=== PATIENT | female | born 1970 | race Caucasian/White ===

== ENCOUNTER 2018-09-24 18:37 | Emergency (ER) | payer MEDICAID ==
[~2018-09-24] VITALS: Ht 167.6 cm; Wt 63.5 kg
[2018-09-24 18:43] VITALS: BP 122/84
== END 2018-09-24 21:16 | disposition home or self-care (01) ==
LOC: EDUNIT# 18:37 → EDBD 18:37 → ER 18:38
DX: S60.351A Superficial foreign body of right thumb, initial encounter (principal); F17.210 Nicotine dependence, cigarettes, uncomplicated; F12.10 Cannabis abuse, uncomplicated; F15.10 Other stimulant abuse, uncomplicated; F32.9 Major depressive disorder, single episode, unspecified; F20.9 Schizophrenia, unspecified; Z76.5 Malingerer [conscious simulation]; W22.8XXA Striking against or struck by other objects, initial encounter; Y93.89 Activity, other specified; Y92.89 Other specified places as the place of occurrence of the external cause; Y99.8 Other external cause status

== ENCOUNTER 2019-08-27 11:51 | Inpatient (IN) | payer MEDICAID ==
[~2019-08-27] VITALS: Ht 167.6 cm; Wt 49.1 kg
[2019-08-27 12:35] LABS: Urine WBC None Seen /hpf (0 - 5)
[2019-08-27] MEDS ORDERED: SODIUM CHLORIDE 0.9% 1,000 ML IVB ONE (12:40)
[2019-08-27 12:43] LABS: Urine Bacteria NONE SEEN /hpf (None Seen); Urine Blood Negative /uL (Negative); Urine Specific Gravity 1.034 (1.001-1.035)
[2019-08-27 12:55] LABS: Alcohol, Urine < 3.0 mg/dL (0-10); Amphetamine Screen, Urine POSITIVE (NEGATIVE); Barbiturate Scree,Urine NEGATIVE (NEGATIVE); Benzodiazephine Screen, Urine NEGATIVE (NEGATIVE); Cannabinoid Screen, Urine NEGATIVE (NEGATIVE); Cocaine Screen, Urine NEGATIVE (NEGATIVE); Phencyclidine Screen, Urine NEGATIVE (NEGATIVE)
[2019-08-27 13:02] LABS: Opiate Scree,Urine NEGATIVE (NEGATIVE)
[2019-08-27] MEDS ORDERED: MORPHINE SULF INJ 2 MG/ML SYRINGE 1ML IV ONE (13:15)
[2019-08-27] MEDS ORDERED: ONDANSETRON HCL 4 MG/2 ML VIAL IV ONE (13:15)
[2019-08-27] MEDS ORDERED: SODIUM CHLORIDE 0.9% 1,000 ML IV ONE (13:15)
[2019-08-27 13:20] LABS: Basophils # (auto) 0.1 10 ^3/uL (0-0.2); Basophils % (auto) 0.4 % (0.0-2.0); Eosinophils # (auto) 0 10 ^3/uL (0-0.8); Hematocrit 49.4 % (36.0-46.0); Lymphocytes # (auto) 1.3 10 ^3/uL (0.4-5.4); Lymphocytes % (auto) 9.4 % (10.0-50.0); Mean Corpuscular Hemoglobin 31.2 pg (28.0-32.0); Mean Corpuscular Hgb Conc. 32.4 g/dL (32.0-36.0); Mean Corpuscular Volume 96.4 fL (80.0-100.0); Monocytes # (auto) 0.9 10 ^3/uL (0-1.3); Monocytes % (auto) 6.3 % (0.0-12.0); Neutrophils # (auto) 11.7 10 ^3/uL (1.6-8.6); Neutrophils % (auto) 83.9 % (37.0-80.0); Nucleated Red Blood Cells % 0.1 %; Platelet Count (auto) 300 10^3/uL (140-450); Red Blood Cells 5.13 10^6/uL (4.0-5.20); Red Cell Distribution Width 12.8 % (11.8-14.3)
[2019-08-27 13:41] LABS: Albumin 3.7 g/dL (3.4-5.0); Anion Gap 11 (5-15); Blood Urea Nitrogen 24 mg/dL (7-18); Calcium 9.6 mg/dL (8.5-10.1); Carbon Dioxide 22 mmol/L (21-32); Chloride 113 mmol/L (98-107); Magnesium 2.2 mg/dL (1.6-2.6); Potassium 4.3 mmol/L (3.5-5.1); Sodium 146 mmol/L (136-145)
[2019-08-27 13:44] LABS: Alanine Aminotransferase 239 U/L (13-56); Aspartate Aminotransferase 63 U/L (15-37); BUN/Creatinine Ratio 20.2; Bilirubin, Total 0.4 mg/dL (0.2-1.0); GFR African American 63 mL/min; GFR Non-African American 52 mL/min; Total Protein 7.4 g/dL (6.4-8.2)
[2019-08-27 13:48] LABS: Glucose 778 mg/dL (74-106)
[2019-08-27 13:50] LABS: Alkaline Phosphatase 164 U/L (45-117)
[2019-08-27 14:10] LABS: Lipase 6791 U/L (73-393)
[2019-08-27 14:11] LABS: Amylase 906 U/L (25-115)
[2019-08-27] MEDS ORDERED: InsuLIN REG 1unit/0.01ml Soln (100units/ml) IV ONE (14:30)
[2019-08-27] MEDS ORDERED: ONDANSETRON HCL 4 MG/2 ML VIAL IV PRN (18:45)
[2019-08-27] MEDS ORDERED: IPRATROPIUM BROM 0.5 MG/2.5ML INH SOL NEB PRN (18:45)
[2019-08-27] MEDS ORDERED: DEXTROSE (50%) 50ML SYRG IV PRN (18:45)
[2019-08-27] MEDS ORDERED: MORPHINE SULF INJ 2 MG/ML SYRINGE 1ML IV PRN ×2 (18:45)
[2019-08-27] MEDS ORDERED: ALBUTEROL SULF 2.5 MG/0.5ML(0.5%) NEB SOLN NEB PRN (18:45)
[2019-08-27] MEDS ORDERED: NITROGLYCERIN 0.4 MG SL TAB SL PRN (18:45)
[2019-08-27] MEDS: SODIUM CHLORIDE 0.9% 1,000 ML IV SCH (18:52)
[2019-08-27] MEDS: INSULIN LANTUS (GLARGINE) 1 /0.01ml (100units/ml) SC SCH ×2 (18:58→22:58)
[2019-08-27 19:20] VITALS: BP 134/86
[2019-08-27] MEDS: LORazepam 2MG/ML-1ML VIAL IV PRN (19:20)
[2019-08-27] MEDS: ACCU-CHEK COMFORT CURVE STRIP VI SCH ×2 (20:04→23:42)
[2019-08-27] MEDS: InsuLIN REG 1unit/0.01ml Soln (100units/ml) SC SCH ×2 (20:10→23:43)
[2019-08-27 21:45] VITALS: BP 130/90
[2019-08-27 22:41] LABS: BUN/Creatinine Ratio 28.1; Calcium 8.8 mg/dL (8.5-10.1); Magnesium 2.7 mg/dL (1.6-2.6); Phosphorus 2.6 mg/dL (2.5-4.90); Potassium 4.1 mmol/L (3.5-5.1)
[2019-08-27 23:32] VITALS: BP 129/84
[2019-08-28] MEDS: SODIUM CHLORIDE 0.9% 1,000 ML IV SCH ×2 (02:45→10:45)
[2019-08-28 03:28] LABS: Basophils # (auto) 0.1 10 ^3/uL (0-0.2); Basophils % (auto) 0.3 % (0.0-2.0); Eosinophils # (auto) 0 10 ^3/uL (0-0.8); Hematocrit 48.4 % (36.0-46.0); Hemoglobin 16.1 g/dL (12.2-16.2); Lymphocytes # (auto) 3.5 10 ^3/uL (0.4-5.4); Lymphocytes % (auto) 15.7 % (10.0-50.0); Mean Corpuscular Hemoglobin 31.5 pg (28.0-32.0); Mean Corpuscular Hgb Conc. 33.2 g/dL (32.0-36.0); Monocytes # (auto) 1.3 10 ^3/uL (0-1.3); Monocytes % (auto) 5.7 % (0.0-12.0); Neutrophils # (auto) 17.3 10 ^3/uL (1.6-8.6); Neutrophils % (auto) 78.3 % (37.0-80.0); Platelet Count (auto) 324 10^3/uL (140-450); Red Cell Distribution Width 12.8 % (11.8-14.3); White Blood Cell 22.2 10^3/uL (4.4-10.8)
[2019-08-28 03:48] LABS: Albumin 3.4 g/dL (3.4-5.0); Calcium 8.4 mg/dL (8.5-10.1); Magnesium 2.4 mg/dL (1.6-2.6); Potassium 3.9 mmol/L (3.5-5.1)
[2019-08-28 03:57] LABS: BUN/Creatinine Ratio 31.3; Bilirubin, Total 0.4 mg/dL (0.2-1.0); Phosphorus 2.5 mg/dL (2.5-4.90); Total Protein 6.8 g/dL (6.4-8.2)
[2019-08-28] MEDS: ACCU-CHEK COMFORT CURVE STRIP VI SCH ×5 (04:00→20:00)
[2019-08-28] MEDS: InsuLIN REG 1unit/0.01ml Soln (100units/ml) SC SCH ×5 (04:00→21:02)
[2019-08-28 04:15] VITALS: BP 136/61
[2019-08-28] MEDS: LORazepam 2MG/ML-1ML VIAL IV PRN (05:59)
[2019-08-28 08:00] VITALS: BP 139/88
[2019-08-28 12:00] VITALS: BP 141/92
[2019-08-28] MEDS ORDERED: VANCOMYCIN PER PHARMACY 0 MG IV SCH (13:15)
[2019-08-28] MEDS: SOD CHL 0.45% 1,000 ML IV SCH ×2 (14:00→22:13)
[2019-08-28 15:45] VITALS: BP 140/91
[2019-08-28] MEDS: VANCOMYCIN 1GM/250ML 250 ML IV SCH (16:14)
[2019-08-28] MEDS: NICOTINE 21MG/24 HR TOPICAL PATCH TD SCH (17:32)
[2019-08-28] MEDS: PIPERACILLIN-TAZOB 3.375GM 100 ML IV SCH (17:33)
[2019-08-28] MEDS: KETOROLAC TROMETH 30 MG/ML 1ML VIAL IV PRN (17:33)
[2019-08-28 20:00] VITALS: BP 113/79
[2019-08-28] MEDS: INSULIN LANTUS (GLARGINE) 1 /0.01ml (100units/ml) SC SCH (21:00)
[2019-08-28 23:42] VITALS: BP 123/87
[2019-08-29] MEDS: PIPERACILLIN-TAZOB 3.375GM 100 ML IV SCH ×4 (01:47→17:28)
[2019-08-29] MEDS: KETOROLAC TROMETH 30 MG/ML 1ML VIAL IV PRN ×2 (01:48→14:20)
[2019-08-29 03:31] LABS: Basophils # (auto) 0.1 10 ^3/uL (0-0.2); Basophils % (auto) 0.5 % (0.0-2.0); Eosinophils # (auto) 0.3 10 ^3/uL (0-0.8); Eosinophils % (auto) 1.8 % (0.0-7.0); Hematocrit 46.8 % (36.0-46.0); Hemoglobin 15.3 g/dL (12.2-16.2); Mean Corpuscular Hemoglobin 31.4 pg (28.0-32.0); Mean Corpuscular Hgb Conc. 32.7 g/dL (32.0-36.0); Mean Corpuscular Volume 95.9 fL (80.0-100.0); Monocytes % (auto) 6.6 % (0.0-12.0); Neutrophils # (auto) 10.7 10 ^3/uL (1.6-8.6); Neutrophils % (auto) 71.1 % (37.0-80.0); Nucleated Red Blood Cells % 0.1 %; Platelet Count (auto) 214 10^3/uL (140-450); Red Blood Cells 4.88 10^6/uL (4.0-5.20); Red Cell Distribution Width 12.9 % (11.8-14.3); White Blood Cell 15.1 10^3/uL (4.4-10.8)
[2019-08-29 03:49] LABS: Albumin 2.7 g/dL (3.4-5.0); Calcium 7.6 mg/dL (8.5-10.1); Potassium 3.1 mmol/L (3.5-5.1)
[2019-08-29 03:58] LABS: Bilirubin, Total 0.4 mg/dL (0.2-1.0); Total Protein 5.6 g/dL (6.4-8.2)
[2019-08-29] MEDS: InsuLIN REG 1unit/0.01ml Soln (100units/ml) SC SCH ×6 (04:00→20:15)
[2019-08-29] MEDS: ACCU-CHEK COMFORT CURVE STRIP VI SCH ×6 (04:00→20:00)
[2019-08-29 04:18] VITALS: BP 117/81
[2019-08-29 04:37] LABS: BUN/Creatinine Ratio 41.7
[2019-08-29] MEDS: SOD CHL 0.45% 1,000 ML IV SCH ×3 (06:24→21:15)
[2019-08-29 08:00] VITALS: BP 120/82
[2019-08-29] MEDS ORDERED: POTASSIUM CHL 20MEQ/100ML 100 ML IV ONE (08:00)
[2019-08-29] MEDS: NICOTINE 21MG/24 HR TOPICAL PATCH TD SCH (10:02)
[2019-08-29 11:54] VITALS: BP 125/85
[2019-08-29] MEDS: VANCOMYCIN 1GM/250ML 250 ML IV SCH (14:20)
[2019-08-29 15:33] VITALS: BP 131/82
[2019-08-29 20:00] VITALS: BP 133/86
[2019-08-29] MEDS: INSULIN LANTUS (GLARGINE) 1 /0.01ml (100units/ml) SC SCH (22:35)
[2019-08-30] VITALS: BP 134/90
[2019-08-30] MEDS: PIPERACILLIN-TAZOB 3.375GM 100 ML IV SCH ×5 (00:07→23:45)
[2019-08-30] MEDS: ACCU-CHEK COMFORT CURVE STRIP VI SCH ×7 (00:09→23:45)
[2019-08-30 03:03] LABS: Basophils # (auto) 0.1 10 ^3/uL (0-0.2); Basophils % (auto) 0.5 % (0.0-2.0); Eosinophils # (auto) 0.4 10 ^3/uL (0-0.8); Hematocrit 43.2 % (36.0-46.0); Hemoglobin 14.4 g/dL (12.2-16.2); Lymphocytes # (auto) 2.6 10 ^3/uL (0.4-5.4); Lymphocytes % (auto) 21.4 % (10.0-50.0); Mean Corpuscular Hemoglobin 31.5 pg (28.0-32.0); Mean Corpuscular Hgb Conc. 33.4 g/dL (32.0-36.0); Mean Corpuscular Volume 94.5 fL (80.0-100.0); Monocytes # (auto) 0.8 10 ^3/uL (0-1.3); Neutrophils # (auto) 8.2 10 ^3/uL (1.6-8.6); Neutrophils % (auto) 68.1 % (37.0-80.0); Nucleated Red Blood Cells % 0.1 %; Platelet Count (auto) 154 10^3/uL (140-450); Red Blood Cells 4.57 10^6/uL (4.0-5.20); Red Cell Distribution Width 12.9 % (11.8-14.3)
[2019-08-30] MEDS: KETOROLAC TROMETH 30 MG/ML 1ML VIAL IV PRN ×2 (03:17→10:33)
[2019-08-30 03:25] LABS: Albumin 2.5 g/dL (3.4-5.0); BUN/Creatinine Ratio 22.9; Calcium 7.4 mg/dL (8.5-10.1); Potassium 3.2 mmol/L (3.5-5.1)
[2019-08-30 03:34] LABS: Bilirubin, Total 0.6 mg/dL (0.2-1.0); Total Protein 5.3 g/dL (6.4-8.2)
[2019-08-30] MEDS: InsuLIN REG 1unit/0.01ml Soln (100units/ml) SC SCH ×7 (03:54→23:45)
[2019-08-30] MEDS: SOD CHL 0.45% 1,000 ML IV SCH ×3 (05:15→21:15)
[2019-08-30 05:40] VITALS: BP 115/78
[2019-08-30 09:00] VITALS: BP 130/85
[2019-08-30] MEDS: NICOTINE 21MG/24 HR TOPICAL PATCH TD SCH (10:20)
[2019-08-30 12:42] VITALS: BP 128/71
[2019-08-30] MEDS: VANCOMYCIN 1GM/250ML 250 ML IV SCH (15:53)
[2019-08-30] MEDS: LORazepam 2MG/ML-1ML VIAL IV PRN (15:54)
[2019-08-30 17:00] VITALS: BP 153/95
[2019-08-30] MEDS: INSULIN LANTUS (GLARGINE) 1 /0.01ml (100units/ml) SC SCH (21:31)
[2019-08-30 22:00] VITALS: BP 123/86
[2019-08-31] MEDS: InsuLIN REG 1unit/0.01ml Soln (100units/ml) SC SCH ×4 (03:47→16:00)
[2019-08-31] MEDS: ACCU-CHEK COMFORT CURVE STRIP VI SCH ×4 (03:47→16:00)
[2019-08-31 05:00] VITALS: BP 134/89
[2019-08-31] MEDS: SOD CHL 0.45% 1,000 ML IV SCH ×2 (05:15→13:15)
[2019-08-31] MEDS: PIPERACILLIN-TAZOB 3.375GM 100 ML IV SCH ×2 (06:25→12:00)
[2019-08-31 09:00] VITALS: BP 141/89
[2019-08-31 09:04] LABS: Basophils # (auto) 0 10 ^3/uL (0-0.2); Basophils % (auto) 0.5 % (0.0-2.0); Eosinophils # (auto) 0.2 10 ^3/uL (0-0.8); Eosinophils % (auto) 2.2 % (0.0-7.0); Hematocrit 45.6 % (36.0-46.0); Hemoglobin 15.3 g/dL (12.2-16.2); Lymphocytes # (auto) 2.3 10 ^3/uL (0.4-5.4); Lymphocytes % (auto) 24.1 % (10.0-50.0); Mean Corpuscular Hemoglobin 31.8 pg (28.0-32.0); Mean Corpuscular Hgb Conc. 33.6 g/dL (32.0-36.0); Mean Corpuscular Volume 94.7 fL (80.0-100.0); Monocytes # (auto) 0.6 10 ^3/uL (0-1.3); Monocytes % (auto) 6.1 % (0.0-12.0); Neutrophils # (auto) 6.3 10 ^3/uL (1.6-8.6); Neutrophils % (auto) 67.1 % (37.0-80.0); Nucleated Red Blood Cells % 0.2 %; Platelet Count (auto) 138 10^3/uL (140-450); Red Blood Cells 4.82 10^6/uL (4.0-5.20); Red Cell Distribution Width 12.6 % (11.8-14.3); White Blood Cell 9.4 10^3/uL (4.4-10.8)
[2019-08-31 09:26] LABS: Potassium 3.6 mmol/L (3.5-5.1)
[2019-08-31 09:33] LABS: BUN/Creatinine Ratio 16.3; Calcium 7.9 mg/dL (8.5-10.1)
[2019-08-31] MEDS: NICOTINE 21MG/24 HR TOPICAL PATCH TD SCH (10:00)
[2019-08-31 13:00] VITALS: BP 125/76
== END 2019-08-31 16:07 | disposition home or self-care (01) | DRG 282 ==
LOC: EDBD 11:51 → ER 11:51 → TELE 11:52 → DOU IN ICU 21:54 → TELE-EAST 08-30 03:34
PROVIDERS: ADMIT Nurse Practitioner Acute Care; ATTEND Internal Medicine
DX: K85.90 Acute pancreatitis without necrosis or infection, unspecified (principal); G92 Toxic encephalopathy; E11.10 Type 2 diabetes mellitus with ketoacidosis without coma; R64 Cachexia; E11.22 Type 2 diabetes mellitus with diabetic chronic kidney disease; R65.10 Systemic inflammatory response syndrome (SIRS) of non-infectious origin without acute organ dysfunction; E87.0 Hyperosmolality and hypernatremia; N18.3 Chronic kidney disease, stage 3 (moderate); E86.0 Dehydration; F15.10 Other stimulant abuse, uncomplicated; F17.210 Nicotine dependence, cigarettes, uncomplicated; F20.9 Schizophrenia, unspecified; F19.10 Other psychoactive substance abuse, uncomplicated; F31.9 Bipolar disorder, unspecified; Z91.14 Patient's other noncompliance with medication regimen; Z90.710 Acquired absence of both cervix and uterus; Z79.899 Other long term (current) drug therapy; Z68.1 Body mass index [BMI] 19.9 or less, adult; Z11.59 Encounter for screening for other viral diseases; K76.0 Fatty (change of) liver, not elsewhere classified
CPT/HCPCS: 36415; 71045; 74176; 80048; 80053; 80061; 80307; 81001; 82010; 82150; 82962; 83036; 83690; 83735; 84100; 84443; 84484; 85025; 87040; 87081; 87086; 93005; 96361; 96374; 96375; G0378; J1815; J1885; J2405; J2543; J3480

== ENCOUNTER 2020-02-21 04:00 | Inpatient (IN) | payer MEDICAID ==
[~2020-02-21] VITALS: Ht 160 cm; Wt 45.7 kg
[2020-02-21] MEDS ORDERED: ONDANSETRON HCL 4 MG/2 ML VIAL IV ONE (05:00)
[2020-02-21] MEDS ORDERED: InsuLIN REG 1unit/0.01ml Soln (100units/ml) IV ONE (05:00)
[2020-02-21] MEDS ORDERED: KETOROLAC TROMETH 30 MG/ML 1ML VIAL IV ONE (05:00)
[2020-02-21] MEDS ORDERED: LORazepam 2MG/ML-1ML VIAL IV ONE (05:00)
[2020-02-21] MEDS ORDERED: SODIUM CHLORIDE 0.9% 1,000 ML IV ONE (05:00)
[2020-02-21 05:23] LABS: Basophils # (auto) 0.1 10 ^3/uL (0-0.2); Basophils % (auto) 1.1 % (0.0-2.0); Lymphocytes # (auto) 2.2 10 ^3/uL (0.4-5.4); White Blood Cell 9.3 10^3/uL (4.4-10.8)
[2020-02-21 05:25] LABS: Eosinophils # (auto) 0.1 10 ^3/uL (0-0.8); Eosinophils % (auto) 0.6 % (0.0-7.0); Hemoglobin 15.3 g/dL (12.2-16.2); Lymphocytes % (auto) 23.5 % (10.0-50.0); Mean Corpuscular Hemoglobin 34.2 pg (28.0-32.0); Mean Corpuscular Hgb Conc. 33.2 g/dL (32.0-36.0); Monocytes # (auto) 0.4 10 ^3/uL (0-1.3); Monocytes % (auto) 4.7 % (0.0-12.0); Neutrophils # (auto) 6.6 10 ^3/uL (1.6-8.6); Neutrophils % (auto) 70.1 % (37.0-80.0); Nucleated Red Blood Cells % 0.2 %; Platelet Count (auto) 260 10^3/uL (140-450); Red Blood Cells 4.46 10^6/uL (4.0-5.20); Red Cell Distribution Width 13.3 % (11.8-14.3)
[2020-02-21 05:38] LABS: Albumin 3.3 g/dL (3.4-5.0); Calcium 9.1 mg/dL (8.5-10.1); Magnesium 2.1 mg/dL (1.6-2.6); Potassium 4.2 mmol/L (3.5-5.1)
[2020-02-21 05:42] LABS: BUN/Creatinine Ratio 22.4; Bilirubin, Total 0.4 mg/dL (0.2-1.0); Total Protein 6.2 g/dL (6.4-8.2)
[2020-02-21] MEDS ORDERED: TEMAZEPAM 15 MG CAP PO PRN (07:45)
[2020-02-21] MEDS ORDERED: DEXTROSE (50%) 50ML SYRG IV PRN ×2 (07:45→13:15)
[2020-02-21] MEDS ORDERED: ONDANSETRON HCL 4 MG/2 ML VIAL IV PRN (07:45)
[2020-02-21] MEDS ORDERED: SODIUM CHLORIDE 0.9% 500 ML IV ONE (07:45)
[2020-02-21] MEDS ORDERED: SODIUM CHLORIDE 0.9% 1,000 ML IV SCH (07:45)
[2020-02-21] MEDS ORDERED: ACETAMINOPHEN 325 MG TAB PO PRN (07:45)
[2020-02-21 10:07] LABS: Alcohol, Urine < 3.0 mg/dL (0-10); Amphetamine Screen, Urine POSITIVE (NEGATIVE); Barbiturate Scree,Urine NEGATIVE (NEGATIVE); Benzodiazephine Screen, Urine NEGATIVE (NEGATIVE); Cannabinoid Screen, Urine POSITIVE (NEGATIVE); Cocaine Screen, Urine NEGATIVE (NEGATIVE); Opiate Scree,Urine NEGATIVE (NEGATIVE); Phencyclidine Screen, Urine NEGATIVE (NEGATIVE)
[2020-02-21 10:29] LABS: Urine Bacteria NONE SEEN /hpf (None Seen); Urine Blood TRACE /uL (Negative); Urine Specific Gravity 1.031 (1.001-1.035); Urine WBC 5 /hpf (0 - 5)
[2020-02-21] MEDS: FAMOTIDINE 20 MG TAB PO SCH ×2 (10:30→22:24)
[2020-02-21] MEDS ORDERED: ACCU-CHEK COMFORT CURVE STRIP VI SCH (12:00)
[2020-02-21] MEDS ORDERED: InsuLIN REG 1unit/0.01ml Soln (100units/ml) SC SCH (12:00)
[2020-02-21 12:08] LABS: BUN/Creatinine Ratio 23.1; Calcium 7.6 mg/dL (8.5-10.1); Potassium 3.9 mmol/L (3.5-5.1)
[2020-02-21] MEDS: SODIUM CHLORIDE 0.9% 1,000 ML IV SCH ×2 (13:15→19:55)
[2020-02-21 15:00] VITALS: BP 115/75
[2020-02-21 16:55] VITALS: BP 109/80
[2020-02-21] MEDS: ACCU-CHEK COMFORT CURVE STRIP VI SCH (18:45)
[2020-02-21] MEDS: InsuLIN REG 1unit/0.01ml Soln (100units/ml) SC SCH (18:46)
[2020-02-21 22:00] VITALS: BP 104/75
[2020-02-22] MEDS: InsuLIN REG 1unit/0.01ml Soln (100units/ml) SC SCH ×3 (00:07→12:00)
[2020-02-22] MEDS: ACCU-CHEK COMFORT CURVE STRIP VI SCH ×3 (00:08→12:00)
[2020-02-22 05:00] VITALS: BP 104/77
[2020-02-22] MEDS: SODIUM CHLORIDE 0.9% 1,000 ML IV SCH ×2 (05:07→09:15)
[2020-02-22 06:41] LABS: BUN/Creatinine Ratio 28.6; Calcium 7.6 mg/dL (8.5-10.1); Potassium 3.2 mmol/L (3.5-5.1)
[2020-02-22] MEDS ORDERED: POTASSIUM CHL 20 Meq TABLET PO ONE (07:30)
[2020-02-22 09:00] VITALS: BP 108/78
[2020-02-22] MEDS: FAMOTIDINE 20 MG TAB PO SCH (10:14)
[2020-02-22 11:08] VITALS: BP 108/78
== END 2020-02-22 13:00 | disposition home or self-care (01) | DRG 420 ==
LOC: ER 04:04 → OVERFLOW 04:05 → WEST WING 14:40
PROVIDERS: ADMIT Nurse Practitioner; ATTEND Family Medicine
DX: E11.65 Type 2 diabetes mellitus with hyperglycemia (principal); R64 Cachexia; Z68.1 Body mass index [BMI] 19.9 or less, adult; F15.10 Other stimulant abuse, uncomplicated; F17.210 Nicotine dependence, cigarettes, uncomplicated; F20.9 Schizophrenia, unspecified; E86.0 Dehydration; F32.9 Major depressive disorder, single episode, unspecified; I10 Essential (primary) hypertension; Z90.710 Acquired absence of both cervix and uterus; Z91.14 Patient's other noncompliance with medication regimen; Z80.7 Family history of other malignant neoplasms of lymphoid, hematopoietic and related tissues; Z79.4 Long term (current) use of insulin
CPT/HCPCS: 36415; 51702; 71045; 80048; 80053; 80307; 81001; 81025; 82962; 83036; 83735; 83880; 85025; 93005; 96361; 96374; 96375; G0378; J1815; J1885; J2405

== ENCOUNTER 2021-07-24 01:20 | Emergency (ER) | payer MEDICAID ==
[~2021-07-24] VITALS: Ht 157.5 cm; Wt 52.2 kg
[2021-07-24 02:25] LABS: Basophils # (auto) 0.2 10 ^3/uL (0-0.2); Eosinophils # (auto) 0.3 10 ^3/uL (0-0.8); Eosinophils % (auto) 1.8 % (0.0-7.0); Hematocrit 43.2 % (36.0-46.0); Hemoglobin 15.1 g/dL (12.2-16.2); Lymphocytes # (auto) 5.1 10 ^3/uL (0.4-5.4); Lymphocytes % (auto) 34.1 % (10.0-50.0); Mean Corpuscular Hemoglobin 32.9 pg (28.0-32.0); Mean Corpuscular Hgb Conc. 34.9 g/dL (32.0-36.0); Mean Corpuscular Volume 94.3 fL (80.0-100.0); Monocytes # (auto) 1.1 10 ^3/uL (0-1.3); Monocytes % (auto) 7.5 % (0.0-12.0); Neutrophils # (auto) 8.3 10 ^3/uL (1.6-8.6); Neutrophils % (auto) 55.6 % (37.0-80.0); Red Blood Cells 4.58 10^6/uL (4.0-5.20); Red Cell Distribution Width 12.5 % (11.8-14.3)
[2021-07-24 02:49] LABS: Albumin 3.2 g/dL (3.4-5.0); BUN/Creatinine Ratio 25.9; Calcium 8.7 mg/dL (8.5-10.1); Potassium 3.7 mmol/L (3.5-5.1)
[2021-07-24 02:57] LABS: Bilirubin, Total 0.5 mg/dL (0.2-1.0); Total Protein 6.7 g/dL (6.4-8.2)
[2021-07-24] MEDS ORDERED: InsuLIN REG 1unit/0.01ml Soln (100units/ml) SC ONE (03:15)
[2021-07-24] MEDS ORDERED: SODIUM CHLORIDE 0.9% 1,000 ML IV ONE (04:15)
[2021-07-24 05:00] VITALS: BP 118/76
== END 2021-07-24 05:50 | disposition home or self-care (01) ==
LOC: EDBD 01:20 → ER 01:24
DX: E11.65 Type 2 diabetes mellitus with hyperglycemia (principal); I10 Essential (primary) hypertension; F17.210 Nicotine dependence, cigarettes, uncomplicated; Z90.710 Acquired absence of both cervix and uterus
CPT/HCPCS: 36415; 80053; 82962; 85025; 96360; 96372; 99285; J1815; J7030

== ENCOUNTER 2022-03-17 15:25 | Emergency (ER) | payer MEDICAID ==
[~2022-03-17] VITALS: Ht 157.5 cm; Wt 45.4 kg
[2022-03-18] MEDS ORDERED: CIPR-173 PO (02:17)
[2022-03-18] MEDS ORDERED: AZIT250T9 PO (02:17)
[2022-03-18] MEDS ORDERED: CEPH-322 PO (02:17)
[2022-03-18 03:06] VITALS: BP 101/74
== END 2022-03-18 03:07 | disposition home or self-care (01) ==
LOC: EDBD 15:25 → ER 15:25
DX: H60.92 Unspecified otitis externa, left ear (principal); J06.9 Acute upper respiratory infection, unspecified; L03.114 Cellulitis of left upper limb; I10 Essential (primary) hypertension; E11.9 Type 2 diabetes mellitus without complications; F17.210 Nicotine dependence, cigarettes, uncomplicated; Z90.710 Acquired absence of both cervix and uterus; Z59.00 Homelessness unspecified

== ENCOUNTER 2022-04-08 15:33 | Inpatient (IN) | payer MEDICAID ==
[~2022-04-08] VITALS: Ht 152.4 cm; Wt 37.0 kg
[~2022-04-08 15:33] MED LIST: AZIT250T9 PO; CEPH-322 PO; CIPR-173 PO
[2022-04-08] MEDS ORDERED: SODIUM CHLORIDE 0.9% 1,000 ML IV ONE ×2 (16:15)
[2022-04-08 17:08] LABS: Basophils # (auto) 0 10 ^3/uL (0-0.2); Basophils % (auto) 0.1 % (0.0-2.0); Eosinophils # (auto) 0 10 ^3/uL (0-0.8); Lymphocytes # (auto) 1.3 10 ^3/uL (0.4-5.4)
[2022-04-08 17:10] LABS: Eosinophils % (auto) 0.1 % (0.0-7.0); Hematocrit 45.3 % (36.0-46.0); Lymphocytes % (auto) 11.1 % (10.0-50.0); Mean Corpuscular Hemoglobin 31.5 pg (28.0-32.0); Mean Corpuscular Hgb Conc. 33.1 g/dL (32.0-36.0); Mean Corpuscular Volume 95.4 fL (80.0-100.0); Monocytes # (auto) 0.3 10 ^3/uL (0-1.3); Monocytes % (auto) 2.6 % (0.0-12.0); Neutrophils # (auto) 9.7 10 ^3/uL (1.6-8.6); Neutrophils % (auto) 86.1 % (37.0-80.0); Red Blood Cells 4.75 10^6/uL (4.0-5.20); White Blood Cell 11.3 10^3/uL (4.4-10.8)
[2022-04-08 17:32] LABS: Albumin 3.1 g/dL (3.4-5.0); BUN/Creatinine Ratio 34.3; Calcium 8.8 mg/dL (8.5-10.1); Potassium 4.2 mmol/L (3.5-5.1)
[2022-04-08 17:35] LABS: Bilirubin, Total 0.3 mg/dL (0.2-1.0); Total Protein 7.7 g/dL (6.4-8.2)
[2022-04-08] MEDS ORDERED: DEXTROSE 50% SYRINGE 50 ML IV ONE (18:04)
[2022-04-08] MEDS ORDERED: DEXTROSE (50%) 50ML SYRG IV ONE (18:30)
[2022-04-08] MEDS ORDERED: cefTRIAXone 1GM/50ML D5W 50 ML IV ONE (21:00)
[2022-04-08] MEDS ORDERED: PANTOPRAZOLE 40 MG TAB PO ONE (21:00)
[2022-04-08] MEDS ORDERED: DEXTROSE (50%) 50ML SYRG IV PRN ×2 (21:00→21:15)
[2022-04-08] MEDS ORDERED: LORazepam 2MG/ML-1ML VIAL IV ONE (21:00)
[2022-04-08] MEDS ORDERED: THIAMINE HCL 100 MG TAB PO ONE (21:15)
[2022-04-08] MEDS ORDERED: chlordiazePOXIDE HCL 25 MG CAP PO ONE (21:15)
[2022-04-08] MEDS ORDERED: B-COMPLEX W/ C & FOLIC ACID(NEPHROVITE TAB) PO ONE (21:15)
[2022-04-08] MEDS: InsuLIN REG 1unit/0.01ml Soln (100units/ml) SC SCH (22:00)
[2022-04-08] MEDS: SODIUM CHLORIDE 0.9% 1,000 ML IV SCH (22:08)
[2022-04-08] MEDS: ACCU-CHEK COMFORT CURVE STRIP VI SCH (22:22)
[2022-04-08] MEDS: chlordiazePOXIDE HCL 25 MG CAP PO SCH (23:58)
[2022-04-09 00:19] LABS: Alcohol, Urine < 3.0 mg/dL (0-10); Amphetamine Screen, Urine POSITIVE (NEGATIVE); Barbiturate Scree,Urine NEGATIVE (NEGATIVE); Benzodiazephine Screen, Urine NEGATIVE (NEGATIVE); Cannabinoid Screen, Urine POSITIVE (NEGATIVE); Cocaine Screen, Urine NEGATIVE (NEGATIVE); Phencyclidine Screen, Urine NEGATIVE (NEGATIVE); Urine Amorphous Crystal FEW /hpf (None Seen); Urine Bacteria NONE SEEN /hpf (None Seen); Urine Blood Negative /uL (Negative); Urine Budding Yeast MANY /hpf (None Seen); Urine Specific Gravity 1.007 (1.001-1.035); Urine WBC 3 /hpf (0 - 5)
[2022-04-09 00:27] LABS: Opiate Scree,Urine NEGATIVE (NEGATIVE)
[2022-04-09] MEDS: chlordiazePOXIDE HCL 25 MG CAP PO SCH ×4 (03:20→21:22)
[2022-04-09] MEDS: ACETAMINOPHEN 325 MG TAB PO PRN ×2 (06:16→23:15)
[2022-04-09] MEDS: ALPRAZolam 0.5 MG TAB PO PRN ×2 (06:16→15:43)
[2022-04-09 06:21] LABS: Eosinophils # (auto) 0 10 ^3/uL (0-0.8); Monocytes # (auto) 0.5 10 ^3/uL (0-1.3); Neutrophils # (auto) 6.9 10 ^3/uL (1.6-8.6); Red Cell Distribution Width 14.8 % (11.8-14.3); White Blood Cell 10.3 10^3/uL (4.4-10.8)
[2022-04-09] MEDS: ACCU-CHEK COMFORT CURVE STRIP VI SCH ×4 (06:21→23:39)
[2022-04-09] MEDS: InsuLIN REG 1unit/0.01ml Soln (100units/ml) SC SCH ×3 (06:21→18:39)
[2022-04-09 06:24] LABS: Basophils # (auto) 0 10 ^3/uL (0-0.2); Basophils % (auto) 0.4 % (0.0-2.0); Eosinophils % (auto) 0.2 % (0.0-7.0); Hematocrit 37.4 % (36.0-46.0); Hemoglobin 13.2 g/dL (12.2-16.2); Lymphocytes # (auto) 2.9 10 ^3/uL (0.4-5.4); Lymphocytes % (auto) 27.6 % (10.0-50.0); Mean Corpuscular Hemoglobin 33.3 pg (28.0-32.0); Mean Corpuscular Hgb Conc. 35.3 g/dL (32.0-36.0); Mean Corpuscular Volume 94.4 fL (80.0-100.0); Monocytes % (auto) 4.6 % (0.0-12.0); Neutrophils % (auto) 67.2 % (37.0-80.0); Red Blood Cells 3.96 10^6/uL (4.0-5.20)
[2022-04-09 07:09] LABS: Albumin 2.6 g/dL (3.4-5.0); Calcium 8.5 mg/dL (8.5-10.1); Potassium 4.2 mmol/L (3.5-5.1)
[2022-04-09 07:14] LABS: BUN/Creatinine Ratio 29.2; Bilirubin, Total 0.3 mg/dL (0.2-1.0); Total Protein 6.5 g/dL (6.4-8.2)
[2022-04-09] MEDS: cefTRIAXone 1GM/50ML D5W 50 ML IV SCH (08:50)
[2022-04-09] MEDS: THIAMINE HCL 100 MG TAB PO SCH (08:51)
[2022-04-09] MEDS: B-COMPLEX W/ C & FOLIC ACID(NEPHROVITE TAB) PO SCH (08:51)
[2022-04-09] MEDS: ENOXAPARIN SOD 30 MG/0.3 ML SYRINGE SC SCH (08:52)
[2022-04-09] MEDS ORDERED: ENOXAPARIN SOD 40 MG/0.4 ML SYRINGE SC SCH (10:00)
[2022-04-09] MEDS ORDERED: PANTOPRAZOLE 40 MG TAB PO SCH (10:00)
[2022-04-09] MEDS: SODIUM CHLORIDE 0.9% 1,000 ML IV SCH (12:00)
[2022-04-09] MEDS ORDERED: THROAT LOZENGES(CEPASTAT) MT PRN (17:45)
[2022-04-09] MEDS: QUEtiapine FUMARATE 25 MG TAB PO SCH (23:15)
[2022-04-09] MEDS ORDERED: InsuLIN REG 1unit/0.01ml Soln (100units/ml) SC ONE (23:45)
[2022-04-10] MEDS: SODIUM CHLORIDE 0.9% 1,000 ML IV SCH ×2 (01:36→14:43)
[2022-04-10] MEDS: chlordiazePOXIDE HCL 25 MG CAP PO SCH ×3 (03:40→14:43)
[2022-04-10 05:00] VITALS: BP 109/65
[2022-04-10] MEDS: ACCU-CHEK COMFORT CURVE STRIP VI SCH ×2 (06:29→11:51)
[2022-04-10] MEDS: InsuLIN REG 1unit/0.01ml Soln (100units/ml) SC SCH ×2 (06:30→11:51)
[2022-04-10 09:00] VITALS: BP 96/62
[2022-04-10] MEDS: QUEtiapine FUMARATE 25 MG TAB PO SCH (09:51)
[2022-04-10] MEDS: THIAMINE HCL 100 MG TAB PO SCH (09:51)
[2022-04-10] MEDS: B-COMPLEX W/ C & FOLIC ACID(NEPHROVITE TAB) PO SCH (09:51)
[2022-04-10] MEDS: ENOXAPARIN SOD 30 MG/0.3 ML SYRINGE SC SCH (09:51)
[2022-04-10] MEDS: cefTRIAXone 1GM/50ML D5W 50 ML IV SCH (09:52)
[2022-04-10 13:00] VITALS: BP 110/74
[2022-04-10] MEDS: ALPRAZolam 0.5 MG TAB PO PRN (14:44)
[2022-04-10] MEDS ORDERED: MULT-351 PO (15:17)
[2022-04-10] MEDS ORDERED: QUET1TAB11 PO ×2 (15:17→16:13)
[2022-04-10 15:35] VITALS: BP 110/74
== END 2022-04-10 16:45 | disposition home or self-care (01) | DRG 420 ==
LOC: ER 15:33 → EDBD 15:33 → ER 16:07 → OVERFLOW 21:00 → CENTRAL 04-09 21:52
PROVIDERS: ADMIT Nurse Practitioner Family; ATTEND Hospitalist
DX: E10.649 Type 1 diabetes mellitus with hypoglycemia without coma (principal); R64 Cachexia; E10.65 Type 1 diabetes mellitus with hyperglycemia; D72.829 Elevated white blood cell count, unspecified; E87.1 Hypo-osmolality and hyponatremia; F10.10 Alcohol abuse, uncomplicated; Z20.822 Contact with and (suspected) exposure to COVID-19; F20.9 Schizophrenia, unspecified; F32.A Depression, unspecified; F41.9 Anxiety disorder, unspecified; F15.10 Other stimulant abuse, uncomplicated; F17.210 Nicotine dependence, cigarettes, uncomplicated; I10 Essential (primary) hypertension; Z91.14 Patient's other noncompliance with medication regimen; Z56.0 Unemployment, unspecified; Z68.1 Body mass index [BMI] 19.9 or less, adult; Z90.710 Acquired absence of both cervix and uterus; Z80.7 Family history of other malignant neoplasms of lymphoid, hematopoietic and related tissues; Z59.02 Unsheltered homelessness; Z79.4 Long term (current) use of insulin
CPT/HCPCS: 36415; 70450; 71045; 80053; 80307; 81001; 82962; 83036; 84484; 85025; 86706; 87040; 87081; 87426; 93005; 96361; 96374; 96375; 99291; G0378; J0696; J1815

== ENCOUNTER 2022-07-29 10:45 | Inpatient (IN) | payer MEDICAID ==
[~2022-07-29] VITALS: Ht 157.5 cm; Wt 0.5 kg
[~2022-07-29 10:45] MED LIST changes: -AZIT250T9 PO; +BLOO-169 XX; +BUSP10TA90 PO; -CEPH-322 PO; -CIPR-173 PO; +GLIM1TAB PO; +INSLANTI SC; +MULT-351 PO; +QUET1TAB11 PO
[2022-07-29] MEDS ORDERED: DEXTROSE (50%) 50ML SYRG IV PRN (11:00)
[2022-07-29] MEDS ORDERED: INSULIN LANTUS (GLARGINE) 1 /0.01ml (100units/ml) SC ONE (11:00)
[2022-07-29] MEDS ORDERED: SODIUM CHLORIDE 0.9% 1,000 ML IVB ONE (11:00)
[2022-07-29] MEDS ORDERED: InsuLIN R (HUMAN) 100 UNITS in SODIUM CHL 0.9% 99 ML IV SCH (11:00)
[2022-07-29 11:22] LABS: Basophils # (auto) 0.1 10 ^3/uL (0-0.2); Eosinophils # (auto) 0 10 ^3/uL (0-0.8); Lymphocytes # (auto) 1.9 10 ^3/uL (0.4-5.4); Lymphocytes % (auto) 26.6 % (10.0-50.0); Monocytes # (auto) 0.3 10 ^3/uL (0-1.3); Neutrophils # (auto) 4.8 10 ^3/uL (1.6-8.6); Nucleated Red Blood Cells % 0.1 %
[2022-07-29 11:24] LABS: Basophils % (auto) 1.3 % (0.0-2.0); Eosinophils % (auto) 0.3 % (0.0-7.0); Hematocrit 50.5 % (36.0-46.0); Hemoglobin 16.3 g/dL (12.2-16.2); Mean Corpuscular Hemoglobin 32.9 pg (28.0-32.0); Mean Corpuscular Hgb Conc. 32.3 g/dL (32.0-36.0); Mean Corpuscular Volume 101.9 fL (80.0-100.0); Monocytes % (auto) 4.2 % (0.0-12.0); Neutrophils % (auto) 67.6 % (37.0-80.0); Red Blood Cells 4.96 10^6/uL (4.0-5.20); Red Cell Distribution Width 13.7 % (11.8-14.3); White Blood Cell 7.1 10^3/uL (4.4-10.8)
[2022-07-29 11:47] LABS: Albumin 3.4 g/dL (3.4-5.0); Anion Gap 18 (5-15); Blood Alcohol < 3.0 mg/dL (0-5); Blood Urea Nitrogen 26 mg/dL (7-18); Calcium 9.3 mg/dL (8.5-10.1); Carbon Dioxide 13 mmol/L (21-32); Chloride 100 mmol/L (98-107); Magnesium 2.1 mg/dL (1.6-2.6); Potassium 4.3 mmol/L (3.5-5.1); Sodium 131 mmol/L (136-145)
[2022-07-29 11:56] LABS: Alanine Aminotransferase 218 U/L (13-56); Alkaline Phosphatase 176 U/L (45-117); Aspartate Aminotransferase 99 U/L (15-37); BUN/Creatinine Ratio 28.9 (10.0-20.0); Bilirubin, Total 0.8 mg/dL (0.2-1.0); GFR African American 85 mL/min; GFR Non-African American 70 mL/min; Total Protein 7.6 g/dL (6.4-8.2)
[2022-07-29] MEDS: ACCU-CHEK COMFORT CURVE STRIP VI SCH ×8 (12:00→22:52)
[2022-07-29 12:22] LABS: Glucose 607 mg/dL (74-106)
[2022-07-29 13:48] LABS: Urine Bacteria NONE SEEN /hpf (None Seen); Urine Blood Negative /uL (Negative); Urine Specific Gravity 1.027 (1.001-1.035); Urine WBC <1 /hpf (0 - 5)
[2022-07-29 14:09] LABS: Alcohol, Urine < 3.0 mg/dL (0-10); Amphetamine Screen, Urine POSITIVE (NEGATIVE); Barbiturate Scree,Urine NEGATIVE (NEGATIVE); Benzodiazephine Screen, Urine NEGATIVE (NEGATIVE); Cannabinoid Screen, Urine NEGATIVE (NEGATIVE); Cocaine Screen, Urine NEGATIVE (NEGATIVE); Opiate Scree,Urine NEGATIVE (NEGATIVE); Phencyclidine Screen, Urine NEGATIVE (NEGATIVE)
[2022-07-29] MEDS ORDERED: MORPHINE SULFATE INJ 2 MG/ml SYRG IV PRN (15:15)
[2022-07-29] MEDS ORDERED: ACETAMINOPHEN 325 MG TAB PO PRN (15:15)
[2022-07-29] MEDS ORDERED: NITROGLYCERIN 0.4 MG SL TAB SL PRN (15:15)
[2022-07-29] MEDS ORDERED: ONDANSETRON HCL 4 MG/2 ML VIAL IV PRN (15:15)
[2022-07-29] MEDS ORDERED: PANTOPRAZOLE 40 MG/10 ML VIAL INJ IV ONE ×2 (15:30→17:00)
[2022-07-29] MEDS: SODIUM CHLORIDE 0.9% 1,000 ML IV SCH (15:36)
[2022-07-29 16:42] LABS: Amylase 54 U/L (25-115); Lipase 191 U/L (73-393)
[2022-07-29] MEDS ORDERED: SODIUM BICARBONATE 8.4 % INJ 50ML VIAL IV ONE (18:15)
[2022-07-29 19:49] LABS: BUN/Creatinine Ratio 31.6 (10.0-20.0); Calcium 8.5 mg/dL (8.5-10.1); Potassium 3.9 mmol/L (3.5-5.1)
[2022-07-30] MEDS: ACCU-CHEK COMFORT CURVE STRIP VI SCH ×9 (00:21→20:07)
[2022-07-30 01:03] LABS: BUN/Creatinine Ratio 38.5 (10.0-20.0); Calcium 8.4 mg/dL (8.5-10.1); Potassium 3.4 mmol/L (3.5-5.1)
[2022-07-30] MEDS: SODIUM CHLORIDE 0.9% 1,000 ML IV SCH ×3 (01:15→21:08)
[2022-07-30 06:03] LABS: Basophils # (auto) 0.1 10 ^3/uL (0-0.2); Basophils % (auto) 0.6 % (0.0-2.0); Eosinophils # (auto) 0.1 10 ^3/uL (0-0.8); Eosinophils % (auto) 0.6 % (0.0-7.0); Hematocrit 42.9 % (36.0-46.0); Hemoglobin 14.8 g/dL (12.2-16.2); Lymphocytes # (auto) 2.9 10 ^3/uL (0.4-5.4); Lymphocytes % (auto) 28.7 % (10.0-50.0); Mean Corpuscular Hemoglobin 33.5 pg (28.0-32.0); Mean Corpuscular Hgb Conc. 34.6 g/dL (32.0-36.0); Monocytes # (auto) 0.7 10 ^3/uL (0-1.3); Monocytes % (auto) 6.9 % (0.0-12.0); Neutrophils # (auto) 6.4 10 ^3/uL (1.6-8.6); Neutrophils % (auto) 63.2 % (37.0-80.0); Nucleated Red Blood Cells % 0.1 %; Red Blood Cells 4.42 10^6/uL (4.0-5.20); White Blood Cell 10.2 10^3/uL (4.4-10.8)
[2022-07-30 06:41] LABS: Albumin 2.6 g/dL (3.4-5.0); BUN/Creatinine Ratio 45.2 (10.0-20.0); Bilirubin, Total 0.5 mg/dL (0.2-1.0); Calcium 8.8 mg/dL (8.5-10.1); Total Protein 6.1 g/dL (6.4-8.2)
[2022-07-30] MEDS ORDERED: DEXTROSE (50%) 50ML SYRG IV PRN (07:00)
[2022-07-30] MEDS: InsuLIN REG 1unit/0.01ml Soln (100units/ml) SC SCH ×4 (08:18→20:33)
[2022-07-30] MEDS: PANTOPRAZOLE 40 MG/10 ML VIAL INJ IV SCH (09:59)
[2022-07-30] MEDS: INSULIN LANTUS (GLARGINE) 1 /0.01ml (100units/ml) SC SCH (10:00)
[2022-07-30] MEDS: ENOXAPARIN SOD 40 MG/0.4 ML SYRINGE SC SCH (10:00)
[2022-07-30] MEDS ORDERED: PANTOPRAZOLE 40 MG/10 ML VIAL INJ IV SCH (10:00)
[2022-07-30 14:08] LABS: BUN/Creatinine Ratio 25.9 (10.0-20.0); Calcium 8.1 mg/dL (8.5-10.1); Potassium 3.5 mmol/L (3.5-5.1)
[2022-07-30] MEDS ORDERED: levoFLOXacin 500MG 100 ML IV ONE (17:30)
[2022-07-30 18:39] LABS: BUN/Creatinine Ratio 33.3 (10.0-20.0); Calcium 8.2 mg/dL (8.5-10.1); Potassium 3.5 mmol/L (3.5-5.1)
[2022-07-30] MEDS ORDERED: MORPHINE SULFATE INJ 2 MG/ml SYRG IV ONE (20:15)
[2022-07-30] MEDS: CLINDAMYCIN 600MG IV 50 ML IV SCH (22:10)
[2022-07-30 23:17] VITALS: BP 110/77
[2022-07-31] MEDS: ACCU-CHEK COMFORT CURVE STRIP VI SCH ×5 (00:04→16:02)
[2022-07-31] MEDS: InsuLIN REG 1unit/0.01ml Soln (100units/ml) SC SCH ×5 (00:04→16:24)
[2022-07-31 05:00] VITALS: BP 109/72
[2022-07-31] MEDS: CLINDAMYCIN 600MG IV 50 ML IV SCH ×2 (05:55→14:40)
[2022-07-31 06:02] LABS: Albumin 2.4 g/dL (3.4-5.0); Calcium 8.1 mg/dL (8.5-10.1); Potassium 3.2 mmol/L (3.5-5.1)
[2022-07-31 06:07] LABS: BUN/Creatinine Ratio 34.1 (10.0-20.0); Bilirubin, Total 0.4 mg/dL (0.2-1.0); Total Protein 5.5 g/dL (6.4-8.2)
[2022-07-31 09:00] VITALS: BP 113/72
[2022-07-31] MEDS: PANTOPRAZOLE 40 MG/10 ML VIAL INJ IV SCH (09:32)
[2022-07-31] MEDS: INSULIN LANTUS (GLARGINE) 1 /0.01ml (100units/ml) SC SCH (09:32)
[2022-07-31] MEDS: ENOXAPARIN SOD 40 MG/0.4 ML SYRINGE SC SCH (09:33)
[2022-07-31] MEDS ORDERED: levoFLOXacin 500MG 100 ML IV SCH (10:00)
[2022-07-31] MEDS ORDERED: POTASSIUM EFFERVESENT TAB 25 MEQ PO ONE (10:15)
[2022-07-31] MEDS ORDERED: SOD CHL 0.9%/ KCL 40MEQ 1,000 ML IV SCH (10:15)
[2022-07-31 11:47] LABS: Hepatitis A Ab IgM Negative
[2022-07-31 11:48] LABS: Hepatitis B Core IgM Negative
[2022-07-31 11:55] LABS: Hepatitis C Antibody Reactive (Negative)
[2022-07-31] MEDS ORDERED: CEPH-510 PO (12:27)
[2022-07-31] MEDS ORDERED: METF-370 PO (12:27)
[2022-07-31] MEDS ORDERED: INSULIN LANTUS (GLARGINE) 1 /0.01ml (100units/ml) SC ONE (12:45)
[2022-07-31 13:00] VITALS: BP 134/89
[2022-07-31] MEDS ORDERED: InsuLIN REG 1unit/0.01ml Soln (100units/ml) IV ONE (16:15)
[2022-07-31 17:00] VITALS: BP 101/63
[2022-08-01] MEDS ORDERED: INSULIN LANTUS (GLARGINE) 1 /0.01ml (100units/ml) SC SCH (10:00)
== END 2022-07-31 20:52 | disposition home or self-care (01) | DRG 420 ==
LOC: ER 10:45 → EDBD 10:45 → TELE 15:09 → TELE-EAST 07-30 22:58
PROVIDERS: ADMIT Nurse Practitioner Family; ATTEND Internal Medicine
DX: E11.10 Type 2 diabetes mellitus with ketoacidosis without coma (principal); L03.115 Cellulitis of right lower limb; E87.1 Hypo-osmolality and hyponatremia; E86.0 Dehydration; F17.210 Nicotine dependence, cigarettes, uncomplicated; F20.9 Schizophrenia, unspecified; L03.116 Cellulitis of left lower limb; R79.89 Other specified abnormal findings of blood chemistry; F32.A Depression, unspecified; I10 Essential (primary) hypertension; Z59.00 Homelessness unspecified; F15.90 Other stimulant use, unspecified, uncomplicated; Z80.7 Family history of other malignant neoplasms of lymphoid, hematopoietic and related tissues; Z82.49 Family history of ischemic heart disease and other diseases of the circulatory system; Z90.710 Acquired absence of both cervix and uterus; Z98.891 History of uterine scar from previous surgery; Z98.51 Tubal ligation status
CPT/HCPCS: 36415; 36600; 71045; 80048; 80053; 80074; 80307; 80320; 81001; 82140; 82150; 82805; 82962; 83036; 83690; 83735; 85025; 85652; 93005; C9113; G0378; J1815; J1956; J3490

== ENCOUNTER 2022-11-24 13:09 | Inpatient (IN) | payer MEDICAID ==
[2022-11-24] VITALS (15 sets, daily range): BP systolic 126–144; BP diastolic 77–95; PULSE 102–118; RESP 13–26; TEMP 98–100; O2SAT 97–100
[~2022-11-24] VITALS: Ht 152.4 cm; Wt 38.0 kg
[~2022-11-24 13:09] MED LIST changes: +CEPH-510 PO; +METF-370 PO
[2022-11-24] MEDS ORDERED: InsuLIN R (HUMAN) 100 UNITS in SODIUM CHL 0.9% 99 ML IV SCH ×2 (13:45→15:00)
[2022-11-24] MEDS ORDERED: SODIUM CHLORIDE 0.9% 1,000 ML IVB ONE (13:45)
[2022-11-24] MEDS ORDERED: DEXTROSE (50%) 50ML SYRG IV PRN ×2 (13:45→15:00)
[2022-11-24] MEDS ORDERED: INSULIN LANTUS (GLARGINE) 1 /0.01ml (100units/ml) SC ONE ×2 (13:45→15:00)
[2022-11-24] MEDS ORDERED: InsuLIN REG 1unit/0.01ml Soln (100units/ml) IV ONE (13:45)
[2022-11-24] MEDS ORDERED: SODIUM BICARBONATE 8.4 % INJ 50ML VIAL IV ONE ×2 (14:00)
[2022-11-24 14:19] LABS: Basophils # (auto) 0.1 10 ^3/uL (0-0.2); Eosinophils # (auto) 0 10 ^3/uL (0-0.8); Lymphocytes # (auto) 1.9 10 ^3/uL (0.4-5.4); Nucleated Red Blood Cells % 0.1 %
[2022-11-24 14:20] LABS: Basophils % (auto) 0.8 % (0.0-2.0); Eosinophils % (auto) 0.1 % (0.0-7.0); Hematocrit 55.3 % (36.0-46.0); Lymphocytes % (auto) 13.5 % (10.0-50.0); Mean Corpuscular Hgb Conc. 30.8 g/dL (32.0-36.0); Mean Corpuscular Volume 107.3 fL (80.0-100.0); Monocytes # (auto) 0.5 10 ^3/uL (0-1.3); Monocytes % (auto) 3.2 % (0.0-12.0); Neutrophils # (auto) 11.5 10 ^3/uL (1.6-8.6); Neutrophils % (auto) 82.4 % (37.0-80.0); Red Blood Cells 5.15 10^6/uL (4.0-5.20); Red Cell Distribution Width 14.8 % (11.8-14.3)
[2022-11-24 14:30] LABS: Albumin 3.7 g/dL (3.4-5.0); Anion Gap 25 (5-15); Blood Urea Nitrogen 31 mg/dL (7-18); Calcium 9.2 mg/dL (8.5-10.1); Chloride 106 mmol/L (98-107); Magnesium 2.6 mg/dL (1.6-2.6); Potassium 5.2 mmol/L (3.5-5.1); Sodium 135 mmol/L (136-145)
[2022-11-24 14:36] LABS: Alanine Aminotransferase 145 U/L (13-56); Alkaline Phosphatase 153 U/L (45-117); Aspartate Aminotransferase 61 U/L (15-37); Blood Alcohol < 3.0 mg/dL (<10); GFR African American 64 mL/min; GFR Non-African American 53 mL/min; Total Protein 8.1 g/dL (6.4-8.2)
[2022-11-24 14:40] LABS: Urine Bacteria FEW /hpf (None Seen); Urine Blood Negative /uL (Negative); Urine Clarity Clear (Clear); Urine Color Colorless (Yellow); Urine Mucus FEW (None Seen); Urine Protein, UAD 1+ (Negative); Urine Specific Gravity 1.025 (1.001-1.035); Urine Urobilinogen Normal (Negative); Urine WBC 1 /hpf (0 - 5)
[2022-11-24 14:44] LABS: Lactic Acid w/Reflex 2.1 mmol/L (0.4-2.0)
[2022-11-24] MEDS ORDERED: NITROGLYCERIN 0.4 MG SL TAB SL PRN (14:45)
[2022-11-24] MEDS ORDERED: MORPHINE SULFATE INJ 2 MG/ml SYRG IV PRN (14:45)
[2022-11-24] MEDS ORDERED: ACCU-CHEK COMFORT CURVE STRIP VI SCH (15:00)
[2022-11-24 15:07] LABS: Alcohol, Urine < 3.0 mg/dL (0-10); Amphetamine Screen, Urine POSITIVE (NEGATIVE); Barbiturate Scree,Urine NEGATIVE (NEGATIVE); Benzodiazephine Screen, Urine NEGATIVE (NEGATIVE); Cannabinoid Screen, Urine NEGATIVE (NEGATIVE); Cocaine Screen, Urine NEGATIVE (NEGATIVE)
[2022-11-24 15:15] LABS: Opiate Scree,Urine NEGATIVE (NEGATIVE); Phencyclidine Screen, Urine NEGATIVE (NEGATIVE)
[2022-11-24] MEDS: SODIUM CHLORIDE 0.9% 1,000 ML IV SCH ×2 (15:17→17:02)
[2022-11-24 15:21] LABS: Bilirubin, Total 0.5 mg/dL (0.2-1.0)
[2022-11-24 15:26] LABS: Carbon Dioxide 4 mmol/L (21-32)
[2022-11-24] MEDS: ACCU-CHEK COMFORT CURVE STRIP VI SCH ×6 (15:28→22:49)
[2022-11-24 15:55] LABS: Glucose 567 mg/dL (74-106)
[2022-11-24 18:50] LABS: Albumin 3.3 g/dL (3.4-5.0); Calcium 7.8 mg/dL (8.7-10.4); Potassium 3.8 mmol/L (3.5-5.1)
[2022-11-24 18:52] LABS: Bilirubin, Total 0.3 mg/dL (0.2-1.0); Total Protein 7.2 g/dL (6.4-8.2)
[2022-11-24] MEDS ORDERED: SODIUM CHLORIDE 0.9% 1,000 ML IV SCH ×2 (19:00→21:00)
[2022-11-24 19:05] LABS: Base Excess -19.8 mmol/L (-2.0-2.0)
[2022-11-24] MEDS ORDERED: ONDANSETRON HCL 4 MG/2 ML VIAL IV PRN (19:15)
[2022-11-24] MEDS ORDERED: POTASSIUM CHL 20MEQ/100ML 100 ML IV ONE (19:15)
[2022-11-24] MEDS: SODIUM BICARBONATE 50ML VIAL 50 ML in SOD CHL 0.45% 1,000 ML IV SCH (20:12)
[2022-11-24 20:22] LABS: Basophils # (auto) 0.1 10 ^3/uL (0-0.2); Basophils % (auto) 0.3 % (0.0-2.0); Eosinophils # (auto) 0 10 ^3/uL (0-0.8); Hematocrit 47.9 % (36.0-46.0); Hemoglobin 15.4 g/dL (12.2-16.2); Lymphocytes # (auto) 2.4 10 ^3/uL (0.4-5.4); Lymphocytes % (auto) 13.3 % (10.0-50.0); Mean Corpuscular Hemoglobin 33.3 pg (28.0-32.0); Mean Corpuscular Hgb Conc. 32.3 g/dL (32.0-36.0); Mean Corpuscular Volume 103.3 fL (80.0-100.0); Monocytes # (auto) 1.4 10 ^3/uL (0-1.3); Monocytes % (auto) 7.5 % (0.0-12.0); Neutrophils # (auto) 14.3 10 ^3/uL (1.6-8.6); Neutrophils % (auto) 78.9 % (37.0-80.0); Nucleated Red Blood Cells % 0.1 %; Red Blood Cells 4.63 10^6/uL (4.0-5.20); Red Cell Distribution Width 14.2 % (11.8-14.3); White Blood Cell 18.1 10^3/uL (4.4-10.8)
[2022-11-24 20:35] LABS: INR 0.98 (0.9-1.15); Prothrombin Time 10.3 sec (9.3-11.8)
[2022-11-24 20:45] LABS: BUN/Creatinine Ratio 31.1 (10.0-20.0)
[2022-11-24 20:48] LABS: Potassium 4.1 mmol/L (3.5-5.1)
[2022-11-24 20:54] LABS: BUN/Creatinine Ratio 44.1 (10.0-20.0); Calcium 7.6 mg/dL (8.7-10.4)
[2022-11-24] MEDS: cefTRIAXone 1GM/50ML D5W 50 ML IV SCH (21:08)
[2022-11-25] VITALS (24 sets, daily range): BP systolic 119–144; BP diastolic 75–91; PULSE 84–112; RESP 11–18; TEMP 98.1–99.7; O2SAT 96–99
[2022-11-25] MEDS: ACCU-CHEK COMFORT CURVE STRIP VI SCH ×11 (00:04→20:46)
[2022-11-25 01:58] LABS: BUN/Creatinine Ratio 41.3 (10.0-20.0); Calcium 7.5 mg/dL (8.7-10.4); Potassium 3.4 mmol/L (3.5-5.1)
[2022-11-25] MEDS: SODIUM BICARBONATE 50ML VIAL 50 ML in SOD CHL 0.45% 1,000 ML IV SCH (07:21)
[2022-11-25 08:33] LABS: BUN/Creatinine Ratio 44.4 (10.0-20.0); Calcium 7.5 mg/dL (8.7-10.4); Potassium 4.2 mmol/L (3.5-5.1)
[2022-11-25 08:38] LABS: Base Excess -7.1 mmol/L (-2.0-2.0)
[2022-11-25] MEDS: cefTRIAXone 1GM/50ML D5W 50 ML IV SCH (08:50)
[2022-11-25] MEDS ORDERED: cefTRIAXone 1GM/50ML D5W 50 ML IV SCH (09:00)
[2022-11-25] MEDS: INSULIN LANTUS (GLARGINE) 1 /0.01ml (100units/ml) SC SCH (09:41)
[2022-11-25] MEDS ORDERED: INSULIN LANTUS (GLARGINE) 1 /0.01ml (100units/ml) SC SCH (10:00)
[2022-11-25] MEDS: SODIUM CHLORIDE 0.9% 1,000 ML IV SCH ×2 (11:00→16:14)
[2022-11-25] MEDS: InsuLIN REG 1unit/0.01ml Soln (100units/ml) SC SCH ×4 (11:49→23:59)
[2022-11-26] VITALS (7 sets, daily range): BP systolic 122–137; BP diastolic 80–81; PULSE 76–112; RESP 16–19; TEMP 97.5–98.7; O2SAT 96–97
[2022-11-26] MEDS: ACCU-CHEK COMFORT CURVE STRIP VI SCH ×4 (00:11→12:03)
[2022-11-26] MEDS: SODIUM CHLORIDE 0.9% 1,000 ML IV SCH ×2 (00:19→08:40)
[2022-11-26] MEDS: InsuLIN REG 1unit/0.01ml Soln (100units/ml) SC SCH ×3 (03:53→12:10)
[2022-11-26 06:31] LABS: Alanine Aminotransferase 79 U/L (7-40); Alkaline Phosphatase 87 U/L (46-116); Anion Gap 9.2 (5-15); BUN/Creatinine Ratio 24.4 (10.0-20.0); Blood Urea Nitrogen 10 mg/dL (9-23); Calcium 7.8 mg/dL (8.7-10.4); Carbon Dioxide 26.8 mmol/L (20-30); Chloride 104 mmol/L (98-107); Glucose 95 mg/dL (74-106); Sodium 140 mmol/L (136-145)
[2022-11-26 06:32] LABS: Albumin 3.4 g/dL (3.2-4.8); Aspartate Aminotransferase 45 U/L (13-40); Bilirubin, Total 0.5 mg/dL (0.2-1.0); Total Protein 5.8 g/dL (5.7-8.2)
[2022-11-26 07:23] LABS: Magnesium 1.5 mg/dL (1.6-2.6)
[2022-11-26 07:24] LABS: Potassium 2.8 mmol/L (3.5-5.1)
[2022-11-26] MEDS ORDERED: POTASSIUM CHL 20 Meq TABLET PO ONE (08:15)
[2022-11-26] MEDS: cefTRIAXone 1GM/50ML D5W 50 ML IV SCH (08:41)
[2022-11-26] MEDS: INSULIN LANTUS (GLARGINE) 1 /0.01ml (100units/ml) SC SCH (10:11)
[2022-11-26] MEDS ORDERED: MUPIROCIN 2% OINT 15gm or 22gm FOR MRSA NARES TOP SCH (11:00)
[2022-11-26] MEDS ORDERED: INSU1INJ27 SC (11:07)
[2022-11-26] MEDS ORDERED: ERGO1CAP23 PO (11:07)
[2022-11-26] MEDS ORDERED: MAGNESIUM SULFATE 1GM/100ML 100 ML IV ONE (11:15)
[2022-11-26] MEDS ORDERED: POTASSIUM PHOSPHATE 26.4 MEQ in SODIUM CHL 0.9% 100 ML IV ONE (11:15)
[2022-11-26 12:19] LABS: Basophils # (auto) 0.1 10 ^3/uL (0-0.2); Basophils % (auto) 0.6 % (0.0-2.0); Eosinophils # (auto) 0 10 ^3/uL (0-0.8); Eosinophils % (auto) 0.2 % (0.0-7.0); Hematocrit 44.8 % (36.0-46.0); Hemoglobin 15.2 g/dL (12.2-16.2); Lymphocytes # (auto) 1.8 10 ^3/uL (0.4-5.4); Lymphocytes % (auto) 19.4 % (10.0-50.0); Mean Corpuscular Hemoglobin 33.1 pg (28.0-32.0); Mean Corpuscular Hgb Conc. 34.1 g/dL (32.0-36.0); Mean Corpuscular Volume 97.2 fL (80.0-100.0); Monocytes # (auto) 0.6 10 ^3/uL (0-1.3); Monocytes % (auto) 6.5 % (0.0-12.0); Neutrophils # (auto) 6.9 10 ^3/uL (1.6-8.6); Neutrophils % (auto) 73.3 % (37.0-80.0); Nucleated Red Blood Cells % 0.1 %; Red Blood Cells 4.61 10^6/uL (4.0-5.20); Red Cell Distribution Width 13.1 % (11.8-14.3); White Blood Cell 9.5 10^3/uL (4.4-10.8)
[2022-11-26 16:27] LABS: Chloride 98 mmol/L (98-107); Potassium 3.2 mmol/L (3.5-5.1); Sodium 136 mmol/L (136-145)
[2022-11-26 16:28] LABS: Anion Gap 10.5 (5-15); Calcium 7.8 mg/dL (8.5-10.1); Carbon Dioxide 27.5 mmol/L (20-30)
[2022-11-26 16:33] LABS: BUN/Creatinine Ratio 29.7 (10.0-20.0); Blood Urea Nitrogen 11 mg/dL (9-23); Glucose 211 mg/dL (74-106)
[2022-11-27 15:09] LABS: Hepatitis B Surface Antigen Negative (Negative)
[2022-11-27 15:10] LABS: Hepatitis C Antibody Reactive (Negative)
[2022-11-28 13:32] LABS: Hepatitis B Surface Antibody Negative (Negative)
[2022-11-28 14:12] LABS: Hepatitis A Total Antibody Negative (Negative)
[2022-11-28 22:06] LABS: Hepatitis B Core Total AB Negative (Negative)
== END 2022-11-26 17:45 | disposition home or self-care (01) | DRG 420 ==
LOC: EDBD 13:09 → ER 13:09 → OVERFLOW 14:54 → TELE 15:08 → ICU WEST 16:45 → TELE-EAST 11-25 23:20
PROVIDERS: ADMIT Internal Medicine; ATTEND Internal Medicine
DX: E11.10 Type 2 diabetes mellitus with ketoacidosis without coma (principal); N17.0 Acute kidney failure with tubular necrosis; F15.10 Other stimulant abuse, uncomplicated; I10 Essential (primary) hypertension; F20.9 Schizophrenia, unspecified; F17.210 Nicotine dependence, cigarettes, uncomplicated; F32.A Depression, unspecified; R74.01 Elevation of levels of liver transaminase levels; R63.6 Underweight; Z90.710 Acquired absence of both cervix and uterus; Z59.00 Homelessness unspecified; Z68.1 Body mass index [BMI] 19.9 or less, adult; Z91.148 Patient's other noncompliance with medication regimen for other reason
CPT/HCPCS: 36415; 36600; 70450; 71045; 80048; 80053; 80307; 80320; 81001; 82010; 82140; 82306; 82805; 82962; 83036; 83605; 83735; 83880; 83930; 84100; 85025; 85610; 86141; 86703; 86704; 86706; 86708; 86803; 87040; 87081; 87340; 99291; G0378; J0696; J1815; J2405; J3480

== ENCOUNTER 2023-05-16 03:50 | Inpatient (IN) | payer MEDICAID ==
[~2023-05-16] VITALS: Ht 157.5 cm; Wt 46.7 kg
[~2023-05-16 03:50] MED LIST changes: -CEPH-510 PO; +ERGO1CAP23 PO; -INSLANTI SC; +INSU1INJ27 SC
[2023-05-16 05:10] LABS: Basophils # (auto) 0.1 10 ^3/uL (0-0.2); Eosinophils # (auto) 0.1 10 ^3/uL (0-0.8); Eosinophils % (auto) 1.3 % (0.0-7.0); Hematocrit 46.9 % (36.0-46.0); Hemoglobin 15.8 g/dL (12.2-16.2); Lymphocytes # (auto) 2.5 10 ^3/uL (0.4-5.4); Lymphocytes % (auto) 27.4 % (10.0-50.0); Mean Corpuscular Hemoglobin 32.4 pg (28.0-32.0); Mean Corpuscular Hgb Conc. 33.8 g/dL (32.0-36.0); Mean Corpuscular Volume 95.9 fL (80.0-100.0); Monocytes # (auto) 0.6 10 ^3/uL (0-1.3); Monocytes % (auto) 6.8 % (0.0-12.0); Neutrophils # (auto) 5.7 10 ^3/uL (1.6-8.6); Neutrophils % (auto) 63.5 % (37.0-80.0); Red Blood Cells 4.89 10^6/uL (4.0-5.20); Red Cell Distribution Width 12.7 % (11.8-14.3)
[2023-05-16 05:32] LABS: Albumin 4.1 g/dL (3.2-4.8); Alkaline Phosphatase 181 U/L (46-116); Anion Gap 3 (5-15); Bilirubin, Total 0.4 mg/dL (0.2-1.0); Blood Urea Nitrogen 8 mg/dL (9-23); CRP High Sensitivity 0.21 mg/dL (<1.0); Calcium 9.1 mg/dL (8.5-10.1); Carbon Dioxide 28 mmol/L (20-30); Chloride 100 mmol/L (98-107); Potassium 3.7 mmol/L (3.5-5.1); Sodium 131 mmol/L (136-145); Total Protein 7.4 g/dL (5.7-8.2)
[2023-05-16 05:49] LABS: Alanine Aminotransferase 84 U/L (7-40); Aspartate Aminotransferase 73 U/L (13-40)
[2023-05-16 05:58] LABS: Erythrocyte Sedimentation Rate 8 mm/hr (0-20)
[2023-05-16 06:00] LABS: Glucose 424 mg/dL (74-106)
[2023-05-16] MEDS: SODIUM CHLORIDE 0.9% 1,000 ML IV ONE ×2 (08:15→08:42)
[2023-05-16] MEDS: InsuLIN REG 1unit/0.01ml Soln (100units/ml) IV ONE (08:15)
[2023-05-16] MEDS: SODIUM CHLORIDE 0.9% 1,000 ML IV SCH (09:30)
[2023-05-16] MEDS ORDERED: DEXTROSE (50%) 50ML SYRG IV PRN (09:30)
[2023-05-16] MEDS ORDERED: ERGOCALCIFEROL 50,000 UNIT(1.25MG) CAP PO SCH (09:30)
[2023-05-16] MEDS: IOHEXOL 350 MG/ML 100ML IJ ONE (09:36)
[2023-05-16] MEDS: MULTIPLE VITAMINS W/ MINERALS TAB PO SCH (10:00)
[2023-05-16] MEDS ORDERED: MULTIPLE VITAMIN TAB PO SCH (10:00)
[2023-05-16] MEDS: busPIRone HCL 10 MG TAB PO SCH (10:00)
[2023-05-16] MEDS: ASCORBIC ACID 500 MG TAB PO SCH (10:00)
[2023-05-16] MEDS: ZINC SULFATE 220mg CAP or TAB PO SCH (10:00)
[2023-05-16] MEDS: ENOXAPARIN SOD 40 MG/0.4 ML SYRINGE SC SCH (10:00)
[2023-05-16] MEDS: InsuLIN REG 1unit/0.01ml Soln (100units/ml) SC SCH (11:30)
[2023-05-16] MEDS: ACCU-CHEK COMFORT CURVE STRIP VI SCH (11:30)
[2023-05-16 13:41] LABS: Urine Bacteria NONE SEEN /hpf (None Seen); Urine Blood Negative /uL (Negative); Urine Clarity HAZY (Clear); Urine Protein, UAD TRACE (Negative); Urine Specific Gravity 1.033 (1.001-1.035); Urine Urobilinogen Normal (Negative); Urine WBC 39 /hpf (0 - 5)
[2023-05-16 13:42] LABS: Urine Color Yellow (Yellow)
[2023-05-16 13:43] LABS: Urine Budding Yeast Many /hpf (None Seen)
[2023-05-16 13:46] LABS: Amphetamine Screen, Urine Pos (NEGATIVE); Barbiturate Scree,Urine Neg (NEGATIVE); Benzodiazephine Screen, Urine Neg (NEGATIVE); Cannabinoid Screen, Urine Pos (NEGATIVE); Cocaine Screen, Urine Neg (NEGATIVE); Opiate Scree,Urine Neg (NEGATIVE); Phencyclidine Screen, Urine Neg (NEGATIVE)
[2023-05-16 18:20] VITALS: PULSE 105; RESP 22; O2SAT 99
[2023-05-16] MEDS: QUEtiapine FUMARATE 25 MG TAB PO SCH (18:42)
[2023-05-16 18:48] VITALS: BP 107/81; PULSE 105; RESP 22; TEMP 98; O2SAT 99
[2023-05-16 20:00] VITALS: RESP 22; O2SAT 96
[2023-05-16 22:00] VITALS: BP 127/81; PULSE 105; RESP 22; TEMP 97.6; O2SAT 96
[2023-05-17] MEDS: HYDROcodone-ACET 5/325MG TAB PO PRN (03:11)
[2023-05-17 05:00] VITALS: BP 118/85; PULSE 104; RESP 22; TEMP 97.8; O2SAT 99
[2023-05-17 06:47] LABS: Basophils # (auto) 0.1 10 ^3/uL (0-0.2); Basophils % (auto) 0.9 % (0.0-2.0); Eosinophils # (auto) 0.1 10 ^3/uL (0-0.8); Eosinophils % (auto) 1.9 % (0.0-7.0); Hematocrit 45.8 % (36.0-46.0); Hemoglobin 15.3 g/dL (12.2-16.2); Lymphocytes # (auto) 3.5 10 ^3/uL (0.4-5.4); Lymphocytes % (auto) 45.4 % (10.0-50.0); Mean Corpuscular Hemoglobin 32.1 pg (28.0-32.0); Mean Corpuscular Hgb Conc. 33.5 g/dL (32.0-36.0); Mean Corpuscular Volume 95.7 fL (80.0-100.0); Monocytes # (auto) 0.6 10 ^3/uL (0-1.3); Monocytes % (auto) 7.2 % (0.0-12.0); Neutrophils # (auto) 3.4 10 ^3/uL (1.6-8.6); Neutrophils % (auto) 44.6 % (37.0-80.0); Nucleated Red Blood Cells % 0.1 %; Red Blood Cells 4.78 10^6/uL (4.0-5.20); Red Cell Distribution Width 12.6 % (11.8-14.3); White Blood Cell 7.7 10^3/uL (4.4-10.8)
[2023-05-17 06:59] LABS: Alanine Aminotransferase 77 U/L (7-40); Albumin 3.4 g/dL (3.2-4.8); Alkaline Phosphatase 123 U/L (46-116); Anion Gap 5 (5-15); Aspartate Aminotransferase 85 U/L (13-40); Calcium 8.1 mg/dL (8.7-10.4); Carbon Dioxide 29 mmol/L (20-30); Chloride 105 mmol/L (98-107); Glucose 107 mg/dL (74-106); Sodium 139 mmol/L (136-145)
[2023-05-17 07:00] LABS: Bilirubin, Total 0.3 mg/dL (0.2-1.0); Total Protein 6.1 g/dL (5.7-8.2)
[2023-05-17 07:06] LABS: BUN/Creatinine Ratio 10.9 (10.0-20.0); Blood Urea Nitrogen < 5 mg/dL (9-23)
[2023-05-17 08:00] VITALS: PULSE 99; RESP 22; O2SAT 98
[2023-05-17 10:32] VITALS: BP 121/84; PULSE 99; RESP 17; TEMP 98; O2SAT 98
[2023-05-17 11:07] LABS: Magnesium 1.6 mg/dL (1.6-2.6)
[2023-05-17] MEDS: lamoTRIgine 25 MG TAB PO ONE (12:38)
[2023-05-17] MEDS: POTASSIUM EFFERVESENT TAB 25 MEQ PO ONE (12:38)
[2023-05-17] MEDS: INSULIN LANTUS (GLARGINE) 1 /0.01ml (100units/ml) SC ONE (14:15)
[2023-05-17] MEDS: GABAPENTIN 400 MG CAP PO SCH (16:35)
[2023-05-17 17:16] VITALS: BP 119/86; PULSE 111; RESP 19; TEMP 98; O2SAT 97
[2023-05-17 20:00] VITALS: PULSE 113; RESP 18; O2SAT 98
[2023-05-17 22:00] VITALS: BP 128/84; PULSE 113; RESP 18; TEMP 98.2; O2SAT 93
[2023-05-17] MEDS: INSULIN LANTUS (GLARGINE) 1 /0.01ml (100units/ml) SC SCH (22:00)
[2023-05-18 05:00] VITALS: BP 109/78; PULSE 102; RESP 18; TEMP 97.9; O2SAT 93
[2023-05-18 07:41] LABS: Hematocrit 46.4 % (36.0-46.0); Hemoglobin 15.8 g/dL (12.2-16.2); Mean Corpuscular Hemoglobin 32.5 pg (28.0-32.0); Mean Corpuscular Volume 95.5 fL (80.0-100.0); Red Blood Cells 4.86 10^6/uL (4.0-5.20); Red Cell Distribution Width 12.7 % (11.8-14.3); White Blood Cell 6.3 10^3/uL (4.4-10.8)
[2023-05-18 08:03] LABS: Band Neutrophils % (manual) 0; Basophils % (manual) 0 (0.0-2.0); Blast Cells 0; Metamyelocytes % 0; Myelocytes % 0; Promyelocytes % 0
[2023-05-18 08:08] LABS: Anion Gap 2 (5-15); Carbon Dioxide 29 mmol/L (20-30); Chloride 106 mmol/L (98-107); Sodium 137 mmol/L (136-145)
[2023-05-18 08:09] LABS: Calcium 9.6 mg/dL (8.5-10.1)
[2023-05-18 08:14] LABS: BUN/Creatinine Ratio 21.7 (10.0-20.0); Blood Urea Nitrogen 13 mg/dL (9-23); Glucose 170 mg/dL (74-106)
[2023-05-18] MEDS ORDERED: DEXTROSE (50%) 50ML SYRG IV PRN (08:30)
[2023-05-18] MEDS: lamoTRIgine 25 MG TAB PO SCH (09:09)
[2023-05-18 09:18] LABS: Hepatitis B Surface Antigen Negative (Negative)
[2023-05-18 09:39] LABS: Hepatitis A Ab IgM Negative; Hepatitis B Core IgM Negative
[2023-05-18 09:49] LABS: Hepatitis C Antibody Positive (Negative)
[2023-05-18 10:24] LABS: Eosinophils % (manual) 1 (0-7); Lymphocytes % (manual) 54 (10.0-50.0); Monocytes % (manual) 9 (0-12); Platelet Estimate Adequate; RBC Morphology Normal; Reactive Lymphocytes 3
[2023-05-18] MEDS: ACCU-CHEK COMFORT CURVE STRIP VI SCH (11:26)
[2023-05-18] MEDS: InsuLIN REG 1unit/0.01ml Soln (100units/ml) SC SCH (11:27)
[2023-05-18 13:00] VITALS: BP 122/82; PULSE 110; RESP 19; TEMP 98.4; O2SAT 98
[2023-05-18 17:07] VITALS: BP 120/80; PULSE 113; RESP 17; TEMP 98.2; O2SAT 99
[2023-05-18 19:30] VITALS: PULSE 102; RESP 17; O2SAT 96
[2023-05-18] MEDS ORDERED: VANCOMYCIN PER PHARMACY 0 MG IV SCH (21:00)
[2023-05-18] MEDS ORDERED: VANCOMYCIN 1GM/200ML 200 ML IV ONE (21:15)
[2023-05-18 22:41] VITALS: BP 106/69; PULSE 102; RESP 17; TEMP 98.6; O2SAT 96
[2023-05-19] MEDS: INSULIN LANTUS (GLARGINE) 1 /0.01ml (100units/ml) SC SCH (00:15)
[2023-05-19] MEDS: PIPERACILLIN-TAZOB 3.375GM 100 ML IV ONE (00:16)
[2023-05-19] MEDS: VANCOMYCIN 1GM/200ML 200 ML IV ONE (02:11)
[2023-05-19 05:00] VITALS: BP 130/88; PULSE 102; RESP 17; TEMP 98.6; O2SAT 97
[2023-05-19 05:22] LABS: Basophils # (auto) 0.1 10 ^3/uL (0-0.2); Basophils % (auto) 1.3 % (0.0-2.0); Eosinophils # (auto) 0.1 10 ^3/uL (0-0.8); Eosinophils % (auto) 1.3 % (0.0-7.0); Hematocrit 44.1 % (36.0-46.0); Hemoglobin 14.9 g/dL (12.2-16.2); Lymphocytes # (auto) 3.4 10 ^3/uL (0.4-5.4); Lymphocytes % (auto) 43.3 % (10.0-50.0); Mean Corpuscular Hemoglobin 32.4 pg (28.0-32.0); Mean Corpuscular Hgb Conc. 33.7 g/dL (32.0-36.0); Mean Corpuscular Volume 96.1 fL (80.0-100.0); Monocytes # (auto) 0.6 10 ^3/uL (0-1.3); Neutrophils # (auto) 3.7 10 ^3/uL (1.6-8.6); Neutrophils % (auto) 47.1 % (37.0-80.0); Red Blood Cells 4.59 10^6/uL (4.0-5.20); Red Cell Distribution Width 12.7 % (11.8-14.3); White Blood Cell 7.9 10^3/uL (4.4-10.8)
[2023-05-19 05:37] LABS: Chloride 104 mmol/L (98-107); Potassium 3.8 mmol/L (3.5-5.1); Sodium 138 mmol/L (136-145)
[2023-05-19 05:38] LABS: Anion Gap 6 (5-15); Carbon Dioxide 28 mmol/L (20-30)
[2023-05-19 05:43] LABS: BUN/Creatinine Ratio 24.1 (10.0-20.0); Blood Urea Nitrogen 14 mg/dL (9-23); Glucose 163 mg/dL (74-106)
[2023-05-19] MEDS: PIPERACILLIN-TAZOB 3.375GM 100 ML IV SCH (06:28)
[2023-05-19 09:00] VITALS: BP 115/82; PULSE 101; RESP 18; TEMP 98.5; O2SAT 94
[2023-05-19] MEDS: NICOTINE 7MG/24HR TOPICAL PATCH TD ONE (11:45)
[2023-05-19 12:37] VITALS: BP 128/90; PULSE 99; RESP 19; TEMP 98.2; O2SAT 93
[2023-05-19 16:34] VITALS: BP 114/83; PULSE 99; RESP 21; TEMP 97.6; O2SAT 96
[2023-05-19 20:00] VITALS: PULSE 99; RESP 18; O2SAT 97
[2023-05-19 22:00] VITALS: BP 98/60; PULSE 96; RESP 18; TEMP 97.9; O2SAT 97
[2023-05-20] MEDS ORDERED: VANCOMYCIN 750mg/150ml 150 ML IV SCH (02:00)
[2023-05-20 05:00] VITALS: BP 113/74; PULSE 104; RESP 18; TEMP 97.8; O2SAT 97
[2023-05-20 06:23] LABS: Basophils # (auto) 0.1 10 ^3/uL (0-0.2); Basophils % (auto) 1.8 % (0.0-2.0); Eosinophils # (auto) 0.1 10 ^3/uL (0-0.8); Eosinophils % (auto) 2.2 % (0.0-7.0); Hematocrit 46.7 % (36.0-46.0); Hemoglobin 15.4 g/dL (12.2-16.2); Lymphocytes # (auto) 2.9 10 ^3/uL (0.4-5.4); Lymphocytes % (auto) 47.8 % (10.0-50.0); Mean Corpuscular Hemoglobin 32.3 pg (28.0-32.0); Mean Corpuscular Hgb Conc. 32.9 g/dL (32.0-36.0); Mean Corpuscular Volume 98.1 fL (80.0-100.0); Monocytes # (auto) 0.5 10 ^3/uL (0-1.3); Monocytes % (auto) 8.6 % (0.0-12.0); Neutrophils # (auto) 2.4 10 ^3/uL (1.6-8.6); Neutrophils % (auto) 39.6 % (37.0-80.0); Nucleated Red Blood Cells % 0.1 %; Red Blood Cells 4.76 10^6/uL (4.0-5.20); Red Cell Distribution Width 12.8 % (11.8-14.3); White Blood Cell 6.1 10^3/uL (4.4-10.8)
[2023-05-20 06:39] LABS: Chloride 105 mmol/L (98-107); Potassium 3.9 mmol/L (3.5-5.1); Sodium 137 mmol/L (136-145)
[2023-05-20 06:40] LABS: Anion Gap 5 (5-15); Calcium 9.1 mg/dL (8.5-10.1); Carbon Dioxide 27 mmol/L (20-30)
[2023-05-20 06:45] LABS: Blood Urea Nitrogen 11 mg/dL (9-23); Glucose 166 mg/dL (74-106)
[2023-05-20 08:00] VITALS: PULSE 96; RESP 20; RESP 97; TEMP 36.6; O2SAT 97
[2023-05-20 08:24] VITALS: BP 108/71; PULSE 106; RESP 20; TEMP 97.8; O2SAT 97
[2023-05-20] MEDS: NICOTINE 7MG/24HR TOPICAL PATCH TD SCH (10:32)
[2023-05-20] MEDS ORDERED: DEXTROSE (50%) 50ML SYRG IV PRN (12:15)
[2023-05-20 12:37] VITALS: BP 126/77; PULSE 112; RESP 20; TEMP 97.8; O2SAT 95
[2023-05-20 17:00] VITALS: BP 120/84; PULSE 110; RESP 20; TEMP 98; O2SAT 94
[2023-05-20] MEDS: ACCU-CHEK COMFORT CURVE STRIP VI SCH (17:07)
[2023-05-20] MEDS: InsuLIN REG 1unit/0.01ml Soln (100units/ml) SC SCH (17:35)
[2023-05-20] MEDS: HYDROmorphone HCL 2 MG/ML VL/or syr IV PRN (17:44)
[2023-05-20 20:00] VITALS: RESP 95; TEMP 98.8; O2SAT 97
[2023-05-20] MEDS: INSULIN LANTUS (GLARGINE) 1 /0.01ml (100units/ml) SC SCH (21:20)
[2023-05-21] VITALS (7 sets, daily range): BP systolic 94–151; BP diastolic 70–92; PULSE 56–102; RESP 15–16; TEMP 97.9–98.8; O2SAT 95–99
[2023-05-21] MEDS: INSULIN LANTUS (GLARGINE) 1 /0.01ml (100units/ml) SC SCH (12:45)
[2023-05-22 04:00] VITALS: BP 119/81; PULSE 108; RESP 16; TEMP 98.3; O2SAT 99
[2023-05-22 09:00] VITALS: BP_SYST 131; BP_SYST 135; BP_DIAS 67; BP_DIAS 83; PULSE 107; PULSE 67; RESP 16; TEMP 97.3; TEMP 98.1; O2SAT 97
[2023-05-22 13:00] VITALS: BP 115/81; PULSE 67; RESP 20; TEMP 98.3; O2SAT 100
[2023-05-22 17:00] VITALS: BP 126/87; PULSE 112; RESP 20; TEMP 98.5; O2SAT 96
[2023-05-22 20:00] VITALS: PULSE 111; RESP 16
[2023-05-22 22:00] VITALS: BP 138/83; PULSE 116; RESP 22; TEMP 98.3; O2SAT 97
[2023-05-23] VITALS (7 sets, daily range): BP systolic 103–140; BP diastolic 63–95; PULSE 94–111; RESP 17–20; TEMP 97.9–98.8; O2SAT 93–97
[2023-05-23 06:03] LABS: Basophils # (auto) 0.1 10 ^3/uL (0-0.2); Basophils % (auto) 1.6 % (0.0-2.0); Eosinophils # (auto) 0.2 10 ^3/uL (0-0.8); Eosinophils % (auto) 2.4 % (0.0-7.0); Hematocrit 38.5 % (36.0-46.0); Hemoglobin 13.1 g/dL (12.2-16.2); Lymphocytes # (auto) 3.5 10 ^3/uL (0.4-5.4); Lymphocytes % (auto) 47.6 % (10.0-50.0); Mean Corpuscular Hgb Conc. 34.1 g/dL (32.0-36.0); Mean Corpuscular Volume 96.7 fL (80.0-100.0); Monocytes % (auto) 13.1 % (0.0-12.0); Neutrophils # (auto) 2.6 10 ^3/uL (1.6-8.6); Neutrophils % (auto) 35.3 % (37.0-80.0); Nucleated Red Blood Cells % 0.2 %; Red Blood Cells 3.98 10^6/uL (4.0-5.20); Red Cell Distribution Width 13.1 % (11.8-14.3); White Blood Cell 7.4 10^3/uL (4.4-10.8)
[2023-05-23 06:18] LABS: Alanine Aminotransferase 396 U/L (7-40); Albumin 3.6 g/dL (3.2-4.8); Alkaline Phosphatase 155 U/L (46-116); Anion Gap 7 (5-15); Aspartate Aminotransferase 437 U/L (13-40); BUN/Creatinine Ratio 21.9 (10.0-20.0); Blood Urea Nitrogen 14 mg/dL (9-23); Carbon Dioxide 28 mmol/L (20-30); Chloride 106 mmol/L (98-107); Glucose 137 mg/dL (74-106); Potassium 3.6 mmol/L (3.5-5.1); Sodium 141 mmol/L (136-145)
[2023-05-23 06:19] LABS: Bilirubin, Total 0.2 mg/dL (0.2-1.0)
[2023-05-23] MEDS: VANCOMYCIN 750mg/150ml 150 ML IV SCH (19:00)
[2023-05-24 05:00] VITALS: BP 111/75; PULSE 105; RESP 19; TEMP 98.2; O2SAT 93
[2023-05-24 06:19] LABS: Basophils # (auto) 0.1 10 ^3/uL (0-0.2); Eosinophils # (auto) 0.2 10 ^3/uL (0-0.8); Eosinophils % (auto) 2.3 % (0.0-7.0); Hematocrit 41.2 % (36.0-46.0); Hemoglobin 13.9 g/dL (12.2-16.2); Lymphocytes # (auto) 3.2 10 ^3/uL (0.4-5.4); Lymphocytes % (auto) 47.1 % (10.0-50.0); Mean Corpuscular Hemoglobin 33.1 pg (28.0-32.0); Mean Corpuscular Hgb Conc. 33.8 g/dL (32.0-36.0); Monocytes % (auto) 14.3 % (0.0-12.0); Neutrophils # (auto) 2.3 10 ^3/uL (1.6-8.6); Neutrophils % (auto) 34.3 % (37.0-80.0); Nucleated Red Blood Cells % 0.3 %; Red Blood Cells 4.21 10^6/uL (4.0-5.20); White Blood Cell 6.8 10^3/uL (4.4-10.8)
[2023-05-24 06:25] LABS: Alanine Aminotransferase 490 U/L (7-40); Alkaline Phosphatase 178 U/L (46-116); Anion Gap 5 (5-15); Aspartate Aminotransferase 456 U/L (13-40); BUN/Creatinine Ratio 26.5 (10.0-20.0); Blood Urea Nitrogen 18 mg/dL (9-23); Calcium 9.3 mg/dL (8.7-10.4); Carbon Dioxide 29 mmol/L (20-30); Chloride 105 mmol/L (98-107); Glucose 115 mg/dL (74-106); Potassium 4.3 mmol/L (3.5-5.1); Sodium 139 mmol/L (136-145)
[2023-05-24 06:26] LABS: Bilirubin, Total 0.3 mg/dL (0.2-1.0)
[2023-05-24 08:35] VITALS: BP 127/78; PULSE 105; RESP 18; TEMP 98.6; O2SAT 95
[2023-05-24] MEDS: MORPHINE SULFATE INJ 2 MG/ml SYRG IV PRN (11:29)
[2023-05-24 12:40] VITALS: BP 130/99; PULSE 117; RESP 20; TEMP 98.3; O2SAT 98
[2023-05-24 17:00] VITALS: BP 134/90; PULSE 111; RESP 20; TEMP 98.2; O2SAT 98
[2023-05-24 19:30] VITALS: PULSE 88; RESP 17
[2023-05-25] VITALS (7 sets, daily range): BP systolic 128–147; BP diastolic 8–88; PULSE 90–110; RESP 15–20; TEMP 97.3–98; O2SAT 95–99
[2023-05-25 06:45] LABS: Basophils # (auto) 0.1 10 ^3/uL (0-0.2); Basophils % (auto) 1.8 % (0.0-2.0); Eosinophils # (auto) 0.2 10 ^3/uL (0-0.8); Eosinophils % (auto) 2.7 % (0.0-7.0); Hematocrit 42.6 % (36.0-46.0); Hemoglobin 14.2 g/dL (12.2-16.2); Lymphocytes # (auto) 2.5 10 ^3/uL (0.4-5.4); Lymphocytes % (auto) 37.2 % (10.0-50.0); Mean Corpuscular Hemoglobin 32.7 pg (28.0-32.0); Mean Corpuscular Hgb Conc. 33.3 g/dL (32.0-36.0); Mean Corpuscular Volume 98.4 fL (80.0-100.0); Monocytes # (auto) 0.9 10 ^3/uL (0-1.3); Monocytes % (auto) 12.7 % (0.0-12.0); Neutrophils # (auto) 3.1 10 ^3/uL (1.6-8.6); Neutrophils % (auto) 45.6 % (37.0-80.0); Nucleated Red Blood Cells % 0.2 %; Red Blood Cells 4.33 10^6/uL (4.0-5.20); Red Cell Distribution Width 13.3 % (11.8-14.3); White Blood Cell 6.8 10^3/uL (4.4-10.8)
[2023-05-25 07:07] LABS: Alanine Aminotransferase 457 U/L (7-40); Albumin 3.7 g/dL (3.2-4.8); Alkaline Phosphatase 179 U/L (46-116); Anion Gap 7 (5-15); Aspartate Aminotransferase 393 U/L (13-40); BUN/Creatinine Ratio 21.6 (10.0-20.0); Blood Urea Nitrogen 11 mg/dL (9-23); Calcium 9.2 mg/dL (8.5-10.1); Carbon Dioxide 25 mmol/L (20-30); Chloride 109 mmol/L (98-107); Glucose 121 mg/dL (74-106); Sodium 141 mmol/L (136-145)
[2023-05-25 07:08] LABS: Bilirubin, Total 0.3 mg/dL (0.2-1.0); Total Protein 6.5 g/dL (5.7-8.2)
[2023-05-25] MEDS ORDERED: HYDR1TAB97 PO (10:58)
[2023-05-25] MEDS ORDERED: DOXY-286 PO (10:58)
[2023-05-25] MEDS ORDERED: GABA-1251 PO (10:58)
[2023-05-25] MEDS ORDERED: NIC21P TD (10:58)
[2023-05-25] MEDS: NICOTINE 21MG/24 HR TOPICAL PATCH TD SCH (11:07)
[2023-05-26] MEDS: HYDROcodone-ACET 5/325MG TAB PO ONE (00:13)
[2023-05-26 05:00] VITALS: BP 139/79; PULSE 139; RESP 79; TEMP 79.9; O2SAT 96
[2023-05-26 08:00] VITALS: BP 117/65; PULSE 110; RESP 20; TEMP 98; O2SAT 98
[2023-05-26 09:00] VITALS: BP 117/65; PULSE 110; RESP 20; TEMP 98; O2SAT 97
[2023-05-26] MEDS: ACETAMINOPHEN 325 MG TAB PO PRN (10:06)
== END 2023-05-26 11:10 | disposition home or self-care (01) | DRG 815 ==
LOC: ER 03:50 → OVERFLOW 09:25 → WEST WING 18:04
PROVIDERS: ADMIT Internal Medicine; ATTEND Internal Medicine
DX: T34.821A Frostbite with tissue necrosis of right foot, initial encounter (principal); E11.41 Type 2 diabetes mellitus with diabetic mononeuropathy; C22.0 Liver cell carcinoma; E11.52 Type 2 diabetes mellitus with diabetic peripheral angiopathy with gangrene; L97.529 Non-pressure chronic ulcer of other part of left foot with unspecified severity; E87.1 Hypo-osmolality and hyponatremia; L97.519 Non-pressure chronic ulcer of other part of right foot with unspecified severity; S92.912A Unspecified fracture of left toe(s), initial encounter for closed fracture; T34.822A Frostbite with tissue necrosis of left foot, initial encounter; K76.0 Fatty (change of) liver, not elsewhere classified; B18.2 Chronic viral hepatitis C; F20.9 Schizophrenia, unspecified; F31.9 Bipolar disorder, unspecified; I10 Essential (primary) hypertension; E11.65 Type 2 diabetes mellitus with hyperglycemia; F19.10 Other psychoactive substance abuse, uncomplicated; F17.210 Nicotine dependence, cigarettes, uncomplicated; S90.859A Superficial foreign body, unspecified foot, initial encounter; W45.8XXA Other foreign body or object entering through skin, initial encounter; F15.10 Other stimulant abuse, uncomplicated; T69.9XXA Effect of reduced temperature, unspecified, initial encounter; Z91.148 Patient's other noncompliance with medication regimen for other reason; Z71.6 Tobacco abuse counseling; Z59.00 Homelessness unspecified; Z90.710 Acquired absence of both cervix and uterus; Z79.4 Long term (current) use of insulin; X31.XXXA Exposure to excessive natural cold, initial encounter; Z71.51 Drug abuse counseling and surveillance of drug abuser; Z82.49 Family history of ischemic heart disease and other diseases of the circulatory system; Z79.85 Long-term (current) use of injectable non-insulin antidiabetic drugs
CPT/HCPCS: 36415; 72100; 73620; 73718; 75635; 76705; 80048; 80053; 80074; 80202; 80307; 81001; 82105; 82550; 82565; 82962; 83036; 83605; 83735; 85007; 85025; 85027; 85379; 85652; 86141; 87040; 87081; 93005; 93925; 93970; 96361; 96374; G0378; J1815; J2543

== ENCOUNTER 2023-06-23 19:11 | Inpatient (IN) | payer MEDICAID ==
[~2023-06-23] VITALS: Ht 160 cm; Wt 42.7 kg
[~2023-06-23 19:11] MED LIST changes: +DOXY-286 PO; +GABA-1251 PO; +HYDR1TAB97 PO; +NIC21P TD
[2023-06-23] MEDS: SODIUM CHLORIDE 0.9% 1,000 ML IV ONE ×2 (20:47→22:00)
[2023-06-23] MEDS: InsuLIN REG 1unit/0.01ml Soln (100units/ml) IV ONE (20:49)
[2023-06-23 20:53] LABS: Basophils # (auto) 0.1 10 ^3/uL (0-0.2); Eosinophils # (auto) 0 10 ^3/uL (0-0.8); Monocytes # (auto) 0.5 10 ^3/uL (0-1.3); White Blood Cell 11.5 10^3/uL (4.4-10.8)
[2023-06-23 20:54] LABS: Hematocrit 55.6 % (36.0-46.0); Hemoglobin 17.5 g/dL (12.2-16.2); Lymphocytes # (auto) 1.7 10 ^3/uL (0.4-5.4); Lymphocytes % (auto) 15.2 % (10.0-50.0); Mean Corpuscular Hemoglobin 32.4 pg (28.0-32.0); Mean Corpuscular Hgb Conc. 31.5 g/dL (32.0-36.0); Mean Corpuscular Volume 102.7 fL (80.0-100.0); Monocytes % (auto) 4.5 % (0.0-12.0); Neutrophils # (auto) 9.1 10 ^3/uL (1.6-8.6); Neutrophils % (auto) 79.3 % (37.0-80.0); Red Blood Cells 5.41 10^6/uL (4.0-5.20); Red Cell Distribution Width 14.4 % (11.8-14.3)
[2023-06-23 21:41] LABS: Alanine Aminotransferase 159 U/L (7-40); Albumin 4.7 g/dL (3.2-4.8); Alkaline Phosphatase 239 U/L (46-116); Anion Gap 22.00001 (5-15); Aspartate Aminotransferase 42 U/L (13-40); BUN/Creatinine Ratio 14.6 (10.0-20.0); Bilirubin, Total 0.3 mg/dL (0.2-1.0); Blood Urea Nitrogen 22 mg/dL (9-23); Calcium 10.6 mg/dL (8.5-10.1); Chloride 100 mmol/L (98-107); Potassium 5.5 mmol/L (3.5-5.1); Sodium 132 mmol/L (136-145)
[2023-06-23 21:50] LABS: Carbon Dioxide < 10 mmol/L (20-30)
[2023-06-23 21:51] LABS: Glucose 693 mg/dL (74-106)
[2023-06-23] MEDS ORDERED: SODIUM CHLORIDE 0.9% 1,000 ML IV ONE ×2 (22:00)
[2023-06-23] MEDS ORDERED: SODIUM BICARB 8.4% 50Meq/50ml SYR Vial IV ONE (22:00)
[2023-06-23] MEDS: SODIUM BICARB 8.4% 50Meq/50ml SYR Vial IV ONE (22:10)
[2023-06-23 22:15] LABS: Base Excess -17.4 mmol/L (-2.0-2.0)
[2023-06-23] MEDS ORDERED: DEXTROSE (50%) 50ML SYRG IV PRN (22:15)
[2023-06-23] MEDS ORDERED: MORPHINE SULFATE INJ 2 MG/ml SYRG IV PRN (22:30)
[2023-06-23] MEDS ORDERED: DOCUSATE SOD 100 MG CAP PO PRN (22:30)
[2023-06-23] MEDS ORDERED: ONDANSETRON HCL 4 MG/2 ML VIAL IV PRN (22:30)
[2023-06-23] MEDS ORDERED: NITROGLYCERIN 0.4 MG SL TAB SL PRN (22:30)
[2023-06-23 22:50] VITALS: PULSE 130; RESP 17; O2SAT 97
[2023-06-23] MEDS: SODIUM CHLORIDE 0.9% 1,000 ML IV SCH (23:00)
[2023-06-23] MEDS: ACCU-CHEK COMFORT CURVE STRIP VI SCH (23:02)
[2023-06-23] MEDS: INSULIN DRIP 100 UNIT/100ML 100 ML IV SCH (23:14)
[2023-06-23] MEDS: INSULIN LANTUS (GLARGINE) 1 /0.01ml (100units/ml) SC ONE (23:15)
[2023-06-23] MEDS: cefTRIAXone 1GM/50ML D5W 50 ML IV ONE (23:51)
[2023-06-24 01:13] LABS: Base Excess -7.4 mmol/L (-2.0-2.0)
[2023-06-24 01:30] LABS: Urine Bacteria NONE SEEN /hpf (None Seen); Urine Blood Negative /uL (Negative); Urine Clarity Clear (Clear); Urine Color Colorless (Yellow); Urine Protein, UAD TRACE (Negative); Urine Specific Gravity 1.026 (1.001-1.035); Urine Urobilinogen Normal (Negative); Urine WBC <1 /hpf (0 - 5); Urine pH 5.5 (5.0-8.0)
[2023-06-24 05:21] LABS: Basophils # (auto) 0.2 10 ^3/uL (0-0.2); Eosinophils # (auto) 0 10 ^3/uL (0-0.8); Hematocrit 48.6 % (36.0-46.0); Hemoglobin 16.1 g/dL (12.2-16.2); Lymphocytes # (auto) 5.1 10 ^3/uL (0.4-5.4); Lymphocytes % (auto) 23.2 % (10.0-50.0); Mean Corpuscular Hemoglobin 32.3 pg (28.0-32.0); Mean Corpuscular Hgb Conc. 33.1 g/dL (32.0-36.0); Mean Corpuscular Volume 97.6 fL (80.0-100.0); Monocytes # (auto) 3.2 10 ^3/uL (0-1.3); Monocytes % (auto) 14.7 % (0.0-12.0); Neutrophils # (auto) 13.4 10 ^3/uL (1.6-8.6); Neutrophils % (auto) 61.1 % (37.0-80.0); Nucleated Red Blood Cells % 0.1 %; Red Blood Cells 4.99 10^6/uL (4.0-5.20); Red Cell Distribution Width 13.6 % (11.8-14.3)
[2023-06-24 05:40] LABS: Alanine Aminotransferase 135 U/L (7-40); Albumin 4.3 g/dL (3.2-4.8); Alkaline Phosphatase 206 U/L (46-116); Anion Gap 16 (5-15); Aspartate Aminotransferase 29 U/L (13-40); BUN/Creatinine Ratio 18.4 (10.0-20.0); Bilirubin, Total 0.4 mg/dL (0.2-1.0); Blood Urea Nitrogen 19 mg/dL (9-23); Calcium 10.1 mg/dL (8.7-10.4); Carbon Dioxide 19 mmol/L (20-30); Glucose 271 mg/dL (74-106); Potassium 3.8 mmol/L (3.5-5.1); Total Protein 7.7 g/dL (5.7-8.2)
[2023-06-24 05:41] LABS: Chloride 111 mmol/L (98-107); Sodium 146 mmol/L (136-145)
[2023-06-24] MEDS: D5W/SOD CHL 0.45% 1,000 ML IV ONE (08:49)
[2023-06-24 08:58] VITALS: PULSE 117; RESP 17; O2SAT 97
[2023-06-24 10:01] LABS: Chloride 117 mmol/L (98-107); Potassium 3.9 mmol/L (3.5-5.1); Sodium 148 mmol/L (136-145)
[2023-06-24 10:02] LABS: Anion Gap 10 (5-15); Calcium 9.1 mg/dL (8.5-10.1); Carbon Dioxide 21 mmol/L (20-30)
[2023-06-24 10:07] LABS: BUN/Creatinine Ratio 23.8 (10.0-20.0); Blood Urea Nitrogen 19 mg/dL (9-23); Glucose 119 mg/dL (74-106)
[2023-06-24] MEDS ORDERED: DEXTROSE (50%) 50ML SYRG IV ONE (10:30)
[2023-06-24] MEDS: PANTOPRAZOLE 40 MG/10 ML VIAL INJ IV SCH (10:45)
[2023-06-24] MEDS: INSULIN LANTUS (GLARGINE) 1 /0.01ml (100units/ml) SC SCH (10:46)
[2023-06-24] MEDS: DEXTROSE (50%) 50ML SYRG IV ONE (11:30)
[2023-06-24] MEDS: ACCU-CHEK COMFORT CURVE STRIP VI ONE (11:43)
[2023-06-24] MEDS: InsuLIN REG 1unit/0.01ml Soln (100units/ml) SC ONE (11:43)
[2023-06-24] MEDS: AZITHROMYCIN 500MG/ 250ML 250 ML IV ONE (12:07)
[2023-06-24 12:24] LABS: Amphetamine Screen, Urine Pos (NEGATIVE); Barbiturate Scree,Urine Neg (NEGATIVE); Benzodiazephine Screen, Urine Neg (NEGATIVE); Cannabinoid Screen, Urine Neg (NEGATIVE); Cocaine Screen, Urine Neg (NEGATIVE); Opiate Scree,Urine Neg (NEGATIVE); Phencyclidine Screen, Urine Neg (NEGATIVE)
[2023-06-24] MEDS ORDERED: VANCOMYCIN PER PHARMACY 0 MG IV SCH (14:45)
[2023-06-24] MEDS: VANCOMYCIN 750mg/150ml 150 ML IV ONE (16:07)
[2023-06-24 19:45] VITALS: PULSE 117; RESP 17; O2SAT 97
[2023-06-24] MEDS ORDERED: cefTRIAXone 1GM/50ML D5W 50 ML IV SCH (21:00)
[2023-06-25] VITALS (7 sets, daily range): BP systolic 123–145; BP diastolic 84–96; PULSE 75–112; RESP 18–22; TEMP 98.1–98.9; O2SAT 95–100
[2023-06-25] MEDS: PIPERACILLIN-TAZOB 3.375GM 100 ML IV SCH (03:17)
[2023-06-25 05:08] LABS: Basophils # (auto) 0.1 10 ^3/uL (0-0.2); Basophils % (auto) 0.8 % (0.0-2.0); Eosinophils # (auto) 0.1 10 ^3/uL (0-0.8); Hematocrit 44.7 % (36.0-46.0); Hemoglobin 14.9 g/dL (12.2-16.2); Lymphocytes # (auto) 2.3 10 ^3/uL (0.4-5.4); Mean Corpuscular Hemoglobin 32.1 pg (28.0-32.0); Mean Corpuscular Hgb Conc. 33.3 g/dL (32.0-36.0); Mean Corpuscular Volume 96.4 fL (80.0-100.0); Monocytes # (auto) 0.7 10 ^3/uL (0-1.3); Monocytes % (auto) 6.1 % (0.0-12.0); Neutrophils # (auto) 8.7 10 ^3/uL (1.6-8.6); Neutrophils % (auto) 73.1 % (37.0-80.0); Red Blood Cells 4.64 10^6/uL (4.0-5.20); Red Cell Distribution Width 13.6 % (11.8-14.3); White Blood Cell 11.9 10^3/uL (4.4-10.8)
[2023-06-25 05:17] LABS: Chloride 106 mmol/L (98-107); Potassium 3.1 mmol/L (3.5-5.1); Sodium 137 mmol/L (136-145)
[2023-06-25 05:18] LABS: Anion Gap 7 (5-15); Calcium 8.5 mg/dL (8.7-10.4); Carbon Dioxide 24 mmol/L (20-30)
[2023-06-25 05:23] LABS: BUN/Creatinine Ratio 23.4 (10.0-20.0); Blood Urea Nitrogen 11 mg/dL (9-23); Glucose 200 mg/dL (74-106)
[2023-06-25] MEDS: ACETAMINOPHEN 325 MG TAB PO PRN (05:55)
[2023-06-25] MEDS: VANCOMYCIN 1GM/200ML 200 ML IV SCH (05:56)
[2023-06-25] MEDS: InsuLIN REG 1unit/0.01ml Soln (100units/ml) SC ONE (06:44)
[2023-06-25] MEDS: ACCU-CHEK COMFORT CURVE STRIP VI ONE (06:44)
[2023-06-25] MEDS ORDERED: AZITHROMYCIN 500MG/ 250ML 250 ML IV SCH (10:00)
[2023-06-25] MEDS ORDERED: ACET-6 PO (14:31)
[2023-06-25] MEDS ORDERED: DULO20CA PO (14:31)
[2023-06-25] MEDS ORDERED: LAMO25TA2 PO (14:31)
[2023-06-25] MEDS ORDERED: TRAZ-227 PO (14:31)
[2023-06-25] MEDS ORDERED: INSU100I52 SC (14:34)
[2023-06-26] VITALS (8 sets, daily range): BP systolic 122–138; BP diastolic 74–94; PULSE 97–106; RESP 16–18; TEMP 97.7–98.6; O2SAT 97–100
[2023-06-26 04:11] LABS: Basophils # (auto) 0.1 10 ^3/uL (0-0.2); Basophils % (auto) 1.9 % (0.0-2.0); Eosinophils # (auto) 0.1 10 ^3/uL (0-0.8); Eosinophils % (auto) 1.3 % (0.0-7.0); Hematocrit 45.8 % (36.0-46.0); Hemoglobin 15.3 g/dL (12.2-16.2); Lymphocytes # (auto) 2.1 10 ^3/uL (0.4-5.4); Lymphocytes % (auto) 33.3 % (10.0-50.0); Mean Corpuscular Hemoglobin 32.5 pg (28.0-32.0); Mean Corpuscular Hgb Conc. 33.4 g/dL (32.0-36.0); Mean Corpuscular Volume 97.1 fL (80.0-100.0); Monocytes # (auto) 0.5 10 ^3/uL (0-1.3); Monocytes % (auto) 8.1 % (0.0-12.0); Neutrophils # (auto) 3.5 10 ^3/uL (1.6-8.6); Neutrophils % (auto) 55.4 % (37.0-80.0); Nucleated Red Blood Cells % 0.1 %; Red Blood Cells 4.72 10^6/uL (4.0-5.20); Red Cell Distribution Width 13.7 % (11.8-14.3); White Blood Cell 6.3 10^3/uL (4.4-10.8)
[2023-06-26 04:12] LABS: Anion Gap 10 (5-15); Carbon Dioxide 23 mmol/L (20-30); Chloride 98 mmol/L (98-107); Potassium 3.5 mmol/L (3.5-5.1)
[2023-06-26 04:13] LABS: Calcium 8.7 mg/dL (8.7-10.4)
[2023-06-26 04:18] LABS: BUN/Creatinine Ratio 14.3 (10.0-20.0); Blood Urea Nitrogen 8 mg/dL (9-23); Glucose 359 mg/dL (74-106)
[2023-06-26 04:44] LABS: Sodium 131 mmol/L (136-145)
[2023-06-26] MEDS ORDERED: DEXTROSE (50%) 50ML SYRG IV PRN ×2 (08:00→12:00)
[2023-06-26] MEDS: ACCU-CHEK COMFORT CURVE STRIP VI SCH ×2 (11:22→16:40)
[2023-06-26] MEDS: InsuLIN REG 1unit/0.01ml Soln (100units/ml) SC SCH ×3 (11:43→21:22)
[2023-06-26] MEDS: HYDROcodone-ACET 5/325MG TAB PO PRN (13:30)
[2023-06-26 15:44] LABS: COVID19 ANTIGEN SOFIA FIA NEGATIVE (NEGATIVE)
[2023-06-26] MEDS: INSULIN LANTUS (GLARGINE) 1 /0.01ml (100units/ml) SC SCH (21:23)
[2023-06-27] VITALS (8 sets, daily range): BP systolic 119–139; BP diastolic 77–94; PULSE 90–103; RESP 15–18; TEMP 97.7–98.5; O2SAT 94–100
[2023-06-27 05:44] LABS: Calcium 8.5 mg/dL (8.7-10.4)
[2023-06-27 05:49] LABS: BUN/Creatinine Ratio 21.7 (10.0-20.0)
[2023-06-27 05:50] LABS: Albumin 3.2 g/dL (3.2-4.8)
[2023-06-27 05:51] LABS: Phosphorus 2.6 mg/dL (2.4-5.1)
[2023-06-27] MEDS: POTASSIUM EFFERVESENT TAB 25 MEQ PO ONE (09:37)
[2023-06-27] MEDS: HYDROcodone-ACET 10/325MG TAB PO PRN (10:25)
[2023-06-28] VITALS (7 sets, daily range): BP systolic 112–140; BP diastolic 76–87; PULSE 53–107; RESP 12–20; TEMP 97.6–98.7; O2SAT 96–100
[2023-06-28] MEDS: VANCOMYCIN 750mg/150ml 150 ML IV SCH (03:59)
[2023-06-29 01:25] VITALS: BP 131/87; PULSE 103; RESP 18; TEMP 96.6; O2SAT 99
[2023-06-29 05:08] VITALS: BP 121/78; PULSE 98; RESP 18; TEMP 98; O2SAT 98
[2023-06-29 08:00] VITALS: RESP 18; O2SAT 98
[2023-06-29] MEDS ORDERED: VANCOMYCIN 1GM/200ML 200 ML IV SCH (09:06)
[2023-06-29] MEDS: VANCOMYCIN 1GM/200ML 200 ML IV SCH (09:56)
[2023-06-29 13:00] VITALS: BP 133/90; PULSE 99; RESP 19; TEMP 97.3; O2SAT 94
[2023-06-29 17:00] VITALS: BP 108/77; PULSE 101; RESP 19; TEMP 98.6; O2SAT 98
== END 2023-06-29 17:45 | DRG 720 ==
LOC: EDUNIT# 19:11 → EDBD 19:11 → ER 19:11 → TELE 22:27 → EAST 06-25 04:38
PROVIDERS: ADMIT Nurse Practitioner Family; ATTEND Family Medicine
PROC: B54NZZA Ultrasonography of Left Upper Extremity Veins, Guidance (ICD-10-PCS; 2023-06-26)
PROC: 05HA33Z Insertion of Infusion Device into Left Brachial Vein, Percutaneous Approach (ICD-10-PCS; 2023-06-26)
PROC: 05H933Z Insertion of Infusion Device into Right Brachial Vein, Percutaneous Approach (ICD-10-PCS; principal; 2023-06-29)
PROC: B54MZZA Ultrasonography of Right Upper Extremity Veins, Guidance (ICD-10-PCS; 2023-06-29)
DX: A41.9 Sepsis, unspecified organism (principal); N17.0 Acute kidney failure with tubular necrosis; J69.0 Pneumonitis due to inhalation of food and vomit; E11.10 Type 2 diabetes mellitus with ketoacidosis without coma; E11.65 Type 2 diabetes mellitus with hyperglycemia; F31.9 Bipolar disorder, unspecified; Z20.822 Contact with and (suspected) exposure to COVID-19; R74.01 Elevation of levels of liver transaminase levels; F19.10 Other psychoactive substance abuse, uncomplicated; F20.9 Schizophrenia, unspecified; F17.210 Nicotine dependence, cigarettes, uncomplicated; I10 Essential (primary) hypertension; F15.10 Other stimulant abuse, uncomplicated; Z91.199 Patient's noncompliance with other medical treatment and regimen due to unspecified reason; Z59.00 Homelessness unspecified; Z90.710 Acquired absence of both cervix and uterus; Z82.49 Family history of ischemic heart disease and other diseases of the circulatory system; Z80.7 Family history of other malignant neoplasms of lymphoid, hematopoietic and related tissues; Z79.4 Long term (current) use of insulin; J18.9 Pneumonia, unspecified organism
CPT/HCPCS: 36415; 36600; 71045; 80048; 80053; 80069; 80202; 80307; 80320; 81001; 82010; 82565; 82805; 82962; 83036; 85025; 87040; 87086; 87426; 93005; 93925; 97116; 97163; 97530; C9113; G0378; J1815; J2543

== ENCOUNTER 2023-07-13 01:24 | Inpatient (IN) | payer MEDICAID ==
[~2023-07-13] VITALS: Ht 154.9 cm; Wt 37.0 kg
[~2023-07-13 01:24] MED LIST changes: +ACET-6 PO; -BLOO-169 XX; -DOXY-286 PO; +DULO20CA PO; -HYDR1TAB97 PO; +INSU100I52 SC; +LAMO25TA2 PO; +TRAZ-227 PO
[2023-07-13 02:00] VITALS: PULSE 115; RESP 17; O2SAT 100
[2023-07-13] MEDS: SODIUM CHLORIDE 0.9% 1,000 ML IV ONE (02:37)
[2023-07-13 02:38] LABS: Urine Bacteria None Seen /hpf (None Seen)
[2023-07-13 02:48] LABS: Basophils # (auto) 0.1 10 ^3/uL (0-0.2); Basophils % (auto) 0.5 % (0.0-2.0); Eosinophils # (auto) 0 10 ^3/uL (0-0.8); Hematocrit 44.9 % (36.0-46.0); Lymphocytes # (auto) 1.4 10 ^3/uL (0.4-5.4); Lymphocytes % (auto) 10.7 % (10.0-50.0); Mean Corpuscular Hemoglobin 32.7 pg (28.0-32.0); Mean Corpuscular Hgb Conc. 31.1 g/dL (32.0-36.0); Monocytes # (auto) 0.7 10 ^3/uL (0-1.3); Monocytes % (auto) 5.8 % (0.0-12.0); Neutrophils # (auto) 10.7 10 ^3/uL (1.6-8.6); Red Blood Cells 4.27 10^6/uL (4.0-5.20); Red Cell Distribution Width 16.5 % (11.8-14.3); White Blood Cell 12.9 10^3/uL (4.4-10.8)
[2023-07-13 02:51] LABS: Chloride 97 mmol/L (98-107); Potassium 4.2 mmol/L (3.5-5.1); Sodium 131 mmol/L (136-145)
[2023-07-13 02:52] LABS: Anion Gap 23 (5-15); Carbon Dioxide 11 mmol/L (20-30)
[2023-07-13 02:58] LABS: BUN/Creatinine Ratio 12.1 (10.0-20.0); Blood Urea Nitrogen 15 mg/dL (9-23); Lipase 41 U/L (12-53)
[2023-07-13 03:00] LABS: Amphetamine Screen, Urine Pos (NEGATIVE)
[2023-07-13 03:01] LABS: Barbiturate Scree,Urine Neg (NEGATIVE); Benzodiazephine Screen, Urine Neg (NEGATIVE); Cannabinoid Screen, Urine Neg (NEGATIVE); Cocaine Screen, Urine Neg (NEGATIVE); Opiate Scree,Urine Neg (NEGATIVE); Phencyclidine Screen, Urine Neg (NEGATIVE)
[2023-07-13 03:12] LABS: Glucose 672 mg/dL (74-106)
[2023-07-13 03:19] LABS: Urine Blood 1+ /uL (Negative); Urine Clarity Clear (Clear); Urine Color Colorless (Yellow); Urine Mucus FEW (None Seen); Urine Protein, UAD TRACE (Negative); Urine Specific Gravity 1.023 (1.001-1.035); Urine Urobilinogen Normal (Negative); Urine WBC <1 /hpf (0 - 5)
[2023-07-13] MEDS ORDERED: POTASSIUM CHL 20MEQ/100ML 100 ML IV PRN (03:30)
[2023-07-13] MEDS ORDERED: DEXTROSE (50%) 50ML SYRG IV PRN ×2 (03:30→09:45)
[2023-07-13 03:34] LABS: Blood Alcohol < 3.0 mg/dL (<10)
[2023-07-13] MEDS: INSULIN LANTUS (GLARGINE) 1 /0.01ml (100units/ml) SC ONE (03:46)
[2023-07-13] MEDS: INSULIN DRIP 100 UNIT/100ML 100 ML IV SCH (03:46)
[2023-07-13] MEDS: SODIUM CHLORIDE 0.9% 1,000 ML IV SCH ×2 (03:50→06:36)
[2023-07-13] MEDS: ACCU-CHEK COMFORT CURVE STRIP VI SCH ×2 (04:36→11:30)
[2023-07-13] MEDS ORDERED: ONDANSETRON HCL 4 MG/2 ML VIAL IV PRN (05:30)
[2023-07-13] MEDS ORDERED: LORazepam 2MG/ML-1ML VIAL IV PRN (05:30)
[2023-07-13] MEDS ORDERED: NITROGLYCERIN 0.4 MG SL TAB SL PRN (05:30)
[2023-07-13] MEDS ORDERED: MORPHINE SULFATE INJ 2 MG/ml SYRG IV PRN (05:30)
[2023-07-13] MEDS ORDERED: D5W/SOD CHL 0.45% 1,000 ML IV SCH (06:15)
[2023-07-13] MEDS ORDERED: SODIUM BICARB IV ONE (07:00)
[2023-07-13] MEDS ORDERED: SOD CHL 0.45% IV ONE (07:00)
[2023-07-13 07:20] VITALS: PULSE 112; RESP 16; O2SAT 96
[2023-07-13 08:55] LABS: Potassium 3.7 mmol/L (3.5-5.1); Sodium 140 mmol/L (136-145)
[2023-07-13 08:56] LABS: Calcium 8.3 mg/dL (8.5-10.1); Carbon Dioxide 19 mmol/L (20-30); Chloride 114 mmol/L (98-107)
[2023-07-13 09:01] LABS: BUN/Creatinine Ratio 17.2 (10.0-20.0); Blood Urea Nitrogen 11 mg/dL (9-23); Glucose 137 mg/dL (74-106)
[2023-07-13] MEDS: SODIUM BICARB 50mEq/50ml Vial 100 ML in SOD CHL 0.45% 1,000 ML IV ONE (09:08)
[2023-07-13 09:25] LABS: Base Excess -7.2 mmol/L (-2.0-2.0)
[2023-07-13] MEDS ORDERED: SODIUM CHLORIDE 0.9% 1,000 ML IV SCH (09:30)
[2023-07-13 09:44] LABS: Basophils # (auto) 0.1 10 ^3/uL (0-0.2); Basophils % (auto) 0.7 % (0.0-2.0); Eosinophils # (auto) 0.1 10 ^3/uL (0-0.8); Eosinophils % (auto) 0.5 % (0.0-7.0); Hematocrit 34.4 % (36.0-46.0); Hemoglobin 11.5 g/dL (12.2-16.2); Lymphocytes # (auto) 2.6 10 ^3/uL (0.4-5.4); Lymphocytes % (auto) 24.8 % (10.0-50.0); Mean Corpuscular Hemoglobin 32.9 pg (28.0-32.0); Mean Corpuscular Hgb Conc. 33.5 g/dL (32.0-36.0); Mean Corpuscular Volume 98.3 fL (80.0-100.0); Monocytes # (auto) 0.8 10 ^3/uL (0-1.3); Monocytes % (auto) 7.6 % (0.0-12.0); Neutrophils # (auto) 7.1 10 ^3/uL (1.6-8.6); Neutrophils % (auto) 66.4 % (37.0-80.0); Nucleated Red Blood Cells % 0.1 %; Red Cell Distribution Width 15.1 % (11.8-14.3); White Blood Cell 10.6 10^3/uL (4.4-10.8)
[2023-07-13] MEDS: NICOTINE 14 MG/24HR TOPICAL PATCH TD ONE ×2 (09:59→13:38)
[2023-07-13 10:23] LABS: INR 0.96 (0.9-1.15); Prothrombin Time 10.1 sec (9.3-11.8)
[2023-07-13 10:24] LABS: Alanine Aminotransferase 179 U/L (7-40); Alkaline Phosphatase 173 U/L (46-116); Anion Gap 8 (5-15); Calcium 8.4 mg/dL (8.5-10.1); Carbon Dioxide 19 mmol/L (20-30); Chloride 114 mmol/L (98-107); Glucose 119 mg/dL (74-106); Potassium 3.7 mmol/L (3.5-5.1); Sodium 141 mmol/L (136-145)
[2023-07-13 10:25] LABS: BUN/Creatinine Ratio 16.9 (10.0-20.0); Blood Urea Nitrogen 11 mg/dL (9-23); Triglycerides 213 mg/dL (< 150)
[2023-07-13 10:26] LABS: Albumin 3.7 g/dL (3.2-4.8); Aspartate Aminotransferase 61 U/L (13-40); LDL Cholesterol 61 mg/dL (< 100)
[2023-07-13 10:27] LABS: Bilirubin, Total 0.5 mg/dL (0.2-1.0); Cholesterol 117 mg/dL (< 200); HDL Cholesterol 31 mg/dL (40-59)
[2023-07-13 10:55] LABS: Magnesium 1.7 mg/dL (1.6-2.6)
[2023-07-13 11:06] LABS: Anion Gap 7 (5-15)
[2023-07-13] MEDS: cefTRIAXone 1GM/50ML D5W 50 ML IV ONE (11:21)
[2023-07-13] MEDS: InsuLIN REG 1unit/0.01ml Soln (100units/ml) SC SCH ×2 (11:30→21:39)
[2023-07-13 15:04] LABS: Chloride 103 mmol/L (98-107)
[2023-07-13 15:10] LABS: Glucose 83 mg/dL (74-106)
[2023-07-13 15:11] LABS: Blood Urea Nitrogen 6 mg/dL (9-23)
[2023-07-13 15:14] LABS: Anion Gap 2.99999 (5-15); Sodium 146 mmol/L (136-145)
[2023-07-13 15:20] LABS: Carbon Dioxide > 40 mmol/L (20-30); Potassium 2.2 mmol/L (3.5-5.1)
[2023-07-13 16:32] VITALS: BP 127/79; PULSE 96; RESP 17; TEMP 98.1; O2SAT 99
[2023-07-13 17:00] VITALS: BP 127/79; PULSE 96; RESP 17; TEMP 98.1; O2SAT 99
[2023-07-13] MEDS: POTASSIUM CHL 20MEQ/100ML 100 ML IV SCH (17:29)
[2023-07-13] MEDS: D5W/SOD CHL 0.45%/KCL 20MEQ 1,000 ML IV SCH (17:40)
[2023-07-13] MEDS: CALCIUM GLUC 1,000mg/50ml-NS 50 ML IV ONE (18:09)
[2023-07-13 20:00] VITALS: BP 118/76; PULSE 104; PULSE 106; RESP 19; TEMP 98.1; O2SAT 96
[2023-07-13 20:34] LABS: Chloride 106 mmol/L (98-107); Potassium 3.8 mmol/L (3.5-5.1)
[2023-07-13 20:35] LABS: Anion Gap 7 (5-15); Carbon Dioxide 22 mmol/L (20-30)
[2023-07-13 20:36] LABS: Calcium 8.5 mg/dL (8.5-10.1)
[2023-07-13 20:40] LABS: BUN/Creatinine Ratio 18.8 (10.0-20.0); Blood Urea Nitrogen 13 mg/dL (9-23); Glucose 186 mg/dL (74-106)
[2023-07-13 20:42] LABS: Sodium 135 mmol/L (136-145)
[2023-07-13 22:00] VITALS: BP 118/76; PULSE 106; RESP 19; TEMP 98.1; O2SAT 96
[2023-07-14 01:00] VITALS: BP 116/78; PULSE 92; RESP 17; TEMP 98.3; O2SAT 97
[2023-07-14 01:39] LABS: Anion Gap 5 (5-15); Carbon Dioxide 23 mmol/L (20-30); Chloride 109 mmol/L (98-107); Potassium 3.5 mmol/L (3.5-5.1); Sodium 137 mmol/L (136-145)
[2023-07-14 01:45] LABS: BUN/Creatinine Ratio 14.8 (10.0-20.0); Blood Urea Nitrogen 9 mg/dL (9-23); Glucose 165 mg/dL (74-106)
[2023-07-14 01:46] LABS: Calcium 8.5 mg/dL (8.7-10.4)
[2023-07-14 05:00] VITALS: BP 126/88; PULSE 93; RESP 19; TEMP 98.3; O2SAT 98
[2023-07-14 05:51] LABS: Basophils # (auto) 0.1 10 ^3/uL (0-0.2); Basophils % (auto) 0.9 % (0.0-2.0); Eosinophils # (auto) 0.2 10 ^3/uL (0-0.8); Eosinophils % (auto) 2.3 % (0.0-7.0); Hematocrit 36.5 % (36.0-46.0); Hemoglobin 12.1 g/dL (12.2-16.2); Lymphocytes # (auto) 2.2 10 ^3/uL (0.4-5.4); Lymphocytes % (auto) 32.4 % (10.0-50.0); Mean Corpuscular Hemoglobin 32.7 pg (28.0-32.0); Mean Corpuscular Hgb Conc. 33.3 g/dL (32.0-36.0); Mean Corpuscular Volume 98.2 fL (80.0-100.0); Monocytes # (auto) 0.4 10 ^3/uL (0-1.3); Monocytes % (auto) 5.9 % (0.0-12.0); Neutrophils % (auto) 58.5 % (37.0-80.0); Nucleated Red Blood Cells % 0.1 %; Red Blood Cells 3.71 10^6/uL (4.0-5.20); Red Cell Distribution Width 15.2 % (11.8-14.3); White Blood Cell 6.9 10^3/uL (4.4-10.8)
[2023-07-14 06:10] LABS: Alanine Aminotransferase 154 U/L (7-40); Albumin 3.1 g/dL (3.2-4.8); Alkaline Phosphatase 153 U/L (46-116); Anion Gap 5 (5-15); Aspartate Aminotransferase 89 U/L (13-40); Calcium 8.2 mg/dL (8.7-10.4); Carbon Dioxide 25 mmol/L (20-30); Chloride 104 mmol/L (98-107); Glucose 248 mg/dL (74-106); Magnesium 1.6 mg/dL (1.6-2.6); Phosphorus 1.6 mg/dL (2.4-5.1); Potassium 3.8 mmol/L (3.5-5.1); Sodium 134 mmol/L (136-145)
[2023-07-14 06:11] LABS: Bilirubin, Total 0.5 mg/dL (0.2-1.0); Total Protein 5.5 g/dL (5.7-8.2)
[2023-07-14] MEDS ORDERED: ACETAMINOPHEN 325 MG TAB PO PRN (06:15)
[2023-07-14 06:35] LABS: BUN/Creatinine Ratio 16.3 (10.0-20.0); Blood Urea Nitrogen 8 mg/dL (9-23)
[2023-07-14 08:00] VITALS: PULSE 97
[2023-07-14] MEDS: cefTRIAXone 1GM/50ML D5W 50 ML IV SCH (08:39)
[2023-07-14 09:00] VITALS: BP 136/91; PULSE 103; RESP 18; TEMP 98; O2SAT 98
[2023-07-14 10:01] LABS: Base Excess 0.4 mmol/L (-2.0-2.0)
[2023-07-14] MEDS: INSULIN LANTUS (GLARGINE) 1 /0.01ml (100units/ml) SC SCH (10:38)
[2023-07-14] MEDS: LACTULOSE 20Gm/30ML SOLN PO SCH (10:40)
[2023-07-14] MEDS: SODIUM CHLORIDE 0.9% 1,000 ML IV SCH (10:41)
[2023-07-14] MEDS: KETOROLAC TROMETH 30 MG/ML 1ML VIAL IV PRN (10:42)
[2023-07-14] MEDS: CALCIUM GLUC 1,000mg/50ml-NS 50 ML IV ONE (10:49)
[2023-07-14] MEDS: NICOTINE 14 MG/24HR TOPICAL PATCH TD SCH (10:52)
[2023-07-14] MEDS: POTASSIUM PHOSPHATE 22 MEQ in SODIUM CHL 0.9% 100 ML IV ONE (11:35)
[2023-07-14 17:00] VITALS: BP 127/84; PULSE 99; RESP 17; TEMP 98; O2SAT 97
[2023-07-14] MEDS: LIDOCAINE 5% TOPICAL PATCH TOP ONE (20:11)
[2023-07-14 21:00] VITALS: BP 130/73; PULSE 103; RESP 15; TEMP 98.6; O2SAT 96
[2023-07-14] MEDS: GABAPENTIN 400 MG CAP PO SCH (21:41)
[2023-07-15] VITALS (7 sets, daily range): BP systolic 111–120; BP diastolic 74–85; PULSE 93–106; RESP 15–20; TEMP 36.8; O2SAT 97–100
[2023-07-15 05:27] LABS: Basophils # (auto) 0.1 10 ^3/uL (0-0.2); Basophils % (auto) 1.2 % (0.0-2.0); Eosinophils # (auto) 0.1 10 ^3/uL (0-0.8); Eosinophils % (auto) 1.5 % (0.0-7.0); Hemoglobin 14.6 g/dL (12.2-16.2); Lymphocytes # (auto) 2.8 10 ^3/uL (0.4-5.4); Lymphocytes % (auto) 42.8 % (10.0-50.0); Mean Corpuscular Hemoglobin 32.4 pg (28.0-32.0); Mean Corpuscular Hgb Conc. 33.2 g/dL (32.0-36.0); Mean Corpuscular Volume 97.7 fL (80.0-100.0); Monocytes # (auto) 0.7 10 ^3/uL (0-1.3); Monocytes % (auto) 10.5 % (0.0-12.0); Neutrophils # (auto) 2.8 10 ^3/uL (1.6-8.6); Nucleated Red Blood Cells % 0.2 %; Red Blood Cells 4.51 10^6/uL (4.0-5.20); Red Cell Distribution Width 15.6 % (11.8-14.3); White Blood Cell 6.4 10^3/uL (4.4-10.8)
[2023-07-15 05:48] LABS: Alanine Aminotransferase 175 U/L (7-40); Albumin 3.6 g/dL (3.2-4.8); Alkaline Phosphatase 177 U/L (46-116); Anion Gap 5 (5-15); Aspartate Aminotransferase 140 U/L (13-40); BUN/Creatinine Ratio 17.4 (10.0-20.0); Blood Urea Nitrogen 8 mg/dL (9-23); Calcium 9.5 mg/dL (8.7-10.4); Carbon Dioxide 29 mmol/L (20-30); Chloride 109 mmol/L (98-107); Glucose 55 mg/dL (74-106); Magnesium 2.1 mg/dL (1.6-2.6); Potassium 3.8 mmol/L (3.5-5.1); Sodium 143 mmol/L (136-145)
[2023-07-15 05:49] LABS: Bilirubin, Total 0.4 mg/dL (0.2-1.0); Total Protein 6.6 g/dL (5.7-8.2)
[2023-07-15] MEDS ORDERED: INSLANTI SC (09:44)
[2023-07-15] MEDS ORDERED: INSU100I51 SC ×2 (09:44→13:11)
[2023-07-15] MEDS ORDERED: GABA-1251 PO (09:44)
[2023-07-15] MEDS: INSULIN LANTUS (GLARGINE) 1 /0.01ml (100units/ml) SC SCH (10:00)
[2023-07-15] MEDS: LIDOCAINE 5% TOPICAL PATCH TOP SCH (10:00)
== END 2023-07-15 21:52 | disposition home or self-care (01) | DRG 420 ==
LOC: ER 01:24 → EDBD 01:24 → TELE 05:29 → TELE-CENTR 16:02 → CENTRAL 07-14 19:27
PROVIDERS: ADMIT Internal Medicine; ATTEND Internal Medicine
DX: E11.10 Type 2 diabetes mellitus with ketoacidosis without coma (principal); N17.0 Acute kidney failure with tubular necrosis; E44.1 Mild protein-calorie malnutrition; K72.10 Chronic hepatic failure without coma; L97.509 Non-pressure chronic ulcer of other part of unspecified foot with unspecified severity; F15.10 Other stimulant abuse, uncomplicated; I10 Essential (primary) hypertension; D72.829 Elevated white blood cell count, unspecified; B19.20 Unspecified viral hepatitis C without hepatic coma; F10.10 Alcohol abuse, uncomplicated; F20.9 Schizophrenia, unspecified; F17.210 Nicotine dependence, cigarettes, uncomplicated; F12.10 Cannabis abuse, uncomplicated; E11.621 Type 2 diabetes mellitus with foot ulcer; E11.40 Type 2 diabetes mellitus with diabetic neuropathy, unspecified; E87.6 Hypokalemia; Y90.9 Presence of alcohol in blood, level not specified; F32.A Depression, unspecified; Z68.1 Body mass index [BMI] 19.9 or less, adult; Z79.4 Long term (current) use of insulin; Z79.899 Other long term (current) drug therapy; Z79.1 Long term (current) use of non-steroidal anti-inflammatories (NSAID); Z90.710 Acquired absence of both cervix and uterus; Z59.00 Homelessness unspecified; Z91.148 Patient's other noncompliance with medication regimen for other reason; Z86.19 Personal history of other infectious and parasitic diseases
CPT/HCPCS: 36415; 36600; 71045; 74176; 80048; 80053; 80061; 80307; 80320; 81001; 82010; 82140; 82306; 82607; 82805; 82962; 83605; 83690; 83735; 84100; 84443; 84484; 85025; 85610; 85730; 87040; 87086; 87088; 96361; 96365; 96367; 96372; 99291; G0378; J1815; J1885; J3480

== ENCOUNTER 2023-11-03 02:55 | Emergency (ER) | payer MEDICAID ==
[~2023-11-03] VITALS: Ht 160 cm; Wt 50.0 kg
[~2023-11-03 02:55] MED LIST changes: +INSLANTI SC; +INSU100I51 SC
[2023-11-03] MEDS: SODIUM CHLORIDE 0.9% 1,000 ML IV ONE (04:00)
[2023-11-03 04:15] LABS: Eosinophils # (auto) 0 10 ^3/uL (0-0.8); Mean Corpuscular Hemoglobin 32.9 pg (28.0-32.0); Monocytes # (auto) 0.7 10 ^3/uL (0-1.3); Neutrophils # (auto) 2.3 10 ^3/uL (1.6-8.6); White Blood Cell 4.4 10^3/uL (4.4-10.8)
[2023-11-03 04:17] LABS: Basophils # (auto) 0 10 ^3/uL (0-0.2); Basophils % (auto) 0.9 % (0.0-2.0); Eosinophils % (auto) 0.3 % (0.0-7.0); Hematocrit 44.6 % (36.0-46.0); Lymphocytes # (auto) 1.3 10 ^3/uL (0.4-5.4); Lymphocytes % (auto) 30.1 % (10.0-50.0); Mean Corpuscular Hgb Conc. 31.5 g/dL (32.0-36.0); Mean Corpuscular Volume 104.5 fL (80.0-100.0); Monocytes % (auto) 15.4 % (0.0-12.0); Neutrophils % (auto) 53.3 % (37.0-80.0); Red Blood Cells 4.27 10^6/uL (4.0-5.20); Red Cell Distribution Width 15.3 % (11.8-14.3)
[2023-11-03 04:33] LABS: Alanine Aminotransferase 139 U/L (7-40); Albumin 3.6 g/dL (3.2-4.8); Alkaline Phosphatase 186 U/L (46-116); Anion Gap 6 (5-15); Aspartate Aminotransferase 199 U/L (13-40); BUN/Creatinine Ratio 12.4 (10.0-20.0); Blood Urea Nitrogen 11 mg/dL (9-23); Calcium 9.3 mg/dL (8.7-10.4); Carbon Dioxide 26 mmol/L (20-30); Chloride 96 mmol/L (98-107); Potassium 4.2 mmol/L (3.5-5.1); Sodium 128 mmol/L (136-145)
[2023-11-03 04:34] LABS: Bilirubin, Total 0.3 mg/dL (0.2-1.0); Total Protein 6.3 g/dL (5.7-8.2)
[2023-11-03 04:46] LABS: Glucose 964 mg/dL (74-106)
[2023-11-03 05:04] VITALS: BP 128/88
[2023-11-03 05:30] VITALS: PULSE 100; RESP 13; O2SAT 95
== END 2023-11-03 06:46 | disposition admitted as inpatient to this hospital (09) ==
LOC: ER 02:55 → EDBD 02:55 → ER 06:46
DX: E11.65 Type 2 diabetes mellitus with hyperglycemia (principal); K21.9 Gastro-esophageal reflux disease without esophagitis; F20.9 Schizophrenia, unspecified; F17.210 Nicotine dependence, cigarettes, uncomplicated; F12.90 Cannabis use, unspecified, uncomplicated; F15.90 Other stimulant use, unspecified, uncomplicated; Z59.00 Homelessness unspecified; Z79.899 Other long term (current) drug therapy; Z79.4 Long term (current) use of insulin; Z79.84 Long term (current) use of oral hypoglycemic drugs; Z98.890 Other specified postprocedural states; Z90.710 Acquired absence of both cervix and uterus
CPT/HCPCS: 36415; 71045; 80053; 82010; 85025; 93005; 96360; 96361; 99285; J7030

== ENCOUNTER 2023-11-04 20:12 | Inpatient (IN) | payer MEDICAID ==
[~2023-11-04] VITALS: Ht 157.5 cm; Wt 36.4 kg
[2023-11-04 20:51] VITALS: PULSE 100; RESP 13; O2SAT 100
[2023-11-04] MEDS: SODIUM CHLORIDE 0.9% 1,000 ML IV ONE ×2 (21:13→22:23)
[2023-11-04 21:41] LABS: Alanine Aminotransferase 112 U/L (7-40); Albumin 3.8 g/dL (3.2-4.8); Alkaline Phosphatase 162 U/L (46-116); Anion Gap 19.00001 (5-15); Aspartate Aminotransferase 42 U/L (13-40); BUN/Creatinine Ratio 29.2 (10.0-20.0); Calcium 9.6 mg/dL (8.7-10.4); Lipase 195 U/L (12-53); Sodium 138 mmol/L (136-145)
[2023-11-04 21:42] LABS: Bilirubin, Total 0.3 mg/dL (0.2-1.0); Total Protein 6.4 g/dL (5.7-8.2)
[2023-11-04 21:54] LABS: Blood Urea Nitrogen 35 mg/dL (9-23); Chloride 109 mmol/L (98-107)
[2023-11-04 21:56] LABS: Carbon Dioxide < 10 mmol/L (20-30); Glucose 777 mg/dL (74-106)
[2023-11-04 22:12] LABS: Urine Bacteria None Seen /hpf (None Seen)
[2023-11-04 22:27] LABS: Urine Blood 1+ /uL (Negative); Urine Budding Yeast OCCASIONAL /hpf (None Seen); Urine Clarity Turbid (Clear); Urine Color Colorless (Yellow); Urine Hyaline Cast FEW /lpf (0 - 2); Urine Protein, UAD 1+ (Negative); Urine Specific Gravity 1.023 (1.001-1.035); Urine Urobilinogen Normal (Negative); Urine WBC 4 /hpf (0 - 5)
[2023-11-04] MEDS: InsuLIN REG 1unit/0.01ml Soln (100units/ml) IV ONE (22:44)
[2023-11-04 22:45] LABS: Basophils # (auto) 0.3 10 ^3/uL (0-0.2); Basophils % (auto) 1.4 % (0.0-2.0); Eosinophils # (auto) 0 10 ^3/uL (0-0.8); Eosinophils % (auto) 0.1 % (0.0-7.0); Hematocrit 46.6 % (36.0-46.0); Hemoglobin 13.4 g/dL (12.2-16.2); Lymphocytes # (auto) 2.3 10 ^3/uL (0.4-5.4); Mean Corpuscular Hemoglobin 32.5 pg (28.0-32.0); Mean Corpuscular Hgb Conc. 28.8 g/dL (32.0-36.0); Mean Corpuscular Volume 112.9 fL (80.0-100.0); Monocytes # (auto) 2.8 10 ^3/uL (0-1.3); Monocytes % (auto) 12.4 % (0.0-12.0); Neutrophils # (auto) 17.1 10 ^3/uL (1.6-8.6); Neutrophils % (auto) 76.1 % (37.0-80.0); Platelet Count (auto) 386 10^3/uL (140-450); Red Blood Cells 4.12 10^6/uL (4.0-5.20); Red Cell Distribution Width 15.7 % (11.8-14.3); White Blood Cell 22.5 10^3/uL (4.4-10.8)
[2023-11-05] MEDS ORDERED: DEXTROSE (50%) 50ML SYRG IV PRN ×2 (00:45→13:30)
[2023-11-05 00:58] LABS: Base Excess -29.5 mmol/L (-2.0-2.0)
[2023-11-05 01:01] LABS: Magnesium 2.2 mg/dL (1.6-2.6)
[2023-11-05 01:03] LABS: Phosphorus 6.3 mg/dL (2.4-5.1)
[2023-11-05] MEDS: INSULIN DRIP 100 UNIT/100ML 100 ML IV SCH (01:31)
[2023-11-05] MEDS: cefTRIAXone 1GM/50ML D5W 50 ML IV ONE (01:40)
[2023-11-05] MEDS: ACCU-CHEK COMFORT CURVE STRIP VI SCH ×2 (01:40→16:03)
[2023-11-05] MEDS: SODIUM CHLORIDE 0.9% 1,000 ML IV SCH ×3 (01:41→06:57)
[2023-11-05] MEDS ORDERED: NITROGLYCERIN 0.4 MG SL TAB SL PRN (02:15)
[2023-11-05] MEDS: SODIUM BICARB 50mEq/50ml Vial 50 ML in D5W 5% 1,000 ML IV ONE (02:28)
[2023-11-05] MEDS: SODIUM BICARB 8.4% 50Meq/50ml SYR Vial IV ONE ×2 (02:28→05:23)
[2023-11-05 02:45] LABS: Amphetamine Screen, Urine Pos (NEGATIVE); Barbiturate Scree,Urine Neg (NEGATIVE); Benzodiazephine Screen, Urine Neg (NEGATIVE); Cannabinoid Screen, Urine Neg (NEGATIVE); Cocaine Screen, Urine Neg (NEGATIVE); Opiate Scree,Urine Neg (NEGATIVE); Phencyclidine Screen, Urine Neg (NEGATIVE)
[2023-11-05] MEDS: MORPHINE SULFATE INJ 2 MG/ml SYRG IV PRN (03:43)
[2023-11-05] MEDS: ONDANSETRON HCL 4 MG/2 ML VIAL IV PRN (03:44)
[2023-11-05 04:26] LABS: Base Excess -22.1 mmol/L (-2.0-2.0)
[2023-11-05 07:09] LABS: Anion Gap 15 (5-15); Carbon Dioxide 11 mmol/L (20-30); Potassium 3.4 mmol/L (3.5-5.1)
[2023-11-05 07:11] LABS: Calcium 8.3 mg/dL (8.7-10.4)
[2023-11-05 07:15] LABS: BUN/Creatinine Ratio 29.1 (10.0-20.0); Blood Urea Nitrogen 23 mg/dL (9-23); Glucose 326 mg/dL (74-106)
[2023-11-05 07:21] LABS: Chloride 128 mmol/L (98-107); Sodium 154 mmol/L (136-145)
[2023-11-05 08:06] VITALS: PULSE 115; RESP 15; O2SAT 99
[2023-11-05 13:32] LABS: Basophils # (auto) 0.1 10 ^3/uL (0-0.2); Basophils % (auto) 0.3 % (0.0-2.0); Eosinophils # (auto) 0 10 ^3/uL (0-0.8); Hematocrit 32.8 % (36.0-46.0); Hemoglobin 10.8 g/dL (12.2-16.2); Lymphocytes # (auto) 2.3 10 ^3/uL (0.4-5.4); Lymphocytes % (auto) 12.8 % (10.0-50.0); Mean Corpuscular Hemoglobin 32.7 pg (28.0-32.0); Mean Corpuscular Hgb Conc. 32.8 g/dL (32.0-36.0); Mean Corpuscular Volume 99.7 fL (80.0-100.0); Monocytes # (auto) 1.9 10 ^3/uL (0-1.3); Monocytes % (auto) 10.6 % (0.0-12.0); Neutrophils # (auto) 13.4 10 ^3/uL (1.6-8.6); Neutrophils % (auto) 76.3 % (37.0-80.0); Nucleated Red Blood Cells % 0.1 %; Platelet Count (auto) 292 10^3/uL (140-450); Red Blood Cells 3.29 10^6/uL (4.0-5.20); Red Cell Distribution Width 14.1 % (11.8-14.3); White Blood Cell 17.6 10^3/uL (4.4-10.8)
[2023-11-05] MEDS: INSULIN LANTUS (GLARGINE) 1 /0.01ml (100units/ml) SC ONE ×2 (13:49→14:02)
[2023-11-05 13:59] LABS: Chloride 128 mmol/L (98-107); Potassium 2.7 mmol/L (3.5-5.1)
[2023-11-05 14:00] LABS: Anion Gap 10 (5-15); Calcium 7.5 mg/dL (8.7-10.4); Carbon Dioxide 21 mmol/L (20-30)
[2023-11-05 14:05] LABS: BUN/Creatinine Ratio 34.9 (10.0-20.0); Blood Urea Nitrogen 22 mg/dL (9-23); Glucose 174 mg/dL (74-106)
[2023-11-05 14:11] LABS: Sodium 159 mmol/L (136-145)
[2023-11-05] MEDS: POTASSIUM CHLORIDE 40 MEQ in SOD CHL 0.45% 1,000 ML IV SCH (14:35)
[2023-11-05] MEDS: InsuLIN REG 1unit/0.01ml Soln (100units/ml) SC SCH (16:09)
[2023-11-05 19:32] LABS: Anion Gap 9 (5-15); Carbon Dioxide 20 mmol/L (20-30); Chloride 120 mmol/L (98-107); Potassium 3.2 mmol/L (3.5-5.1)
[2023-11-05 19:33] LABS: Calcium 7.4 mg/dL (8.7-10.4)
[2023-11-05 19:38] LABS: BUN/Creatinine Ratio 32.8 (10.0-20.0); Blood Urea Nitrogen 20 mg/dL (9-23); Glucose 180 mg/dL (74-106)
[2023-11-05 19:39] LABS: Sodium 149 mmol/L (136-145)
[2023-11-05 20:00] VITALS: PULSE 108; RESP 20; O2SAT 98
[2023-11-06 05:41] LABS: Basophils # (auto) 0 10 ^3/uL (0-0.2); Basophils % (auto) 0.3 % (0.0-2.0); Eosinophils # (auto) 0 10 ^3/uL (0-0.8); Eosinophils % (auto) 0.1 % (0.0-7.0); Hematocrit 33.2 % (36.0-46.0); Lymphocytes # (auto) 2.3 10 ^3/uL (0.4-5.4); Lymphocytes % (auto) 15.8 % (10.0-50.0); Mean Corpuscular Hemoglobin 32.8 pg (28.0-32.0); Mean Corpuscular Hgb Conc. 33.3 g/dL (32.0-36.0); Mean Corpuscular Volume 98.5 fL (80.0-100.0); Monocytes % (auto) 7.1 % (0.0-12.0); Neutrophils # (auto) 11.3 10 ^3/uL (1.6-8.6); Neutrophils % (auto) 76.7 % (37.0-80.0); Nucleated Red Blood Cells % 0.1 %; Platelet Count (auto) 240 10^3/uL (140-450); Red Blood Cells 3.37 10^6/uL (4.0-5.20); Red Cell Distribution Width 14.3 % (11.8-14.3); White Blood Cell 14.7 10^3/uL (4.4-10.8)
[2023-11-06 05:54] LABS: Alkaline Phosphatase 103 U/L (46-116); Anion Gap 9 (5-15); Aspartate Aminotransferase 85 U/L (13-40); BUN/Creatinine Ratio 26.7 (10.0-20.0); Blood Urea Nitrogen 12 mg/dL (9-23); Calcium 7.5 mg/dL (8.7-10.4); Carbon Dioxide 19 mmol/L (20-30); Chloride 113 mmol/L (98-107); Glucose 245 mg/dL (74-106); Magnesium 1.5 mg/dL (1.6-2.6); Potassium 3.5 mmol/L (3.5-5.1); Sodium 141 mmol/L (136-145)
[2023-11-06 05:55] LABS: Albumin 2.7 g/dL (3.2-4.8); Phosphorus 1.1 mg/dL (2.4-5.1)
[2023-11-06 05:56] LABS: Bilirubin, Total 0.3 mg/dL (0.2-1.0); Total Protein 4.6 g/dL (5.7-8.2)
[2023-11-06 06:02] LABS: Lipase 812 U/L (12-53)
[2023-11-06 06:11] LABS: Alanine Aminotransferase 82 U/L (7-40)
[2023-11-06] MEDS: POTASSIUM PHOSPHATE 26.4 MEQ in SODIUM CHL 0.9% 100 ML IV ONE (08:00)
[2023-11-06] MEDS ORDERED: DEXTROSE (50%) 50ML SYRG IV PRN (08:00)
[2023-11-06] MEDS: POTASSIUM CHLORIDE 40 MEQ in SOD CHL 0.45% 1,000 ML IV SCH (08:00)
[2023-11-06 08:30] VITALS: PULSE 103; RESP 10; O2SAT 99
[2023-11-06] MEDS: MAGNESIUM SULFATE 1GM/100ML 100 ML IV SCH (08:30)
[2023-11-06 10:45] VITALS: BP 118/86; PULSE 101; RESP 18; TEMP 98.2; O2SAT 99
[2023-11-06] MEDS: InsuLIN REG 1unit/0.01ml Soln (100units/ml) SC SCH ×2 (11:30→21:54)
[2023-11-06] MEDS: ACCU-CHEK COMFORT CURVE STRIP VI SCH (11:30)
[2023-11-06] MEDS: INSULIN LANTUS (GLARGINE) 1 /0.01ml (100units/ml) SC ONE (14:22)
[2023-11-06] MEDS ORDERED: ALBUTEROL SULF 2.5 MG/0.5ML(0.5%) NEB SOLN NEB PRN (15:15)
[2023-11-06] MEDS ORDERED: DOCUSATE SOD 100 MG CAP PO PRN (15:15)
[2023-11-06] MEDS ORDERED: IPRATROPIUM BROM 0.5 MG/2.5ML INH SOL NEB PRN (15:15)
[2023-11-06 15:20] VITALS: BP 118/86; PULSE 112; RESP 20; TEMP 98.2; O2SAT 100
[2023-11-06 17:00] VITALS: BP 121/69; PULSE 109; RESP 15; TEMP 98.1; O2SAT 99
[2023-11-06] MEDS: HYDROcodone-ACET 5/325MG TAB PO PRN (17:01)
[2023-11-06] MEDS: PANTOPRAZOLE 40 MG TAB PO ONE (17:01)
[2023-11-06] MEDS: CALCIUM CARB 500 MG CHEW TAB PO SCH (18:45)
[2023-11-06 21:00] VITALS: BP 119/72; PULSE 100; RESP 16; TEMP 98.5; O2SAT 97
[2023-11-06 21:35] VITALS: O2SAT 98
[2023-11-07] VITALS (7 sets, daily range): BP systolic 101–121; BP diastolic 61–81; PULSE 62–102; RESP 16–20; TEMP 97.6–98.6; O2SAT 97–99
[2023-11-07] MEDS: PANTOPRAZOLE 40 MG TAB PO SCH (06:10)
[2023-11-07 07:43] LABS: Chloride 105 mmol/L (98-107); Potassium 2.6 mmol/L (3.5-5.1); Sodium 138 mmol/L (136-145)
[2023-11-07 07:44] LABS: Anion Gap 4 (5-15); Calcium 7.9 mg/dL (8.7-10.4); Carbon Dioxide 29 mmol/L (20-30)
[2023-11-07 07:49] LABS: BUN/Creatinine Ratio 17.5 (10.0-20.0); Blood Urea Nitrogen 7 mg/dL (9-23); Glucose 210 mg/dL (74-106); Lipase 333 U/L (12-53)
[2023-11-07 07:53] LABS: Basophils # (auto) 0 10 ^3/uL (0-0.2); Basophils % (auto) 0.3 % (0.0-2.0); Eosinophils # (auto) 0 10 ^3/uL (0-0.8); Eosinophils % (auto) 0.1 % (0.0-7.0); Hematocrit 36.3 % (36.0-46.0); Hemoglobin 12.4 g/dL (12.2-16.2); Lymphocytes # (auto) 1.9 10 ^3/uL (0.4-5.4); Lymphocytes % (auto) 25.9 % (10.0-50.0); Mean Corpuscular Hemoglobin 32.8 pg (28.0-32.0); Mean Corpuscular Hgb Conc. 34.3 g/dL (32.0-36.0); Mean Corpuscular Volume 95.7 fL (80.0-100.0); Monocytes # (auto) 0.4 10 ^3/uL (0-1.3); Monocytes % (auto) 5.8 % (0.0-12.0); Neutrophils # (auto) 5.1 10 ^3/uL (1.6-8.6); Neutrophils % (auto) 67.9 % (37.0-80.0); Nucleated Red Blood Cells % 0.3 %; Platelet Count (auto) 248 10^3/uL (140-450); Red Blood Cells 3.79 10^6/uL (4.0-5.20); Red Cell Distribution Width 14.2 % (11.8-14.3); White Blood Cell 7.5 10^3/uL (4.4-10.8)
[2023-11-07] MEDS: POTASSIUM EFFERVESENT TAB 25 MEQ PO ONE (11:45)
[2023-11-07] MEDS: ALPRAZolam 0.25 MG TAB PO PRN (11:46)
[2023-11-07] MEDS: NICOTINE 21MG/24 HR TOPICAL PATCH TD ONE (11:46)
[2023-11-07] MEDS: ONDANSETRON HCL 4 MG/2 ML VIAL IV PRN (11:55)
[2023-11-07] MEDS: ACETAMINOPHEN 500 MG TAB PO PRN (11:55)
[2023-11-08] VITALS (10 sets, daily range): BP systolic 102–139; BP diastolic 66–93; PULSE 93–112; RESP 16–18; TEMP 98–98.4; O2SAT 98–99
[2023-11-08 07:28] LABS: Anion Gap 6 (5-15); Carbon Dioxide 26 mmol/L (20-30); Chloride 104 mmol/L (98-107); Sodium 136 mmol/L (136-145)
[2023-11-08 07:29] LABS: Calcium 8.8 mg/dL (8.7-10.4)
[2023-11-08 07:40] LABS: Glucose 422 mg/dL (74-106)
[2023-11-08 08:23] LABS: BUN/Creatinine Ratio 23.8 (10.0-20.0); Blood Urea Nitrogen 10 mg/dL (9-23)
[2023-11-08] MEDS: InsuLIN REG 1unit/0.01ml Soln (100units/ml) SC ONE (08:48)
[2023-11-08] MEDS: MORPHINE SULFATE INJ 2 MG/ml SYRG IV PRN (11:16)
[2023-11-08] MEDS: INSULIN LANTUS (GLARGINE) 1 /0.01ml (100units/ml) SC SCH (11:17)
[2023-11-08] MEDS: NICOTINE 21MG/24 HR TOPICAL PATCH TD SCH (11:42)
[2023-11-08] MEDS: risperiDONE 1 MG TAB PO SCH (21:05)
[2023-11-09] VITALS (11 sets, daily range): BP systolic 95–113; BP diastolic 60–77; PULSE 88–109; RESP 15–19; TEMP 97.8–98.4; O2SAT 95–98
[2023-11-09] MEDS: HYDROcodone-ACET 7.5/325MG TAB PO PRN (15:32)
[2023-11-10] VITALS (7 sets, daily range): BP systolic 101–115; BP diastolic 70–75; PULSE 68–111; RESP 18–20; TEMP 36.7; O2SAT 95–99
[2023-11-10] MEDS ORDERED: INSULIN LANTUS (GLARGINE) 1 /0.01ml (100units/ml) SC SCH (10:00)
[2023-11-10] MEDS: INSULIN LANTUS (GLARGINE) 1 /0.01ml (100units/ml) SC SCH (11:09)
== END 2023-11-10 15:15 | DRG 420 ==
LOC: EDUNIT# 20:12 → ER 20:12 → EDBD 20:12 → CENTRAL 11-05 02:12 → TELE 11-05 02:12 → TELE-CENTR 11-06 10:33 → CENTRAL 11-06 23:53
PROVIDERS: ADMIT Nurse Practitioner; ATTEND Nurse Practitioner Acute Care
DX: E11.10 Type 2 diabetes mellitus with ketoacidosis without coma (principal); N17.0 Acute kidney failure with tubular necrosis; G92.8 Other toxic encephalopathy; R64 Cachexia; K85.90 Acute pancreatitis without necrosis or infection, unspecified; E87.0 Hyperosmolality and hypernatremia; E83.39 Other disorders of phosphorus metabolism; M48.56XA Collapsed vertebra, not elsewhere classified, lumbar region, initial encounter for fracture; Z68.1 Body mass index [BMI] 19.9 or less, adult; E83.42 Hypomagnesemia; I10 Essential (primary) hypertension; K21.9 Gastro-esophageal reflux disease without esophagitis; F20.9 Schizophrenia, unspecified; F17.210 Nicotine dependence, cigarettes, uncomplicated; F31.9 Bipolar disorder, unspecified; F41.9 Anxiety disorder, unspecified; Z90.710 Acquired absence of both cervix and uterus; Z82.49 Family history of ischemic heart disease and other diseases of the circulatory system; Z59.00 Homelessness unspecified; Z98.891 History of uterine scar from previous surgery; Z91.199 Patient's noncompliance with other medical treatment and regimen due to unspecified reason; Z81.1 Family history of alcohol abuse and dependence; Z56.0 Unemployment, unspecified; Z80.7 Family history of other malignant neoplasms of lymphoid, hematopoietic and related tissues
CPT/HCPCS: 36415; 36600; 70450; 71045; 74176; 80048; 80053; 80307; 81001; 82010; 82805; 82962; 83036; 83605; 83690; 83735; 84100; 84132; 85025; 87040; 87086; 93005; 96365; 96375; 97110; 97116; 97163; 97530; 99291; G0378; J1815; J2405

== ENCOUNTER 2024-03-21 22:57 | Inpatient (IN) | payer MEDICAID ==
[~2024-03-21] VITALS: Ht 160 cm; Wt 44.6 kg
--- NOTE | 2024-03-21 23:47 | ED.PDOC ---
History of present illness HPI Comments 53-year-old female brought in by EMS presents with a chief complaint of generalized body pain, hyperglycemic, and diarrhea. Patients blood sugar was 573 by EMS and on arrival was 569. Patient reports that she took her 45 units of ordered insulin this morning. Patient reports that the diarrhea has been present for the past x 5 months. Chief Complaint: Hyperglycemia Time Seen by MD: 23:45 Primary Care Provider: UNKNOWN History of present illness: Medications, Allergies Allergies: Coded Allergies: NO KNOWN ALLERGIES (Unverified , 09/13/15) Home Meds Active Scripts Insulin Aspart (Insulin Aspart Flexpen) 100 Unit/Ml Inj, 100 UNIT SC TIDP PRN for 30 Days, #1 INJ 3 Refills INSULIN PER SLIDINIG SCALE TID AC 150-200: 2 UNITS 201-250: 4 UNITS 251-300: 8 UNITS 301-350: 12 UNITS 351-400: 15 UNITS >401 CALL DOCTOR Prov:JASPAL SWENSON MD 07/15/23 Insulin Glargine (Lantus) 100 Unit/Ml Inj, 25 UNIT SC QPM for 30 Days, #1 INJ 2 Refills Prov:JASPAL SWENSON MD 07/15/23 Gabapentin (Gabapentin) 400 Mg Cap, 400 MG PO TID for 30 Days, #90 CAP 2 Refills Prov:JASPAL SWENSON MD 07/15/23 Gabapentin (Gabapentin) 400 Mg Cap, 400 MG PO TID for 30 Days, #90 CAP Prov:JASPAL SWENSON MD 05/25/23 Nicotine (Nicoderm 21MG/24HR) 1 Patch Ph, 1 PATCH TD DAILY for 30 Days, #30 PATCH Prov:JASPAL SWENSON MD 05/25/23 Insulin Aspart Protamine & Asp (Insulin Aspart Protamine/ (70-30) 100 Unit/ml) 1 Inj Inj, 15 INJ SC BIDAC for 30 Days, #30 INJ Prov:MAR GAMBOA MD 11/26/22 Ergocalciferol (VITAMIN D 40269 UNIT) 50,000 [place], [address] UNIT PO QWEEKLY for 10 Days, #10 CAP Prov:MAR GAMBOA MD 11/26/22 Metformin Hydrochloride (Metformin Hcl) 500 Mg Tab, 1 TAB PO BID for 30 Days, #60 TAB 3 Refills Prov:GUY LARA MD 07/31/22 Glimepiride (Amaryl) 1 Mg Tab, 1 TAB PO DAILY, #30 TAB 5 Refills Prov:NADINE ESCALANTE MD 05/27/22 Quetiapine Fumerate (QUETIAPINE FUMARATE) 25 Mg Tab, 25 MG PO QPM, #30 TAB Prov:LYNNE LAU MD 04/10/22 Multiple Vitamins W/ Minerals (Mvi W/ Minerals Tab) 1 Tab Tb, 1 TAB PO DAILY, #60 TAB Prov:LYNNE LAU MD 04/10/22 Reported Medications Insulin Lispro (Insulin Lispro) 100 Unit/Ml Inj, 10 UNITS SC TID 06/25/23 Acetaminophen (Acetaminophen Extra Stren) 500 Mg Tab, 1 TAB PO Q6HR PRN 06/25/23 Lamotrigine (Lamictal) 25 Mg Tab, 1 TAB PO DAILY 06/25/23 Trazodone Hcl (Trazodone Hcl) 50 Mg Tab, 1 TAB PO DAILY 06/25/23 Duloxetine Hcl (Cymbalta) 20 Mg Cap, 30 MG PO DAILY 06/25/23 Buspirone Hcl (Buspirone Hcl) 10 Mg Tab, 1 TAB PO BID 10/05/21 Information Source: Patient, Emergency Med Personnel Mode of Arrival: EMS Timing: Days Duration: Since onset Prehospital treatment: Accucheck History of: Diabetes, Insulin use Past Medical History PAST MEDICAL HISTORY: Depression, DM, GERD, HTN, Liver, Schizophrenia, UTI'S Surgical History: , Hysterectomy 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 History: No Pertinent 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 History Family History Family History: Reviewed,noncontributory to illness, Family hx of HTN Social History Smoker: Cigarettes Alcohol: Occasionally Drugs: Marijuana, Methamphetamine Lives In: Homeless Constitutional: reports: others (BODY PAIN); denies: chills, diaphoresis, fatigue, fever, malaise, sweats, weakness EENTM: denies: blurred vision, double vision, ear bleeding, ear discharge, ear drainage, ear pain, ear ringing, eye pain, eye redness, hearing loss, mouth pain, mouth swelling, nasal discharge, nose bleeding, nose congestion, nose pain, photophobia, tearing, throat pain, throat swelling, voice changes, others Respiratory: denies: cough, hemoptysis, orthopnea, SOB at rest, shortness of breath, SOB with excertion, stridor, wheezing, others Cardiovascular: denies: chest pain, dizzy spells, diaphoresis, Dyspnea on exertion, edema, irregular heart beat, left arm pain, lightheadedness, palpitations, PND, syncope, others Gastrointestinal: reports: diarrhea; denies: abdomen distended, abdominal pain, blood streaked bowels, constipated, dysphagia, difficulty swallowing, hematemesis, melena, nausea, poor appetite, poor fluid intake, rectal bleeding, rectal pain, vomiting, others Genitourinary: denies: abnormal vagina bleeding, burning, dyspareunia, dysuria, flank pain, frequency, hematuria, incontinence, pain, , vagina discharge, urgency, others Neurological: denies: dizziness, fainting, headache, left sided numbness, left sided weakness, numbness, paresthesia, pre-existing deficit, right sided numbness, right sided weakness, seizure, speech problems, tingling, tremors, weakness, others Musculoskeletal: denies: back pain, gout, joint pain, joint swelling, muscle pain, muscle stiffness, neck pain, others Integumetry: denies: bruises, change in color, change in hair/nails, dryness, laceration, lesions, lumps, rash, wounds, others Allergic/Immunocompromised: denies: Difficulty Healing, Frequent Infections, Hives, Itching, others Hematologic/Lymphatic: denies: anemia, blood clots, easy bleeding, easy bruising, swollen glands, others Endocrine: reports: others (HYPERGLYCEMIA); denies: excessive hunger, excessive sweating, excessive thirst, excessive urination, flushing, intolerance to cold, intolerance to heat, unexplained weight gain, unexplained weight loss Psychiatric: denies: anxiety, bipolar disorder, depression, hopeless, panic disorder, schizophrenia, sleepless, suicidal, others All Other Systems: Reviewed and Negative Physical Exam General Appearance: Moderate Distress, Normal HEENT: Normal ENT Inspection, Pharynx Normal, TMs Normal Neck: Full Range of Motion, Non-Tender, Normal, Normal Inspection Respiratory: Chest Non-Tender, Lungs Clear, No Accessory Muscle Use, No Respiratory Distress, Normal Breath Sounds Cardiovascular: No Edema, No JVD, No Murmur, No Gallop, Normal Peripheral Pulses, Regular Rate/Rhythm Breast Exam: Deferred Gastrointestinal: No Organomegaly, Non Tender, No Pulsatile Mass, Normal Bowel Sounds, Soft Genitalia: Deferred Pelvic: Deferred Rectal: Deferred Extremities: No calf tenderness, Normal capillary refill, Normal inspection, Normal range of motion, Non-tender, No pedal edema Musculoskeletal : Apperance: Normal Neurologic: Alert, watershed engineer II-XII nml as Tested, No Motor Deficits, Normal Affect, Normal Mood, No Sensory Deficits Cerebellar Function: Normal Reflexes: Normal Skin: Dry, Normal Color, Warm Lymphatic: No Adenopathy Was a procedure done? Was a procedure done?: No EKG EKG : Pulse Rate (adult): 100 [place]: Normal Cardiac Rhythm: ST Block: None Hypertrophy: None ST: Normal Differential Diagnosis (DM) Differential Diagnosis: Dehydration, DKA, Electrolyte Abnormality, Gastritis, Gastroenteritis, Hyperglycemia, Hyperosmolar State X-Ray, Labs, Meds, VS Vital Signs Date Time Temp Pulse Resp B/P (MAP) Pulse Ox O2 Delivery O2 Flow Rate FiO2 03/22/24 01:21 100 03/22/24 01:18 100 03/21/24 23:40 98.5 111 12 123/84 (97) 96 98.5 03/21/24 23:05 98.7 117 20 119/74 (89) 96 Lab Test 03/22/24 01:53 03/22/24 00:27 03/22/24 00:22 03/21/24 23:30 Range/Units Troponin I High Sensitivity < 3 L < 3 L </=34 ng/L Plasma/Serum Blood Alcohol Pending White Blood Count 11.7 H 4.4-10.8 10^3/uL Red Blood Count 4.74 4.0-5.20 10^6/uL Hemoglobin 13.6 12.2-16.2 g/dL Hematocrit 41.6 36.0-46.0 % Mean Corpuscular Volume 87.7 80.0-100.0 fL Mean Corpuscular Hemoglobin 28.6 28.0-32.0 pg Mean Corpuscular Hemoglobin Concent 32.6 32.0-36.0 g/dL Red Cell Distribution Width 14.1 11.8-14.3 % Platelet Count 278 140-450 10^3/uL Mean Platelet Volume 8.3 6.9-10.8 fL Neutrophils (%) (Auto) 64.1 37.0-80.0 % Lymphocytes (%) (Auto) 26.5 10.0-50.0 % Monocytes (%) (Auto) 7.3 0.0-12.0 % Eosinophils (%) (Auto) 1.1 0.0-7.0 % Basophils (%) (Auto) 1.0 0.0-2.0 % Neutrophils # (Auto) 7.5 1.6-8.6 10 ^3/uL Lymphocytes # (Auto) 3.1 0.4-5.4 10 ^3/uL Monocytes # (Auto) 0.8 0-1.3 10 ^3/uL Eosinophils # (Auto) 0.1 0-0.8 10 ^3/uL Basophils # (Auto) 0.1 0-0.2 10 ^3/uL Nucleated Red Blood Cells 0.1 % Sodium Level 137 136-145 mmol/L Potassium Level 4.1 3.5-5.1 mmol/L Chloride Level 103 98-107 mmol/L Carbon Dioxide Level 24 20-31 mmol/L Anion Gap 10 5-15 Blood Urea Nitrogen 10 9-23 mg/dL Creatinine 0.65 0.550-1.02 mg/dL Glomerular Filtration Rate Calc 107 >90 mL/min BUN/Creatinine Ratio 15.4 10.0-20.0 Serum Glucose 496 *H 74-106 mg/dL Lactic Acid Level 1.2 0.4-2.0 mmol/L Calcium Level 9.4 8.7-10.4 mg/dL Total Bilirubin 0.2 0.2-1.0 mg/dL Aspartate Amino Transferase (AST) 19 13-40 U/L Alanine Aminotransferase (ALT) 36 7-40 U/L Alkaline Phosphatase 144 H 46-116 U/L Total Protein 6.4 5.7-8.2 g/dL Albumin 4.0 3.2-4.8 g/dL Beta-Hydroxybutyric Acid 0.467 H < 0.4 mmol/L Blood Gas Specimen Type Arterial Blood Gas Sample Site Left radial Blood Gas Patient Temperature 37.0 Arterial Blood Date Drawn [id number] Arterial Blood pH 7.433 7.350-7.450 Arterial Blood Partial Pressure CO2 37.4 32.0-45.0 mmHg Arterial Blood Partial Pressure O2 78.1 L 83.0-108.0 mmHg Arterial Blood HCO3 24.4 21.0-28.0 mmol/L Arterial Blood Oxygen Saturation 95.6 94.0-98.0 % Arterial Blood Base Excess 0.4 -2.0-3.0 mmol/L Arterial Blood Oxyhemoglobin 87.6 L 94.0-98.0 % Arterial Blood Carboxyhemoglobin 8.1 *H 0.5-1.5 % Arterial Blood Methemoglobin 0.3 0.0-1.5 % Stephan Test Yes Blood Gas Total Hemoglobin 14.20 12.0-16.0 g/dL Blood Gas Modality Room air FiO2 % 21.0 Specimen Drawn By Rosita stern rrt Blood Gas Critical Value Read Back Yes Blood Gas Notified Whom stacy Lindquist md Blood Gas Notified Time [id number] Blood Gas Notified By Rosita stern rrt POC Glucose 550 *H 70-106 mg/dl Test 03/21/24 23:28 Range/Units POC Glucose > 600 *H 70-106 mg/dl Current Medications Medications (Trade) Dose Ordered Sig/Polo Route Start Time Stop Time Status Last Admin Sodium Chloride 1,000 ml @ 1,000 mls/hr Q1H ONCE IV 03/22/24 00:00 03/22/24 00:59 DC 03/22/24 00:18 Sodium Chloride 1,000 ml @ 150 mls/hr Q6H40M ONCE IV 03/22/24 00:00 03/22/24 06:39 03/22/24 00:00 Insulin Human Regular (InsuLIN R) 10 units ONCE ONCE IV 03/22/24 00:45 03/22/24 00:46 DC 03/22/24 01:17 Ciprofloxacin 200 ml @ 200 mls/hr ONCE ONCE IV 03/22/24 01:00 03/22/24 01:59 DC 03/22/24 01:17 Metronidazole 100 ml @ 100 mls/hr ONCE ONCE IV 03/22/24 01:00 03/22/24 01:59 DC 03/22/24 01:18 Diphenhydramine HCl (Benadryl Injection) 50 mg ONCE ONCE IV 03/22/24 03:00 03/22/24 03:01 DC 03/22/24 02:59 EKG shows no signs of ischemia. Troponin are three. Second troponin is three. Glucose was greater than 600. Beta hydroxy acid is 0.45. Lactic acid is normal. CBC is normal. ABG shows a PO2 of 78 on room air a bicarb of 24. Second lactic acid is pending repeat BNP is pending Patient was placed on Flagyl and Cipro for explosive diarrhea. And care. C difficile is pending. The patient will be admitted to the hospital for further evaluation Time of 1ST Reevaluation: 00:15 Reevaluation 1ST: Unchanged Patient Education/Counseling: Diagnosis, Treatment, Prognosis Family Education/Counseling: No Family Present Departure 1 Departure Time of Disposition: 03:35 Impression: Primary Impression: Hyperglycemia due to diabetes mellitus Additional Impressions: Medical non-compliance Diarrhea Qualified Codes: A09 - Infectious gastroenteritis and colitis, unspecified Disposition: ADMITTED INPATIENT Admit to: Tele Condition: Guarded Critical Care Note Critical Care Time?: Yes (35 min-critical care time only) Stability Stability form required: No I personally scribed for ADILIA LINDQUIST MD ([email or web address]) on 03/21/24 at 23:47. Electronically submitted by Carlos Alberto Salazar ([email or web address]). I personally scribed for ADILIA LINDQUIST MD ([email or web address]) on 03/22/24 at 01:21. Electronically submitted by Carlos Alberto Salazar ([email or web address]). ADILIA LINDQUIST MD Mar 21, 2024 23:47
[2024-03-22] MEDS: SODIUM CHLORIDE 0.9% 1,000 ML IV ONE ×2 (00:18)
[2024-03-22 00:46] LABS: Basophils # (auto) 0.1 10 ^3/uL (0-0.2); Eosinophils # (auto) 0.1 10 ^3/uL (0-0.8); Eosinophils % (auto) 1.1 % (0.0-7.0); Hematocrit 41.6 % (36.0-46.0); Hemoglobin 13.6 g/dL (12.2-16.2); Lymphocytes # (auto) 3.1 10 ^3/uL (0.4-5.4); Lymphocytes % (auto) 26.5 % (10.0-50.0); Mean Corpuscular Hemoglobin 28.6 pg (28.0-32.0); Mean Corpuscular Hgb Conc. 32.6 g/dL (32.0-36.0); Mean Corpuscular Volume 87.7 fL (80.0-100.0); Monocytes # (auto) 0.8 10 ^3/uL (0-1.3); Monocytes % (auto) 7.3 % (0.0-12.0); Neutrophils # (auto) 7.5 10 ^3/uL (1.6-8.6); Neutrophils % (auto) 64.1 % (37.0-80.0); Nucleated Red Blood Cells % 0.1 %; Platelet Count (auto) 278 10^3/uL (140-450); Red Blood Cells 4.74 10^6/uL (4.0-5.20); Red Cell Distribution Width 14.1 % (11.8-14.3); White Blood Cell 11.7 10^3/uL (4.4-10.8)
[2024-03-22 01:03] LABS: Alanine Aminotransferase 36 U/L (7-40); Anion Gap 10 (5-15); Aspartate Aminotransferase 19 U/L (13-40); Calcium 9.4 mg/dL (8.7-10.4); Carbon Dioxide 24 mmol/L (20-31); Chloride 103 mmol/L (98-107); Potassium 4.1 mmol/L (3.5-5.1); Sodium 137 mmol/L (136-145); Total Protein 6.4 g/dL (5.7-8.2)
[2024-03-22 01:05] LABS: Alkaline Phosphatase 144 U/L (46-116); Bilirubin, Total 0.2 mg/dL (0.2-1.0)
[2024-03-22 01:06] LABS: Glucose 496 mg/dL (74-106)
[2024-03-22] MEDS: CIPROFLOXACIN 400MG/200ML 200 ML IV ONE (01:17)
[2024-03-22] MEDS: InsuLIN REG 1unit/0.01ml Soln (100units/ml) IV ONE (01:17)
[2024-03-22] MEDS: metroNIDAZOLE 500MG/100ML 100 ML IV ONE (01:18)
[2024-03-22 01:45] LABS: BUN/Creatinine Ratio 15.4 (10.0-20.0); Blood Urea Nitrogen 10 mg/dL (9-23)
[2024-03-22 02:32] LABS: Base Excess 0.4 mmol/L (-2.0-3.0)
--- NOTE | 2024-03-22 02:47 | ECG ---
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
[2024-03-22] MEDS: diphenhdrAMINE HCL 50 MG/1 ML VL IV ONE (02:59)
[2024-03-22] MEDS ORDERED: ONDANSETRON HCL 4 MG/2 ML VIAL IV PRN (04:15)
[2024-03-22] MEDS ORDERED: MORPHINE SULFATE INJ 2 MG/ml SYRG IV PRN (04:15)
[2024-03-22] MEDS: SODIUM CHLORIDE 0.9% 1,000 ML IV SCH ×2 (04:15→05:54)
[2024-03-22] MEDS ORDERED: NITROGLYCERIN 0.4 MG SL TAB SL PRN (04:15)
[2024-03-22 04:16] VITALS: PULSE 89; RESP 15; O2SAT 98
--- NOTE | 2024-03-22 04:18 | DVHHPRES ---
History of Present Illness Resident Creating Document: CAROLE HERRERA RESIDENT History of Present Illness This is a 53-year-old female with past medical history of hypertension, type 2 diabetes mellitus, hepatitis-C, liver disease, neuropathy, bipolar disorder, schizophrenia, chronic pain, polysubstance abuse presented to the ED with chief complaint of chronic diarrhea and back pain for last 5 month prior to this admission. According to the patient the diarrhea started 5 months ago which was sometimes watery in consistency and also sometimes semisolid, more than 3 times per day, red or brownish in color and not associated with abdominal pain, nausea, vomiting, fever or any change in weight. The patient also denies recent weight loss, palpitation, recent traveling, sick contact. She has type 2 diabetes mellitus but noncompliant with the medication and admitted in the hospital several times with DKA and hyperglycemia. On admission blood sugar was 600 with normal anion gap. She has a history of hepatitis-C and was advised before to follow up with outpatient GI for treatment of hepatitis-C but patient did not follow with GI. She has a history of polysubstance use disorder and currently on methamphetamine for last couple of years. Past Medical History Hypertension, type 2 diabetes mellitus, hepatitis-C, liver disease, neuropathy, bipolar disorder, schizophrenia, chronic pain, polysubstance abuse Past Surgical History Hysterectomy, tubal ligation Family History: None Smoke: 1 pack per day ALCOHOL: heavy Lives: Homeless Past Social History Smokes cigarette 1 pack per day, nonalcoholic and methamphetamine abuse for last couple of years Review of Systems Constitutional: No: Fever, Chills, Sweats, Weakness, Malaise, Other Eyes: No: Pain, Vision change, Conjunctivae inflammation, Eyelid inflammation, Other, Redness ENT: No: Ear pain, Ear discharge, Nose pain, Nose discharge, Nose congestion, Mouth pain, Mouth swelling, Throat pain, Throat swelling, Other Respiratory: No: Cough, Dry, Shortness of breath, SOB with excertion, Wheezing, Hemoptysis, Pleuritic Pain, Sputum, Wheezing, Other Cardiovascular: No: Chest Pain, Palpitations, Orthopnea, Paroxysmal Noc. Dyspnea, Edema, Lt Headedness, Other Gastrointestinal: Diarrhea; No: Nausea, Vomiting, Abdominal Pain, Constipation, Melena, Hematochezia, Other Genitourinary: No Dysuria, No Frequency, No Incontinence, No Hematuria, No Retention, No Other Musculoskeletal: neck pain, shoulder pain, arm pain, back pain, hand pain, leg pain, foot pain Skin: No: Rash, Lesions, Jaundice, Bruising, Other Neurological: No: Weakness, Numbness, Incoordination, Change in speech, Confu micheline, Seizures, Other Allergies: Coded Allergies: NO KNOWN ALLERGIES (Unverified , 09/13/15) Medications Current Medications Medications Dose Ordered Sig/Polo Route Start Time Stop Time Status Last Admin Dose Admin Sodium Chloride 10 ml Q8HR IV 03/22/24 06:00 UNV Sodium Chloride 1,000 ml @ 100 mls/hr Q10H IV 03/22/24 04:15 UNV Ondansetron HCl 4 mg Q4HP PRN IV 03/22/24 04:15 UNV Acetaminophen 650 mg Q6HP PRN PO 03/22/24 04:15 UNV Nitroglycerin 0.4 mg Q5MINP PRN SL 03/22/24 04:15 UNV Morphine Sulfate 2 mg Q30M PRN IV 03/22/24 04:15 UNV Exam Vital Signs Vital Signs Date Time Temp Pulse Resp B/P (MAP) Pulse Ox O2 Delivery O2 Flow Rate FiO2 03/22/24 04:00 99 15 140/86 (104) 98 03/22/24 01:00 98.1 98.1 Exam Physical examination: General Appearance: Alert, Oriented X3, Cooperative, No acute distress HEENT: Atraumatic, PERRLA, EOMI, Mucous membrane moist/pink Respiratory: Clear to auscultation, Normal air movement Cardiovascular: Regular rate, Normal S1, Normal S2, No murmurs, no chest wall tenderness Abdominal: Normal bowel sounds, Soft, No tenderness, No hepatospenomegaly, No masses Extremities: No clubbing, No cyanosis, No edema, Normal pulses, No tenderness/swelling Skin: No rashes, No breakdown, No significant lesion Neuro: Normal gait, Normal speech, Strength at 5/5 X4 ext, Normal tone, Sensation intact, grossly intact cranial nerves. Psych/Mental Status: Mental status NL, Mood NL Labs/Xrays Labs Test 03/22/24 03:37 03/22/24 01:53 03/22/24 00:27 03/22/24 00:22 Range/Units Troponin I High Sensitivity < 3 L </=34 ng/L Plasma/Serum Blood Alcohol < 3.0 <10 mg/dL White Blood Count 11.7 H 4.4-10.8 10^3/uL Red Blood Count 4.74 4.0-5.20 10^6/uL Hemoglobin 13.6 12.2-16.2 g/dL Hematocrit 41.6 36.0-46.0 % Mean Corpuscular Volume 87.7 80.0-100.0 fL Mean Corpuscular Hemoglobin 28.6 28.0-32.0 pg Mean Corpuscular Hemoglobin Concent 32.6 32.0-36.0 g/dL Red Cell Distribution Width 14.1 11.8-14.3 % Platelet Count 278 140-450 10^3/uL Mean Platelet Volume 8.3 6.9-10.8 fL Neutrophils (%) (Auto) 64.1 37.0-80.0 % Lymphocytes (%) (Auto) 26.5 10.0-50.0 % Monocytes (%) (Auto) 7.3 0.0-12.0 % Eosinophils (%) (Auto) 1.1 0.0-7.0 % Basophils (%) (Auto) 1.0 0.0-2.0 % Neutrophils # (Auto) 7.5 1.6-8.6 10 ^3/uL Lymphocytes # (Auto) 3.1 0.4-5.4 10 ^3/uL Monocytes # (Auto) 0.8 0-1.3 10 ^3/uL Eosinophils # (Auto) 0.1 0-0.8 10 ^3/uL Basophils # (Auto) 0.1 0-0.2 10 ^3/uL Nucleated Red Blood Cells 0.1 % Sodium Level 137 136-145 mmol/L Potassium Level 4.1 3.5-5.1 mmol/L Chloride Level 103 98-107 mmol/L Carbon Dioxide Level 24 20-31 mmol/L Anion Gap 10 5-15 Blood Urea Nitrogen 10 9-23 mg/dL Creatinine 0.65 0.550-1.02 mg/dL Glomerular Filtration Rate Calc 107 >90 mL/min BUN/Creatinine Ratio 15.4 10.0-20.0 Serum Glucose 496 *H 74-106 mg/dL Calcium Level 9.4 8.7-10.4 mg/dL Total Bilirubin 0.2 0.2-1.0 mg/dL Aspartate Amino Transferase (AST) 19 13-40 U/L Alanine Aminotransferase (ALT) 36 7-40 U/L Alkaline Phosphatase 144 H 46-116 U/L Total Protein 6.4 5.7-8.2 g/dL Albumin 4.0 3.2-4.8 g/dL Beta-Hydroxybutyric Acid 0.467 H < 0.4 mmol/L Blood Gas Specimen Type Arterial Blood Gas Sample Site Left radial Blood Gas Patient Temperature 37.0 Arterial Blood Date Drawn [id number] Arterial Blood pH 7.433 7.350-7.450 Arterial Blood Partial Pressure CO2 37.4 32.0-45.0 mmHg Arterial Blood Partial Pressure O2 78.1 L 83.0-108.0 mmHg Arterial Blood HCO3 24.4 21.0-28.0 mmol/L Arterial Blood Oxygen Saturation 95.6 94.0-98.0 % Arterial Blood Base Excess 0.4 -2.0-3.0 mmol/L Arterial Blood Oxyhemoglobin 87.6 L 94.0-98.0 % Arterial Blood Carboxyhemoglobin 8.1 *H 0.5-1.5 % Arterial Blood Methemoglobin 0.3 0.0-1.5 % Stephan Test Yes Blood Gas Total Hemoglobin 14.20 12.0-16.0 g/dL Blood Gas Modality Room air FiO2 % 21.0 Specimen Drawn By Rosita stern rrt Blood Gas Critical Value Read Back Yes Blood Gas Notified Whom stacy Pedersen md Blood Gas Notified Time [id number] Blood Gas Notified By Rosita stern qa consultant Test 03/21/24 23:30 Range/Units POC Glucose 550 *H 70-106 mg/dl Assessment/Plan Assessment/Plan Assessment and plan: # Hyperglycemia without diabetic ketoacidosis - On admission blood sugar was 600 with normal anion gap - IV normal saline at 6 at 100 mL/hour - Started Lantus 25 units at q.a.m. - Aggressive sliding scale insulin - Monitor blood sugar closely # Lactic acidosis likely due to dehydration - IV normal saline at 100 mL/hour - Monitor lactic acid. # Chronic diarrhea - Ordered stool sample for C diff, stool WBC, stool bacterial culture and FOBT - Ordered TSH and IBD panel, t-transglutaminase - Ordered CT abdomen pelvis without contrast - Consulted GI # Acute colitis - CT abdomen pelvis without contrast revealed colitis - IV Zosyn 3.375 mg q.6 hours # Questionable acute hepatitis-C - Positive anti hepatitis-C antibody in the serum # Elevated alkaline phosphatase - Monitor CMP # History of schizophrenia, bipolar disorder - Continue home meds # Chronic pain - Continue home meds - Sutton 5/325 mg q.4 p.r.n. # Methamphetamine abuse disorder - Ordered UDS - Counseled patient regarding methamphetamine abuse and rehabilitation # DVT prophylaxis - Lovenox 30 mg sc daily Goal of care discussed with the patient for more than 20 minutes full code Plan of treatment discussed with Dr. Rodriguez Plan discussed with: Patient, Other My Orders Orders - CAROLE HERRERA RESIDENT Procedure Category Date Status Time Admit ADMIT 03/22/24 Transmitted 04:12 Allergies ANASTASIA 03/22/24 In Process 04:12 Code Status CODE 03/22/24 Transmitted 04:12 Sodium Chloride Lock PHA 03/22/24 Logged (Saline Lock Ns) 06:00 Sodium Chloride 0.9% PHA 03/22/24 Logged 04:15 Ondansetron Hcl PHA 03/22/24 Logged (Zofran) 04:15 Complete Blood Count LAB 03/23/24 Verified 08:00 Comprehensive LAB 03/23/24 Verified Metabolic Panel 08:00 Acetaminophen Tablet PHA 03/22/24 Logged (Tylenol Tablet) 04:15 Clear Liq Diet DIET 03/22/24 Transmitted Breakfast Nitroglycerin PHA 03/22/24 Logged Sublingual (Ntrostat 04:15 Morphine Sulfate PHA 03/22/24 Logged Injection 04:15 Oxygen By Nasal RT 03/22/24 Transmitted Cannula 04:12 Stat Ekg For Chest [facility] [place] 03/22/24 In Process Pain 04:12 Notify Of Changes [facility] [place] 03/22/24 In Process From Base 04:12 Flight Test Shop Mechanic For [facility] [place] 03/22/24 In Process 24 Hours 04:12 Emergency Dysrhythmia [facility] [place] 03/22/24 In Process Protocol 04:12 Rhythm Strips Once [facility] [place] 03/22/24 In Process Every Shift 04:12 Date of Service: Mar 22, 2024 Billing Provider: MAR RODRIGUEZ MD Common Visit Codes: [id number] INP/OBS CARE (HIGH) CAROLE HERRERA RESIDENT Mar 22, 2024 04:17 MAR RODRIGUEZ MD Mar 22, 2024 19:24
[2024-03-22] MEDS ORDERED: DEXTROSE (50%) 50ML SYRG IV PRN (04:30)
[2024-03-22 04:43] LABS: Magnesium 1.6 mg/dL (1.6-2.6); Phosphorus 2.4 mg/dL (2.4-5.1)
[2024-03-22] MEDS: metroNIDAZOLE 500MG/100ML 100 ML IV SCH (04:43)
--- NOTE | 2024-03-22 04:50 | DVH ---
Exam: CT CT AB PEL WO CON-NO ORAL OR IV History: diarrhea Comparison Study: CT CT AB PEL WO CON-NO ORAL OR IV on DOS: 11/04/23, CT CT AB PEL WO CON-NO ORAL OR IV on DOS: 07/13/23, CT ABD PELVIS WO CONTRAST on DOS: 08/27/19 Technique: Multidetector spiral CT of the abdomen was performed from lung bases to pubic symphysis. Imaging was performed without IV contrast. Axial, coronal and sagittal multiplanar reformats were ob tained from the axial data set by the technologist. Radiation Dose : 1. Abdomen/Pelvis: CTDIvol 5 mGy, DLP 214.06 mGy*cm. Findings: Evaluation of solid organs is limited due to lack of intravenous contrast use. Lung Bases: No acute or significant lung base finding. Normal heart size. No pleural or pericardial effusion. Liver: The liver is normal in size. No focal lesions. Gallbladder and Biliary Tree: Collapsed or surgically absent. Spleen: Unremarkable Pancreas: The pancreas is grossly normal in appearance. Adrenal Glands: Unremarkable Kidneys: Kidneys are grossly normal without calculi or hydronephrosis. Bladder: Distended bladder. Bowel: Distended stomach. Nonspecific bowel-gas pattern. Rectal tube in-situ. Normal appendix is vi sualized in the right lower quadrant without findings of appendicitis. Ascites: Absent Lymphadenopathy: No mesenteric, retroperitoneal or periportal lymphadenopathy. Abdominal Wall and Mesentery: Unremarkable. Vasculature: The visualized abdominal aorta is normal in size and caliber. Evaluation of abdominal a nd pelvic vessels is limited due to lack of intravenous contrast. Pelvic Organs: Unremarkable Musculoskeletal: No aggressive focal bony lesions, acute fractures or dislocation. Degenerative martin es of the spine. IMPRESSION: Limited examination secondary to lack of intravenous and oral contrast administration and patient mot ion artifact. Nonspecific bowel-gas pattern. Distended stomach. Rectal tube in-situ. Findings may represent gastroenteritis / colitis. Clinical correlation advised. Distended urinary bladder. Radiation optimization: All CT scans at this facility use at least one of these dose optimization yimi hniques: automated exposure control mA and/or kV adjustment per patient size (includes targeted exam s where dose is matched to clinical indication) or iterative reconstruction.
[2024-03-22] MEDS: SODIUM CHLOR 0.9% PF (SALINE LOCK) 10ML VIAL/SYR IV SCH (05:47)
[2024-03-22] MEDS: HYDROcodone-ACET 5/325MG TAB PO ONE (05:52)
[2024-03-22] MEDS ORDERED: GABAPENTIN 400 MG CAP PO SCH (06:00)
[2024-03-22] MEDS: PIPERACILLIN-TAZOB 3.375GM 100 ML IV SCH (06:24)
[2024-03-22 06:44] LABS: LDL Cholesterol 80 mg/dL (< 100)
[2024-03-22 06:46] LABS: Cholesterol 128 mg/dL (< 200); HDL Cholesterol 32 mg/dL (40-59); Triglycerides 263 mg/dL (< 150)
[2024-03-22] MEDS: INSULIN LANTUS (GLARGINE) 1 /0.01ml (100units/ml) SC SCH (07:03)
[2024-03-22] MEDS: InsuLIN REG 1unit/0.01ml Soln (100units/ml) SC SCH ×2 (07:05→22:00)
[2024-03-22] MEDS: ACCU-CHEK COMFORT CURVE STRIP VI SCH (07:05)
[2024-03-22 08:00] VITALS: PULSE 97; RESP 18; O2SAT 98
[2024-03-22] MEDS ORDERED: busPIRone HCL 10 MG TAB PO SCH (10:00)
[2024-03-22] MEDS ORDERED: ENOXAPARIN SOD 30 MG/0.3 ML SYRINGE SC SCH (10:00)
[2024-03-22] MEDS ORDERED: lamoTRIgine 25 MG TAB PO SCH (10:00)
[2024-03-22] MEDS: risperiDONE 1 MG TAB PO SCH (10:37)
[2024-03-22] MEDS: PARoxetine 20 MG TAB PO SCH (10:37)
[2024-03-22] MEDS: FLORASTOR (S. BOULARDII) 250 MG CAP PO SCH (10:37)
[2024-03-22] MEDS: ENOXAPARIN SOD 40 MG/0.4 ML SYRINGE SC SCH (10:38)
[2024-03-22] MEDS: VANCOMYCIN HCL 250 MG CAP PO SCH (12:13)
[2024-03-22] MEDS: HYDROcodone-ACET 5/325MG TAB PO PRN (12:17)
--- NOTE | 2024-03-22 12:53 | DVHINCON2 ---
GI Consult Consult Note GI consult note Date of Consultation: 03/22/2024 Chief Complaint: Chronic diarrhea Referring Physician: Dr. Mi H&P: 53-year-old female presented with generalized body pain, hyperglycemia and diarrhea Patient complaining of loose stool for last 4-5 months, sometimes what we or semi solid, about three episodes per day No melena or red blood in stool. No abdominal pain. No nausea or vomiting Patient denies recent travel, or sick contact No colonoscopy in past Past Medical History: Hypertension, type 2 diabetes mellitus, hepatitis-C, liver disease, neuropathy, bipolar disorder, schizophrenia, chronic pain, polysubstance abuse Past Surgical History: Hysterectomy, tubal ligation Social History: Smoke: 1 pack per day ALCOHOL: heavy Lives: Homeless methamphetamine abuse for last couple of years Family History: Noncontributory Review of Systems: Constitutional: no fever, chill, weight loss HEENT: no eye pain, no hearing loss, no oral lesion, no scleral icterus Heart: no chest pain, no chest pressure Lung: no cough, no dyspnea with exertion Abdomen: see HPI Physical exam: General: NAD, AAOX3 Chest: lung cardenas clear to auscultation Heart: RRR, no murmur Abdomen: non-distended, no tenderness to palpation, +BS Labs: Labs Test 03/22/24 11:20 03/22/24 10:20 03/22/24 04:38 03/22/24 03:37 Range/Units POC Glucose 86 70-106 mg/dl Lactic Acid Level 1.3 0.4-2.0 mmol/L Phosphorus Level 2.4 2.4-5.1 mg/dL Magnesium Level 1.6 1.6-2.6 mg/dL Lipase 71 H 12-53 U/L Thyroid Stimulating Hormone (TSH) 0.75 0.55-4.78 uIU/mL Test 03/22/24 01:53 03/22/24 00:39 03/22/24 00:27 03/22/24 00:22 Range/Units Troponin I High Sensitivity < 3 L </=34 ng/L Plasma/Serum Blood Alcohol < 3.0 <10 mg/dL Stool Occult Blood Negative Negative Stool Occult Blood Sample #3 Negative Stool for White Cells None seen White Blood Count 11.7 H 4.4-10.8 10^3/uL Red Blood Count 4.74 4.0-5.20 10^6/uL Hemoglobin 13.6 12.2-16.2 g/dL Hematocrit 41.6 36.0-46.0 % Mean Corpuscular Volume 87.7 80.0-100.0 fL Mean Corpuscular Hemoglobin 28.6 28.0-32.0 pg Mean Corpuscular Hemoglobin Concent 32.6 32.0-36.0 g/dL Red Cell Distribution Width 14.1 11.8-14.3 % Platelet Count 278 140-450 10^3/uL Mean Platelet Volume 8.3 6.9-10.8 fL Neutrophils (%) (Auto) 64.1 37.0-80.0 % Lymphocytes (%) (Auto) 26.5 10.0-50.0 % Monocytes (%) (Auto) 7.3 0.0-12.0 % Eosinophils (%) (Auto) 1.1 0.0-7.0 % Basophils (%) (Auto) 1.0 0.0-2.0 % Neutrophils # (Auto) 7.5 1.6-8.6 10 ^3/uL Lymphocytes # (Auto) 3.1 0.4-5.4 10 ^3/uL Monocytes # (Auto) 0.8 0-1.3 10 ^3/uL Eosinophils # (Auto) 0.1 0-0.8 10 ^3/uL Basophils # (Auto) 0.1 0-0.2 10 ^3/uL Nucleated Red Blood Cells 0.1 % Sodium Level 137 136-145 mmol/L Potassium Level 4.1 3.5-5.1 mmol/L Chloride Level 103 98-107 mmol/L Carbon Dioxide Level 24 20-31 mmol/L Anion Gap 10 5-15 Blood Urea Nitrogen 10 9-23 mg/dL Creatinine 0.65 0.550-1.02 mg/dL Glomerular Filtration Rate Calc 107 >90 mL/min BUN/Creatinine Ratio 15.4 10.0-20.0 Serum Glucose 496 *H 74-106 mg/dL Hemoglobin A1c > 14.0 H <5.7 % A1C Calcium Level 9.4 8.7-10.4 mg/dL Total Bilirubin 0.2 0.2-1.0 mg/dL Aspartate Amino Transferase (AST) 19 13-40 U/L Alanine Aminotransferase (ALT) 36 7-40 U/L Alkaline Phosphatase 144 H 46-116 U/L Total Protein 6.4 5.7-8.2 g/dL Albumin 4.0 3.2-4.8 g/dL Triglycerides Level 263 H < 150 mg/dL Cholesterol Level 128 < 200 mg/dL LDL Cholesterol 80 < 100 mg/dL HDL Cholesterol 32 L 40-59 mg/dL Beta-Hydroxybutyric Acid 0.467 H < 0.4 mmol/L Blood Gas Specimen Type Arterial Blood Gas Sample Site Left radial Blood Gas Patient Temperature 37.0 Arterial Blood Date Drawn [id number] Arterial Blood pH 7.433 7.350-7.450 Arterial Blood Partial Pressure CO2 37.4 32.0-45.0 mmHg Arterial Blood Partial Pressure O2 78.1 L 83.0-108.0 mmHg Arterial Blood HCO3 24.4 21.0-28.0 mmol/L Arterial Blood Oxygen Saturation 95.6 94.0-98.0 % Arterial Blood Base Excess 0.4 -2.0-3.0 mmol/L Arterial Blood Oxyhemoglobin 87.6 L 94.0-98.0 % Arterial Blood Carboxyhemoglobin 8.1 *H 0.5-1.5 % Arterial Blood Methemoglobin 0.3 0.0-1.5 % Stephan Test Yes Blood Gas Total Hemoglobin 14.20 12.0-16.0 g/dL Blood Gas Modality Room air FiO2 % 21.0 Specimen Drawn By Rosita stern in class special education teacher Blood Gas Critical Value Read Back Yes Blood Gas Notified Whom stacy Pedersen md Blood Gas Notified Time [id number] Blood Gas Notified By Rosita stern in class special education teacher Imaging: CT abdomen pelvis IMPRESSION: Limited examination secondary to lack of intravenous and oral contrast administration and patient motion artifact. Nonspecific bowel-gas pattern. Distended stomach. Rectal tube in-situ. Findings may represent gastroenteritis / colitis. Clinical correlation advised. Distended urinary bladder. Assessment: Diarrhea Possible colitis hepatitis-C Methamphetamine use History of schizophrenia and bipolar disease Plan: Discussed with Dr. Liu Stool for C diff, bacterial culture, O&P Continue antibiotics Clear liquid diet We will continue to monitor the patient Thank you for the consult Date of Service: Mar 22, 2024 Billing Provider: KATIE BAKER Common Visit Codes: CONSULT ONLY Consultation Codes: [id number] CONSULT <45MIN KATIE BAKER Mar 22, 2024 12:53
--- NOTE | 2024-03-22 13:29 | DVHPNRES ---
Progress Note Date Seen: Mar 22, 2024 Resident Creating Document: MEREDITH DANIELS RESIDENT Medical Necessity Reason Pt with a Central, PICC or Fol: No Subjective Review of Systems Patient is a 53-year-old female with past medical history of hepatitis-C, hypertension, type 2 diabetes, neuropathy, ? Liver disease? Methamphetamine abuse, bipolar disorder and schizophrenia who came due to complain of pain all over her body. According to the patient, she has been struggling with chronic pain for a long time and she was unable to have her home pain medications refilled which prompted this visit to the hospital. Patient notes pain in her elbow, fingertips, neck and toes. Patient also notes having a chronic diarrhea that has been ongoing for the past 4-5 months. Patient is a poor historian and unable to verify if she has ever had bloody bowel movements. Patient notes certain foods make her diarrhea worse, unable to identify any alleviating factors. Past surgical history: Denies Home medications: Risperidone, buspirone, paroxetine, gabapentin, ?Duloxetine. ?Lamotrigine. Insulin Past Hospitalization: In November 2023 for metabolic encephalopathy and DKA Social & Personal history: Patient lives with her sister. Smokes 1 pack of cigarettes per day for the past 20 years. Uses marijuana daily. Uses methamphetamine. Denies using alcohol. Allergies: Denies Patient seen and examined at bedside. Patient is alert and oriented to time, place person and responding to all questions. General: Reports feeling fatigue and chills Eyes: No Pain, No Vision change, No Conjunctivae inflammation, No Eyelid inflammation, No Other, No Redness ENT: No Ear pain, No Ear discharge, No Nose pain, No Nose discharge, No Nose congestion, No Mouth pain, No Mouth swelling, No Throat pain, No Throat swelling, No Other Cardiovascular: No Chest Pain, No Palpitations, No Orthopnea, No Paroxysmal No Dyspnea, No Edema, No Lt Headedness, No Other Respiratory: Cough, SOB with exertion, No Wheezing, No Hemoptysis, No Pleuritic Pain, No Sputum, No Other Gastrointestinal: No Nausea, No Vomiting, No Abdominal Pain, Diarrhea, No Constipation, No Melena, No Hematochezia, No Other Genitourinary: No Dysuria, No Frequency, No Incontinence, No Hematuria, No Retention, No Other Musculoskeletal: No other, No neck pain, No shoulder pain, No arm pain, No back pain, No hand pain, No leg pain, No foot pain Skin: No Rash, No Lesions, No Jaundice, No Bruising, No Other Psychiatric: Reports feeling more depressed and anxious in the last 2 weeks. Denies having any suicidal intent or ideation. Objective vital signs Vital Sign Date Time Temp Pulse Resp B/P (MAP) Pulse Ox O2 Delivery O2 Flow Rate FiO2 03/22/24 12:00 107 03/22/24 08:00 18 98 Room Air* 0 21 03/22/24 08:00 98.3 153/95 (114) 98.3 Total Intake and Output 03/21/24 03/21/24 03/22/24 15:00 23:00 07:00 Intake Total 2575 ml Balance 2575 ml medications Current Medications Medications Dose Ordered Sig/Polo Route Start Time Stop Time Status Last Admin Dose Admin Sodium Chloride 10 ml Q8HR IV 03/22/24 06:00 03/22/24 05:47 10 ML Ondansetron HCl 4 mg Q4HP PRN IV 03/22/24 04:15 Acetaminophen 650 mg Q6HP PRN PO 03/22/24 04:15 Nitroglycerin 0.4 mg Q5MINP PRN SL 03/22/24 04:15 Morphine Sulfate 2 mg Q30M PRN IV 03/22/24 04:15 Insulin Glargine 25 units QAM SC 03/22/24 07:00 03/22/24 07:03 25 UNITS Diagnostic Test (Pha) 1 strip ACHS 03/22/24 07:00 03/22/24 11:22 1 STRIP Insulin Human Regular AC SC 03/22/24 07:00 03/22/24 07:05 10 UNITS Insulin Human Regular HS SC 03/22/24 22:00 Dextrose 50 ml UD PRN IV 03/22/24 04:30 Piperacillin Sod/ Tazobactam Sod 100 ml @ 25 mls/hr Q6HR IV 03/22/24 06:00 03/22/24 12:16 25 MLS/HR Acetaminophen/ Hydrocodone Bitart 1 tab Q6HPRN PRN PO 03/22/24 05:45 03/22/24 12:17 1 TAB Sodium Chloride 1,000 ml @ 125 mls/hr Q8H IV 03/22/24 05:45 03/22/24 05:54 125 MLS/HR Enoxaparin Sodium 40 mg DAILY SC 03/22/24 10:00 03/22/24 10:38 40 MG Risperidone 0.25 mg BID PO 03/22/24 10:00 03/22/24 10:37 0.25 MG Paroxetine HCl 10 mg DAILY PO 03/22/24 10:00 03/22/24 10:37 10 MG Vancomycin HCl 250 mg QID PO 03/22/24 12:00 03/22/24 12:13 250 MG Saccharomyces Boulardii 250 mg DAILY PO 03/22/24 10:00 03/22/24 10:37 250 MG Examination General Appearance: Cooperative. Well developed. Well nourished. NAD Head Exam: Normal inspection Neck Exam: Normal inspection. Non-tender. Normal alignment Pulmonary/Respiratory: Chest non-tender. Clear bilateral breath sounds, no crackles, trace wheezing noted on the right. Cardiovascular/Chest: Regular rate and rhythm. No murmurs. No JVD. Peripheral Pulses: 2+ Radial (R). 2+ Radial (L). 2+ Pedal (R). 2+ Pedal (L) Abdominal Exam: Normal bowel sounds. Soft. normal abdomen, no visible veins, Nontender. No hepatospenomegaly. No masses Ankle Exam: Negative ankle edema Lower extremities: Negative lower extremity edema Neuro/Mental Status: A&O x4. Coherent. Thoughts/Psych: Normal thought pattern. Appropriate mood and affect. Good judgement and insight Skin Exam: Normal inspection. Normal color. Warm. Dry laboratory and microbiology Laboratory Tests 03/22/24 00:27 Test 03/22/24 00:27 Range/Units Serum Glucose 496 *H 74-106 mg/dL Labs and/or images reviewed: Labs reviewed by me, Image(s) reviewed by me Problem List/Assessment/Plan Problem List/Assessment/Plan Chronic diarrhea: Colitis versus malabsorption versus IBD Dehydration Lactic acidosis due to above - CT abdomen pelvis: Limited examination secondary to lack of intravenous and oral contrast administration and patient motion artifact. Nonspecific bowel gas pattern. Distended stomach. Findings may represent gastroenteritis/colitis. - C diff negative, shiga toxin negative, Campylobacter negative - ordered stool ova and parasite, stool PH, HIV testing - advanced to consistent carbohydrate diet - 500 mL NS bolus, IV NS at 125 cc/hour maintenance - IV Zosyn Hepatitis-C, diagnosed in May 2023, untreated Elevated alkaline phosphatase possibly due to above - GI follow up in the outpatient clinic - GI on board Schizophrenia, unspecified ? Bipolar disorder ? Chronic pain - risperidone 0.25 mg b.i.d. - paroxetine 10 mg p.o. daily Type 2 diabetes, insulin dependent, uncontrolled with Hb A1c 14 - insulin Lantus 25 units q.a.m. - aggressive sliding scale insulin Methamphetamine abuse - counseled patient extensively on the harmful effects of methamphetamine DVT prophylaxis: Levonox 40mg Goals of care: Full code, discussed for >16 minutes on 03/22/24 Plan discussed with patient Plan discussed with Dr. Solano Plan discussed with: Patient, Other (RN) My Orders My Orders Orders - MEREDITH DANIELS RESIDENT Procedure Category Date Status Time Sodium Chloride 0.9% PHA 03/22/24 Logged 13:30 Date of Service: Mar 22, 2024 Billing Provider: SHEYLA SOLANO MD Common Visit Codes: [id number] INP/OBS CARE(HIGH) Coding Comment Comment Attending Attestation I saw and evaluated the patient. I reviewed the residents note and agree with findings and plan as documented in the residents note except as documented below. chornic diarrhea send stool OP, HIV IV bolus advance diet MEREDITH DANIELS Mar 22, 2024 13:29 SHEYLA SOLANO MD Mar 22, 2024 17:46
[2024-03-22] MEDS: SODIUM CHLORIDE 0.9% 500 ML IV ONE (13:42)
[2024-03-22] MEDS: CHOLESTYRAMINE 4 GM POWDER PO ONE (14:52)
[2024-03-22] MEDS ORDERED: QUEtiapine FUMARATE 25 MG TAB PO SCH (18:00)
[2024-03-22 19:50] VITALS: PULSE 92; RESP 18; O2SAT 99
[2024-03-22 23:45] VITALS: BP 131/83; PULSE 101; RESP 17; TEMP 97.7; O2SAT 100
[2024-03-23] VITALS (8 sets, daily range): BP systolic 125–157; BP diastolic 63–100; PULSE 98–118; RESP 13–20; TEMP 97.7–98.4; O2SAT 97–100
[2024-03-23] MEDS ORDERED: CIPROFLOXACIN 400MG/200ML 200 ML IV SCH (01:00)
[2024-03-23] MEDS: HYDROcodone-ACET 5/325MG TAB PO PRN (03:14)
[2024-03-23] MEDS ORDERED: PANTOPRAZOLE 40 MG TAB PO SCH (06:00)
[2024-03-23 07:05] LABS: Basophils # (auto) 0.1 10 ^3/uL (0-0.2); Basophils % (auto) 1.5 % (0.0-2.0); Eosinophils # (auto) 0.2 10 ^3/uL (0-0.8); Eosinophils % (auto) 1.7 % (0.0-7.0); Hematocrit 45.3 % (36.0-46.0); Hemoglobin 14.2 g/dL (12.2-16.2); Lymphocytes # (auto) 1.9 10 ^3/uL (0.4-5.4); Lymphocytes % (auto) 21.4 % (10.0-50.0); Mean Corpuscular Hemoglobin 27.9 pg (28.0-32.0); Mean Corpuscular Hgb Conc. 31.4 g/dL (32.0-36.0); Monocytes # (auto) 0.6 10 ^3/uL (0-1.3); Monocytes % (auto) 6.5 % (0.0-12.0); Neutrophils # (auto) 6.3 10 ^3/uL (1.6-8.6); Neutrophils % (auto) 68.9 % (37.0-80.0); Nucleated Red Blood Cells % 0.1 %; Platelet Count (auto) 308 10^3/uL (140-450); Red Cell Distribution Width 13.5 % (11.8-14.3); White Blood Cell 9.1 10^3/uL (4.4-10.8)
[2024-03-23 07:10] LABS: Alanine Aminotransferase 36 U/L (7-40); Alkaline Phosphatase 101 U/L (46-116); Anion Gap 10 (5-15); Aspartate Aminotransferase 27 U/L (13-40); Bilirubin, Total 0.4 mg/dL (0.2-1.0); Calcium 9.4 mg/dL (8.7-10.4); Carbon Dioxide 21 mmol/L (20-31); Chloride 107 mmol/L (98-107); Sodium 138 mmol/L (136-145); Total Protein 6.7 g/dL (5.7-8.2)
[2024-03-23 07:18] LABS: Potassium 3.3 mmol/L (3.5-5.1)
[2024-03-23 07:19] LABS: Glucose 222 mg/dL (74-106)
[2024-03-23 07:45] LABS: BUN/Creatinine Ratio 10.4 (10.0-20.0); Blood Urea Nitrogen < 5 mg/dL (9-23)
[2024-03-23] MEDS: GABAPENTIN 300 MG CAP PO SCH (12:27)
[2024-03-23] MEDS: POTASSIUM EFFERVESENT TAB 25 MEQ PO ONE (12:28)
[2024-03-23] MEDS: CAPSAICIN 0.025% CREAM 60GM TOP SCH (14:00)
[2024-03-23] MEDS: PIPERACILLIN-TAZOB 3.375GM 100 ML IV SCH (14:23)
[2024-03-23] MEDS: traMADol HCL 50 MG TAB PO ONE (17:31)
[2024-03-23] MEDS: NICOTINE 14 MG/24HR TOPICAL PATCH TD ONE (17:32)
[2024-03-23] MEDS: CHOLESTYRAMINE 4 GM POWDER PO ONE (17:39)
[2024-03-23] MEDS: DULoxetine HCL 30 MG CAP PO ONE (18:36)
--- NOTE | 2024-03-23 18:48 | DVHPNRES ---
Progress Note Date Seen: Mar 23, 2024 Resident Creating Document: MEREDITH DANIELS RESIDENT Medical Necessity Reason Pt with a Central, PICC or Fol: No Subjective Review of Systems Patient is a 53-year-old female with past medical history of hepatitis-C, hypertension, type 2 diabetes, neuropathy, ? Liver disease? Methamphetamine abuse, bipolar disorder and schizophrenia who came due to complain of pain all over her body. According to the patient, she has been struggling with chronic pain for a long time and she was unable to have her home pain medications refilled which prompted this visit to the hospital. Patient notes pain in her elbow, fingertips, neck and toes. Patient also notes having a chronic diarrhea that has been ongoing for the past 4-5 months. Patient is a poor historian and unable to verify if she has ever had bloody bowel movements. Patient notes certain foods make her diarrhea worse, unable to identify any alleviating factors. Past surgical history: Denies Home medications: Risperidone, buspirone, paroxetine, gabapentin, ?Duloxetine. ?Lamotrigine. Insulin Past Hospitalization: In November 2023 for metabolic encephalopathy and DKA Social & Personal history: Patient lives with her sister. Smokes 1 pack of cigarettes per day for the past 20 years. Uses marijuana daily. Uses methamphetamine. Denies using alcohol. Allergies: Denies Patient seen and examined at bedside. Patient is alert and oriented to time, place person and responding to most questions. Patient continues to cry and well saying that she has pain all over. Patient still has diarrhea and last bowel movement this a.m. was watery, however, notes good appetite. Objective vital signs Vital Sign Date Time Temp Pulse Resp B/P (MAP) Pulse Ox O2 Delivery O2 Flow Rate FiO2 03/23/24 17:16 97.9 106 18 138/99 (112) 97 97.9 03/23/24 08:00 Room Air* 0 21 Total Intake and Output 03/22/24 03/22/24 03/23/24 15:00 23:00 07:00 Intake Total 1000 ml 1000 ml 400 ml Balance 1000 ml 1000 ml 400 ml medications Current Medications Medications Dose Ordered Sig/Polo Route Start Time Stop Time Status Last Admin Dose Admin Sodium Chloride 10 ml Q8HR IV 03/22/24 06:00 03/23/24 14:23 10 ML Ondansetron HCl 4 mg Q4HP PRN IV 03/22/24 04:15 Acetaminophen 650 mg Q6HP PRN PO 03/22/24 04:15 Nitroglycerin 0.4 mg Q5MINP PRN SL 03/22/24 04:15 Morphine Sulfate 2 mg Q30M PRN IV 03/22/24 04:15 Insulin Glargine 25 units QAM SC 03/22/24 07:00 03/23/24 06:48 25 UNITS Diagnostic Test (Pha) 1 strip ACHS 03/22/24 07:00 03/23/24 17:00 1 STRIP Insulin Human Regular AC SC 03/22/24 07:00 03/23/24 17:37 4 UNITS Insulin Human Regular HS SC 03/22/24 22:00 Dextrose 50 ml UD PRN IV 03/22/24 04:30 Sodium Chloride 1,000 ml @ 125 mls/hr Q8H IV 03/22/24 05:45 03/23/24 14:24 125 MLS/HR Enoxaparin Sodium 40 mg DAILY SC 03/22/24 10:00 03/23/24 10:30 40 MG Risperidone 0.25 mg BID PO 03/22/24 10:00 03/23/24 10:31 0.25 MG Paroxetine HCl 10 mg DAILY PO 03/22/24 10:00 03/23/24 10:31 10 MG Acetaminophen/ Hydrocodone Bitart 1 tab Q4HPRN PRN PO 03/23/24 02:45 03/23/24 12:27 1 TAB Piperacillin Sod/ Tazobactam Sod 100 ml @ 25 mls/hr Q8HR IV 03/23/24 14:00 03/23/24 14:23 25 MLS/HR Gabapentin 300 mg TID PO 03/23/24 11:45 03/23/24 14:22 300 MG Duloxetine HCl 30 mg DAILY PO 03/24/24 10:00 Capsaicin 1 applic Q8HR TOP 03/23/24 14:00 Cholestyramine Resin 4 gm DAILY@11 PO 03/24/24 11:00 Examination General Appearance: Cooperative. Well developed. Well nourished. Crying Head Exam: Normal inspection Neck Exam: Normal inspection. Non-tender. Normal alignment Pulmonary/Respiratory: Chest non-tender. Clear bilateral breath sounds, no crackles, trace wheezing noted on the right. Cardiovascular/Chest: Regular rate and rhythm. No murmurs. No JVD. Peripheral Pulses: 2+ Radial (R). 2+ Radial (L). 2+ Pedal (R). 2+ Pedal (L) Abdominal Exam: Normal bowel sounds. Soft. normal abdomen, no visible veins, Nontender. No hepatospenomegaly. No masses Ankle Exam: Negative ankle edema Lower extremities: Negative lower extremity edema Neuro/Mental Status: A&O x4. Coherent. Thoughts/Psych: Normal thought pattern. Appropriate mood and affect. Good judgement and insight Skin Exam: Normal inspection. Normal color. Warm. Dry Psychiatric: Reports feeling more depressed and anxious than usual in the last 2 weeks, however, denies any suicidal ideation or intent laboratory and microbiology Laboratory Tests 03/23/24 05:32 Test 03/23/24 05:32 Range/Units Serum Glucose 222 H 74-106 mg/dL Microbiology Date/Time Source Procedure Growth Status 03/23/24 05:30 Nose MRSA Screen - Final Complete 03/22/24 00:39 Stool Stool Culture - Preliminary Resulted 03/22/24 00:39 Stool Shiga Toxin I & II - Final Resulted Labs and/or images reviewed: Labs reviewed by me, Image(s) reviewed by me Problem List/Assessment/Plan Problem List/Assessment/Plan Chronic diarrhea: Colitis versus malabsorption versus IBD Dehydration Lactic acidosis due to above - CT abdomen pelvis: Limited examination secondary to lack of intravenous and oral contrast administration and patient motion artifact. Nonspecific bowel gas pattern. Distended stomach. Findings may represent gastroenteritis/colitis. - C diff negative, shiga toxin negative, Campylobacter negative, HIV negative - ordered stool ova and parasite, stool PH - advanced to consistent carbohydrate diet - 500 mL NS bolus once, IV NS at 125 cc/hour maintenance - IV Zosyn - cholestyramine 4 g p.o. daily Hepatitis-C, diagnosed in May 2023, untreated Elevated alkaline phosphatase possibly due to above - GI follow up in the outpatient clinic - GI on board Schizophrenia, unspecified ? Bipolar disorder ? Chronic pain - risperidone 0.25 mg b.i.d. - paroxetine 10 mg p.o. daily Type 2 diabetes, insulin dependent, uncontrolled with Hb A1c 14 - insulin Lantus 25 units q.a.m. - aggressive sliding scale insulin Peripheral neuropathy - gabapentin 300 mg t.i.d. - tramadol 50 mg once - duloxetine 30 mg p.o. daily - capsaicin cream on bilateral feet Methamphetamine abuse - counseled patient extensively on the harmful effects of methamphetamine Nicotine use disorder - nicotine patch 14 mg DVT prophylaxis: Levonox 40mg Goals of care: Full code, discussed for >16 minutes on 03/22/24 Plan discussed with patient Plan discussed with Dr. Solano Plan discussed with: Patient, Other (RN) My Orders My Orders Orders - MEREDITH DANIELS RESIDENT Procedure Category Date Status Time Gabapentin Capsule PHA 03/23/24 In Process (Neurontin Capsule) 11:45 Duloxetine Hcl PHA 03/24/24 In Process Capsule (Cymbalta 10:00 Capsicum Cream PHA 03/23/24 In Process (Zostrix Cream) 14:00 Abg W/ Co-Ox RT 03/24/24 Logged 04:00 Cholestyramine Powder PHA 03/24/24 In Process (Questran Powder) 11:00 Date of Service: Mar 23, 2024 Billing Provider: SHEYLA SOLANO MD Common Visit Codes: [id number] INP/OBS CARE(HIGH) Coding Comment Comment Attending Attestation I saw and evaluated the patient. I reviewed the residents note and agree with findings and plan as documented in the residents note except as documented below. chornic diarrhea uncontrolled IDDM with hyperglycemia amphetamine use diabetic neuropathy schizophrenia smoker send stool OP, HIV IV bolus advance diet basal bolus insulin gabapentin cymbalta capsaicin smoking cessation, NRT reinforce substance abstinence resume home meds MEREDITH DANIELS RESIDENT Mar 23, 2024 18:48 SHEYLA SOLANO MD Mar 24, 2024 08:15
--- NOTE | 2024-03-23 20:30 | DVHPN2 ---
Progress Note - Dictate Date Seen: Mar 23, 2024 Medical Necessity Reason Pt with a Central, PICC or Fol: No Subjective Patient seen at bedside, states she feels better ; only one bowel movement today Stool for occult blood was negative, stool for WBC was negative which points against infection or colitis She tried to make an appointment my office but had some trouble because of insurance issues Patient was seen by me previously in consultation on previous admissions Patient has a history of polysubstance abuse including both alcohol marijuana and amphetamines She has bipolar disorder and chronic pain seeking behavior vital signs Vital Sign Date Time Temp Pulse Resp B/P (MAP) Pulse Ox O2 Delivery O2 Flow Rate FiO2 03/23/24 17:16 97.9 106 18 138/99 (112) 97 97.9 03/23/24 08:00 Room Air* 0 21 Total Intake and Output 03/22/24 03/22/24 03/23/24 15:00 23:00 07:00 Intake Total 1000 ml 1000 ml 400 ml Balance 1000 ml 1000 ml 400 ml medications Current Medications Medications Dose Ordered Sig/Polo Route Start Time Stop Time Status Last Admin Dose Admin Sodium Chloride 10 ml Q8HR IV 03/22/24 06:00 03/23/24 14:23 10 ML Ondansetron HCl 4 mg Q4HP PRN IV 03/22/24 04:15 Acetaminophen 650 mg Q6HP PRN PO 03/22/24 04:15 Nitroglycerin 0.4 mg Q5MINP PRN SL 03/22/24 04:15 Morphine Sulfate 2 mg Q30M PRN IV 03/22/24 04:15 Insulin Glargine 25 units QAM SC 03/22/24 07:00 03/23/24 06:48 25 UNITS Diagnostic Test (Pha) 1 strip ACHS 03/22/24 07:00 03/23/24 17:00 1 STRIP Insulin Human Regular AC SC 03/22/24 07:00 03/23/24 17:37 4 UNITS Insulin Human Regular HS SC 03/22/24 22:00 Dextrose 50 ml UD PRN IV 03/22/24 04:30 Sodium Chloride 1,000 ml @ 125 mls/hr Q8H IV 03/22/24 05:45 03/23/24 14:24 125 MLS/HR Enoxaparin Sodium 40 mg DAILY SC 03/22/24 10:00 03/23/24 10:30 40 MG Risperidone 0.25 mg BID PO 03/22/24 10:00 03/23/24 10:31 0.25 MG Paroxetine HCl 10 mg DAILY PO 03/22/24 10:00 03/23/24 10:31 10 MG Acetaminophen/ Hydrocodone Bitart 1 tab Q4HPRN PRN PO 03/23/24 02:45 03/23/24 12:27 1 TAB Piperacillin Sod/ Tazobactam Sod 100 ml @ 25 mls/hr Q8HR IV 03/23/24 14:00 03/23/24 14:23 25 MLS/HR Gabapentin 300 mg TID PO 03/23/24 11:45 03/23/24 14:22 300 MG Duloxetine HCl 30 mg DAILY PO 03/24/24 10:00 Capsaicin 1 applic Q8HR TOP 03/23/24 14:00 Cholestyramine Resin 4 gm DAILY@11 PO 03/24/24 11:00 objective Thin packet lady in no acute distress Pupils equal and react to light, extraocular movements intact CVS S1-S2 regular rate rhythm, lungs are clear Abdomen is soft nontender nondistended extremities without clubbing cyanosis or edema laboratory and microbiology Laboratory Tests 03/23/24 05:32 Test 03/23/24 05:32 Range/Units Serum Glucose 222 H 74-106 mg/dL Problems(with codes): (1) Hyperglycemia due to diabetes mellitus (2) Medical non-compliance (3) Schizophrenia (4) Metabolic encephalopathy (5) Methamphetamine abuse (6) Hepatitis C antibody positive in blood (7) Abnormal LFTs (8) Elevated liver enzymes (9) Hepatitis C antibody positive in blood (10) Diarrhea Prognosis Plan Since the stool for occult blood and WBCs negative I doubt if there is any active colitis We will give her a trial of Questran 4 g packet p.o. daily Patient also has possible underlying IBS She has been advised an outpatient elective colonoscopy and outpatient follow up with GI for management and further workup of her hep C I will arrange an outpatient consultation appointment with her in my office and patient was given my contact number Plan discussed with: Patient, Other (Dr Vences) SULLY VICKERS MD Mar 23, 2024 20:30
[2024-03-24] VITALS (8 sets, daily range): BP systolic 118–147; BP diastolic 88–99; PULSE 98–116; RESP 17–20; TEMP 97.6–98; O2SAT 97–99
[2024-03-24 01:33] LABS: Urine Bacteria None Seen /hpf (None Seen)
[2024-03-24 01:43] LABS: Urine Blood Negative /uL (Negative); Urine Clarity Clear (Clear); Urine Color Colorless (Yellow); Urine Protein, UAD Negative (Negative); Urine Urobilinogen Normal (Negative); Urine WBC 2 /hpf (0 - 5); Urine pH 6.5 (5.0-9.0)
[2024-03-24 02:08] LABS: Opiate Scree,Urine Neg (NEGATIVE)
[2024-03-24 02:09] LABS: Cannabinoid Screen, Urine Neg (NEGATIVE)
[2024-03-24 02:10] LABS: Amphetamine Screen, Urine Neg (NEGATIVE); Barbiturate Scree,Urine Neg (NEGATIVE); Benzodiazephine Screen, Urine Neg (NEGATIVE); Cocaine Screen, Urine Neg (NEGATIVE); Phencyclidine Screen, Urine Neg (NEGATIVE)
[2024-03-24] MEDS: ACETAMINOPHEN 325 MG TAB PO PRN (04:02)
[2024-03-24 06:44] LABS: Anion Gap 7 (5-15); Carbon Dioxide 23 mmol/L (20-31); Chloride 104 mmol/L (98-107); Potassium 3.9 mmol/L (3.5-5.1)
[2024-03-24 06:45] LABS: Sodium 134 mmol/L (136-145)
[2024-03-24 06:46] LABS: Calcium 9.1 mg/dL (8.7-10.4)
[2024-03-24 06:50] LABS: BUN/Creatinine Ratio 14.1 (10.0-20.0); Blood Urea Nitrogen 9 mg/dL (9-23)
[2024-03-24 06:52] LABS: Glucose 395 mg/dL (74-106)
--- NOTE | 2024-03-24 08:54 | DVHPN2 ---
Progress Note - Dictate Date Seen: Mar 24, 2024 Medical Necessity Reason Pt with a Central, PICC or Fol: No Subjective Patient seen at bedside, hungry and wants to eat more Or bowel movements recorded over the last 24 hours Stool for occult blood was negative, stool for WBC was negative which points against infection or colitis I offered the patient a possible colonoscopy tomorrow However the patient states it is her birthday today and she does not want to be on a liquid diet or a drink a bowel prep Patient has a history of polysubstance abuse including both alcohol marijuana and amphetamines She has bipolar disorder and chronic pain seeking behavior vital signs Vital Sign Date Time Temp Pulse Resp B/P (MAP) Pulse Ox O2 Delivery O2 Flow Rate FiO2 03/24/24 05:00 97.7 98 19 147/99 (115) 97 97.7 03/23/24 20:00 Room Air* 0 21 Total Intake and Output 03/23/24 03/23/24 03/24/24 15:00 23:00 07:00 Intake Total 100 ml 100 ml 900 ml Output Total 1200 ml Balance 100 ml 100 ml -300 ml medications Current Medications Medications Dose Ordered Sig/Polo Route Start Time Stop Time Status Last Admin Dose Admin Sodium Chloride 10 ml Q8HR IV 03/22/24 06:00 03/24/24 05:53 10 ML Ondansetron HCl 4 mg Q4HP PRN IV 03/22/24 04:15 Acetaminophen 650 mg Q6HP PRN PO 03/22/24 04:15 03/24/24 04:02 650 MG Nitroglycerin 0.4 mg Q5MINP PRN SL 03/22/24 04:15 Morphine Sulfate 2 mg Q30M PRN IV 03/22/24 04:15 Insulin Glargine 25 units QAM SC 03/22/24 07:00 03/24/24 07:07 25 UNITS Diagnostic Test (Pha) 1 strip ACHS 03/22/24 07:00 03/24/24 07:07 1 STRIP Insulin Human Regular AC SC 03/22/24 07:00 03/24/24 07:08 20 UNITS Insulin Human Regular HS SC 03/22/24 22:00 03/23/24 22:00 3 UNITS Dextrose 50 ml UD PRN IV 03/22/24 04:30 Sodium Chloride 1,000 ml @ 125 mls/hr Q8H IV 03/22/24 05:45 03/24/24 05:53 125 MLS/HR Enoxaparin Sodium 40 mg DAILY SC 03/22/24 10:00 03/23/24 10:30 40 MG Risperidone 0.25 mg BID PO 03/22/24 10:00 03/23/24 21:49 0.25 MG Paroxetine HCl 10 mg DAILY PO 03/22/24 10:00 03/23/24 10:31 10 MG Acetaminophen/ Hydrocodone Bitart 1 tab Q4HPRN PRN PO 03/23/24 02:45 03/24/24 01:05 1 TAB Piperacillin Sod/ Tazobactam Sod 100 ml @ 25 mls/hr Q8HR IV 03/23/24 14:00 03/23/24 21:49 25 MLS/HR Gabapentin 300 mg TID PO 03/23/24 11:45 03/24/24 05:53 300 MG Duloxetine HCl 30 mg DAILY PO 03/24/24 10:00 Capsaicin 1 applic Q8HR TOP 03/23/24 14:00 Cholestyramine Resin 4 gm DAILY@11 PO 03/24/24 11:00 objective Thin cachectic lady in no acute distress Pupils equal and react to light, extraocular movements intact CVS S1-S2 regular rate rhythm, lungs are clear Abdomen is soft nontender nondistended extremities without clubbing cyanosis or edema Extremities show no clubbing cyanosis or edema laboratory and microbiology Laboratory Tests 03/24/24 05:15 03/23/24 05:32 Test 03/24/24 05:15 Range/Units Serum Glucose 395 H 74-106 mg/dL Problems(with codes): (1) Hepatitis C antibody positive in blood (2) Abnormal LFTs (3) Methamphetamine abuse (4) Elevated liver enzymes (5) Metabolic encephalopathy (6) Schizophrenia (7) Medical non-compliance (8) Diarrhea Prognosis Plan Since the patient's stool tests are negative I do not think she has any active infectious colitis Patient is refusing a bowel prep today as it is her birthday and she wants to spend time and her family and eat Patient is cleared for discharge from a GI point of view She was given my contact number for outpatient follow up If she is not able to contact me patient will contact her PCP to get a referral for management of her hep C and to arrange outpatient elective colonoscopy Discharge planning as per hospitalist Plan discussed with: Patient, Other (Nurse Marly) SULLY VICKERS MD Mar 24, 2024 08:54
[2024-03-24] MEDS: DULoxetine HCL 30 MG CAP PO SCH (10:22)
[2024-03-24] MEDS: CHOLESTYRAMINE 4 GM POWDER PO SCH (10:23)
[2024-03-24 12:06] LABS: Saccharomyces cerevisiae IgA <20.0 Units (0.0-24.9)
[2024-03-24 13:06] LABS: t-Transglutaminase (tTG) IgA <2 U/mL (0-3)
--- NOTE | 2024-03-24 15:32 | DVHPNRES ---
Progress Note Date Seen: Mar 24, 2024 Resident Creating Document: MEREDITH DANIELS RESIDENT Medical Necessity Reason Pt with a Central, PICC or Fol: No Subjective Review of Systems Patient is a 53-year-old female with past medical history of hepatitis-C, hypertension, type 2 diabetes, neuropathy, ? Liver disease? Methamphetamine abuse, bipolar disorder and schizophrenia who came due to complain of pain all over her body. According to the patient, she has been struggling with chronic pain for a long time and she was unable to have her home pain medications refilled which prompted this visit to the hospital. Patient notes pain in her elbow, fingertips, neck and toes. Patient also notes having a chronic diarrhea that has been ongoing for the past 4-5 months. Patient is a poor historian and unable to verify if she has ever had bloody bowel movements. Patient notes certain foods make her diarrhea worse, unable to identify any alleviating factors. Past surgical history: Denies Home medications: Risperidone, buspirone, paroxetine, gabapentin, ?Duloxetine. ?Lamotrigine. Insulin Past Hospitalization: In November 2023 for metabolic encephalopathy and DKA Social & Personal history: Patient lives with her sister. Smokes 1 pack of cigarettes per day for the past 20 years. Uses marijuana daily. Uses methamphetamine. Denies using alcohol. Allergies: Denies Patient seen and examined at bedside. Patient is alert and oriented to time, place person and responding to most questions. Patient continues to cry and well saying that she has pain all over. Patient still has diarrhea and last bowel movement this a.m. was watery,notes good appetite. Patient has been provided with a nicotine patch, however, patient continues to go AMA to smoke. Objective vital signs Vital Sign Date Time Temp Pulse Resp B/P (MAP) Pulse Ox O2 Delivery O2 Flow Rate FiO2 03/24/24 12:37 97.6 107 17 118/88 (98) 97 97.6 03/24/24 08:13 Room Air* 0 21 Total Intake and Output 03/23/24 03/23/24 03/24/24 15:00 23:00 07:00 Intake Total 100 ml 100 ml 900 ml Output Total 1200 ml Balance 100 ml 100 ml -300 ml medications Current Medications Medications Dose Ordered Sig/Polo Route Start Time Stop Time Status Last Admin Dose Admin Sodium Chloride 10 ml Q8HR IV 03/22/24 06:00 03/24/24 05:53 10 ML Ondansetron HCl 4 mg Q4HP PRN IV 03/22/24 04:15 Acetaminophen 650 mg Q6HP PRN PO 03/22/24 04:15 03/24/24 04:02 650 MG Nitroglycerin 0.4 mg Q5MINP PRN SL 03/22/24 04:15 Morphine Sulfate 2 mg Q30M PRN IV 03/22/24 04:15 Insulin Glargine 25 units QAM SC 03/22/24 07:00 03/24/24 07:07 25 UNITS Diagnostic Test (Pha) 1 strip ACHS 03/22/24 07:00 03/24/24 11:15 1 STRIP Insulin Human Regular AC SC 03/22/24 07:00 03/24/24 11:25 12 UNITS Insulin Human Regular HS SC 03/22/24 22:00 03/23/24 22:00 3 UNITS Dextrose 50 ml UD PRN IV 03/22/24 04:30 Sodium Chloride 1,000 ml @ 125 mls/hr Q8H IV 03/22/24 05:45 03/24/24 05:53 125 MLS/HR Enoxaparin Sodium 40 mg DAILY SC 03/22/24 10:00 03/24/24 10:22 40 MG Risperidone 0.25 mg BID PO 03/22/24 10:00 03/24/24 10:23 0.25 MG Paroxetine HCl 10 mg DAILY PO 03/22/24 10:00 03/23/24 10:31 10 MG Acetaminophen/ Hydrocodone Bitart 1 tab Q4HPRN PRN PO 03/23/24 02:45 03/24/24 11:16 1 TAB Piperacillin Sod/ Tazobactam Sod 100 ml @ 25 mls/hr Q8HR IV 03/23/24 14:00 03/23/24 21:49 25 MLS/HR Gabapentin 300 mg TID PO 03/23/24 11:45 03/24/24 05:53 300 MG Duloxetine HCl 30 mg DAILY PO 03/24/24 10:00 03/24/24 10:22 30 MG Capsaicin 1 applic Q8HR TOP 03/23/24 14:00 Cholestyramine Resin 4 gm DAILY@11 PO 03/24/24 11:00 03/24/24 10:23 4 GM Examination General Appearance: Cooperative. Well developed. Well nourished. Crying Head Exam: Normal inspection Neck Exam: Normal inspection. Non-tender. Normal alignment Pulmonary/Respiratory: Chest non-tender. Clear bilateral breath sounds, no crackles, trace wheezing noted on the right. Cardiovascular/Chest: Regular rate and rhythm. No murmurs. No JVD. Peripheral Pulses: 2+ Radial (R). 2+ Radial (L). 2+ Pedal (R). 2+ Pedal (L) Abdominal Exam: Normal bowel sounds. Soft. normal abdomen, no visible veins, Nontender. No hepatospenomegaly. No masses Ankle Exam: Negative ankle edema Lower extremities: Negative lower extremity edema Neuro/Mental Status: A&O x4. Coherent. Thoughts/Psych: Normal thought pattern. Appropriate mood and affect. Good judgement and insight Skin Exam: Normal inspection. Normal color. Warm. Dry Psychiatric: Reports feeling more depressed and anxious than usual in the last 2 weeks, however, denies any suicidal ideation or intent laboratory and microbiology Laboratory Tests 03/24/24 05:15 03/23/24 05:32 Test 03/24/24 05:15 Range/Units Serum Glucose 395 H 74-106 mg/dL Microbiology Date/Time Source Procedure Growth Status 03/23/24 05:30 Nose MRSA Screen - Final Complete 03/22/24 00:39 Stool Stool Culture - Preliminary Resulted 03/22/24 00:39 Stool Shiga Toxin I & II - Final Resulted Labs and/or images reviewed: Labs reviewed by me, Image(s) reviewed by me Problem List/Assessment/Plan Problem List/Assessment/Plan Chronic diarrhea: Colitis versus malabsorption versus IBD Dehydration Lactic acidosis due to above Possible opioid withdrawal? - CT abdomen pelvis: Limited examination secondary to lack of intravenous and oral contrast administration and patient motion artifact. Nonspecific bowel gas pattern. Distended stomach. Findings may represent gastroenteritis/colitis. - C diff negative, shiga toxin negative, Campylobacter negative, HIV negative - ordered stool ova and parasite, stool PH - advanced to consistent carbohydrate diet - 500 mL NS bolus once, IV NS at 125 cc/hour maintenance - IV Zosyn - cholestyramine 4 g p.o. daily Hepatitis-C, diagnosed in May 2023, untreated Elevated alkaline phosphatase possibly due to above - GI follow up in the outpatient clinic - GI on board Schizophrenia, unspecified ? Bipolar disorder ? Chronic pain - risperidone 0.25 mg b.i.d. - paroxetine 10 mg p.o. daily Type 2 diabetes, insulin dependent, uncontrolled with Hb A1c 14 - insulin Lantus 25 units q.a.m. - aggressive sliding scale insulin Peripheral neuropathy - gabapentin 300 mg t.i.d. - tramadol 50 mg once - duloxetine 30 mg p.o. daily - capsaicin cream on bilateral feet Methamphetamine abuse - counseled patient extensively on the harmful effects of methamphetamine Nicotine use disorder - nicotine patch 14 mg DVT prophylaxis: Levonox 40mg Goals of care: Full code, discussed for >16 minutes on 03/22/24 Plan discussed with patient Plan discussed with Dr. Solano Plan discussed with: Patient, Other (RN) My Orders My Orders Orders - MEREDITH DANIELS Procedure Category Date Status Time Consistent DIET 03/24/24 Transmitted Carb(Ccho)Diabetes Lunch Date of Service: Mar 24, 2024 Billing Provider: SHEYLA SOLANO MD Common Visit Codes: [id number] INP/OBS CARE(HIGH) MEREDITH DANIELS Mar 24, 2024 15:32 SHEYLA SOLANO MD Mar 24, 2024 18:39
[2024-03-25] MEDS ORDERED: PANTOPRAZOLE 40 MG TAB PO SCH (06:00)
--- NOTE | 2024-03-25 06:09 | DVHDSRES ---
Discharge Summary Date of Admission Resident Creating Document: MEREDITH DANIELS RESIDENT Mar 22, 2024 at 04:16 Date of Discharge: Mar 24, 2024 Labs/Diagnostic Data: Laboratory Results Test 03/24/24 18:39 03/24/24 05:15 03/24/24 01:15 03/23/24 05:32 POC Glucose 154 mg/dl (70-106) Sodium Level 134 mmol/L (136-145) Potassium Level 3.9 mmol/L (3.5-5.1) Chloride Level 104 mmol/L (98-107) Carbon Dioxide Level 23 mmol/L (20-31) Anion Gap 7 (5-15) Blood Urea Nitrogen 9 mg/dL (9-23) Creatinine 0.64 mg/dL (0.550-1.02) Glomerular Filtration Rate Calc 106 mL/min (>90) BUN/Creatinine Ratio 14.1 (10.0-20.0) Serum Glucose 395 mg/dL (74-106) Calcium Level 9.1 mg/dL (8.7-10.4) Urine Color Colorless (Yellow) Urine Clarity Clear (Clear) Urine pH 6.5 (5.0-9.0) Urine Specific [place] 1.010 (1.001-1.035) Urine Protein Negative (Negative) Urine Ketones Negative (Negative) Urine Blood Negative /uL (Negative) Urine Nitrite Negative (Negative) Urine Bilirubin Negative (Negative) Urine Urobilinogen Normal mg/dL (Negative) Urine Leukocyte Esterase Negative /uL (Negative) Urine RBC 1 /hpf (0 - 4) Urine WBC 2 /hpf (0 - 5) Urine Squamous Epithelial Cells Few /hpf (<5) Urine Bacteria None seen /hpf (None Seen) Urine Glucose 2+ mg/dL (Normal) Urine Total Protein 17.7 mg/dL (1-14) Urine Test Negative (Negative) Urine Opiates Screen Neg (NEGATIVE) Urine Fentanyl Screen Neg (NEGATIVE) Urine Barbiturates Screen Neg (NEGATIVE) Urine Phencyclidine Screen Neg (NEGATIVE) Urine Amphetamines Screen Neg (NEGATIVE) Urine Benzodiazepines Screen Neg (NEGATIVE) Urine Cocaine Screen Neg (NEGATIVE) Urine Cannabinoids Screen Neg (NEGATIVE) White Blood Count 9.1 10^3/uL (4.4-10.8) Red Blood Count 5.10 10^6/uL (4.0-5.20) Hemoglobin 14.2 g/dL (12.2-16.2) Hematocrit 45.3 % (36.0-46.0) Mean Corpuscular Volume 89.0 fL (80.0-100.0) Mean Corpuscular Hemoglobin 27.9 pg (28.0-32.0) Mean Corpuscular Hemoglobin Concent 31.4 g/dL (32.0-36.0) Red Cell Distribution Width 13.5 % (11.8-14.3) Platelet Count 308 10^3/uL (140-450) Mean Platelet Volume 8.3 fL (6.9-10.8) Neutrophils (%) (Auto) 68.9 % (37.0-80.0) Lymphocytes (%) (Auto) 21.4 % (10.0-50.0) Monocytes (%) (Auto) 6.5 % (0.0-12.0) Eosinophils (%) (Auto) 1.7 % (0.0-7.0) Basophils (%) (Auto) 1.5 % (0.0-2.0) Neutrophils # (Auto) 6.3 10 ^3/uL (1.6-8.6) Lymphocytes # (Auto) 1.9 10 ^3/uL (0.4-5.4) Monocytes # (Auto) 0.6 10 ^3/uL (0-1.3) Eosinophils # (Auto) 0.2 10 ^3/uL (0-0.8) Basophils # (Auto) 0.1 10 ^3/uL (0-0.2) Nucleated Red Blood Cells 0.1 % Total Bilirubin 0.4 mg/dL (0.2-1.0) Aspartate Amino Transferase (AST) 27 U/L (13-40) Alanine Aminotransferase (ALT) 36 U/L (7-40) Alkaline Phosphatase 101 U/L (46-116) Total Protein 6.7 g/dL (5.7-8.2) Albumin 4.0 g/dL (3.2-4.8) Test 03/22/24 16:01 03/22/24 10:20 03/22/24 04:38 03/22/24 03:37 Lactic Acid Level 1.3 mmol/L (0.4-2.0) Atypical p-ANCA <1:20 titer (Neg:<1:20) Tissue Transglutaminase IgA Ab <2 U/mL (0-3) HIV (1&2) Antibody Negative (Negative) Saccharomyces cerevisiae IgG Ab 63.5 Units (0.0-24.9) Saccharomyces cerevisiae IgA Ab <20.0 Units (0.0-24.9) Phosphorus Level 2.4 mg/dL (2.4-5.1) Magnesium Level 1.6 mg/dL (1.6-2.6) Lipase 71 U/L (12-53) Thyroid Stimulating Hormone (TSH) 0.75 uIU/mL (0.55-4.78) Test 03/22/24 01:53 03/22/24 00:39 03/22/24 00:27 03/22/24 00:22 Troponin I High Sensitivity < 3 ng/L (</=34) Plasma/Serum Blood Alcohol < 3.0 mg/dL (<10) Stool Occult Blood Negative (Negative) Stool Occult Blood Sample #3 (Negative) Stool for White Cells None seen Hemoglobin A1c > 14.0 % A1C (<5.7) Triglycerides Level 263 mg/dL (< 150) Cholesterol Level 128 mg/dL (< 200) LDL Cholesterol 80 mg/dL (< 100) HDL Cholesterol 32 mg/dL (40-59) Beta-Hydroxybutyric Acid 0.467 mmol/L (< 0.4) Blood Gas Specimen Type Arterial Blood Gas Sample Site Left radial Blood Gas Patient Temperature 37.0 Arterial Blood Date Drawn [id number] Arterial Blood pH 7.433 (7.350-7.450) Arterial Blood Partial Pressure CO2 37.4 mmHg (32.0-45.0) Arterial Blood Partial Pressure O2 78.1 mmHg (83.0-108.0) Arterial Blood HCO3 24.4 mmol/L (21.0-28.0) Arterial Blood Oxygen Saturation 95.6 % (94.0-98.0) Arterial Blood Base Excess 0.4 mmol/L (-2.0-3.0) Arterial Blood Oxyhemoglobin 87.6 % (94.0-98.0) Arterial Blood Carboxyhemoglobin 8.1 % (0.5-1.5) Arterial Blood Methemoglobin 0.3 % (0.0-1.5) Stephan Test Yes Blood Gas Total Hemoglobin 14.20 g/dL (12.0-16.0) Blood Gas Modality Room air FiO2 % 21.0 Specimen Drawn By Rosita stern rrt Blood Gas Critical Value Read Back Yes Blood Gas Notified Whom stacy Pedersen md Blood Gas Notified Time [id number] Blood Gas Notified By Rosita stern rrt Other Laboratory Tests 03/24/24 05:15 03/23/24 05:32 Brief Hx & Hospital Course: Patient is a 53-year-old female with past medical history of hepatitis-C, hypertension, type 2 diabetes, neuropathy, ? Liver disease? Methamphetamine abuse, bipolar disorder and schizophrenia who came due to complain of pain all over her body. According to the patient, she has been struggling with chronic pain for a long time and she was unable to have her home pain medications refilled which prompted this visit to the hospital. Patient notes pain in her elbow, fingertips, neck and toes. Patient also notes having a chronic diarrhea that has been ongoing for the past 4-5 months. Patient is a poor historian and unable to verify if she has ever had bloody bowel movements. Patient notes certain foods make her diarrhea worse, unable to identify any alleviating factors. Pt is also Hep C + diagnosed earlier this year and untreated for which she was instructed follow up in the outpatient clinic w GI. - risperidone 0.25 mg b.i.d. , paroxetine 10 mg p.o. daily Hospital course: CT abdomen pelvis showed Limited examination secondary to lack of intravenous and oral contrast administration and patient motion artifact. Nonspecific bowel gas pattern. Distended stomach. Findings may represent gastroenteritis/colitis. C diff negative, shiga toxin was negative, Campylobacter negative, HIV negative, patient was advanced to consistent carbohydrate diet on day 2, continued on IV NS at 125 cc/hour maintenance and cholestyramine 4 g p.o. daily. GI was on board, however pt refused to undergo a colonoscopy. Home meds risperidone 0.25 mg b.i.d. , paroxetine 10 mg p.o. daily, gabapentin 300 mg t.i.d. were also continued. Due to her severe and uncontrolled burning pain in b/l upper and lower extremities, duloxetine 30 mg p.o. daily and capsaicin cream on bilateral feet was also added. counseled patient extensively on the harmful effects of methamphetamine on her health. She was discharged with gabapentin 300 tid, duloxetine 30mg. Her hospital course was uncomplicated. Condition at Discharge: Good Final Diagnosis/Problems List Chronic diarrhea: possibly inflammatory colitis Dehydration Lactic acidosis due to above Possible opioid withdrawal? Hepatitis-C, diagnosed in May 2023, untreated Elevated alkaline phosphatase possibly due to above Schizophrenia, unspecified ? Bipolar disorder ? Chronic pain Type 2 diabetes, insulin dependent, uncontrolled with Hb A1c 14 Peripheral neuropathy Methamphetamine abuse Nicotine use disorder Discharge Disposition: Home Discharge Instruct/Medications Diet: Consistent carbohydrate, Cardiac 2g Na,low cholest Diet comment: Follow up/referral GI outpatient Activity: No Restrictions, As Tolerated Follow Up/Referral: GI outpatient Medications: duloxetine 30mg daily gabapentin 300mg tid Discharge Statement: "Patient was advised to return to the ER or call 911 if any headaches, dizziness, shortness of breath, chest pain, abdominal pain, bleeding, fevers, or worsening of medical condition. Patient was counseled about treatment plan, medications, possible side effects, patientverbalized understanding. All questions were answered to the best of my ability. This discharge took greater then 30 minutes in planning, reviewing documentation, counseling the patient, and discussing with other team members." ASSESSMENT ASSESSMENT Assessment chronic diarrhea Date of Service: Mar 24, 2024 Billing Provider: SHEYLA SOLANO MD Common Visit Codes: [id number]/[id number] DISCH DAY >30min MEREDITH DANIELS Mar 25, 2024 06:09 SHEYLA SOLANO MD Mar 26, 2024 17:37
[2024-03-25] MEDS ORDERED: DULO1CAP5 PO (16:16)
[2024-03-25] MEDS ORDERED: GABA-1250 PO (16:17)
== END 2024-03-24 20:50 | disposition home or self-care (01) | DRG 249 ==
LOC: EDBD 22:57 → ER 22:57 → OVERFLOW 03-22 04:16 → WEST WING 03-22 22:58
PROVIDERS: ADMIT Student in an Organized Health Care Education/Training Program; ATTEND Student in an Organized Health Care Education/Training Program
DX: K52.89 Other specified noninfective gastroenteritis and colitis (principal); E87.20 Acidosis, unspecified; E11.42 Type 2 diabetes mellitus with diabetic polyneuropathy; E86.0 Dehydration; G89.29 Other chronic pain; E11.65 Type 2 diabetes mellitus with hyperglycemia; F20.9 Schizophrenia, unspecified; B19.20 Unspecified viral hepatitis C without hepatic coma; K21.9 Gastro-esophageal reflux disease without esophagitis; I10 Essential (primary) hypertension; F31.9 Bipolar disorder, unspecified; F17.210 Nicotine dependence, cigarettes, uncomplicated; F15.10 Other stimulant abuse, uncomplicated; F11.23 Opioid dependence with withdrawal; Z79.4 Long term (current) use of insulin; Z90.710 Acquired absence of both cervix and uterus; Z59.00 Homelessness unspecified; Z91.199 Patient's noncompliance with other medical treatment and regimen due to unspecified reason
CPT/HCPCS: 36415; 36600; 74176; 80048; 80053; 80061; 80307; 80320; 81001; 81025; 82010; 82270; 82805; 82962; 83036; 83605; 83690; 83735; 83986; 84100; 84156; 84443; 84484; 85025; 85048; 86256; 86671; 86703; 87045; 87081; 87177; 87427; 87493; 93005; 99291; G0378; J1815; J2543; J3490

== ENCOUNTER 2024-04-14 19:38 | Inpatient (IN) | payer MEDICAID ==
[~2024-04-14] VITALS: Ht 160 cm; Wt 44.5 kg
[~2024-04-14 19:38] MED LIST changes: +DULO1CAP5 PO; +GABA-1250 PO
--- NOTE | 2024-04-14 20:14 | ED.PDOC ---
History of Present Illness HPI Comments 54 Y F BRISA with PMHX of DM presents to the ED with CC of ALOC. Per EMS, they were called on scene by patient's sister due to patient not taking care for her diabetes; upon arrival to scene patient was visibly altered and unable to answer question. Per EMS, patient's BS on the glucometer read at 747. Per EMS, they were previously called to the scene at 1600 today (04/14/23) and patient was A&OX4. Patient is currently A&OX1 and no other medical history is obtainable at this time. Chief Complaint: ALOC Time Seen by MD: 19:50 Primary Care Provider: UNKNOWN Reviewed Notes: Nurses Notes, Territory Sales Professional Notes, Medications, Allergies Allergies: Coded Allergies: Ciprofloxacin (Verified Allergy, Intermediate, Hives, 03/22/24) Patient broke out in hives, and rash Metronidazole (Verified Allergy, Intermediate, Hives, 03/22/24) Patient broke out in hives and skin rash Home Meds Active Scripts Gabapentin (Gabapentin) 300 Mg Cap, 1 CAP PO TID for 30 Days, #90 CAP 5 Refills Prov:MEREDITH DANIELS RESIDENT 03/27/24 Duloxetine HCl (Duloxetine HCl) 30 Mg Cap, 30 MG PO DAILY for 30 Days, #30 CAP 3 Refills Prov:MEREDITH DANIELS RESIDENT 03/27/24 Insulin Aspart (Insulin Aspart Flexpen) 100 Unit/Ml Inj, 100 UNIT SC TIDP PRN for 30 Days, #1 INJ 3 Refills INSULIN PER SLIDINIG SCALE TID AC 150-200: 2 UNITS 201-250: 4 UNITS 251-300: 8 UNITS 301-350: 12 UNITS 351-400: 15 UNITS >401 CALL DOCTOR Prov:JASPAL SWENSON MD 07/15/23 Insulin Glargine (Lantus) 100 Unit/Ml Inj, 25 UNIT SC QPM for 30 Days, #1 INJ 2 Refills Prov:JASPAL SWENSON MD 07/15/23 Gabapentin (Gabapentin) 400 Mg Cap, 400 MG PO TID for 30 Days, #90 CAP 2 Refills Prov:JASPAL SWENSON MD 07/15/23 Gabapentin (Gabapentin) 400 Mg Cap, 400 MG PO TID for 30 Days, #90 CAP Prov:JASPAL SWENSON MD 05/25/23 Nicotine (Nicoderm 21MG/24HR) 1 Patch Ph, 1 PATCH TD DAILY for 30 Days, #30 PATCH Prov:JASPAL SWENSON MD 05/25/23 Insulin Aspart Protamine & Asp (Insulin Aspart Protamine/ (70-30) 100 Unit/ml) 1 Inj Inj, 15 INJ SC BIDAC for 30 Days, #30 INJ Prov:MAR GAMBOA MD 11/26/22 Ergocalciferol (VITAMIN D 04069 UNIT) 50,000 [place], [address] UNIT PO QWEEKLY for 10 Days, #10 CAP Prov:MAR GAMBOA MD 11/26/22 Metformin Hydrochloride (Metformin Hcl) 500 Mg Tab, 1 TAB PO BID for 30 Days, #60 TAB 3 Refills Prov:GUY LARA MD 07/31/22 Glimepiride (Amaryl) 1 Mg Tab, 1 TAB PO DAILY, #30 TAB 5 Refills Prov:NADINE ESCALANTE MD 05/27/22 Quetiapine Fumerate (QUETIAPINE FUMARATE) 25 Mg Tab, 25 MG PO QPM, #30 TAB Prov:LYNNE LAU MD 04/10/22 Multiple Vitamins W/ Minerals (Mvi W/ Minerals Tab) 1 Tab Tb, 1 TAB PO DAILY, #60 TAB Prov:LYNNE LAU MD 04/10/22 Reported Medications Insulin Lispro (Insulin Lispro) 100 Unit/Ml Inj, 10 UNITS SC TID 06/25/23 Acetaminophen (Acetaminophen Extra Stren) 500 Mg Tab, 1 TAB PO Q6HR PRN 06/25/23 Lamotrigine (Lamictal) 25 Mg Tab, 1 TAB PO DAILY 06/25/23 Trazodone Hcl (Trazodone Hcl) 50 Mg Tab, 1 TAB PO DAILY 06/25/23 Duloxetine Hcl (Cymbalta) 20 Mg Cap, 30 MG PO DAILY 06/25/23 Buspirone Hcl (Buspirone Hcl) 10 Mg Tab, 1 TAB PO BID 10/05/21 Information Source: Patient, Emergency Med Personnel Mode of Arrival: EMS Severity: Mild Timing: Hours Duration: Since onset Prehospital treatment: 12 Lead EKG, Accucheck Past Medical History PAST MEDICAL HISTORY: Depression, DM, GERD, HTN, Liver, Schizophrenia, UTI'S Surgical History: , Hysterectomy INFORMATION STRATEGIST History: No Pertinent INFORMATION STRATEGIST History Family History Family History: Reviewed,noncontributory to illness, Family hx of HTN Social History Smoker: Cigarettes Alcohol: Occasionally Drugs: Marijuana, Methamphetamine Lives In: Homeless Unable to Obtain due to: Altered Mental Status Physical Exam General Appearance: Moderate Distress HEENT: Pale [place] (L), Pale Conj[place]ae (R), Pharynx Normal, TMs Normal Neck: Full Range of Motion, Non-Tender, Normal, Normal Inspection Respiratory: Chest Non-Tender, Lungs Clear, No Accessory Muscle Use, No Respiratory Distress, Normal Breath Sounds Cardiovascular: No Edema, No JVD, No Murmur, No Gallop, Tachycardia Breast Exam: Deferred Gastrointestinal: No Organomegaly, Non Tender, No Pulsatile Mass, Normal Bowel Sounds, Soft Genitalia: Deferred Pelvic: Deferred Rectal: Deferred Extremities: No calf tenderness, Normal capillary refill, Normal inspection, Normal range of motion, Non-tender, No pedal edema Musculoskeletal : Apperance: Normal Neurologic: Alert, child welfare specialist II-XII nml as Tested, Motor Weakness, Normal Affect, Normal Mood, No Sensory Deficits Cerebellar Function: Normal Reflexes: Normal Skin: Dry, Normal Color, Warm Lymphatic: No Adenopathy Was a procedure done? Was a procedure done?: No EKG EKG : Pulse Rate (adult): 148 [place]: Normal Cardiac Rhythm: ST Block: None Hypertrophy: LAE ST: Normal Differential Dx Considerations may include: uncontrolled hyperglycemia X-Ray, Labs, Meds, VS Vital Signs Date Time Temp Pulse Resp B/P (MAP) Pulse Ox O2 Delivery O2 Flow Rate FiO2 04/14/24 21:16 142 20 102/77 (85) 96 04/14/24 21:16 142 20 96 Room Air* 0 21 04/14/24 20:14 148 04/14/24 19:53 148 04/14/24 19:40 98.6 152 16 104/76 (85) 99 Lab Test 04/14/24 20:51 04/14/24 20:29 04/14/24 20:12 Range/Units POC Glucose 324 H 70-106 mg/dl White Blood Count 14.7 H 4.4-10.8 10^3/uL Red Blood Count 5.84 H 4.0-5.20 10^6/uL Hemoglobin 16.5 H 12.2-16.2 g/dL Hematocrit 49.9 H 36.0-46.0 % Mean Corpuscular Volume 85.4 80.0-100.0 fL Mean Corpuscular Hemoglobin 28.2 28.0-32.0 pg Mean Corpuscular Hemoglobin Concent 33.0 32.0-36.0 g/dL Red Cell Distribution Width 14.9 H 11.8-14.3 % Platelet Count 218 140-450 10^3/uL Mean Platelet Volume 9.0 6.9-10.8 fL Neutrophils (%) (Auto) 84.9 H 37.0-80.0 % Lymphocytes (%) (Auto) 7.3 L 10.0-50.0 % Monocytes (%) (Auto) 7.5 0.0-12.0 % Eosinophils (%) (Auto) 0.1 0.0-7.0 % Basophils (%) (Auto) 0.2 0.0-2.0 % Neutrophils # (Auto) 12.5 H 1.6-8.6 10 ^3/uL Lymphocytes # (Auto) 1.1 0.4-5.4 10 ^3/uL Monocytes # (Auto) 1.1 0-1.3 10 ^3/uL Eosinophils # (Auto) 0 0-0.8 10 ^3/uL Basophils # (Auto) 0 0-0.2 10 ^3/uL Nucleated Red Blood Cells 0.1 % Sodium Level 133 L 136-145 mmol/L Potassium Level 4.6 3.5-5.1 mmol/L Chloride Level 104 98-107 mmol/L Carbon Dioxide Level 15 L 20-31 mmol/L Anion Gap 14 5-15 Blood Urea Nitrogen 57 H 9-23 mg/dL Creatinine 1.52 H 0.550-1.02 mg/dL Glomerular Filtration Rate Calc 41 >90 mL/min BUN/Creatinine Ratio 37.5 H 10.0-20.0 Serum Glucose 422 *H 74-106 mg/dL Calcium Level 11.3 H 8.7-10.4 mg/dL Beta-Hydroxybutyric Acid Pending Plasma/Serum Blood Alcohol 6.3 <10 mg/dL Blood Gas Specimen Type Arterial Blood Gas Sample Site Right radial Blood Gas Patient Temperature 37.0 Arterial Blood Date Drawn Arterial Blood pH 7.345 L 7.350-7.450 Arterial Blood Partial Pressure CO2 24.6 L 32.0-45.0 mmHg Arterial Blood Partial Pressure O2 83.6 83.0-108.0 mmHg Arterial Blood HCO3 13.1 L 21.0-28.0 mmol/L Arterial Blood Oxygen Saturation 96.6 94.0-98.0 % Arterial Blood Base Excess -10.4 L -2.0-3.0 mmol/L Arterial Blood Oxyhemoglobin 95.2 94.0-98.0 % Arterial Blood Carboxyhemoglobin 1.1 0.5-1.5 % Arterial Blood Methemoglobin 0.4 0.0-1.5 % Stephan Test Modified Blood Gas Total Hemoglobin 15.90 12.0-16.0 g/dL Blood Gas Modality Room air FiO2 % 21.0 Current Medications Medications (Trade) Dose Ordered Sig/Polo Route Start Time Stop Time Status Last Admin Sodium Chloride 1,000 ml @ 1,000 mls/hr Q1H ONCE IVB 04/14/24 20:00 04/14/24 20:59 DC 04/14/24 20:44 Insulin Human Regular (InsuLIN R) 5 units ONCE ONCE IV 04/14/24 20:45 04/14/24 20:46 DC 04/14/24 20:48 IV Hep-Lock was established The patient was given a 1 L bolus of normal saline The patient was given insulin 5 units IV push for the hyperglycemia The ABG was done which shows a pH of 7.34 The pCO2 of 24.6 At this time, the patient has a CBC with an elevated white blood cell count of 14.7 The chemistry panel shows a BUN of 57 and a creatinine of 1.52 At this time, the patient was being admitted with a diagnosis of diabetes that is uncontrolled The patient is being admitted at this time. Images Reviewed?: Images reviewed and evaluated by me Time of 1ST Reevaluation: 20:20 Reevaluation 1ST: Unchanged Patient Education/Counseling: Diagnosis, Treatment, Prognosis Family Education/Counseling: No Family Present Departure 1 Departure Time of Disposition: 21:47 Impression: Primary Impression: Generalized weakness Additional Impression: Diabetes type 2, uncontrolled Qualified Codes: E11.65 - Type 2 diabetes mellitus with hyperglycemia Disposition: ADMITTED INPATIENT Admit to: [facility] Condition: Fair Critical Care Note Critical Care Time?: Yes (45 min-critical care time only) Stability Stability form required: Yes Unstable for transfer: Telemetry monitoring (Telemetry monitoring required), ED Physician Assesment (Clinical assesment) Heart Score Heart Score: Heart Score Response (Comments) Value History N/A 0 EKG N/A 0 Age N/A 0 Risk Factors N/A 0 Troponin N/A 0 Total 0 I personally scribed for ROMEL BURRELL MD ([email or web address]) on 04/14/24 at 20:14. Electronically submitted by Radha Salinas [email or web address]). ROMEL BURRELL MD Apr 14, 2024 20:14
[2024-04-14 20:18] LABS: Base Excess -10.4 mmol/L (-2.0-3.0)
[2024-04-14] MEDS: SODIUM CHLORIDE 0.9% 1,000 ML IVB ONE (20:44)
[2024-04-14] MEDS: InsuLIN REG 1unit/0.01ml Soln (100units/ml) IV ONE (20:48)
[2024-04-14 20:56] LABS: Anion Gap 14 (5-15); Chloride 104 mmol/L (98-107); Potassium 4.6 mmol/L (3.5-5.1)
[2024-04-14 21:02] LABS: BUN/Creatinine Ratio 37.5 (10.0-20.0); Blood Alcohol 6.3 mg/dL (<10)
[2024-04-14 21:15] LABS: Carbon Dioxide 15 mmol/L (20-31); Sodium 133 mmol/L (136-145)
[2024-04-14 21:16] VITALS: PULSE 142; RESP 20; O2SAT 96
[2024-04-14 21:17] LABS: Blood Urea Nitrogen 57 mg/dL (9-23); Calcium 11.3 mg/dL (8.7-10.4)
[2024-04-14 21:19] LABS: Glucose 422 mg/dL (74-106)
[2024-04-14 21:22] LABS: Basophils # (auto) 0 10 ^3/uL (0-0.2); Basophils % (auto) 0.2 % (0.0-2.0); Eosinophils # (auto) 0 10 ^3/uL (0-0.8); Eosinophils % (auto) 0.1 % (0.0-7.0); Hematocrit 49.9 % (36.0-46.0); Hemoglobin 16.5 g/dL (12.2-16.2); Lymphocytes # (auto) 1.1 10 ^3/uL (0.4-5.4); Lymphocytes % (auto) 7.3 % (10.0-50.0); Mean Corpuscular Hemoglobin 28.2 pg (28.0-32.0); Mean Corpuscular Volume 85.4 fL (80.0-100.0); Monocytes # (auto) 1.1 10 ^3/uL (0-1.3); Monocytes % (auto) 7.5 % (0.0-12.0); Neutrophils # (auto) 12.5 10 ^3/uL (1.6-8.6); Neutrophils % (auto) 84.9 % (37.0-80.0); Nucleated Red Blood Cells % 0.1 %; Platelet Count (auto) 218 10^3/uL (140-450); Red Blood Cells 5.84 10^6/uL (4.0-5.20); Red Cell Distribution Width 14.9 % (11.8-14.3); White Blood Cell 14.7 10^3/uL (4.4-10.8)
--- NOTE | 2024-04-14 23:34 | DVHHPRES ---
History of Present Illness Resident Creating Document: CAROLE HERRERA RESIDENT History of Present Illness This is a 53-year-old female with past medical history of hypertension, type 2 diabetes mellitus, hepatitis-C, liver disease, neuropathy, bipolar disorder, schizophrenia, chronic pain, polysubstance abuse presented to the ED via EMS with altered level of consciousness. Per EMS, they were called on scene by patient's sister due to patient not taking care for her diabetes; upon arrival to scene patient was visibly altered and unable to answer question. Per EMS, patient's BS on the glucometer read at 774. Patient is A&OX1. She was admitted in [facility] on 03/22/24 with complaint of chronic diarrhea and back pain for 5 month She has type 2 diabetes mellitus but noncompliant with the medication and admitted in the hospital several times with DKA and hyperglycemia. On admission blood sugar was 422 with normal anion gap. She has a history of hepatitis-C and was advised before to follow up with outpatient GI for treatment of hepatitis-C but patient did not follow with GI. She has a history of polysubstance use disorder and currently on methamphetamine for last couple of years. Past Medical History Hypertension, type 2 diabetes mellitus, hepatitis-C, liver disease, neuropathy, bipolar disorder, schizophrenia, chronic pain, polysubstance abuse Past Surgical History Hysterectomy, tubal ligation Family History None Past Social History Homeless Smokes cigarette 1 pack per day, nonalcoholic and methamphetamine abuse for last couple of years Review of Systems Review of Systems Review of system could not be evaluated as patient is A&O x1 Allergies: Coded Allergies: Ciprofloxacin (Verified Allergy, Intermediate, Hives, 03/22/24) Patient broke out in hives, and rash Metronidazole (Verified Allergy, Intermediate, Hives, 03/22/24) Patient broke out in hives and skin rash Medications Current Medications Medications Dose Ordered Sig/Polo Route Start Time Stop Time Status Last Admin Dose Admin Sodium Chloride 1,000 ml @ 100 mls/hr Q10H IV 04/14/24 23:30 UNV Insulin Glargine 15 units QAM SC 04/15/24 07:00 UNV Diagnostic Test (Pha) 1 strip ACHS 04/15/24 07:00 UNV Insulin Human Regular HS SC 04/15/24 22:00 UNV Insulin Human Regular AC SC 04/15/24 07:00 UNV Exam Vital Signs Vital Signs Date Time Temp Pulse Resp B/P (MAP) Pulse Ox O2 Delivery O2 Flow Rate FiO2 04/14/24 21:16 142 20 102/77 (85) 96 04/14/24 21:16 Room Air* 0 21 04/14/24 19:40 98.6 Exam Physical examination: General Appearance: A&OX1 HEENT: Atraumatic, PERRLA, EOMI, Mucous membrane dry. Respiratory: Clear to auscultation, Normal air movement Cardiovascular: Regular rate, Normal S1, Normal S2, No murmurs, no chest wall tenderness Abdominal: Normal bowel sounds, Soft, No tenderness, No hepatospenomegaly, No masses Extremities: No clubbing, No cyanosis, No edema, Normal pulses, No tenderness/ swelling Skin: No rashes, No breakdown, No significant lesion Neuro: Strength at 5/5 X4 ext, Normal tone, Sensation intact. Labs/Xrays Labs Test 04/14/24 22:24 04/14/24 20:29 04/14/24 20:12 Range/Units POC Glucose 231 H 70-106 mg/dl White Blood Count 14.7 H 4.4-10.8 10^3/uL Red Blood Count 5.84 H 4.0-5.20 10^6/uL Hemoglobin 16.5 H 12.2-16.2 g/dL Hematocrit 49.9 H 36.0-46.0 % Mean Corpuscular Volume 85.4 80.0-100.0 fL Mean Corpuscular Hemoglobin 28.2 28.0-32.0 pg Mean Corpuscular Hemoglobin Concent 33.0 32.0-36.0 g/dL Red Cell Distribution Width 14.9 H 11.8-14.3 % Platelet Count 218 140-450 10^3/uL Mean Platelet Volume 9.0 6.9-10.8 fL Neutrophils (%) (Auto) 84.9 H 37.0-80.0 % Lymphocytes (%) (Auto) 7.3 L 10.0-50.0 % Monocytes (%) (Auto) 7.5 0.0-12.0 % Eosinophils (%) (Auto) 0.1 0.0-7.0 % Basophils (%) (Auto) 0.2 0.0-2.0 % Neutrophils # (Auto) 12.5 H 1.6-8.6 10 ^3/uL Lymphocytes # (Auto) 1.1 0.4-5.4 10 ^3/uL Monocytes # (Auto) 1.1 0-1.3 10 ^3/uL Eosinophils # (Auto) 0 0-0.8 10 ^3/uL Basophils # (Auto) 0 0-0.2 10 ^3/uL Nucleated Red Blood Cells 0.1 % Sodium Level 133 L 136-145 mmol/L Potassium Level 4.6 3.5-5.1 mmol/L Chloride Level 104 98-107 mmol/L Carbon Dioxide Level 15 L 20-31 mmol/L Anion Gap 14 5-15 Blood Urea Nitrogen 57 H 9-23 mg/dL Creatinine 1.52 H 0.550-1.02 mg/dL Glomerular Filtration Rate Calc 41 >90 mL/min BUN/Creatinine Ratio 37.5 H 10.0-20.0 Serum Glucose 422 *H 74-106 mg/dL Calcium Level 11.3 H 8.7-10.4 mg/dL Beta-Hydroxybutyric Acid > 4.500 H < 0.4 mmol/L Plasma/Serum Blood Alcohol 6.3 <10 mg/dL Blood Gas Specimen Type Arterial Blood Gas Sample Site Right radial Blood Gas Patient Temperature 37.0 Arterial Blood Date Drawn Arterial Blood pH 7.345 L 7.350-7.450 Arterial Blood Partial Pressure CO2 24.6 L 32.0-45.0 mmHg Arterial Blood Partial Pressure O2 83.6 83.0-108.0 mmHg Arterial Blood HCO3 13.1 L 21.0-28.0 mmol/L Arterial Blood Oxygen Saturation 96.6 94.0-98.0 % Arterial Blood Base Excess -10.4 L -2.0-3.0 mmol/L Arterial Blood Oxyhemoglobin 95.2 94.0-98.0 % Arterial Blood Carboxyhemoglobin 1.1 0.5-1.5 % Arterial Blood Methemoglobin 0.4 0.0-1.5 % Stephan Test Modified Blood Gas Total Hemoglobin 15.90 12.0-16.0 g/dL Blood Gas Modality Room air FiO2 % 21.0 Assessment/Plan Assessment/Plan Assessment and plan: # Altered level of consciousness likely secondary to acute metabolic/toxic encephalopathy - CT head without contrast revealed no acute intracranial abnormality - Serum alcohol is 6.3 and UDS is positive for cannabinoids - Ammonia is 13 - Ordered covid, flu and MRSA nares. # Hyperglycemia with normal anion gap ketoacidosis, HbA1C> 14% on 03/22/24 - On admission blood sugar was 422 with normal anion gap and elevated beta hydroxybutyric acid - Patient was given 2 L bolus IV normal saline - IV normal saline at 125 mL/hour - Lantus 15 units q.a.m. and moderate sliding scale of insulin - Monitor vitals closely # Acute cystitis - U/A is consistent with a UTI - Ordered urine bacterial culture - IV ceftriaxone 1 g daily # KARRI secondary to hemodynamically mediated/VMN - IV normal saline at 125 mL/hours - Monitor BMP # PUD prophylaxis - Pepcid 20 mg po daily # DVT prophylaxis - Lovenox 40 mg sc daily. Plan discussed with Dr. Rodriguez Plan discussed with: Patient, Other My Orders Orders - CAROLE HERRERA RESIDENT Procedure Category Date Status Time Admit ADMIT 04/14/24 Transmitted 23:23 Sodium Chloride 0.9% PHA 04/14/24 Logged 23:30 Chest Xray 1 View XY 04/14/24 Logged 23:27 Test, Urine LAB 04/14/24 Logged 23:[address] 04/14/24 Logged 23:27 Drug Screen LAB 04/14/24 Logged 23:27 Urinalysis LAB 04/14/24 Logged 23:30 Insulin Lantus PHA 04/15/24 Logged (Glargine) (Lantus) 07:00 Glucose Blood PHA 04/15/24 Logged (Accu-Chek Comfort 07:00 Insulin R (Human) PHA 04/15/24 Logged (Insulin R) 22:00 Insulin R (Human) PHA 04/15/24 Logged (Insulin R) 07:00 Dextrose 50% Syringe PHA 04/14/24 Logged 23:45 Date of Service: Apr 14, 2024 Billing Provider: MAR RODRIGUEZ MD Common Visit Codes: [id number] INP/OBS CARE (HIGH) CAROLE HERRERA Apr 14, 2024 23:34 MAR RODRIGUEZ MD Apr 15, 2024 20:50
[2024-04-14] MEDS ORDERED: DEXTROSE (50%) 50ML SYRG IV PRN (23:45)
[2024-04-15] VITALS (7 sets, daily range): BP systolic 127–133; BP diastolic 80–84; PULSE 124–138; RESP 18–24; TEMP 98.7; O2SAT 95–100
--- NOTE | 2024-04-15 00:58 | DVH ---
CHEST RADIOGRAPH Indication: chest pain Technique: Single frontal view of the chest was obtained Comparison: XY CHEST PORTABLE on DOS: 11/05/23, XY CHEST PORTABLE on DOS: 11/03/23, XY CHEST XRAY 1 VIEW on DOS: 07/13/23 FINDINGS: Lines and Tubes: None Lungs: Clear Pleura: No effusion. No pneumothorax. Cardiomediastinal contours: Unremarkable Bones: Unremarkable IMPRESSION: No active cardiopulmonary disease. Possible hiatal hernia.
--- NOTE | 2024-04-15 01:28 | DVH ---
EXAM: CT HEAD WITHOUT CONTRAST INDICATION: Altered level of consciousness TECHNIQUE: CT of the head without intravenous contrast. Radiation Dose : 1. Head: CT Dose: CTDI volume is 54 mGy. Dose-length product is 954 mGy*cm The dose indicators for CT are the volume Computed Tomography (CT) Dose Index (CTDIvol) and the Dose Length Product (DLP), and are measured in units of mGy and mGy-cm, respectively. These indicators are not patient dose, but values generated from the CT scanner acquisition factors. The report includes radiation exposure data for exposures received during this examination. COMPARISON: CT HEAD WITHOUT CONTRAST on DOS: 11/04/23, CT HEAD WITHOUT CONTRAST on DOS: 11/25/22, HEAD WITHOUT CONTRAST on DOS: 04/08/22 FINDINGS: There is no evidence of acute intracranial hemorrhage, extra-axial collection, mass effect, midline s hift, herniation or hydrocephalus. The ventricles, sulci and cisterns are age appropriate. The robert-white differentiation is intact. Patchy periventricular and subcortical white matter hypoattenuation is nonspecific but may be related to small vessel ischemic disease. Small left-sided mastoid effusion. Paranasal sinuses are clear. The surrounding soft tissues and osseous structures are unremarkable. IMPRESSION: No acute intracranial abnormality. Limited evaluation due to patient positioning. Small left-sided ma stoid effusion.
[2024-04-15 01:52] LABS: COVID19 ANTIGEN SOFIA FIA NEGATIVE (NEGATIVE); Rapid Influenza A Negative (Negative); Rapid Influenza B Negative (Negative)
[2024-04-15] MEDS: SODIUM CHLORIDE 0.9% 1,000 ML IV SCH ×2 (01:57→04:45)
[2024-04-15 02:23] LABS: Urine Bacteria MANY /hpf (None Seen); Urine Blood 1+ /uL (Negative); Urine Budding Yeast OCCASIONAL /hpf (None Seen); Urine Clarity Clear (Clear); Urine Hyaline Cast FEW /lpf (0 - 2); Urine Mucus FEW (None Seen); Urine Protein, UAD 1+ (Negative); Urine Specific Gravity 1.024 (1.001-1.035); Urine Squamous Epithelial Cell FEW /hpf (<5); Urine Urobilinogen Normal (Negative); Urine WBC 2 /hpf (0 - 5); Urine pH 5.5 (5.0-9.0)
[2024-04-15 02:28] LABS: Amphetamine Screen, Urine Neg (NEGATIVE); Barbiturate Scree,Urine Neg (NEGATIVE); Benzodiazephine Screen, Urine Neg (NEGATIVE); Cannabinoid Screen, Urine Pos (NEGATIVE); Cocaine Screen, Urine Neg (NEGATIVE); Opiate Scree,Urine Neg (NEGATIVE); Phencyclidine Screen, Urine Neg (NEGATIVE); Urine Color STRAW (Yellow)
[2024-04-15] MEDS: SODIUM CHLORIDE 0.9% 1,000 ML IV ONE ×2 (02:56→14:59)
[2024-04-15] MEDS: cefTRIAXone 1GM/50ML D5W 50 ML IV ONE (03:29)
[2024-04-15] MEDS: InsuLIN REG 1unit/0.01ml Soln (100units/ml) SC SCH ×2 (06:39→22:06)
[2024-04-15] MEDS: ACCU-CHEK COMFORT CURVE STRIP VI SCH (06:40)
[2024-04-15] MEDS: INSULIN LANTUS (GLARGINE) 1 /0.01ml (100units/ml) SC SCH (07:01)
--- NOTE | 2024-04-15 07:10 | ECG ---
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
[2024-04-15 08:23] LABS: Basophils # (auto) 0 10 ^3/uL (0-0.2); Basophils % (auto) 0.2 % (0.0-2.0); Eosinophils # (auto) 0 10 ^3/uL (0-0.8); Hemoglobin 14.1 g/dL (12.2-16.2); Lymphocytes # (auto) 0.4 10 ^3/uL (0.4-5.4); Mean Corpuscular Hemoglobin 28.4 pg (28.0-32.0); Mean Corpuscular Hgb Conc. 33.7 g/dL (32.0-36.0); Mean Corpuscular Volume 84.5 fL (80.0-100.0); Monocytes # (auto) 0.7 10 ^3/uL (0-1.3); Monocytes % (auto) 7.3 % (0.0-12.0); Neutrophils # (auto) 8.7 10 ^3/uL (1.6-8.6); Neutrophils % (auto) 88.5 % (37.0-80.0); Platelet Count (auto) 162 10^3/uL (140-450); Red Blood Cells 4.97 10^6/uL (4.0-5.20); Red Cell Distribution Width 14.8 % (11.8-14.3); White Blood Cell 9.8 10^3/uL (4.4-10.8)
[2024-04-15 12:37] LABS: Alanine Aminotransferase 25 U/L (7-40); Albumin 3.5 g/dL (3.2-4.8); Alkaline Phosphatase 62 U/L (46-116); Anion Gap 7 (5-15); Aspartate Aminotransferase 17 U/L (13-40); BUN/Creatinine Ratio 42.6 (10.0-20.0); Calcium 9.7 mg/dL (8.7-10.4); Potassium 3.5 mmol/L (3.5-5.1); Sodium 139 mmol/L (136-145)
[2024-04-15 12:38] LABS: Bilirubin, Total 0.3 mg/dL (0.2-1.0); Total Protein 5.8 g/dL (5.7-8.2)
[2024-04-15 12:40] LABS: Blood Urea Nitrogen 29 mg/dL (9-23); Carbon Dioxide 19 mmol/L (20-31); Chloride 113 mmol/L (98-107); Glucose 190 mg/dL (74-106)
[2024-04-15] MEDS: VANCOMYCIN 1GM/250ML KIT 250 ML IV ONE (14:59)
[2024-04-15 15:47] LABS: Alanine Aminotransferase 22 U/L (7-40); Albumin 3.3 g/dL (3.2-4.8); Alkaline Phosphatase 60 U/L (46-116); Anion Gap 8 (5-15); Aspartate Aminotransferase 13 U/L (13-40); BUN/Creatinine Ratio 48.3 (10.0-20.0); Calcium 9.8 mg/dL (8.7-10.4); Sodium 140 mmol/L (136-145)
[2024-04-15 15:48] LABS: Bilirubin, Total 0.3 mg/dL (0.2-1.0)
[2024-04-15] MEDS: IOHEXOL 300 MG/ML 100ML BOTTLE IJ ONE (15:49)
[2024-04-15 15:51] LABS: Blood Urea Nitrogen 28 mg/dL (9-23); Carbon Dioxide 19 mmol/L (20-31); Chloride 113 mmol/L (98-107); Glucose 129 mg/dL (74-106); Potassium 3.3 mmol/L (3.5-5.1); Total Protein 5.7 g/dL (5.7-8.2)
--- NOTE | 2024-04-15 15:51 | DVH ---
BILATERAL LOWER EXTREMITY VENOUS DOPPLER CLINICAL HISTORY: bilateral leg pain , rule out DVT Technique: Duplex Doppler evaluation of the deep venous systems of both lower extremities from the co mmon femoral veins to the popliteal veins including color Doppler and spectral/pulsed waveform analys is was performed. COMPARISON: US BILAT LOWER DVT on DOS: 05/16/23 FINDINGS: The right and left common femoral, superficial femoral, popliteal, posterior tibial veins appear pat ent with normal augmentation, phasicity, compressibility and color-flow. IMPRESSION: 1. There is no sonographic evidence for DVT in the lower extremities. HS:Y
[2024-04-15] MEDS: ACETAMINOPHEN 325 MG TAB PO PRN (16:08)
--- NOTE | 2024-04-15 16:27 | DVHPNRES ---
Progress Note Date Seen: Apr 15, 2024 Resident Creating Document: MEREDITH DANIELS RESIDENT Medical Necessity Reason Pt with a Central, PICC or Fol: No Subjective Review of Systems Patient is a 54-year-old female with past medical history of hepatitis-C, hypertension, type 2 diabetes, neuropathy, liver disease, methamphetamine abuse, bipolar disorder and schizophrenia who brought in by EMS in due to hyperglycemia. Patient was noted to have blood glucose in the 700s on scene. On my assessment, patient was A&O x2, somnolent and not responding to most questions however arousable and responsive after calling her name multiple times. In the ER patient was noted to have blood glucose 422 with a normal anion gap. Past surgical history: Denies Home medications: Risperidone, buspirone, paroxetine, gabapentin, duloxetine, lamotrigine, insulin Past Hospitalization: 03/25/24 for chronic diarrhea Social & Personal history: Patient lives with her sister. Smokes 1 pack of cigarettes per day for the past 20 years. Uses marijuana daily. Uses methamphetamine. Denies using alcohol. Allergies: Ciprofloxacin, metronidazole? Patient seen and examined at bedside. Patient is alert and oriented to place, person but not to time. Patient is not responding to most questions, review of systems could not be completed. Objective vital signs Vital Sign Date Time Temp Pulse Resp B/P (MAP) Pulse Ox O2 Delivery O2 Flow Rate FiO2 04/15/24 14:50 130 21 133/84 96 0.0 04/15/24 07:55 99.6 99.6 04/15/24 07:55 Nasal Cannula* 28 Total Intake and Output 04/14/24 04/14/24 04/15/24 15:00 23:00 07:00 Intake Total 1000 ml 1250 ml Balance 1000 ml 1250 ml medications Current Medications Medications Dose Ordered Sig/Polo Route Start Time Stop Time Status Last Admin Dose Admin Insulin Glargine 15 units QAM SC 04/15/24 07:00 04/15/24 07:01 15 UNITS Diagnostic Test (Pha) 1 strip ACHS 04/15/24 07:00 04/15/24 11:48 1 STRIP Insulin Human Regular HS SC 04/15/24 22:00 Insulin Human Regular AC SC 04/15/24 07:00 04/15/24 11:49 2 UNITS Dextrose 50 ml UD PRN IV 04/14/24 23:45 Ceftriaxone Sodium 50 ml @ 100 mls/hr DAILY@09 IV 04/16/24 09:00 Sodium Chloride 1,000 ml @ 125 mls/hr Q8H IV 04/15/24 03:45 04/15/24 11:48 125 MLS/HR Ipratropium [place] 0.5 mg Q4HPRN PRN NEB 04/15/24 14:45 Levalbuterol HCl 0.625 mg Q6HR NEB 04/15/24 18:00 Acetaminophen 650 mg Q6HP PRN PO 04/15/24 16:00 Examination General Appearance: Cooperative. Well developed. Well nourished. NAD Head Exam: Normal inspection Neck Exam: Normal inspection. Non-tender. Normal alignment Pulmonary/Respiratory: Chest non-tender. Clear bilateral breath sounds, no crackles, no wheezing. Cardiovascular/Chest: Tachycardia. No murmurs. No JVD. Peripheral Pulses: 2+ Radial (R). 2+ Radial (L). 2+ Pedal (R). 2+ Pedal (L) Abdominal Exam: Normal bowel sounds. Soft. Right upper quadrant tenderness to palpation, no visible veins, Nontender. No hepatospenomegaly. No masses Ankle Exam: Negative ankle edema Lower extremities: Negative lower extremity edema Neuro/Mental Status: A&O x2. Coherent. Thoughts/Psych: Normal thought pattern. Appropriate mood and affect. Good judgement and insight Skin Exam: Normal inspection. Normal color. Cool extremities Dry. laboratory and microbiology Laboratory Tests 04/15/24 15:03 04/15/24 07:28 Test 04/15/24 15:03 Range/Units Serum Glucose 129 H 74-106 mg/dL Labs and/or images reviewed: Labs reviewed by me, Image(s) reviewed by me Problem List/Assessment/Plan Problem List/Assessment/Plan Altered level of consciousness likely due to UTI? Acute complicated UTI Non-anion gap metabolic acidosis with compensatory respiratory alkalosis - CXR: No active cardiopulmonary disease. Possible hiatal hernia. - head CT: No acute intracranial abnormality. Limited evaluation due to patient positioning few small left-sided mastoid effusion. - extremity venous study: No sonographic evidence for DVT in the lower extremities. - IV ceftriaxone - IV NS at 125 cc/hour - acetaminophen 650 mg q.6 hours as needed for mild pain - ordered CT angiography, CT abdomen pelvis with contrast Hyperglycemia with normal anion gap, Hb A1c greater than 14% - insulin Lantus 15 units q.a.m. - moderate sliding scale insulin KARRI likely due to VMN/hemodynamically mediated - IV NS at 125 cc/hour - monitor Goals of care: Full code, discussed for >16 minutes on 04/15/2024 Plan discussed with patient Plan discussed with Dr. Solano Plan discussed with: Patient, Other (RN) My Orders My Orders Orders - MEREDITH DANIELS Procedure Category Date Status Time Mrsa Screen JAIR 04/15/24 In Process 10:34 Blood Culture JAIR 04/15/24 In Process 10:34 Acetaminophen Tablet PHA 04/15/24 In Process (Tylenol Tablet) 16:00 Date of Service: Apr 15, 2024 Billing Provider: SHEYLA SOLANO MD Common Visit Codes: [id number] INP/OBS CARE(HIGH) MEREDITH DANIELS Apr 15, 2024 16:27 SHEYLA SOLANO MD Apr 20, 2024 17:23
--- NOTE | 2024-04-15 17:07 | DVH ---
CTA Chest with intravenous contrast INDICATION: RUQ pain/ SOB R/O PE COMPARISON: None TECHNIQUE: Multidetector spiral CTA of the chest was performed of the chest with intravenous contrast . PULMONARY ANGIOGRAPHY PROTOCOL was utilized using a bolus-tracking technique centered on the main p ulmonary artery. Axial, coronal and sagittal multiplanar and MIP reformats were performed. CONTRAST: Type of contrast: Omni 350 Contrast injected: 100 ml Radiation dose : Chest: CTDI volume is 6 mGy. Dose-length product is 433 mGy*cm The dose indicators for CT are the volume computed Tomography (CT) dose Index (CTDIvol) and the dose Length product (DLP), and are measured in units of mGy and mGy-cm, respectively. These indicators are not patient dose, but values generated from the CT scanner acquisition factors. The report includes radiation exposure data for exposures received during this examination. Findings: Pulmonary artery: No large central or large segmental pulmonary embolism. Lower neck: Normal thyroid. Lungs: Bibasilar atelectasis and consolidation. Heart/Vascular Structures: Normal heart size. No pericardial effusion. Aberrant right subclavian serene ry. Lymph Nodes: No adenopathy Pleura: Small bilateral pleural effusions. Musculoskeletal: Mild loss of vertebral body height multiple thoracic levels, with possible acute / s ubacute compression fractures at T10 and T11. Soft tissues: Normal. Upper abdomen: Wall thickening of the distal esophagus. Abnormal fluid density adjacent to the distal esophagus measuring up to 40 mm with a small focus of enhancement. This is new compared to prior exa m from March 25, 2024 IMPRESSION: 1. No large central pulmonary embolism. 2. Wall thickening of the distal esophagus with an adjacent abnormal fluid collection with a small fo cus of enhancement. An esophageal mass is not excluded. A paraesophageal hernia could have a similar appearance. Also consider paraesophageal pathology or a loculated pleural effusion. Consider further evaluation with upper GI or endoscopy. Attention on follow-up is recommended. 3. Small bilateral pleural effusions with associated bibasilar atelectasis and consolidation. 4. Multiple thoracic compression fractures including possible acute/ subacute fractures at T10 and T1 1.. Consider further evaluation with MRI of the thoracic spine. Exam: CT CT CHEST/AB/PL W CON- IV ONLY History: RUQ pain/ SOB R/O PE COMPARISON: 03/22/2024 Technique: Multidetector spiral CT of the abdomen and pelvis was performed from lung bases to pubic symphysis. Intravenous contrast was administered during this examination. Portal venous imaging was obtained. Axial, coronal and sagittal multiplanar reformats were performed by the technologist on a separate workstation. Radiation Dose : Abdomen/Pelvis: CTDIvol 6 mGy, DLP 433 mGy*cm. CONTRAST: Type of contrast: Omni 350 Contrast injected: 100 mL Findings: Lung Bases: See above Liver: Hypodensity in the region of the falciform ligament be focal fatty infiltration. Gallbladder and biliary Tree: Unremarkable Spleen: Unremarkable Pancreas: The pancreas is normal in appearance without focal lesions or abnormal enhancement. Adrenal Glands: Unremarkable Kidneys: No hydronephrosis. Bladder: Air in the bladder and bladder wall. Bowel: The stomach is grossly normal in appearance. Small bowel and colon are normal in caliber and d istribution. Normal appendix is visualized in the right lower quadrant without findings of appendici tis. Ascites: Absent Lymphadenopathy: No mesenteric, retroperitoneal or periportal lymphadenopathy. Abdominal wall and Mesentery: Unremarkable. Vasculature: The visualized abdominal aorta is normal in size and caliber. There is calcified atheros clerotic plaque involving the aorta and its branches. Abdominal and pelvic vessels demonstrate normal enhancement. Pelvic Organs: Unremarkable Musculoskeletal: Multiple compression fractures in the lumbar spine. IMPRESSION: 1. 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 Clinical correlation and con tinued follow-up is recommended. Likely focal fatty infiltration in the liver. Radiation optimization: All CT scans at this facility use at least one of these dose optimization yimi hniques: Automated exposure control mA and/or kV adjustment per patient size (includes targeted exams where dose is matched to clinical indication) or iterative reconstruction. HS:Y
[2024-04-15 18:30] LABS: INR 0.99 (0.9-1.15); Prothrombin Time 10.5 sec (9.3-11.8)
[2024-04-15] MEDS: IPRATROPIUM BROM 0.5 MG/2.5ML INH SOL NEB PRN (19:02)
[2024-04-15] MEDS: LEVALBUTEROL HCL 1.25 MG/3 ML NEB NEB SCH (19:03)
[2024-04-15] MEDS: POTASSIUM EFFERVESENT TAB 25 MEQ PO ONE (20:37)
[2024-04-15] MEDS: MEROPENEM 1GM IVPB 50 ML IV ONE (20:37)
[2024-04-15] MEDS ORDERED: LEVALBUTEROL HCL 1.25 MG/3 ML NEB NEB PRN (21:00)
[2024-04-15] MEDS ORDERED: INSU1INJ19 SC (21:49)
[2024-04-16] VITALS (11 sets, daily range): BP systolic 123–154; BP diastolic 68–91; PULSE 78–131; RESP 16–19; TEMP 98.3–99.2; O2SAT 94–97
[2024-04-16] MEDS: HYDROcodone-ACET 7.5/325MG TAB PO ONE (00:41)
[2024-04-16] MEDS: MEROPENEM 1GM IVPB 50 ML IV SCH (04:07)
[2024-04-16 06:42] LABS: Basophils # (auto) 0 10 ^3/uL (0-0.2); Basophils % (auto) 0.2 % (0.0-2.0); Eosinophils # (auto) 0 10 ^3/uL (0-0.8); Eosinophils % (auto) 0.1 % (0.0-7.0); Hematocrit 34.4 % (36.0-46.0); Hemoglobin 11.8 g/dL (12.2-16.2); Lymphocytes # (auto) 0.5 10 ^3/uL (0.4-5.4); Lymphocytes % (auto) 6.8 % (10.0-50.0); Mean Corpuscular Hemoglobin 28.6 pg (28.0-32.0); Mean Corpuscular Hgb Conc. 34.2 g/dL (32.0-36.0); Mean Corpuscular Volume 83.8 fL (80.0-100.0); Monocytes # (auto) 0.3 10 ^3/uL (0-1.3); Monocytes % (auto) 4.6 % (0.0-12.0); Neutrophils # (auto) 6.6 10 ^3/uL (1.6-8.6); Neutrophils % (auto) 88.3 % (37.0-80.0); Nucleated Red Blood Cells % 0.1 %; Platelet Count (auto) 120 10^3/uL (140-450); Red Cell Distribution Width 15.2 % (11.8-14.3); White Blood Cell 7.5 10^3/uL (4.4-10.8)
[2024-04-16 06:58] LABS: Sodium 138 mmol/L (136-145)
[2024-04-16 06:59] LABS: Anion Gap 7 (5-15); Calcium 9.2 mg/dL (8.7-10.4); Carbon Dioxide 22 mmol/L (20-31)
[2024-04-16 07:04] LABS: Blood Urea Nitrogen 19 mg/dL (9-23); Glucose 91 mg/dL (74-106)
[2024-04-16 07:12] LABS: Chloride 109 mmol/L (98-107)
[2024-04-16] MEDS ORDERED: cefTRIAXone 1GM/50ML D5W 50 ML IV SCH (09:00)
[2024-04-16] MEDS ORDERED: ENOXAPARIN SOD 40 MG/0.4 ML SYRINGE SC SCH (10:00)
[2024-04-16] MEDS: ACETAMINOPHEN 325 MG TAB PO SCH (10:45)
[2024-04-16] MEDS: POTASSIUM EFFERVESENT TAB 25 MEQ PO ONE (11:16)
[2024-04-16] MEDS: MORPHINE SULFATE 4 MG/ML SYR/VIAL IV PRN (11:17)
[2024-04-16] MEDS: THIAMINE HCL 100 MG TAB PO ONE (13:42)
[2024-04-16] MEDS: FOLIC ACID 1 MG TAB PO ONE (13:42)
--- NOTE | 2024-04-16 14:35 | DVHPNRES ---
Progress Note Date Seen: Apr 16, 2024 Resident Creating Document: MEREDITH DANIELS RESIDENT Medical Necessity Reason Pt with a Central, PICC or Fol: No Subjective Review of Systems Patient is a 54-year-old female with past medical history of hepatitis-C, hypertension, type 2 diabetes, neuropathy, liver disease, methamphetamine abuse, bipolar disorder and schizophrenia who brought in by EMS in due to hyperglycemia. Patient was noted to have blood glucose in the 700s on scene. On my assessment, patient was A&O x2, somnolent and not responding to most questions however arousable and responsive after calling her name multiple times. In the ER patient was noted to have blood glucose 422 with a normal anion gap. Past surgical history: Denies Home medications: Risperidone, buspirone, paroxetine, gabapentin, duloxetine, lamotrigine, insulin Past Hospitalization: 03/25/24 for chronic diarrhea Social & Personal history: Patient lives with her sister. Smokes 1 pack of cigarettes per day for the past 20 years. Uses marijuana daily. Uses methamphetamine. Denies using alcohol. Allergies: Ciprofloxacin, metronidazole? Patient seen and examined at bedside. Patient is alert and oriented to place, person but not to time. Patient is AOx4 today and responding to most questions. Patient notes generalized body aches most severe in the right upper quadrant. Detailed discussions were held with patient and her sister about plan of care. Objective vital signs Vital Sign Date Time Temp Pulse Resp B/P (MAP) Pulse Ox O2 Delivery O2 Flow Rate FiO2 04/16/24 13:00 98.3 120 19 152/86 (108) 95 98.3 04/16/24 07:43 Nasal Cannula 2.0 04/16/24 07:43 28 Total Intake and Output 04/15/24 04/15/24 04/16/24 15:00 23:00 07:00 Intake Total 500 ml 1375 ml 1250 ml Output Total 0 ml Balance 500 ml 1375 ml 1250 ml medications Current Medications Medications Dose Ordered Sig/Polo Route Start Time Stop Time Status Last Admin Dose Admin Insulin Glargine 15 units QAM SC 04/15/24 07:00 04/15/24 07:01 15 UNITS Diagnostic Test (Pha) 1 strip ACHS 04/15/24 07:00 04/16/24 13:15 1 STRIP Insulin Human Regular HS SC 04/15/24 22:00 04/15/24 22:06 6 UNITS Insulin Human Regular AC SC 04/15/24 07:00 04/16/24 13:47 3 UNITS Dextrose 50 ml UD PRN IV 04/14/24 23:45 Sodium Chloride 1,000 ml @ 125 mls/hr Q8H IV 04/15/24 03:45 04/16/24 02:06 125 MLS/HR Ipratropium [place] 0.5 mg Q4HPRN PRN NEB 04/15/24 14:45 04/15/24 19:02 0.5 MG Acetaminophen 650 mg Q6HP PRN PO 04/15/24 16:00 04/15/24 16:08 650 MG Meropenem 50 ml @ 16.667 mls/ hr Q8H IV 04/16/24 05:00 04/16/24 13:46 16.667 MLS/HR Levalbuterol HCl 0.625 mg Q6HPRN PRN NEB 04/15/24 21:00 Morphine Sulfate 4 mg Q4HPRN PRN IV 04/16/24 10:45 04/16/24 11:17 4 MG Acetaminophen 650 mg Q8HP PO 04/16/24 10:45 Examination General Appearance: Cooperative. Well developed. Well nourished. NAD Head Exam: Normal inspection Neck Exam: Normal inspection. Non-tender. Normal alignment Pulmonary/Respiratory: Chest non-tender. Clear bilateral breath sounds, no crackles, no wheezing. Cardiovascular/Chest: Tachycardia. No murmurs. No JVD. Peripheral Pulses: 2+ Radial (R). 2+ Radial (L). 2+ Pedal (R). 2+ Pedal (L) Abdominal Exam: Normal bowel sounds. Soft. Right upper quadrant tenderness to palpation, no visible veins, Nontender. No hepatospenomegaly. No masses Ankle Exam: Negative ankle edema Lower extremities: Negative lower extremity edema Neuro/Mental Status: A&O x4. Coherent. Thoughts/Psych: Normal thought pattern. Appropriate mood and affect. Good judgement and insight Skin Exam: Normal inspection. Normal color. Cool extremities Dry. laboratory and microbiology Laboratory Tests 04/16/24 06:16 Test 04/16/24 06:16 Range/Units Serum Glucose 91 74-106 mg/dL Microbiology Date/Time Source Procedure Growth Status 04/15/24 11:18 Blood Blood Culture - Preliminary NO GROWTH AFTER 24 HOURS OF INCUBATION. Resulted 04/15/24 11:10 Nose MRSA Screen - Final Complete 04/15/24 02:05 Voided Urine Urine Culture - Preliminary Resulted Labs and/or images reviewed: Labs reviewed by me, Image(s) reviewed by me Problem List/Assessment/Plan Problem List/Assessment/Plan Altered level 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 Possible hiatal hernia. - head CT: No acute intracranial abnormality. Limited evaluation due to patient positioning few small left-sided mastoid effusion. - extremity venous study: No sonographic evidence for DVT in the lower extremities. 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 - CTA chest with IV contrast: No large central pulmonary embolism. Wall thickening of the distal esophagus with an adjacent abnormal fluid collection with a small focus of enhancement. An esophageal mass is not excluded. A paraesophageal hernia could have a similar appearance. Also consider paraesophageal pathology or a loculated pleural effusion. Consider further evaluation with upper GI or endoscopy. Attention on follow-up is recommended. Small bilateral pleural effusions with associated bibasilar atelectasis and consolidation. Multiple thoracic compression fractures including possible acute/ subacute fractures at T10 and T11.. Consider further evaluation with MRI of the thoracic spine. - started IV vancomycin per pharmacy Possible malnourished - supplemented folic acid, thiamine Distal esophageal wall thickening, ruling out esophageal mass Melena - stool occult blood + - consulted GI Multiple thoracic compression fractures including possible acute/subacute fractures at T10 and T11 - Tylenol 625 mg 3 times a day - IV morphine 4 mg q.4 hours as needed for severe pain Hypokalemia - p.o. potassium 50 mEq Hyperglycemia with normal anion gap, Hb A1c greater than 14% - insulin Lantus 15 units q.a.m. - moderate sliding scale insulin KARRI likely due to VMN/hemodynamically mediated - IV NS at 125 cc/hour - monitor Holding DVT prophylaxis as GI bleed suspected Goals of care: Full code, discussed for >16 minutes on 04/15/2024 Plan discussed with patient Plan discussed with Dr. Solano Plan discussed with: Patient, Other (Sister and RN) My Orders My Orders Orders - MEREDITH DANIELS RESIDENT Procedure Category Date Status Time Acetaminophen Tablet PHA 04/15/24 In Process (Tylenol Tablet) 16:00 Sequential ANASTASIA 04/15/24 In Process Compression Device 16:23 Education - Smoking ANASTASIA 04/15/24 In Process Cessation 23:27 * Smoking Cessation CONS 04/15/24 Transmitted Consult 23:27 Morphine Sulfate PHA 04/16/24 In Process Injection 10:45 Acetaminophen Tablet PHA 04/16/24 In Process (Tylenol Tablet) 10:45 Strict I & O ANASTASIA 04/16/24 In Process 11:04 Phosphorus LAB 04/17/24 Verified 04:00 Magnesium LAB 04/17/24 Verified 04:00 Date of Service: Apr 16, 2024 Billing Provider: SHEYLA SOLANO MD Common Visit Codes: [id number] INP/OBS CARE(HIGH) MEREDITH DANIELS RESIDENT Apr 16, 2024 14:35 SHEYLA SOLANO MD Apr 20, 2024 17:24
[2024-04-16] MEDS ORDERED: VANCOMYCIN PER PHARMACY 0 MG IV SCH (15:00)
--- NOTE | 2024-04-16 15:13 | DVHINCON2 ---
Date of service: Apr 16, [address] Zee Reason for Consultation Abdominal pain nausea abnormal chest CT scan History of Present Illness This 53-year-old female who presented has got history of diabetes hepatitis-C chronic liver problems schizophrenia is presenting to the emergency room with complaints of altered level of consciousness patient is a poor historian has difficult time with medial history patient was admitted March with complaints of chronic diarrhea and back pain patient has blood sugar of 144-22 on admiss ion. Patient also has got chronic liver disease history of police assistance substance abuse. The patient had a CT scan done of the chest abdomen and chest CT showed there was abnormality of the distal esophagus possible paraesophageal hernia versus mass versus infection with abscess Was done without contrast for an upper GI has been recommended Patient has complaints of heartburn occasional belching very poor historian to get much detailed history Past Medical History Hypertension diabetes hepatitis proceed possible chronic liver disease bipolar disorder schizophrenia substance abuse Past Surgical History Hysterectomy tubal ligation Family History: Alcoholism G8 FATHER FH: lymphoma, malignant G8 MOTHER FH: respiratory disease G8 MOTHER Hypertension G8 MOTHER Substance abuse G8 FATHER Thyroid disease G8 SISTER Unknown family medical history G8 MOTHER G8 FATHER Family History Noncontributory Social History History of smoking and substance abuse Allergies: Coded Allergies: Ciprofloxacin (Verified Allergy, Intermediate, Hives, 03/22/24) Patient broke out in hives, and rash Metronidazole (Verified Allergy, Intermediate, Hives, 03/22/24) Patient broke out in hives and skin rash Home Meds Active Scripts Gabapentin (Gabapentin) 300 Mg Cap, 1 CAP PO TID for 30 Days, #90 CAP 5 Refills Prov:MEREDITH DANIELS RESIDENT 03/27/24 Duloxetine HCl (Duloxetine HCl) 30 Mg Cap, 30 MG PO DAILY for 30 Days, #30 CAP 3 Refills Prov:MEREDITH DANIELS RESIDENT 03/27/24 Reported Medications Insulin Glargine (Basaglar Kwikpen) 100 Unit/Ml Inj, SC 04/15/24 Insulin Lispro (Insulin Lispro) 100 Unit/Ml Inj, 10 UNITS SC TID 06/25/23 Acetaminophen (Acetaminophen Extra Stren) 500 Mg Tab, 1 TAB PO Q6HR PRN 06/25/23 Lamotrigine (Lamictal) 25 Mg Tab, 1 TAB PO DAILY 06/25/23 Trazodone Hcl (Trazodone Hcl) 50 Mg Tab, 1 TAB PO DAILY 06/25/23 Duloxetine Hcl (Cymbalta) 20 Mg Cap, 30 MG PO DAILY 06/25/23 Buspirone Hcl (Buspirone Hcl) 10 Mg Tab, 1 TAB PO BID 10/05/21 Current Medications Current Medications Medications (Trade) Dose Ordered Sig/Polo Route PRN Reason Start Time Stop Time Status Last Admin Insulin Human Regular (InsuLIN R) HS SC 04/15/24 22:00 04/15/24 22:06 Ceftriaxone Sodium 50 ml @ 100 mls/hr DAILY@09 IV 04/16/24 09:00 04/15/24 19:55 DC Levalbuterol HCl (Xopenex Medneb) 0.625 mg Q6HR NEB 04/15/24 18:00 04/15/24 21:00 DC 04/15/24 19:03 Acetaminophen (Tylenol Tablet) 650 mg Q6HP PRN PO MILD PAIN (1-3 PAIN SCALE) 04/15/24 16:00 04/15/24 16:08 Enoxaparin Sodium (Lovenox) 40 mg DAILY SC 04/16/24 10:00 04/15/24 17:47 DC Meropenem 50 ml @ 16.667 mls/ hr Q8H IV 04/16/24 05:00 04/16/24 13:46 Levalbuterol HCl (Xopenex Medneb) 0.625 mg Q6HPRN PRN NEB SHORTNESS OF BREATH 04/15/24 21:00 Morphine Sulfate 4 mg Q4HPRN PRN IV SEVERE PAIN (7-10 PAIN SCALE) 04/16/24 10:45 04/16/24 11:17 Acetaminophen (Tylenol Tablet) 650 mg Q8HP PO 04/16/24 10:45 Vancomycin HCl 0 ml @ 0 mls/hr UD IV 04/16/24 15:00 UNV Review of Systems Noncontributory Vital Signs Vital Signs Date Time Temp Pulse Resp B/P (MAP) Pulse Ox O2 Delivery O2 Flow Rate FiO2 04/16/24 13:00 98.3 120 19 152/86 (108) 95 98.3 04/16/24 07:43 Nasal Cannula 2.0 04/16/24 07:43 28 Physical Exam Originally built and nourished female on oxygen now very sick-looking chronically HEENT examination no pallor no icterus Lungs scattered rale Cardiovascular unremarkable Abdomen is soft mild epigastric tenderness no rigidity no guarding no mass Extremities no edema Labs/Diagnostic Data Labs Test 04/16/24 06:16 04/16/24 05:40 04/15/24 17:39 04/15/24 17:15 Range/Units White Blood Count 7.5 4.4-10.8 10^3/uL Red Blood Count 4.10 4.0-5.20 10^6/uL Hemoglobin 11.8 #L 12.2-16.2 g/dL Hematocrit 34.4 #L 36.0-46.0 % Mean Corpuscular Volume 83.8 80.0-100.0 fL Mean Corpuscular Hemoglobin 28.6 28.0-32.0 pg Mean Corpuscular Hemoglobin Concent 34.2 32.0-36.0 g/dL Red Cell Distribution Width 15.2 H 11.8-14.3 % Platelet Count 120 L 140-450 10^3/uL Mean Platelet Volume 8.5 6.9-10.8 fL Neutrophils (%) (Auto) 88.3 H 37.0-80.0 % Lymphocytes (%) (Auto) 6.8 L 10.0-50.0 % Monocytes (%) (Auto) 4.6 0.0-12.0 % Eosinophils (%) (Auto) 0.1 0.0-7.0 % Basophils (%) (Auto) 0.2 0.0-2.0 % Neutrophils # (Auto) 6.6 1.6-8.6 10 ^3/uL Lymphocytes # (Auto) 0.5 0.4-5.4 10 ^3/uL Monocytes # (Auto) 0.3 0-1.3 10 ^3/uL Eosinophils # (Auto) 0 0-0.8 10 ^3/uL Basophils # (Auto) 0 0-0.2 10 ^3/uL Nucleated Red Blood Cells 0.1 % Sodium Level 138 136-145 mmol/L Potassium Level 3.0 L 3.5-5.1 mmol/L Chloride Level 109 H 98-107 mmol/L Carbon Dioxide Level 22 20-31 mmol/L Anion Gap 7 5-15 Blood Urea Nitrogen 19 9-23 mg/dL Creatinine 0.38 #L 0.550-1.02 mg/dL Glomerular Filtration Rate Calc 120 >90 mL/min BUN/Creatinine Ratio 50.0 H 10.0-20.0 Serum Glucose 91 74-106 mg/dL Calcium Level 9.2 8.7-10.4 mg/dL POC Glucose 80 70-106 mg/dl Prothrombin Time 10.5 9.3-11.8 sec Prothrombin Time INR 0.99 0.9-1.15 Stool Occult Blood Positive Negative Stool Occult Blood Sample #3 Negative Test 04/15/24 15:03 04/15/24 07:28 04/15/24 02:05 04/15/24 00:13 Range/Units Lactic Acid Level 1.6 0.4-2.0 mmol/L Total Bilirubin 0.3 0.2-1.0 mg/dL Aspartate Amino Transferase (AST) 13 13-40 U/L Alanine Aminotransferase (ALT) 22 7-40 U/L Alkaline Phosphatase 60 46-116 U/L Total Protein 5.7 5.7-8.2 g/dL Albumin 3.3 3.2-4.8 g/dL Lipase 31 12-53 U/L Serum Osmolality 306 H 278-298 mOsm/kg Beta HCG, Quantitative 0.6 L 1.5-4.2 mIU/mL Urine Color Straw Yellow Urine Clarity Clear Clear Urine pH 5.5 5.0-9.0 Urine Specific [place] 1.024 1.001-1.035 Urine Protein 1+ H Negative Urine Ketones 2+ H Negative Urine Blood 1+ H Negative /uL Urine Nitrite Negative Negative Urine Bilirubin Negative Negative Urine Urobilinogen Normal Negative mg/dL Urine Leukocyte Esterase 1+ Negative /uL Urine RBC 1 0 - 4 /hpf Urine WBC 2 0 - 5 /hpf Urine Squamous Epithelial Cells Few <5 /hpf Urine Bacteria Many H None Seen /hpf Urine Hyaline Casts Few 0 - 2 /lpf Urine Mucus Few None Seen Urine Yeast (Budding) Occasional None Seen /hpf Urine Glucose 4+ H Normal mg/dL Urine Test Negative Negative Urine Opiates Screen Neg NEGATIVE Urine Fentanyl Screen Neg NEGATIVE Urine Barbiturates Screen Neg NEGATIVE Urine Phencyclidine Screen Neg NEGATIVE Urine Amphetamines Screen Neg NEGATIVE Urine Benzodiazepines Screen Neg NEGATIVE Urine Cocaine Screen Neg NEGATIVE Urine Cannabinoids Screen Pos NEGATIVE Influenza Type A Antigen Negative Negative Influenza Type B Antigen Negative Negative SARS-CoV-2 Antigen (Rapid) Negative NEGATIVE Test 04/14/24 23:50 04/14/24 20:29 04/14/24 20:12 Range/Units Ammonia 13 11-32 umol/L Beta-Hydroxybutyric Acid > 4.500 H < 0.4 mmol/L Plasma/Serum Blood Alcohol 6.3 <10 mg/dL Blood Gas Specimen Type Arterial Blood Gas Sample Site Right radial Blood Gas Patient Temperature 37.0 Arterial Blood Date Drawn [id number] Arterial Blood pH 7.345 L 7.350-7.450 Arterial Blood Partial Pressure CO2 24.6 L 32.0-45.0 mmHg Arterial Blood Partial Pressure O2 83.6 83.0-108.0 mmHg Arterial Blood HCO3 13.1 L 21.0-28.0 mmol/L Arterial Blood Oxygen Saturation 96.6 94.0-98.0 % Arterial Blood Base Excess -10.4 L -2.0-3.0 mmol/L Arterial Blood Oxyhemoglobin 95.2 94.0-98.0 % Arterial Blood Carboxyhemoglobin 1.1 0.5-1.5 % Arterial Blood Methemoglobin 0.4 0.0-1.5 % Stephan Test Modified Blood Gas Total Hemoglobin 15.90 12.0-16.0 g/dL Blood Gas Modality Room air FiO2 % 21.0 Microbiology Date/Time Source Procedure Growth Status 04/15/24 11:18 Blood Blood Culture - Preliminary Resulted 04/15/24 11:10 Nose MRSA Screen - Final Complete 04/15/24 02:05 Voided Urine Urine Culture - Preliminary Resulted Assessment 53-year-old with a history of hypertension diabetes hepatitis-C liver disease schizophrenia chronic pain has complaints of GERD symptoms abdominal pains the patient had acute CT scan done of the chest and abdomen which showed possible abnormality in the distal esophagus possible paraesophageal hernia versus abscess versus or mass. With CT was done without contrast oral contrast Patient has no hematemesis or melena but lot of heartburn and belching and GERD symptoms Clinical impression Possible GERD Possible paraesophageal hernia possible stricture possible lung abscess Plan/Recommendation IV antibiotics CT scan repeat CT scan of the chest with oral contrast Barium swallow and upper GI with special attention to the GE junction PPIs Depending upon the barium studies may need EGD evaluation Thank you Dr. Luciana Thacker discussed with: Patient TANESHA PACHECO MD Apr 16, 2024 15:13
[2024-04-16] MEDS: SODIUM CHLORIDE 0.9% 1,000 ML IV ONE (15:25)
[2024-04-16] MEDS: PANTOPRAZOLE 40 MG/10 ML VIAL INJ IV ONE (15:59)
[2024-04-16] MEDS: VANCOMYCIN 1.25GM/250ML 250 ML IV SCH (17:43)
[2024-04-17] VITALS (10 sets, daily range): BP systolic 119–135; BP diastolic 77–89; PULSE 103–121; RESP 16–20; TEMP 98.1–99.3; O2SAT 90–95
[2024-04-17] MEDS ORDERED: DEXTROSE (50%) 50ML SYRG IV PRN (06:45)
[2024-04-17] MEDS: ACCU-CHEK COMFORT CURVE STRIP VI SCH (07:41)
[2024-04-17] MEDS: InsuLIN REG 1unit/0.01ml Soln (100units/ml) SC SCH (07:42)
[2024-04-17] MEDS: PANTOPRAZOLE 40 MG/10 ML VIAL INJ IV SCH (08:49)
[2024-04-17] MEDS ORDERED: PANTOPRAZOLE 40 MG/10 ML VIAL INJ IV SCH (10:00)
[2024-04-17 11:03] LABS: Anion Gap 7 (5-15); Carbon Dioxide 25 mmol/L (20-31); Chloride 106 mmol/L (98-107); Sodium 138 mmol/L (136-145)
[2024-04-17 11:05] LABS: Calcium 8.6 mg/dL (8.7-10.4); Potassium 2.9 mmol/L (3.5-5.1)
[2024-04-17 11:10] LABS: BUN/Creatinine Ratio 17.1 (10.0-20.0); Magnesium 1.6 mg/dL (1.6-2.6)
[2024-04-17 11:11] LABS: Blood Urea Nitrogen 6 mg/dL (9-23); Glucose 178 mg/dL (74-106)
[2024-04-17 12:09] LABS: Basophils # (auto) 0 10 ^3/uL (0-0.2); Basophils % (auto) 0.1 % (0.0-2.0); Eosinophils # (auto) 0 10 ^3/uL (0-0.8); Eosinophils % (auto) 0.5 % (0.0-7.0); Hematocrit 33.3 % (36.0-46.0); Hemoglobin 10.8 g/dL (12.2-16.2); Lymphocytes # (auto) 0.8 10 ^3/uL (0.4-5.4); Lymphocytes % (auto) 8.9 % (10.0-50.0); Mean Corpuscular Hemoglobin 27.7 pg (28.0-32.0); Mean Corpuscular Hgb Conc. 32.4 g/dL (32.0-36.0); Mean Corpuscular Volume 85.3 fL (80.0-100.0); Monocytes # (auto) 0.5 10 ^3/uL (0-1.3); Monocytes % (auto) 5.9 % (0.0-12.0); Neutrophils # (auto) 7.7 10 ^3/uL (1.6-8.6); Neutrophils % (auto) 84.6 % (37.0-80.0); Platelet Count (auto) 116 10^3/uL (140-450); Red Cell Distribution Width 15.7 % (11.8-14.3); White Blood Cell 9.1 10^3/uL (4.4-10.8)
--- NOTE | 2024-04-17 13:24 | DVHPN2 ---
Progress Note - Dictate Date Seen: Apr 17, 2024 Medical Necessity Reason Pt with a Central, PICC or Fol: No Subjective Patient still complaints of weakness tiredness has heartburn no severe dysphagia very poor historian Patient abnormal CT chest showing a possible esophageal mass versus abscess in versus loculated pleural effusion or paraesophageal hernia upper GI recommended vital signs Vital Sign Date Time Temp Pulse Resp B/P (MAP) Pulse Ox O2 Delivery O2 Flow Rate FiO2 04/17/24 13:00 98.5 113 16 126/83 (97) 92 98.5 04/17/24 10:00 Room Air 0.0 04/17/24 10:00 21 Total Intake and Output 04/16/24 04/16/24 04/17/24 14:59 22:59 06:59 Intake Total 50 ml 1620 ml 1300 ml Output Total 1700 ml 1900 ml Balance 50 ml -80 ml -600 ml medications Current Medications Medications Dose Ordered Sig/Polo Route Start Time Stop Time Status Last Admin Dose Admin Meropenem 50 ml @ 16.667 mls/ hr Q8H IV 04/16/24 05:00 04/17/24 12:56 16.667 MLS/HR Levalbuterol HCl 0.625 mg Q6HPRN PRN NEB 04/15/24 21:00 Cancel Morphine Sulfate 4 mg Q4HPRN PRN IV 04/16/24 10:45 04/17/24 12:56 4 MG Acetaminophen 650 mg Q8HP PO 04/16/24 10:45 04/17/24 06:05 650 MG Diagnostic Test (Pha) 1 strip ACHS 04/17/24 07:00 04/17/24 12:18 1 STRIP Insulin Human Regular ACHS SC 04/17/24 07:00 04/17/24 12:56 4 UNITS Dextrose 50 ml UD PRN IV 04/17/24 06:45 Pantoprazole Sodium 40 mg BID IV 04/17/24 10:00 04/17/24 08:49 40 MG objective Abdomen soft no tenderness no masses felt rest of the exam unremarkable Patient is off oxygen and breathing better Tolerated diet laboratory and microbiology Laboratory Tests 04/17/24 09:38 Test 04/17/24 09:38 Range/Units Serum Glucose 178 H 74-106 mg/dL Assessment/Plan 53-year-old with a history of hypertension diabetes hepatitis-C liver disease schizophrenia chronic pain has complaints of GERD symptoms abdominal pains the patient had acute CT scan done of the chest and abdomen which showed possible abnormality in the distal esophagus possible paraesophageal hernia versus abscess versus or mass. With CT was done without contrast oral contrast Patient has no hematemesis or melena but lot of heartburn and belching and GERD symptoms Clinical impression Possible GERD Possible paraesophageal hernia possible stricture possible lung abscess or localized pleural effusion plan Patient has complaints of occasional dysphagia and will recommend barium swallow and upper GI to evaluate the area in question in the lower esophagus whether it is esophageal mass or hernia or other pathology Depending upon the upper GI and the esophagogram may need EGD evaluation also Thank you Dr. Chowdhury Plan discussed with: Patient TANESHA CHOWDHURY MD Apr 17, 2024 13:24
[2024-04-17] MEDS: POTASSIUM CHLORIDE 40 MEQ, LIDOCAINE 1% (LOCAL ANESTH.) 4 ML in SODIUM CHL 0.9% 250 ML IV ONE (13:30)
[2024-04-17] MEDS: POTASSIUM EFFERVESENT TAB 25 MEQ PO ONE (17:09)
[2024-04-17] MEDS: MAGNESIUM OXIDE 400 MG TAB PO ONE (17:09)
--- NOTE | 2024-04-17 21:50 | DVHPNRES ---
Progress Note Date Seen: Apr 17, 2024 Resident Creating Document: JACQUES COURTNEY RESIDENT Medical Necessity Reason Pt with a Central, PICC or Fol: No Subjective Review of Systems a 54-year-old female with past medical history of hepatitis-C, hypertension, type 2 diabetes, neuropathy, liver disease, methamphetamine abuse, bipolar disorder and schizophrenia who brought in by EMS in due to hyperglycemia. Patient was noted to have blood glucose in the 700s on scene. pt was altered and not oriented on day1 Past surgical history: Denies Home medications: Risperidone, buspirone, paroxetine, gabapentin, duloxetine, lamotrigine, insulin Past Hospitalization: 03/25/24 for chronic diarrhea Social & Personal history: Patient lives with her sister. Smokes 1 pack of cigarettes per day for the past 20 years. Uses marijuana daily. Uses methamphetamine. Denies using alcohol. Allergies: Ciprofloxacin, metronidazole? Patient seen and examined at bedside Patient was alert and oriented x4, Mentioned improvement in her symptoms. Objective vital signs Vital Sign Date Time Temp Pulse Resp B/P (MAP) Pulse Ox O2 Delivery O2 Flow Rate FiO2 04/17/24 18:06 118 18 140/85 04/17/24 16:55 99.1 92 99.1 04/17/24 10:00 Room Air 0.0 04/17/24 10:00 21 Total Intake and Output 04/16/24 04/16/24 04/17/24 15:00 23:00 07:00 Intake Total 50 ml 1620 ml 1300 ml Output Total 1700 ml 1900 ml Balance 50 ml -80 ml -600 ml medications Current Medications Medications Dose Ordered Sig/Polo Route Start Time Stop Time Status Last Admin Dose Admin Meropenem 50 ml @ 16.667 mls/ hr Q8H IV 04/16/24 05:00 04/17/24 21:15 16.667 MLS/HR Levalbuterol HCl 0.625 mg Q6HPRN PRN NEB 04/15/24 21:00 Cancel Morphine Sulfate 4 mg Q4HPRN PRN IV 04/16/24 10:45 04/17/24 17:36 4 MG Acetaminophen 650 mg Q8HP PO 04/16/24 10:45 04/17/24 21:15 650 MG Diagnostic Test (Pha) 1 strip ACHS 04/17/24 07:00 04/17/24 21:29 1 STRIP Insulin Human Regular ACHS SC 04/17/24 07:00 04/17/24 21:32 2 UNITS Dextrose 50 ml UD PRN IV 04/17/24 06:45 Pantoprazole Sodium 40 mg BID IV 04/17/24 10:00 04/17/24 21:17 40 MG Examination Examination General Appearance: Alert, Oriented X3, Cooperative, No acute distress Respiratory: Clear to auscultation, Normal air movement Cardiovascular: Regular rate, Normal S1, Normal S2 Abdominal: Right upper quadrant tenderness, mild Extremities: No cyanosis, No edema, Normal pulses, No tenderness/swelling Skin: No rashes, No breakdown Neuro: Normal speech and tone laboratory and microbiology Laboratory Tests 04/17/24 09:38 Test 04/17/24 09:38 Range/Units Serum Glucose 178 H 74-106 mg/dL Microbiology Date/Time Source Procedure Growth Status 04/15/24 11:18 Blood Blood Culture - Preliminary Resulted 04/15/24 11:10 Nose MRSA Screen - Final Complete 04/15/24 02:05 Voided Urine Urine Culture - Final Complete Labs and/or images reviewed: Labs reviewed by me, Image(s) reviewed by me Problem List/Assessment/Plan Problem List/Assessment/Plan Assessment/plan Altered level 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 Possible hiatal hernia. - head CT: No acute intracranial abnormality. Limited evaluation due to patient positioning few small left-sided mastoid effusion. - extremity venous study: No sonographic evidence for DVT in the lower extremities. 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 - CTA chest with IV contrast: No large central pulmonary embolism. Wall thickening of the distal esophagus with an adjacent abnormal fluid collection with a small focus of enhancement. An esophageal mass is not excluded. A paraesophageal hernia could have a similar appearance. Also consider paraesophageal pathology or a loculated pleural effusion. Consider further evaluation with upper GI or endoscopy. Attention on follow-up is recommended. Small bilateral pleural effusions with associated bibasilar atelectasis and consolidation. Multiple thoracic compression fractures including possible acute/ subacute fractures at T10 and T11.. Consider further evaluation with MRI of the thoracic spine. - Dc IV vancomycin per pharmacy, considering coagulase negative staph and blood cultures Possible malnourished - supplemented folic acid, thiamine Distal esophageal wall thickening, ruling out esophageal mass Melena - stool occult blood + - consulted GI IV Protonix b.i.d. Barium esophageal study ordered by GI CT abdomen with oral contrast in the a.m. Multiple thoracic compression fractures including possible acute/subacute fractures at T10 and T11 - Tylenol 625 mg 3 times a day - IV morphine 4 mg q.4 hours as needed for severe pain Hypokalemia - p.o. potassium 50 mEq Hypomagnesemia Replace Hyperglycemia with normal anion gap, Hb A1c greater than 14% - insulin Lantus 15 units q.a.m. - moderate sliding scale insulin KARRI likely due to VMN/hemodynamically mediated - IV NS at 125 cc/hour - monitor Holding DVT prophylaxis as GI bleed suspected Goals of care: Full code, discussed for >16 minutes on 04/15/2024 Plan discussed with patient Plan discussed with Dr. Solano Plan discussed with: Patient, Other My Orders My Orders Orders - JACQUES COURTNEY Procedure Category Date Status Time Pantoprazole PHA 04/17/24 In Process (Protonix) 10:00 Date of Service: Apr 17, 2024 Billing Provider: SHEYLA SOLANO MD Common Visit Codes: [id number] INP/OBS CARE(HIGH) JACQUES COURTNEY Apr 17, 2024 21:50 SHEYLA SOLANO MD Apr 20, 2024 17:24
[2024-04-18] VITALS (10 sets, daily range): BP systolic 116–144; BP diastolic 61–87; PULSE 90–122; RESP 16–22; TEMP 97.4–98.8; O2SAT 90–95
[2024-04-18 11:28] LABS: Basophils # (auto) 0 10 ^3/uL (0-0.2); Basophils % (auto) 0.2 % (0.0-2.0); Eosinophils # (auto) 0.1 10 ^3/uL (0-0.8); Eosinophils % (auto) 0.9 % (0.0-7.0); Hematocrit 34.7 % (36.0-46.0); Hemoglobin 11.4 g/dL (12.2-16.2); Lymphocytes % (auto) 11.3 % (10.0-50.0); Mean Corpuscular Hemoglobin 28.1 pg (28.0-32.0); Mean Corpuscular Hgb Conc. 32.9 g/dL (32.0-36.0); Mean Corpuscular Volume 85.4 fL (80.0-100.0); Monocytes # (auto) 0.8 10 ^3/uL (0-1.3); Monocytes % (auto) 9.4 % (0.0-12.0); Neutrophils % (auto) 78.2 % (37.0-80.0); Platelet Count (auto) 175 10^3/uL (140-450); Red Blood Cells 4.06 10^6/uL (4.0-5.20); Red Cell Distribution Width 15.8 % (11.8-14.3)
[2024-04-18 11:42] LABS: Alanine Aminotransferase 12 U/L (7-40); Alkaline Phosphatase 72 U/L (46-116); Anion Gap 11 (5-15); Bilirubin, Total 0.4 mg/dL (0.2-1.0); Carbon Dioxide 27 mmol/L (20-31); Chloride 101 mmol/L (98-107); Magnesium 1.9 mg/dL (1.6-2.6); Potassium 3.5 mmol/L (3.5-5.1); Sodium 139 mmol/L (136-145)
[2024-04-18 11:50] LABS: Albumin 3.1 g/dL (3.2-4.8); Aspartate Aminotransferase 10 U/L (13-40); BUN/Creatinine Ratio 12.2 (10.0-20.0); Blood Urea Nitrogen < 5 mg/dL (9-23); Calcium 8.2 mg/dL (8.7-10.4); Glucose 243 mg/dL (74-106); Total Protein 5.4 g/dL (5.7-8.2)
[2024-04-18] MEDS: PIPERACILLIN-TAZOB 3.375GM 100 ML IV SCH (13:49)
--- NOTE | 2024-04-18 13:57 | DVHPNRES ---
Progress Note Date Seen: Apr 18, 2024 Resident Creating Document: CAROLE HERRERA RESIDENT Medical Necessity Reason Pt with a Central, PICC or Fol: No Subjective Review of Systems This is a 53-year-old female with past medical history of hypertension, type 2 diabetes mellitus, hepatitis-C, liver disease, neuropathy, bipolar disorder, schizophrenia, chronic pain, polysubstance abuse presented to the ED via EMS with altered level of consciousness. She was hyperglycemic on admission and the blood sugar was 422 with normal anion gap metabolic acidosis. Patient was seen and examined at the bedside. She is alert oriented x4. No overnight complaints. Patient is scheduled for barium swallow esophagus today as advised by the GI to exclude the possibility of esophageal growth seen in the recent CT chest with contrast. Constitutional: No: Fever, Chills, Sweats, Weakness, Malaise, Other Eyes: No: Pain, Vision change, Conjunctivae inflammation, Eyelid inflammation, Other, Redness ENT: No: Ear pain, Ear discharge, Nose pain, Nose discharge, Nose congestion, Mouth pain, Mouth swelling, Throat pain, Throat swelling, Other Respiratory: No shortness of breath, Cough, Dry,Wheezing, Hemoptysis, Pleuritic Pain, Sputum, Wheezing, Other Cardiovascular: No: Chest Pain, Palpitations, Orthopnea, Paroxysmal Noc. Dyspnea, Edema, Lt Headedness, Other Gastrointestinal: No: Nausea, Vomiting, Abdominal Pain, Diarrhea, Constipation, Melena, Hematochezia, Other Musculoskeletal: No: other, neck pain, shoulder pain, arm pain, back pain, hand pain, leg pain, foot pain Neurological:; No: Weakness, Numbness, Incoordination, Change in speech, Confusion, Seizures Objective vital signs Vital Sign Date Time Temp Pulse Resp B/P (MAP) Pulse Ox O2 Delivery O2 Flow Rate FiO2 04/18/24 13:26 114 20 130/84 04/18/24 10:15 04/17/24 20:00 Room Air* 0 21 Total Intake and Output 04/17/24 04/17/24 04/18/24 15:00 23:00 07:00 Intake Total 100 ml 1200 ml 1070 ml Output Total 1100 ml 1750 ml Balance 100 ml 100 ml -680 ml medications Current Medications Medications Dose Ordered Sig/Polo Route Start Time Stop Time Status Last Admin Dose Admin Levalbuterol HCl 0.625 mg Q6HPRN PRN NEB 1/10/25 21:00 Cancel Morphine Sulfate 4 mg Q4HPRN PRN IV 04/16/24 10:45 04/18/24 13:26 4 MG Acetaminophen 650 mg Q8HP PO 04/16/24 10:45 04/17/24 21:15 650 MG Diagnostic Test (Pha) 1 strip ACHS 04/17/24 07:00 04/18/24 11:30 1 STRIP Insulin Human Regular ACHS SC 04/17/24 07:00 04/18/24 11:15 4 UNITS Dextrose 50 ml UD PRN IV 04/17/24 06:45 Pantoprazole Sodium 40 mg BID IV 04/17/24 10:00 04/18/24 10:05 40 MG Insulin Glargine 12 units DAILY@1000 SC 04/19/24 10:00 Piperacillin Sod/ Tazobactam Sod 100 ml @ 25 mls/hr Q8HR IV 04/18/24 14:00 04/18/24 13:49 25 MLS/HR Examination Physical examination: General Appearance: Alert, Oriented X3, Cooperative, anxious HEENT: Atraumatic, PERRLA, EOMI, Mucous membrane moist/pink Respiratory: Clear to auscultation, Normal air movement Cardiovascular: Regular rate, Normal S1, Normal S2, No murmurs, no chest wall tenderness Abdominal: Normal bowel sounds, Soft, No tenderness, No hepatospenomegaly, No masses Extremities: No clubbing, No cyanosis, No edema, Normal pulses, No tenderness/swelling Skin: No rashes, No breakdown, No significant lesion Neuro: Normal speech, Strength at 5/5 X4 ext, Normal tone, Sensation intact, grossly intact cranial nerves. 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 - CXR: No active cardiopulmonary disease. Possible hiatal hernia. - head CT: No acute intracranial abnormality. Limited evaluation due to patient positioning few small left-sided mastoid effusion. - Extremity venous study: No sonographic evidence for DVT in the lower extremities - CTA chest with IV contrast: No large central pulmonary embolism. Wall thickening of the distal esophagus with an adjacent abnormal fluid collection with a small focus of enhancement. An esophageal mass is not excluded. A paraesophageal hernia could have a similar appearance. Also consider paraesophageal pathology or a loculated pleural effusion. Multiple thoracic compression fractures including possible acute/ subacute fractures at T10 and T11. - Discontinue IV meropenem and started IV Zosyn 3.375 mg Q 8hr - Ordered another blood culture Emphysematous cystitis - Ordered bladder scan Possible malnourished - supplemented folic acid, thiamine Distal esophageal wall thickening, ruling out esophageal mass Melena - Stool occult blood + - IV Protonix b.i.d. - Patient is scheduled for barium swallow esophagus today as per GI recommendation Multiple thoracic compression fractures including possible acute/subacute fractures at T10 and T11 - Tylenol 625 mg 3 times a day - IV morphine 4 mg q.4 hours as needed for severe pain Hyperglycemia with normal anion gap, Hb A1c greater than 14% - Insulin Lantus 12 units q.a.m. - mild sliding scale insulin KARRI likely due to VMN/hemodynamically mediated resolved Holding DVT prophylaxis as GI bleed suspected Goals of care: Full code, discussed for >16 minutes on 04/15/2024 Plan discussed with patient Plan discussed with Dr. Warner Plan discussed with: Patient, Other Date of Service: Apr 18, 2024 Billing Provider: JOSE MANUEL LUCERO MD Common Visit Codes: [id number] INP/OBS CARE(HIGH) CAROLE HERRERA RESIDENT Apr 18, 2024 13:57 JOSE MANUEL LUCERO MD Apr 18, 2024 21:23
[2024-04-18] MEDS: LORazepam 2MG/ML-1ML VIAL IV ONE (15:00)
[2024-04-18 21:56] LABS: Chloride 100 mmol/L (98-107); Potassium 3.5 mmol/L (3.5-5.1)
[2024-04-18 21:57] LABS: Anion Gap 8 (5-15); Calcium 8.7 mg/dL (8.7-10.4); Carbon Dioxide 28 mmol/L (20-31)
[2024-04-18 22:01] LABS: Sodium 136 mmol/L (136-145)
[2024-04-18 22:02] LABS: BUN/Creatinine Ratio 12.8 (10.0-20.0)
[2024-04-18 22:03] LABS: Blood Urea Nitrogen 5 mg/dL (9-23); Glucose 297 mg/dL (74-106)
[2024-04-19] VITALS (10 sets, daily range): BP systolic 124–138; BP diastolic 46–89; PULSE 63–118; RESP 16–20; TEMP 97.7–98.6; O2SAT 91–100
--- NOTE | 2024-04-19 10:21 | DVH ---
XY ESOPHAGUS GASTROGRAFIN SWALLOW, HISTORY: possible esophageal cancer COMPARISON: None PROCEDURE: A scout leaser radiograph was obtained prior to the procedure. Gastrografin administered orally, and radiographs were obtained under intermittent fluoroscopic observation. Total fluoroscopic time w as 0.6 minutes. FINDINGS: Irregular , amorphous contrast collection at the anterior portion of the GE juntion. The esophagus was normal in caliber with no stricture, filling defect . Normal esophageal peristalsis was observed. Mild esophageal reflux was demonstrated during this exam . IMPRESSION: Irregular , amorphous contrast collection at the anterior portion of the GE juntion. Consideration fo r perforation is suggested. Further evaluation with EGD is suggested.
[2024-04-19] MEDS: INSULIN LANTUS (GLARGINE) 1 /0.01ml (100units/ml) SC SCH (11:16)
[2024-04-19] MEDS ORDERED: LORazepam 2MG/ML-1ML VIAL IV PRN (14:15)
--- NOTE | 2024-04-19 16:27 | DVHPNRES ---
Progress Note Date Seen: Apr 19, 2024 Resident Creating Document: CAROLE HERRERA RESIDENT Medical Necessity Reason Pt with a Central, PICC or Fol: No Subjective Review of Systems This is a 53-year-old female with past medical history of hypertension, type 2 diabetes mellitus, hepatitis-C, liver disease, neuropathy, bipolar disorder, schizophrenia, chronic pain, polysubstance abuse presented to the ED via EMS with altered level of consciousness. She was hyperglycemic on admission and the blood sugar was 422 with normal anion gap metabolic acidosis. Patient was seen and examined at the bedside. She is alert oriented x4. No overnight complaints. Gastrografin esophagus study and revealed Irregular , amorphous contrast collection at the anterior portion of the GE juntion. Consideration for perforation is suggested. Consulted surgery for further evaluation of possible perforation of esophagus. Objective vital signs Vital Sign Date Time Temp Pulse Resp B/P (MAP) Pulse Ox O2 Delivery O2 Flow Rate FiO2 04/19/24 13:42 117 18 134/80 04/19/24 13:00 97.9 98 97.9 04/18/24 20:00 Room Air* 0 21 Total Intake and Output 04/18/24 04/18/24 04/19/24 15:00 23:00 07:00 Intake Total 514 ml 500 ml Output Total 1250 ml 2500 ml Balance -736 ml -2000 ml medications Current Medications Medications Dose Ordered Sig/Polo Route Start Time Stop Time Status Last Admin Dose Admin Levalbuterol HCl 0.625 mg Q6HPRN PRN NEB 04/15/24 21:00 Cancel Morphine Sulfate 4 mg Q4HPRN PRN IV 04/16/24 10:45 04/19/24 13:42 4 MG Acetaminophen 650 mg Q8HP PO 04/16/24 10:45 04/18/24 22:10 650 MG Diagnostic Test (Pha) 1 strip ACHS 04/17/24 07:00 04/19/24 11:19 1 STRIP Insulin Human Regular ACHS SC 04/17/24 07:00 04/19/24 11:17 6 UNITS Dextrose 50 ml UD PRN IV 04/17/24 06:45 Pantoprazole Sodium 40 mg BID IV 04/17/24 10:00 04/18/24 22:13 40 MG Insulin Glargine 12 units DAILY@1000 SC 04/19/24 10:00 04/19/24 11:16 12 UNITS Piperacillin Sod/ Tazobactam Sod 100 ml @ 25 mls/hr Q8HR IV 04/18/24 14:00 04/19/24 13:43 25 MLS/HR Buspirone HCl 10 mg BID PO 04/19/24 22:00 Duloxetine HCl 30 mg DAILY PO 04/19/24 13:58 Trazodone HCl 50 mg HS PO 04/19/24 22:00 Lamotrigine 25 mg DAILY PO 04/19/24 13:58 Lorazepam 1 mg Q6HP PRN IV 04/19/24 14:15 Examination Physical examination: General Appearance: Alert, Oriented X3, Cooperative, No acute distress HEENT: Atraumatic, PERRLA, EOMI, Mucous membrane moist/pink Respiratory: Clear to auscultation, Normal air movement Cardiovascular: Regular rate, Normal S1, Normal S2, No murmurs, no chest wall tenderness Abdominal: Normal bowel sounds, Soft, No tenderness, No hepatospenomegaly, No masses Extremities: No clubbing, No cyanosis, No edema, Normal pulses, No tenderness/swelling Skin: No rashes, No breakdown, No significant lesion Neuro: Normal gait, Normal speech, Strength at 5/5 X4 ext, Normal tone, Sensation intact, grossly intact cranial nerves. Psych/Mental Status: Mental status NL, Mood NL laboratory and microbiology Laboratory Tests 04/18/24 21:12 04/18/24 10:27 Test 04/18/24 21:12 Range/Units Serum Glucose 297 H 74-106 mg/dL Microbiology Date/Time Source Procedure Growth Status 04/18/24 13:10 Blood Blood Culture - Preliminary NO GROWTH AFTER 24 HOURS OF INCUBATION. 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 Consideration for perforation is suggested. 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 - CXR: No active cardiopulmonary disease. Possible hiatal hernia. - Head CT: No acute intracranial abnormality. Limited evaluation due to patient positioning few small left-sided mastoid effusion. - Extremity venous study: No sonographic evidence for DVT in the lower extremities - CTA chest with IV contrast: No large central pulmonary embolism. Wall thickening of the distal esophagus with an adjacent abnormal fluid collection with a small focus of enhancement. An esophageal mass is not excluded. A paraesophageal hernia could have a similar appearance. Also consider paraesophageal pathology or a loculated pleural effusion. Multiple thoracic compression fractures including possible acute/ subacute fractures at T10 and T11. - Discontinue IV meropenem and started IV Zosyn 3.375 mg Q 8hr ( 04/18/23) - Ordered another blood culture Emphysematous cystitis - Ordered bladder scan Possible malnourished - supplemented folic acid, thiamine Distal esophageal wall thickening, ruling out esophageal mass Melena - Stool occult blood + - IV Protonix b.i.d. - Patient is scheduled for barium swallow esophagus today as per GI recommendation Multiple thoracic compression fractures including possible acute/subacute fractures at T10 and T11 - Tylenol 625 mg 3 times a day - IV morphine 4 mg q.4 hours as needed for severe pain Hyperglycemia with normal anion gap, Hb A1c greater than 14% - Insulin Lantus 12 units q.a.m. - mild sliding scale insulin KARRI likely due to VMN/hemodynamically mediated resolved Holding DVT prophylaxis as GI bleed suspected Goals of care: Full code, discussed for >16 minutes on 04/15/2024 Plan discussed with patient Plan discussed with Dr. Warner Plan discussed with: Patient, Other My Orders My Orders Orders - CAROLE HERRERA RESIDENT Procedure Category Date Status Time * Surgical Consult CONS 04/19/24 Transmitted Buspirone Hcl Tablet PHA 04/19/24 In Process (Buspar Tablet) 22:00 Trazodone Hcl PHA 04/19/24 In Process (Desyrel) 22:00 Duloxetine Hcl PHA 04/19/24 In Process Capsule (Cymbalta 13:58 Lamotrigine Tablet PHA 04/19/24 In Process (Lamictal Tablet) 13:58 Lorazepam 2mg/Ml Inj PHA 04/19/24 In Process (Ativan Inj) 14:15 Dietary Evaluation Review Comments: 1) Advance pt diet when medically feasible to a CCHO 45g/2gmNa diet Expected Outcomes/Goals: F/U in 3-5 days Date of Service: Apr 19, 2024 Billing Provider: JOSE MANUEL LUCERO MD Common Visit Codes: [id number] INP/OBS CARE(HIGH) CAROLE HERRERA RESIDENT Apr 19, 2024 16:27 JOSE MANUEL LUCERO MD Apr 21, 2024 15:54
[2024-04-19] MEDS: lamoTRIgine 25 MG TAB PO SCH (16:51)
[2024-04-19] MEDS: DULoxetine HCL 30 MG CAP PO SCH (16:51)
--- NOTE | 2024-04-19 17:50 | DVHPN2 ---
Progress Note - Dictate Date Seen: Apr 19, 2024 Medical Necessity Reason Pt with a Central, PICC or Fol: No Subjective PATIENT has complaints of feeling of lumpiness in in the chest when trying to swallow noNausea vomiting no chest pains no cough or upper respiratory symptoms vital signs Vital Sign Date Time Temp Pulse Resp B/P (MAP) Pulse Ox O2 Delivery O2 Flow Rate FiO2 04/19/24 17:00 98.1 114 20 138/89 (105) 95 98.1 04/18/24 20:00 Room Air* 0 21 Total Intake and Output 04/18/24 04/18/24 04/19/24 14:59 22:59 06:59 Intake Total 514 ml 500 ml Output Total 1250 ml 2500 ml Balance -736 ml -2000 ml medications Current Medications Medications Dose Ordered Sig/Polo Route Start Time Stop Time Status Last Admin Dose Admin Levalbuterol HCl 0.625 mg Q6HPRN PRN NEB 04/15/24 21:00 Cancel Morphine Sulfate 4 mg Q4HPRN PRN IV 04/16/24 10:45 04/19/24 13:42 4 MG Acetaminophen 650 mg Q8HP PO 04/16/24 10:45 04/18/24 22:10 650 MG Diagnostic Test (Pha) 1 strip ACHS 04/17/24 07:00 04/19/24 17:01 1 STRIP Insulin Human Regular ACHS SC 04/17/24 07:00 04/19/24 17:02 8 UNITS Dextrose 50 ml UD PRN IV 04/17/24 06:45 Pantoprazole Sodium 40 mg BID IV 04/17/24 10:00 04/18/24 22:13 40 MG Insulin Glargine 12 units DAILY@1000 SC 04/19/24 10:00 04/19/24 11:16 12 UNITS Piperacillin Sod/ Tazobactam Sod 100 ml @ 25 mls/hr Q8HR IV 04/18/24 14:00 04/19/24 13:43 25 MLS/HR Buspirone HCl 10 mg BID PO 04/19/24 22:00 Duloxetine HCl 30 mg DAILY PO 04/19/24 13:58 04/19/24 16:51 30 MG Trazodone HCl 50 mg HS PO 04/19/24 22:00 Lamotrigine 25 mg DAILY PO 04/19/24 13:58 04/19/24 16:51 25 MG Lorazepam 1 mg Q6HP PRN IV 04/19/24 14:15 objective Abdomen is soft nontender no masses Lungs scattered rales Patient had a Gastrografin swallow study showed possible perforation in the distal esophagus Patient is able to tolerate meals and very noncompliant and taking food from home and friends and has no major symptoms as per the patient except for the lumpiness in the chest laboratory and microbiology Laboratory Tests 04/18/24 21:12 04/18/24 10:27 Test 04/18/24 21:12 Range/Units Serum Glucose 297 H 74-106 mg/dL Assessment/Plan This patient has got abnormality in the CT scan as well as Gastrografin study in the lower esophagus lower esophagus with a near the GE junction possibility of perforation or walled-off abscess or other pathology can not be excluded Suggestions are Surgical consult as soon as possible NPO for now until evaluated by the surgeon Further treatment depending upon the surgeon Patient is not a candidate at this time for EGD with suspected perforation in the swallow study If surgery is not contemplated we will recommend a repeat dedicated CT of the esophagus with special attention at the gastroesophageal junction to delineate this abnormality whether it is a perforation walled-off abscess or other pathology We will recommend also transferred to tertiary care center for further intervention as necessary Thank you Dr. Chowdhury Dietary Evaluation Review Comments: 1) Advance pt diet when medically feasible to a [facility] 45g/2gmNa diet Expected Outcomes/Goals: F/U in 3-5 days Plan discussed with: Patient TANESHA CHOWDHURY MD Apr 19, 2024 17:50
[2024-04-19] MEDS: traZODone HCL 50 MG TAB PO SCH (22:00)
[2024-04-19] MEDS: busPIRone HCL 10 MG TAB PO SCH (22:56)
[2024-04-20] VITALS (8 sets, daily range): BP systolic 120–146; BP diastolic 79–97; PULSE 97–112; RESP 15–18; TEMP 97.7–98.4; O2SAT 92–95
--- NOTE | 2024-04-20 10:10 | DVHPN2 ---
Progress Note - Dictate Date Seen: Apr 20, 2024 Medical Necessity Reason Pt with a Central, PICC or Fol: No Subjective Patient has no new symptoms wants to eat vital signs Vital Sign Date Time Temp Pulse Resp B/P (MAP) Pulse Ox O2 Delivery O2 Flow Rate FiO2 04/20/24 08:42 106 18 131/76 04/20/24 08:00 Room Air* 0 21 04/20/24 05:00 97.7 94 97.7 Total Intake and Output 04/19/24 04/19/24 04/20/24 15:00 23:00 07:00 Intake Total 2050 ml 0 ml Output Total 1300 ml 1100 ml Balance 750 ml -1100 ml medications Current Medications Medications Dose Ordered Sig/Polo Route Start Time Stop Time Status Last Admin Dose Admin Levalbuterol HCl 0.625 mg Q6HPRN PRN NEB 04/15/24 21:00 Cancel Morphine Sulfate 4 mg Q4HPRN PRN IV 04/16/24 10:45 04/20/24 08:42 4 MG Acetaminophen 650 mg Q8HP PO 04/16/24 10:45 04/19/24 22:55 650 MG Diagnostic Test (Pha) 1 strip ACHS 04/17/24 07:00 04/20/24 05:30 1 STRIP Insulin Human Regular ACHS SC 04/17/24 07:00 04/19/24 23:12 3 UNITS Dextrose 50 ml UD PRN IV 04/17/24 06:45 Pantoprazole Sodium 40 mg BID IV 04/17/24 10:00 04/19/24 22:52 40 MG Insulin Glargine 12 units DAILY@1000 SC 04/19/24 10:00 04/19/24 11:16 12 UNITS Piperacillin Sod/ Tazobactam Sod 100 ml @ 25 mls/hr Q8HR IV 04/18/24 14:00 04/20/24 05:59 25 MLS/HR Buspirone HCl 10 mg BID PO 04/19/24 22:00 04/19/24 22:56 10 MG Duloxetine HCl 30 mg DAILY PO 04/19/24 13:58 04/19/24 16:51 30 MG Trazodone HCl 50 mg HS PO 04/19/24 22:00 Lamotrigine 25 mg DAILY PO 04/19/24 13:58 04/19/24 16:51 25 MG Lorazepam 1 mg Q6HP PRN IV 04/19/24 14:15 objective Abdomen is soft nontender no masses Patient had a Gastrografin swallow study showed possible perforation in the distal esophagus with extravasation Awaiting surgical consult Radiological findings discussed with Dr. Iverson the radiologist, who recommended a repeat CT of the chest without any oral contrast to delineate further about the about the possible perforation in view of the lack of symptoms etc. Patient is not a candidate for endoscopic evaluation at this time will recommend transfer to a referral center as soon as possible for further workup and treatment laboratory and microbiology Laboratory Tests 04/18/24 21:12 04/18/24 10:27 Test 04/18/24 21:12 Range/Units Serum Glucose 297 H 74-106 mg/dL Assessment/Plan Patient with suspected perforation of the esophagus with extravasation of the Gastrografin Awaiting surgical consult Radiological findings discussed with Dr. Iverson the radiologist, who recommended a repeat CT of the chest without any oral contrast to delineate further about the about the possible perforation in view of the lack of symptoms etc. Patient is not a candidate for endoscopic evaluation at this time will recommend transfer to a referral center as soon as possible for further workup and treatment, Thank you Dr. Pacheco Dietary Evaluation Review Comments: 1) Advance pt diet when medically feasible to a CCHO 45g/2gmNa diet Expected Outcomes/Goals: F/U in 3-5 days Plan discussed with: Patient TANESHA PACHECO MD Apr 20, 2024 10:10
--- NOTE | 2024-04-20 12:32 | DVH ---
Exam: CT ABDOMEN WITHOUT CONTRAST History: MASS F/U Comparison Study: None available at time of dictation. Technique: Multidetector spiral CT of the abdomen was performed from lung bases to iliac crest. Imag ing was performed without IV contrast. Axial, coronal and sagittal multiplanar reformats were obtain ed from the axial data set by the technologist. Radiation dose : CT Dose: CTDI volume is 5.07 mGy. Dose-length product is 186.24 mGy*cm Findings: Evaluation of solid organs is limited due to lack of intravenous contrast use. Lung Bases: Bilateral pleural effusions with associated bibasilar atelectasis and consolidation. Liver: Likely focal fatty infiltration along the falciform ligament. Gallbladder and biliary Tree: Unremarkable Spleen: Unremarkable Pancreas: The pancreas is grossly normal in appearance. Adrenal Glands: Unremarkable Kidneys: Kidneys are grossly normal without calculi or hydronephrosis. Visualized Bowel: Fluid and air collection adjacent to the fundus of the stomach. Small bowel and col on are normal in caliber and distribution. Ascites: Absent Lymphadenopathy: Shotty retroperitoneal lymphadenopathy. Abdominal wall and Mesentery: Unremarkable. Vasculature: The visualized abdominal aorta is normal in size and caliber. Evaluation of abdominal a nd pelvic vessels is limited due to lack of intravenous contrast. Musculoskeletal: Multiple thoracic and lumbar compression fractures. Multilevel degenerative disease . IMPRESSION: 1. Limited without intravenous contrast. Fluid and air collection adjacent to the stomach correspondi ng to abnormality seen on recent CT and upper GI. No oral contrast is seen in this collection at this time. Contrast is seen in the colon. Consider an ulcerated esophageal mass, contained perforation o r diverticulum. Endoscopy is recommended. 2. Worsening bilateral pleural effusions with associated bibasilar consolidation. Likely focal fatty infiltration in the liver along the falciform ligament. Shotty retroperitoneal lymphadenopathy. Multi ple thoracic and lumbar compression fractures. Radiation optimization: All CT scans at this facility use at least one of these dose optimization yimi hniques: Automated exposure control mA and/or kV adjustment per patient size (includes targeted exams where dose is matched to clinical indication) or iterative reconstruction. HS:Y
--- NOTE | 2024-04-20 17:59 | DVHPNRES ---
Progress Note Date Seen: Apr 20, 2024 Resident Creating Document: CAROLE HERRERA RESIDENT Medical Necessity Reason Pt with a Central, PICC or Fol: No Subjective Review of Systems This is a 53-year-old female with past medical history of hypertension, type 2 diabetes mellitus, hepatitis-C, liver disease, neuropathy, bipolar disorder, schizophrenia, chronic pain, polysubstance abuse presented to the ED via EMS with altered level of consciousness. She was hyperglycemic on admission and the blood sugar was 422 with normal anion gap metabolic acidosis. Patient was seen and examined at the bedside. She is alert oriented x4. No overnight complaints. Gastrografin esophagus study and revealed Irregular , amorphous contrast collection at the anterior portion of the GE juntion. Consideration for perforation is suggested. Consulted surgery for further evaluation of possible perforation of esophagus. CT abdomen without contrast demonstrated fluid and air collection adjacent to the stomach corresponding to the abnormality on recent CT and consider an ulcerated mass, contained perforation or diverticulum. GI recommended the patient is not a candidate for endoscopic evaluation at this time. Consulted forensic social worker to transfer higher level of care for management of possible esophageal mass with perforation. Objective vital signs Vital Sign Date Time Temp Pulse Resp B/P (MAP) Pulse Ox O2 Delivery O2 Flow Rate FiO2 04/20/24 17:04 99 16 130/91 04/20/24 17:00 98.4 93 98.4 04/20/24 10:00 Room Air* 0 21 Total Intake and Output 04/19/24 04/19/24 04/20/24 15:00 23:00 07:00 Intake Total 2050 ml 0 ml Output Total 1300 ml 1100 ml Balance 750 ml -1100 ml medications Current Medications Medications Dose Ordered Sig/Polo Route Start Time Stop Time Status Last Admin Dose Admin Levalbuterol HCl 0.625 mg Q6HPRN PRN NEB 04/15/24 21:00 Cancel Morphine Sulfate 4 mg Q4HPRN PRN IV 04/16/24 10:45 04/20/24 17:04 4 MG Acetaminophen 650 mg Q8HP PO 04/16/24 10:45 04/20/24 14:44 650 MG Diagnostic Test (Pha) 1 strip ACHS 04/17/24 07:00 04/20/24 16:44 1 STRIP Insulin Human Regular ACHS SC 04/17/24 07:00 04/20/24 17:01 8 UNITS Dextrose 50 ml UD PRN IV 04/17/24 06:45 Pantoprazole Sodium 40 mg BID IV 04/17/24 10:00 04/20/24 10:21 40 MG Insulin Glargine 12 units DAILY@1000 SC 04/19/24 10:00 04/19/24 11:16 12 UNITS Buspirone HCl 10 mg BID PO 04/19/24 22:00 04/19/24 22:56 10 MG Duloxetine HCl 30 mg DAILY PO 04/19/24 13:58 04/20/24 14:44 30 MG Trazodone HCl 50 mg HS PO 04/19/24 22:00 Lamotrigine 25 mg DAILY PO 04/19/24 13:58 04/20/24 14:44 25 MG Lorazepam 1 mg Q6HP PRN IV 04/19/24 14:15 Ceftriaxone Sodium 50 ml @ 100 mls/hr DAILY@09 IV 04/21/24 09:00 Examination Physical examination: General Appearance: Alert, Oriented X3, Cooperative, No acute distress HEENT: Atraumatic, PERRLA, EOMI, Mucous membrane moist/pink Respiratory: Clear to auscultation, Normal air movement Cardiovascular: Regular rate, Normal S1, Normal S2, No murmurs, no chest wall tenderness Abdominal: Normal bowel sounds, Soft, No tenderness, No hepatospenomegaly, No masses Extremities: No clubbing, No cyanosis, No edema, Normal pulses, No tenderness/swelling Skin: No rashes, No breakdown, No significant lesion Neuro: Normal gait, Normal speech, Strength at 5/5 X4 ext, Normal tone, Sensation intact, grossly intact cranial nerves. Psych/Mental Status: Mental status NL, Mood NL laboratory and microbiology Laboratory Tests 04/18/24 21:12 04/18/24 10:27 Test 04/18/24 21:12 Range/Units Serum Glucose 297 H 74-106 mg/dL Microbiology Date/Time Source Procedure Growth Status 04/18/24 13:10 Blood Blood Culture - Preliminary NO GROWTH AFTER 48 HOURS OF INCUBATION. 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 No oral contrast is seen in this collection at this time. Contrast is seen in the colon. Consider an ulcerated esophageal mass, contained perforation or diverticulum. Endoscopy is recommended. Worsening bilateral pleural effusions with associated bibasilar consolidation. Likely focal fatty infiltration in the liver along the falciform ligament. Shotty retroperitoneal lymphadenopathy. Multiple thoracic and lumbar compression fractures. - Gastrografin esophagus study and revealed Irregular , amorphous contrast collection at the anterior portion of the GE juntion. Consideration for perforation is suggested. 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 - CXR: No active cardiopulmonary disease. Possible hiatal hernia. - Head CT: No acute intracranial abnormality. Limited evaluation due to patient positioning few small left-sided mastoid effusion. - Extremity venous study: No sonographic evidence for DVT in the lower extremities - CTA chest with IV contrast: No large central pulmonary embolism. Wall thickening of the distal esophagus with an adjacent abnormal fluid collection with a small focus of enhancement. An esophageal mass is not excluded. A paraesophageal hernia could have a similar appearance. Also consider paraesophageal pathology or a loculated pleural effusion. Multiple thoracic compression fractures including possible acute/ subacute fractures at T10 and T11. - Discontinue IV meropenem and started IV Zosyn 3.375 mg Q 8hr ( 04/18/23) - Ordered another blood culture Emphysematous cystitis - Ordered bladder scan Possible malnourished - supplemented folic acid, thiamine Distal esophageal wall thickening, ruling out esophageal mass Melena - Stool occult blood + - IV Protonix b.i.d. -Gastrografin esophagus study and revealed Irregular , amorphous contrast collection at the anterior portion of the GE juntion. Consideration for perforation is suggested -CT abdomen without contrast on 04/20/23 demonstrated Fluid and air collection adjacent to the stomach corresponding to abnormality seen on recent CT and upper GI. No oral contrast is seen in this collection at this time. Contrast is seen in the colon. Consider an ulcerated esophageal mass, contained perforation or diverticulum. Endoscopy is recommended - GI mentioned the patient is not a candidate for endoscopic evaluation at this time recommended transfer to higher level of care for management of possible esophageal mass with perforation Multiple thoracic compression fractures including possible acute/subacute fractures at T10 and T11 - Tylenol 625 mg 3 times a day - IV morphine 4 mg q.4 hours as needed for severe pain Hyperglycemia with normal anion gap, Hb A1c greater than 14% - Insulin Lantus 12 units q.a.m. - mild sliding scale insulin KARRI likely due to VMN/hemodynamically mediated resolved Holding DVT prophylaxis as GI bleed suspected Goals of care: Full code, discussed for >16 minutes on 04/15/2024 Plan discussed with patient Plan discussed with Dr. Warner Plan discussed with: Patient, Other My Orders My Orders Orders - CAROLE HERRERA Procedure Category Date Status Time Ceftriaxone 1gm/50ml PHA 04/21/24 In Process D5w (Rocephin) 09:00 * Courtroom Deputy Or Calendar Clerk CONS 04/20/24 Transmitted Consult Dietary Evaluation Review Comments: 1) [facility] Expected Outcomes/Goals: F/U in 3-5 days Date of Service: Apr 20, 2024 Billing Provider: JOSE MANUEL LUCERO MD Common Visit Codes: [id number] INP/OBS CARE(HIGH) CAROLE HERRERA Apr 20, 2024 17:59 JOSE MANUEL LUCERO MD Apr 21, 2024 16:19
[2024-04-21] VITALS (9 sets, daily range): BP systolic 111–145; BP diastolic 80–101; PULSE 102–111; RESP 16–19; TEMP 97.6–98.3; O2SAT 92–98
[2024-04-21] MEDS: cefTRIAXone 1GM/50ML D5W 50 ML IV SCH (10:01)
[2024-04-21 10:11] LABS: Basophils # (auto) 0.1 10 ^3/uL (0-0.2); Basophils % (auto) 0.4 % (0.0-2.0); Eosinophils # (auto) 0.2 10 ^3/uL (0-0.8); Eosinophils % (auto) 1.3 % (0.0-7.0); Hematocrit 34.8 % (36.0-46.0); Hemoglobin 11.3 g/dL (12.2-16.2); Lymphocytes # (auto) 1.7 10 ^3/uL (0.4-5.4); Lymphocytes % (auto) 12.2 % (10.0-50.0); Mean Corpuscular Hemoglobin 27.5 pg (28.0-32.0); Mean Corpuscular Hgb Conc. 32.4 g/dL (32.0-36.0); Mean Corpuscular Volume 84.7 fL (80.0-100.0); Monocytes # (auto) 1.4 10 ^3/uL (0-1.3); Monocytes % (auto) 10.1 % (0.0-12.0); Neutrophils # (auto) 10.5 10 ^3/uL (1.6-8.6); Nucleated Red Blood Cells % 0.1 %; Platelet Count (auto) 420 10^3/uL (140-450); Red Cell Distribution Width 15.9 % (11.8-14.3); White Blood Cell 13.8 10^3/uL (4.4-10.8)
[2024-04-21 10:23] LABS: Anion Gap 5 (5-15); Calcium 8.7 mg/dL (8.7-10.4); Carbon Dioxide 29 mmol/L (20-31)
[2024-04-21 10:44] LABS: BUN/Creatinine Ratio 11.1 (10.0-20.0); Blood Urea Nitrogen < 5 mg/dL (9-23); Chloride 98 mmol/L (98-107); Glucose 293 mg/dL (74-106); Potassium 3.5 mmol/L (3.5-5.1); Sodium 132 mmol/L (136-145)
--- NOTE | 2024-04-21 11:00 | DVHINCON2 ---
Date of service: Apr 21, 2024 Family History: Alcoholism G8 FATHER FH: lymphoma, malignant G8 MOTHER FH: respiratory disease G8 MOTHER Hypertension G8 MOTHER Substance abuse G8 FATHER Thyroid disease G8 SISTER Unknown family medical history G8 MOTHER G8 FATHER Allergies: Coded Allergies: Ciprofloxacin (Verified Allergy, Intermediate, Hives, 03/22/24) Patient broke out in hives, and rash Metronidazole (Verified Allergy, Intermediate, Hives, 03/22/24) Patient broke out in hives and skin rash Home Meds Active Scripts Gabapentin (Gabapentin) 300 Mg Cap, 1 CAP PO TID for 30 Days, #90 CAP 5 Refills Prov:MEREDITH DANIELS RESIDENT 03/27/24 Duloxetine HCl (Duloxetine HCl) 30 Mg Cap, 30 MG PO DAILY for 30 Days, #30 CAP 3 Refills Prov:MEREDITH DANIELS RESIDENT 03/27/24 Reported Medications Insulin Glargine (Basaglar Kwikpen) 100 Unit/Ml Inj, SC 04/15/24 Insulin Lispro (Insulin Lispro) 100 Unit/Ml Inj, 10 UNITS SC TID 06/25/23 Acetaminophen (Acetaminophen Extra Stren) 500 Mg Tab, 1 TAB PO Q6HR PRN 06/25/23 Lamotrigine (Lamictal) 25 Mg Tab, 1 TAB PO DAILY 06/25/23 Trazodone Hcl (Trazodone Hcl) 50 Mg Tab, 1 TAB PO DAILY 06/25/23 Duloxetine Hcl (Cymbalta) 20 Mg Cap, 30 MG PO DAILY 06/25/23 Buspirone Hcl (Buspirone Hcl) 10 Mg Tab, 1 TAB PO BID 10/05/21 Current Medications Current Medications Medications (Trade) Dose Ordered Sig/Polo Route PRN Reason Start Time Stop Time Status Last Admin Ceftriaxone Sodium 50 ml @ 100 mls/hr DAILY@09 IV 04/21/24 09:00 04/21/24 10:01 Vital Signs Vital Signs Date Time Temp Pulse Resp B/P (MAP) Pulse Ox O2 Delivery O2 Flow Rate FiO2 04/21/24 09:55 111 18 145/101 04/21/24 08:52 98.1 98 98.1 04/20/24 20:00 Room Air* 0 21 Labs/Diagnostic Data Labs Test 04/21/24 09:55 04/21/24 05:34 04/18/24 10:27 04/17/24 09:38 Range/Units White Blood Count 13.8 #H 4.4-10.8 10^3/uL Red Blood Count 4.10 4.0-5.20 10^6/uL Hemoglobin 11.3 L 12.2-16.2 g/dL Hematocrit 34.8 L 36.0-46.0 % Mean Corpuscular Volume 84.7 80.0-100.0 fL Mean Corpuscular Hemoglobin 27.5 L 28.0-32.0 pg Mean Corpuscular Hemoglobin Concent 32.4 32.0-36.0 g/dL Red Cell Distribution Width 15.9 H 11.8-14.3 % Platelet Count 420 140-450 10^3/uL Mean Platelet Volume 7.5 6.9-10.8 fL Neutrophils (%) (Auto) 76.0 37.0-80.0 % Lymphocytes (%) (Auto) 12.2 10.0-50.0 % Monocytes (%) (Auto) 10.1 0.0-12.0 % Eosinophils (%) (Auto) 1.3 0.0-7.0 % Basophils (%) (Auto) 0.4 0.0-2.0 % Neutrophils # (Auto) 10.5 H 1.6-8.6 10 ^3/uL Lymphocytes # (Auto) 1.7 0.4-5.4 10 ^3/uL Monocytes # (Auto) 1.4 H 0-1.3 10 ^3/uL Eosinophils # (Auto) 0.2 0-0.8 10 ^3/uL Basophils # (Auto) 0.1 0-0.2 10 ^3/uL Nucleated Red Blood Cells 0.1 % Sodium Level 132 L 136-145 mmol/L Potassium Level 3.5 3.5-5.1 mmol/L Chloride Level 98 98-107 mmol/L Carbon Dioxide Level 29 20-31 mmol/L Anion Gap 5 5-15 Blood Urea Nitrogen < 5 L 9-23 mg/dL Creatinine 0.45 L 0.550-1.02 mg/dL Glomerular Filtration Rate Calc 116 >90 mL/min BUN/Creatinine Ratio 11.1 10.0-20.0 Serum Glucose 293 H 74-106 mg/dL Calcium Level 8.7 8.7-10.4 mg/dL POC Glucose 171 H 70-106 mg/dl Magnesium Level 1.9 1.6-2.6 mg/dL Total Bilirubin 0.4 0.2-1.0 mg/dL Aspartate Amino Transferase (AST) 10 L 13-40 U/L Alanine Aminotransferase (ALT) 12 7-40 U/L Alkaline Phosphatase 72 46-116 U/L Total Protein 5.4 L 5.7-8.2 g/dL Albumin 3.1 L 3.2-4.8 g/dL Phosphorus Level 2.0 L 2.4-5.1 mg/dL Test 04/15/24 17:39 04/15/24 17:15 04/15/24 15:03 04/15/24 07:28 Range/Units Prothrombin Time 10.5 9.3-11.8 sec Prothrombin Time INR 0.99 0.9-1.15 Stool Occult Blood Positive Negative Stool Occult Blood Sample #3 Negative Lactic Acid Level 1.6 0.4-2.0 mmol/L Lipase 31 12-53 U/L Serum Osmolality 306 H 278-298 mOsm/kg Beta HCG, Quantitative 0.6 L 1.5-4.2 mIU/mL Test 04/15/24 02:05 04/15/24 00:13 04/14/24 23:50 04/14/24 20:29 Range/Units Urine Color Straw Yellow Urine Clarity Clear Clear Urine pH 5.5 5.0-9.0 Urine Specific [place] 1.024 1.001-1.035 Urine Protein 1+ H Negative Urine Ketones 2+ H Negative Urine Blood 1+ H Negative /uL Urine Nitrite Negative Negative Urine Bilirubin Negative Negative Urine Urobilinogen Normal Negative mg/dL Urine Leukocyte Esterase 1+ Negative /uL Urine RBC 1 0 - 4 /hpf Urine WBC 2 0 - 5 /hpf Urine Squamous Epithelial Cells Few <5 /hpf Urine Bacteria Many H None Seen /hpf Urine Hyaline Casts Few 0 - 2 /lpf Urine Mucus Few None Seen Urine Yeast (Budding) Occasional None Seen /hpf Urine Glucose 4+ H Normal mg/dL Urine Test Negative Negative Urine Opiates Screen Neg NEGATIVE Urine Fentanyl Screen Neg NEGATIVE Urine Barbiturates Screen Neg NEGATIVE Urine Phencyclidine Screen Neg NEGATIVE Urine Amphetamines Screen Neg NEGATIVE Urine Benzodiazepines Screen Neg NEGATIVE Urine Cocaine Screen Neg NEGATIVE Urine Cannabinoids Screen Pos NEGATIVE Influenza Type A Antigen Negative Negative Influenza Type B Antigen Negative Negative SARS-CoV-2 Antigen (Rapid) Negative NEGATIVE Ammonia 13 11-32 umol/L Beta-Hydroxybutyric Acid > 4.500 H < 0.4 mmol/L Plasma/Serum Blood Alcohol 6.3 <10 mg/dL Test 04/14/24 20:12 Range/Units Blood Gas Specimen Type Arterial Blood Gas Sample Site Right radial Blood Gas Patient Temperature 37.0 Arterial Blood Date Drawn [id number] Arterial Blood pH 7.345 L 7.350-7.450 Arterial Blood Partial Pressure CO2 24.6 L 32.0-45.0 mmHg Arterial Blood Partial Pressure O2 83.6 83.0-108.0 mmHg Arterial Blood HCO3 13.1 L 21.0-28.0 mmol/L Arterial Blood Oxygen Saturation 96.6 94.0-98.0 % Arterial Blood Base Excess -10.4 L -2.0-3.0 mmol/L Arterial Blood Oxyhemoglobin 95.2 94.0-98.0 % Arterial Blood Carboxyhemoglobin 1.1 0.5-1.5 % Arterial Blood Methemoglobin 0.4 0.0-1.5 % Stephan Test Modified Blood Gas Total Hemoglobin 15.90 12.0-16.0 g/dL Blood Gas Modality Room air FiO2 % 21.0 Microbiology Date/Time Source Procedure Growth Status 04/18/24 13:10 Blood Blood Culture - Preliminary NO GROWTH AFTER 48 HOURS OF INCUBATION. Resulted 04/15/24 11:10 Nose MRSA Screen - Final Complete 04/15/24 02:05 Voided Urine Urine Culture - Final Complete Assessment patient has an irregularity of distal Esophagus with possible confined perforation, primary team arranging for transfer to higher level of care, patient was not in her room, not examined. As she is being transferred, no formal consultation from surgery is needed Plan discussed with: Other YISEL GRIFFITH MD Apr 21, 2024 11:00
--- NOTE | 2024-04-21 20:10 | DVHDSRES ---
Discharge Summary Date of Admission Resident Creating Document: CAROLE HERRERA RESIDENT Apr 14, 2024 at 23:23 Date of Discharge: Apr 21, 2024 Admitting Diagnosis Acute metabolic/toxic encephalopathy Hyperglycemia with non-anion gap metabolic acidosis Wounds: No wound was present Labs/Diagnostic Data: Laboratory Results Test 04/21/24 16:48 04/21/24 09:55 04/18/24 10:27 04/17/24 09:38 POC Glucose 90 mg/dl (70-106) White Blood Count 13.8 10^3/uL (4.4-10.8) Red Blood Count 4.10 10^6/uL (4.0-5.20) Hemoglobin 11.3 g/dL (12.2-16.2) Hematocrit 34.8 % (36.0-46.0) Mean Corpuscular Volume 84.7 fL (80.0-100.0) Mean Corpuscular Hemoglobin 27.5 pg (28.0-32.0) Mean Corpuscular Hemoglobin Concent 32.4 g/dL (32.0-36.0) Red Cell Distribution Width 15.9 % (11.8-14.3) Platelet Count 420 10^3/uL (140-450) Mean Platelet Volume 7.5 fL (6.9-10.8) Neutrophils (%) (Auto) 76.0 % (37.0-80.0) Lymphocytes (%) (Auto) 12.2 % (10.0-50.0) Monocytes (%) (Auto) 10.1 % (0.0-12.0) Eosinophils (%) (Auto) 1.3 % (0.0-7.0) Basophils (%) (Auto) 0.4 % (0.0-2.0) Neutrophils # (Auto) 10.5 10 ^3/uL (1.6-8.6) Lymphocytes # (Auto) 1.7 10 ^3/uL (0.4-5.4) Monocytes # (Auto) 1.4 10 ^3/uL (0-1.3) Eosinophils # (Auto) 0.2 10 ^3/uL (0-0.8) Basophils # (Auto) 0.1 10 ^3/uL (0-0.2) Nucleated Red Blood Cells 0.1 % Sodium Level 132 mmol/L (136-145) Potassium Level 3.5 mmol/L (3.5-5.1) Chloride Level 98 mmol/L (98-107) Carbon Dioxide Level 29 mmol/L (20-31) Anion Gap 5 (5-15) Blood Urea Nitrogen < 5 mg/dL (9-23) Creatinine 0.45 mg/dL (0.550-1.02) Glomerular Filtration Rate Calc 116 mL/min (>90) BUN/Creatinine Ratio 11.1 (10.0-20.0) Serum Glucose 293 mg/dL (74-106) Calcium Level 8.7 mg/dL (8.7-10.4) Magnesium Level 1.9 mg/dL (1.6-2.6) Total Bilirubin 0.4 mg/dL (0.2-1.0) Aspartate Amino Transferase (AST) 10 U/L (13-40) Alanine Aminotransferase (ALT) 12 U/L (7-40) Alkaline Phosphatase 72 U/L (46-116) Total Protein 5.4 g/dL (5.7-8.2) Albumin 3.1 g/dL (3.2-4.8) Phosphorus Level 2.0 mg/dL (2.4-5.1) Test 04/15/24 17:39 04/15/24 17:15 04/15/24 15:03 04/15/24 07:28 Prothrombin Time 10.5 sec (9.3-11.8) Prothrombin Time INR 0.99 (0.9-1.15) Stool Occult Blood Positive (Negative) Stool Occult Blood Sample #3 (Negative) Lactic Acid Level 1.6 mmol/L (0.4-2.0) Lipase 31 U/L (12-53) Serum Osmolality 306 mOsm/kg (278-298) Beta HCG, Quantitative 0.6 mIU/mL (1.5-4.2) Test 04/15/24 02:05 04/15/24 00:13 04/14/24 23:50 04/14/24 20:29 Urine Color Straw (Yellow) Urine Clarity Clear (Clear) Urine pH 5.5 (5.0-9.0) Urine Specific [place] 1.024 (1.001-1.035) Urine Protein 1+ (Negative) Urine Ketones 2+ (Negative) Urine Blood 1+ /uL (Negative) Urine Nitrite Negative (Negative) Urine Bilirubin Negative (Negative) Urine Urobilinogen Normal mg/dL (Negative) Urine Leukocyte Esterase 1+ /uL (Negative) Urine RBC 1 /hpf (0 - 4) Urine WBC 2 /hpf (0 - 5) Urine Squamous Epithelial Cells Few /hpf (<5) Urine Bacteria Many /hpf (None Seen) Urine Hyaline Casts Few /lpf (0 - 2) Urine Mucus Few (None Seen) Urine Yeast (Budding) Occasional /hpf (None Urine Glucose 4+ mg/dL (Normal) Urine Test Negative (Negative) Urine Opiates Screen Neg (NEGATIVE) Urine Fentanyl Screen Neg (NEGATIVE) Urine Barbiturates Screen Neg (NEGATIVE) Urine Phencyclidine Screen Neg (NEGATIVE) Urine Amphetamines Screen Neg (NEGATIVE) Urine Benzodiazepines Screen Neg (NEGATIVE) Urine Cocaine Screen Neg (NEGATIVE) Urine Cannabinoids Screen Pos (NEGATIVE) Influenza Type A Antigen Negative (Negative) Influenza Type B Antigen Negative (Negative) SARS-CoV-2 Antigen (Rapid) Negative (NEGATIVE) Ammonia 13 umol/L (11-32) Beta-Hydroxybutyric Acid > 4.500 mmol/L (< 0.4) Plasma/Serum Blood Alcohol 6.3 mg/dL (<10) Test 04/14/24 20:12 Blood Gas Specimen Type Arterial Blood Gas Sample Site Right radial Blood Gas Patient Temperature 37.0 Arterial Blood Date Drawn Arterial Blood pH 7.345 (7.350-7.450) Arterial Blood Partial Pressure CO2 24.6 mmHg (32.0-45.0) Arterial Blood Partial Pressure O2 83.6 mmHg (83.0-108.0) Arterial Blood HCO3 13.1 mmol/L (21.0-28.0) Arterial Blood Oxygen Saturation 96.6 % (94.0-98.0) Arterial Blood Base Excess -10.4 mmol/L (-2.0-3.0) Arterial Blood Oxyhemoglobin 95.2 % (94.0-98.0) Arterial Blood Carboxyhemoglobin 1.1 % (0.5-1.5) Arterial Blood Methemoglobin 0.4 % (0.0-1.5) Stephan Test Modified Blood Gas Total Hemoglobin 15.90 g/dL (12.0-16.0) Blood Gas Modality Room air FiO2 % 21.0 Other Laboratory Tests 04/21/24 09:55 Brief Hx & Hospital Course: This is a 53-year-old female with past medical history of hypertension, type 2 diabetes mellitus, hepatitis-C, liver disease, neuropathy, bipolar disorder, schizophrenia, chronic pain, polysubstance abuse presented to the ED via EMS with altered level of consciousness. She was hyperglycemic on admission and the blood sugar was 422 with normal anion gap metabolic acidosis. Hospital course: Initial Head CT: No acute intracranial abnormality. Limited evaluation due to patient positioning few small left-sided mastoid effusion, UDS was negative, ammonia was normal.CTA chest with IV contrast: No large central pulmonary embolism. Wall thickening of the distal esophagus with an adjacent abnormal fluid collection with a small focus of enhancement. An esophageal mass is not excluded. A paraesophageal hernia could have a similar appearance. Also consider paraesophageal pathology or a loculated pleural effusion. Multiple thoracic compression fractures including possible acute/ subacute fractures at T10 and T11. was treated with IV metoprolol, IV Zosyn 3.375 mg q.8 hours, IV ceftriaxone. Blood sugar was controlled with Lantus 12 units at q.a.m. and moderate sliding scale of insulin. occult blood was positive and GI was on the board. Gastrografin esophagus study and revealed Irregular , amorphous contrast collection at the anterior portion of the GE juntion. Consideration for perforation is suggested. Consulted surgery for further evaluation of possible perforation of esophagus. CT abdomen without contrast demonstrated fluid and air collection adjacent to the stomach corresponding to the abnormality on recent CT and consider an ulcerated mass, contained perforation or diverticulum. GI recommended the patient is not a candidate for endoscopic evaluation at this time. Consulted director of social work to transfer higher level of care for management of possible esophageal mass with perforation. The patient is accepted to [place] but waiting for the transfer because of the bed availability. Discharge disposition : Acute care facility Consults/Reason for consult GI was consulted Operations or Procedures Exam: CT ABDOMEN WITHOUT CONTRAST History: MASS F/U Comparison Study: None available at time of dictation. Technique: Multidetector spiral CT of the abdomen was performed from lung bases to iliac crest. Imaging was performed without IV contrast. Axial, coronal and sagittal multiplanar reformats were obtained from the axial data set by the technologist. Radiation dose : CT Dose: CTDI volume is 5.07 mGy. Dose-length product is 186.24 mGy*cm Findings: Evaluation of solid organs is limited due to lack of intravenous contrast use. Lung Bases: Bilateral pleural effusions with associated bibasilar atelectasis and consolidation. Liver: Likely focal fatty infiltration along the falciform ligament. Gallbladder and biliary Tree: Unremarkable Spleen: Unremarkable Pancreas: The pancreas is grossly normal in appearance. Adrenal Glands: Unremarkable Kidneys: Kidneys are grossly normal without calculi or hydronephrosis. Visualized Bowel: Fluid and air collection adjacent to the fundus of the stomach. Small bowel and colon are normal in caliber and distribution. Ascites: Absent Lymphadenopathy: Shotty retroperitoneal lymphadenopathy. Abdominal wall and Mesentery: Unremarkable. Vasculature: The visualized abdominal aorta is normal in size and caliber. Evaluation of abdominal and pelvic vessels is limited due to lack of intravenous contrast. Musculoskeletal: Multiple thoracic and lumbar compression fractures. Multilevel degenerative disease. IMPRESSION: 1. Limited without intravenous contrast. Fluid and air collection adjacent to the stomach corresponding to abnormality seen on recent CT and upper GI. No oral contrast is seen in this collection at this time. Contrast is seen in the colon. Consider an ulcerated esophageal mass, contained perforation or diverticulum. Endoscopy is recommended. 2. Worsening bilateral pleural effusions with associated bibasilar consolidation. Likely focal fatty infiltration in the liver along the falciform ligament. Shotty retroperitoneal lymphadenopathy. Multiple thoracic and lumbar compression fractures. XY ESOPHAGUS GASTROGRAFIN SWALLOW, HISTORY: possible esophageal cancer COMPARISON: None PROCEDURE: A hospital plan administrator radiograph was obtained prior to the procedure. Gastrografin administered orally, and radiographs were obtained under intermittent fluoroscopic observation. Total fluoroscopic time was 0.6 minutes. FINDINGS: Irregular , amorphous contrast collection at the anterior portion of the GE juntion. The esophagus was normal in caliber with no stricture, filling defect . Normal esophageal peristalsis was observed. Mild esophageal reflux was demonstrated during this exam . IMPRESSION: Irregular , amorphous contrast collection at the anterior portion of the GE juntion. Consideration for perforation is suggested. Further evaluation with EGD is suggested CTA Chest with intravenous contrast INDICATION: RUQ pain/ SOB R/O PE COMPARISON: None TECHNIQUE: Multidetector spiral CTA of the chest was performed of the chest with intravenous contrast. PULMONARY ANGIOGRAPHY PROTOCOL was utilized using a bolus- tracking technique centered on the main pulmonary artery. Axial, coronal and sagittal multiplanar and MIP reformats were performed. CONTRAST: Type of contrast: Omni 350 Contrast injected: 100 ml Radiation dose : Chest: CTDI volume is 6 mGy. Dose-length product is 433 mGy*cm The dose indicators for CT are the volume computed Tomography (CT) dose Index (CTDIvol) and the dose Length product (DLP), and are measured in units of mGy and mGy-cm, respectively. These indicators are not patient dose, but values generated from the CT scanner acquisition factors. The report includes radiation exposure data for exposures received during this examination. Findings: Pulmonary artery: No large central or large segmental pulmonary embolism. Lower neck: Normal thyroid. Lungs: Bibasilar atelectasis and consolidation. Heart/Vascular Structures: Normal heart size. No pericardial effusion. Aberrant right subclavian artery. Lymph Nodes: No adenopathy Pleura: Small bilateral pleural effusions. Musculoskeletal: Mild loss of vertebral body height multiple thoracic levels, with possible acute / subacute compression fractures at T10 and T11. Soft tissues: Normal. Upper abdomen: Wall thickening of the distal esophagus. Abnormal fluid density adjacent to the distal esophagus measuring up to 40 mm with a small focus of enhancement. This is new compared to prior exam from March 25, 2024 IMPRESSION: 1. No large central pulmonary embolism. 2. Wall thickening of the distal esophagus with an adjacent abnormal fluid collection with a small focus of enhancement. An esophageal mass is not excluded. A paraesophageal hernia could have a similar appearance. Also consider paraesophageal pathology or a loculated pleural effusion. Consider further evaluation with upper GI or endoscopy. Attention on follow-up is recommended. 3. Small bilateral pleural effusions with associated bibasilar atelectasis and consolidation. 4. Multiple thoracic compression fractures including possible acute/ subacute fractures at T10 and T11.. Consider further evaluation with MRI of the thoracic spine. EXAM: CT HEAD WITHOUT CONTRAST INDICATION: Altered level of consciousness TECHNIQUE: CT of the head without intravenous contrast. Radiation Dose : 1. Head: CT Dose: CTDI volume is 54 mGy. Dose-length product is 954 mGy*cm The dose indicators for CT are the volume Computed Tomography (CT) Dose Index (CTDIvol) and the Dose Length Product (DLP), and are measured in units of mGy and mGy-cm, respectively. These indicators are not patient dose, but values generated from the CT scanner acquisition factors. The report includes radiation exposure data for exposures received during this examination. COMPARISON: CT HEAD WITHOUT CONTRAST on DOS: 11/04/23, CT HEAD WITHOUT CONTRAST on DOS: 11/25/22, HEAD WITHOUT CONTRAST on DOS: 04/08/22 FINDINGS: There is no evidence of acute intracranial hemorrhage, extra-axial collection, mass effect, midline shift, herniation or hydrocephalus. The ventricles, sulci and cisterns are age appropriate. The robert-white differentiation is intact. Patchy periventricular and subcortical white matter hypoattenuation is nonspecific but may be related to small vessel ischemic disease. Small left-sided mastoid effusion. Paranasal sinuses are clear. The surrounding soft tissues and osseous structures are unremarkable. IMPRESSION: No acute intracranial abnormality. Limited evaluation due to patient positioning. Small left-sided mastoid effusion. 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 KARRI likely due to VMN/hemodynamically mediated resolved Discharge Disposition: Acute Care Facility Discharge Instruct/Medications Diet: Consistent carbohydrate Diet comment: Liquid diet Activity: No Restrictions, As Tolerated Discharge Statement: "Patient was advised to return to the ER or call 911 if any headaches, dizziness, shortness of breath, chest pain, abdominal pain, bleeding, fevers, or worsening of medical condition. Patient was counseled about treatment plan, medications, possible side effects, patientverbalized understanding. All questions were answered to the best of my ability. This discharge took greater then 30 minutes in planning, reviewing documentation, counseling the patient, and discussing with other team members." ASSESSMENT ASSESSMENT Assessment Altered level of consciousness likely due to emphysematous cystitis Acute complicated UTI Sepsis resolved Distal esophageal wall thickening, Possible oesophageal mass with perforation Multiple thoracic compression fractures including possible acute/subacute fractures at T10 and T11 Hyperglycemia with normal anion gap, Hb A1c greater than 14% KARRI likely due to VMN/hemodynamically mediated resolved Date of Service: Apr 21, 2024 Billing Provider: JOSE MANUEL LUCERO MD Common Visit Codes: 79008-YYB/OBS DISCH DAY >30min CAROLE HERRERA Apr 21, 2024 20:10 JOSE MANUEL LUCERO MD Apr 25, 2024 16:41
[2024-04-22] VITALS (10 sets, daily range): BP systolic 105–141; BP diastolic 69–93; PULSE 99–117; RESP 16–19; TEMP 98–98.4; O2SAT 92–98
[2024-04-22 07:36] LABS: Basophils # (auto) 0.1 10 ^3/uL (0-0.2); Basophils % (auto) 0.5 % (0.0-2.0); Eosinophils # (auto) 0.1 10 ^3/uL (0-0.8); Hemoglobin 11.3 g/dL (12.2-16.2); Lymphocytes # (auto) 2.3 10 ^3/uL (0.4-5.4); Lymphocytes % (auto) 17.1 % (10.0-50.0); Mean Corpuscular Hemoglobin 28.1 pg (28.0-32.0); Mean Corpuscular Hgb Conc. 33.1 g/dL (32.0-36.0); Mean Corpuscular Volume 84.9 fL (80.0-100.0); Monocytes % (auto) 7.1 % (0.0-12.0); Neutrophils # (auto) 10.1 10 ^3/uL (1.6-8.6); Neutrophils % (auto) 74.3 % (37.0-80.0); Nucleated Red Blood Cells % 0.1 %; Platelet Count (auto) 475 10^3/uL (140-450); Red Cell Distribution Width 15.9 % (11.8-14.3); White Blood Cell 13.6 10^3/uL (4.4-10.8)
[2024-04-22 07:40] LABS: Calcium 8.7 mg/dL (8.7-10.4); Chloride 102 mmol/L (98-107); Sodium 137 mmol/L (136-145)
[2024-04-22 07:41] LABS: Anion Gap 7 (5-15); Carbon Dioxide 28 mmol/L (20-31)
[2024-04-22 07:46] LABS: BUN/Creatinine Ratio 12.8 (10.0-20.0)
[2024-04-22 07:50] LABS: Blood Urea Nitrogen 5 mg/dL (9-23); Glucose 136 mg/dL (74-106); Potassium 3.2 mmol/L (3.5-5.1)
[2024-04-22] MEDS ORDERED: POTASSIUM CHL 20MEQ/100ML 100 ML IV SCH (08:30)
[2024-04-22] MEDS ORDERED: POTASSIUM EFFERVESENT TAB 25 MEQ PO ONE (09:00)
[2024-04-22] MEDS: POTASSIUM EFFERVESENT TAB 25 MEQ PO ONE (09:53)
[2024-04-22] MEDS: GASTROGRAFIN 120 ML SOL ONE (14:18)
[2024-04-22] MEDS: EZ PAQUE SUSP 12OZ BTL ONE (14:18)
--- NOTE | 2024-04-22 16:50 | DVHPNRES ---
Progress Note Date Seen: Apr 22, 2024 Resident Creating Document: CAROLE HERRERA RESIDENT Medical Necessity Reason Pt with a Central, PICC or Fol: No Subjective Review of Systems This is a 53-year-old female with past medical history of hypertension, type 2 diabetes mellitus, hepatitis-C, liver disease, neuropathy, bipolar disorder, schizophrenia, chronic pain, polysubstance abuse presented to the ED via EMS with altered level of consciousness. She was hyperglycemic on admission and the blood sugar was 422 with normal anion gap metabolic acidosis. Patient was seen and examined at the bedside. She is alert oriented x4. No overnight complaints. Patient is discharged and accepted in [place] for higher level of care for possible management of esophageal mass with perforation and waiting in the hospital because of the bed availability. Gastrografin esophagus study and revealed Irregular , amorphous contrast collection at the anterior portion of the GE juntion. Consideration for perforation is suggested. Consulted surgery for further evaluation of possible perforation of esophagus. CT abdomen without contrast demonstrated fluid and air collection adjacent to the stomach corresponding to the abnormality on recent CT and consider an ulcerated mass, contained perforation or diverticulum. GI recommended the patient is not a candidate for endoscopic evaluation at this time. Consulted secondary social studies teacher to transfer higher level of care for management of possible esophageal mass with perforation. Objective vital signs Vital Sign Date Time Temp Pulse Resp B/P (MAP) Pulse Ox O2 Delivery O2 Flow Rate FiO2 04/22/24 12:52 98.0 117 18 141/93 (109) 92 98.0 04/22/24 10:00 Room Air* 0 21 Total Intake and Output 04/21/24 04/21/24 04/22/24 15:00 23:00 07:00 Intake Total 50 ml 780 ml 675 ml Output Total 1080 ml 1200 ml Balance 50 ml -300 ml -525 ml medications Current Medications Medications Dose Ordered Sig/Polo Route Start Time Stop Time Status Last Admin Dose Admin Levalbuterol HCl 0.625 mg Q6HPRN PRN NEB 04/15/24 21:00 Cancel Morphine Sulfate 4 mg Q4HPRN PRN IV 04/16/24 10:45 04/22/24 10:51 4 MG Acetaminophen 650 mg Q8HP PO 04/16/24 10:45 04/22/24 05:59 650 MG Diagnostic Test (Pha) 1 strip ACHS 04/17/24 07:00 04/22/24 11:44 1 STRIP Insulin Human Regular ACHS SC 04/17/24 07:00 04/22/24 11:43 4 UNITS Dextrose 50 ml UD PRN IV 04/17/24 06:45 Pantoprazole Sodium 40 mg BID IV 04/17/24 10:00 04/22/24 09:03 40 MG Insulin Glargine 12 units DAILY@1000 SC 04/19/24 10:00 04/22/24 09:07 12 UNITS Buspirone HCl 10 mg BID PO 04/19/24 22:00 04/22/24 09:03 10 MG Duloxetine HCl 30 mg DAILY PO 04/19/24 13:58 04/22/24 09:03 30 MG Trazodone HCl 50 mg HS PO 04/19/24 22:00 Lamotrigine 25 mg DAILY PO 04/19/24 13:58 04/22/24 09:03 25 MG Lorazepam 1 mg Q6HP PRN IV 04/19/24 14:15 Examination Physical examination: General Appearance: Alert, Oriented X3, Cooperative, No acute distress HEENT: Atraumatic, PERRLA, EOMI, Mucous membrane moist/pink Respiratory: Clear to auscultation, Normal air movement Cardiovascular: Regular rate, Normal S1, Normal S2, No murmurs, no chest wall tenderness Abdominal: Normal bowel sounds, Soft, No tenderness, No hepatospenomegaly, No masses Extremities: No clubbing, No cyanosis, No edema, Normal pulses, No tenderness/swelling Skin: No rashes, No breakdown, No significant lesion Neuro: Normal gait, Normal speech, Strength at 5/5 X4 ext, Normal tone, Sensation intact, grossly intact cranial nerves. Psych/Mental Status: Mental status NL, Mood NL laboratory and microbiology Laboratory Tests 04/22/24 06:18 Test 04/22/24 06:18 Range/Units Serum Glucose 136 H 74-106 mg/dL Microbiology Date/Time Source Procedure Growth Status 04/18/24 13:10 Blood Blood Culture - Preliminary NO GROWTH AFTER 72 HOURS OF INCUBATION. 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 No oral contrast is seen in this collection at this time. Contrast is seen in the colon. Consider an ulcerated esophageal mass, contained perforation or diverticulum. Endoscopy is recommended. Worsening bilateral pleural effusions with associated bibasilar consolidation. Likely focal fatty infiltration in the liver along the falciform ligament. Shotty retroperitoneal lymphadenopathy. Multiple thoracic and lumbar compression fractures. - Gastrografin esophagus study and revealed Irregular , amorphous contrast collection at the anterior portion of the GE juntion. Consideration for perforation is suggested. 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 - CXR: No active cardiopulmonary disease. Possible hiatal hernia. - Head CT: No acute intracranial abnormality. Limited evaluation due to patient positioning few small left-sided mastoid effusion. - Extremity venous study: No sonographic evidence for DVT in the lower extremities - CTA chest with IV contrast: No large central pulmonary embolism. Wall thickening of the distal esophagus with an adjacent abnormal fluid collection with a small focus of enhancement. An esophageal mass is not excluded. A paraesophageal hernia could have a similar appearance. Also consider paraesophageal pathology or a loculated pleural effusion. Multiple thoracic compression fractures including possible acute/ subacute fractures at T10 and T11. - Recent blood culture revealed no growth in 24 hours of incubation. Emphysematous cystitis - Ordered bladder scan Possible malnourished - supplemented folic acid, thiamine Distal esophageal wall thickening, ruling out esophageal mass Melena - Stool occult blood + - IV Protonix b.i.d. -Gastrografin esophagus study and revealed Irregular , amorphous contrast collection at the anterior portion of the GE juntion. Consideration for perforation is suggested -CT abdomen without contrast on 04/20/23 demonstrated Fluid and air collection adjacent to the stomach corresponding to abnormality seen on recent CT and upper GI. No oral contrast is seen in this collection at this time. Contrast is seen in the colon. Consider an ulcerated esophageal mass, contained perforation or diverticulum. Endoscopy is recommended - GI mentioned the patient is not a candidate for endoscopic evaluation at this time recommended transfer to higher level of care for management of possible esophageal mass with perforation - Patient is discharged and accepted in [place] for management of esophageal mass with perforation and staying in the hospital because of the bed availability. Multiple thoracic compression fractures including possible acute/subacute fractures at T10 and T11 - Tylenol 625 mg 3 times a day - IV morphine 4 mg q.4 hours as needed for severe pain Hyperglycemia with normal anion gap, Hb A1c greater than 14% - Insulin Lantus 12 units q.a.m. - mild sliding scale insulin KARRI likely due to VMN/hemodynamically mediated resolved Holding DVT prophylaxis as GI bleed suspected Goals of care: Full code, discussed for >16 minutes on 04/15/2024 Plan discussed with patient Plan discussed with Dr. Warner Plan discussed with: Patient, Other Dietary Evaluation Review Comments: 1) Advance pt diet when medically feasible to a CCHO 45g/2gmNa diet Expected Outcomes/Goals: F/U in 3-5 days Date of Service: Apr 22, 2024 Billing Provider: JOSE MANUEL LUCERO MD Common Visit Codes: [id number] INP/OBS CARE(HIGH) CAROLE HERRERA RESIDENT Apr 22, 2024 16:50 JOSE MANUEL LUCERO MD Apr 25, 2024 16:38
[2024-04-23] VITALS (9 sets, daily range): BP systolic 105–127; BP diastolic 67–86; PULSE 101–117; RESP 17–19; TEMP 97.9–98.5; O2SAT 91–97
[2024-04-23 06:38] LABS: Basophils # (auto) 0.1 10 ^3/uL (0-0.2); Basophils % (auto) 0.5 % (0.0-2.0); Eosinophils # (auto) 0.1 10 ^3/uL (0-0.8); Hematocrit 34.5 % (36.0-46.0); Hemoglobin 11.2 g/dL (12.2-16.2); Monocytes # (auto) 0.9 10 ^3/uL (0-1.3)
[2024-04-23 06:41] LABS: Eosinophils % (auto) 0.4 % (0.0-7.0); Lymphocytes # (auto) 2.7 10 ^3/uL (0.4-5.4); Lymphocytes % (auto) 15.6 % (10.0-50.0); Mean Corpuscular Hemoglobin 27.5 pg (28.0-32.0); Mean Corpuscular Hgb Conc. 32.5 g/dL (32.0-36.0); Mean Corpuscular Volume 84.7 fL (80.0-100.0); Neutrophils # (auto) 13.8 10 ^3/uL (1.6-8.6); Neutrophils % (auto) 78.5 % (37.0-80.0); Platelet Count (auto) 564 10^3/uL (140-450); Red Blood Cells 4.07 10^6/uL (4.0-5.20); Red Cell Distribution Width 15.8 % (11.8-14.3); White Blood Cell 17.5 10^3/uL (4.4-10.8)
[2024-04-23 06:48] LABS: Anion Gap 7 (5-15); Carbon Dioxide 26 mmol/L (20-31); Chloride 100 mmol/L (98-107); Potassium 4.3 mmol/L (3.5-5.1)
[2024-04-23 06:54] LABS: BUN/Creatinine Ratio 11.6 (10.0-20.0)
[2024-04-23 06:57] LABS: Blood Urea Nitrogen 5 mg/dL (9-23); Glucose 242 mg/dL (74-106); Sodium 133 mmol/L (136-145)
[2024-04-23] MEDS ORDERED: TPN PER PHARMACY 0 ML IV SCH (12:30)
[2024-04-23] MEDS ORDERED: DEXTROSE (50%) 50ML SYRG IV SCH (14:00)
[2024-04-23] MEDS: PIPERACILLIN-TAZOB 3.375GM 100 ML IV SCH (14:59)
[2024-04-23 15:06] LABS: INR 0.98 (0.9-1.15); Partial Thromboplastin Time 27.9 SEC (24.5-34.5); Prothrombin Time 10.4 sec (9.3-11.8)
[2024-04-23] MEDS ORDERED: CLINIMIX PER PHARMACY 0 ML IV SCH (15:15)
--- NOTE | 2024-04-23 15:16 | DVHPNRES ---
Progress Note Date Seen: Apr 23, 2024 Resident Creating Document: CALVIN FELTON RESIDENT Has the PT tested + for MRSA If YES, has PT been informed?: No Medical Necessity Reason Pt with a Central, PICC or Fol: No Subjective Review of Systems This is a 53-year-old female with past medical history of hypertension, type 2 diabetes mellitus, hepatitis-C, liver disease, neuropathy, bipolar disorder, schizophrenia, chronic pain, polysubstance abuse presented to the ED via EMS with altered level of consciousness. She was hyperglycemic on admission and the blood sugar was 422 with normal anion gap metabolic acidosis. Patient seen and examined at bedside. Patient was complaining of being hungry and having pain at the level of the chest. We will keep the patient on the same full liquid diet, we explained to the patient that she should not be eating anything by mouth due to possible risk of esophageal perforation and worsening of symptoms. Since the patient has not been getting enough caloric nutrition in the past days, will start clinimix until the patient gets transferred to higher level of care for further assessment and evaluation of possible esophageal perforation. WBC is also being elevated in the past recent days so we restart back on IV Zosyn. We are still waiting for transfer to higher level of care. ROS Constitutional: Reports feeling hungry. Denies weight loss, fever and chills. HEENT: Denies changes in vision and hearing. Respiratory: Denies shortness of breath and cough Cardiovascular: Reports chest discomfort. Denies palpitation GI: Denies abdominal pain, nausea, vomiting and diarrhea. : Denies dysuria and urinary frequency. Musculoskeletal: Denies myalgias and joint pain Skin: Denies rash and pruritus. Neurological: Denies dizziness, headache, vision or hearing problems Objective vital signs Vital Sign Date Time Temp Pulse Resp B/P (MAP) Pulse Ox O2 Delivery O2 Flow Rate FiO2 04/23/24 13:00 98.2 112 18 124/81 (95) 91 98.2 04/22/24 20:00 Room Air* 0 21 Total Intake and Output 04/22/24 04/22/24 04/23/24 15:00 23:00 07:00 Intake Total 540 ml 400 ml Output Total 800 ml 900 ml Balance -260 ml -500 ml medications Current Medications Medications Dose Ordered Sig/Polo Route Start Time Stop Time Status Last Admin Dose Admin Levalbuterol HCl 0.625 mg Q6HPRN PRN NEB 04/15/24 21:00 Cancel Morphine Sulfate 4 mg Q4HPRN PRN IV 04/16/24 10:45 04/23/24 10:40 4 MG Acetaminophen 650 mg Q8HP PO 04/16/24 10:45 04/22/24 21:20 650 MG Pantoprazole Sodium 40 mg BID IV 04/17/24 10:00 04/23/24 10:39 40 MG Insulin Glargine 12 units DAILY@1000 SC 04/19/24 10:00 04/23/24 10:54 12 UNITS Buspirone HCl 10 mg BID PO 04/19/24 22:00 04/23/24 10:39 10 MG Duloxetine HCl 30 mg DAILY PO 04/19/24 13:58 04/23/24 10:39 30 MG Trazodone HCl 50 mg HS PO 04/19/24 22:00 Lamotrigine 25 mg DAILY PO 04/19/24 13:58 04/23/24 10:39 25 MG Lorazepam 1 mg Q6HP PRN IV 04/19/24 14:15 Piperacillin Sod/ Tazobactam Sod 100 ml @ 25 mls/hr Q8HR IV 04/23/24 14:00 Amino Acids 0 ml @ 0 mls/hr PER PHARMACY IV 04/23/24 12:30 Diagnostic Test (Pha) 1 strip Q6HR 04/23/24 18:00 Insulin Human Regular FOLLOW SLIDING SCALE Q6HR SC 04/23/24 18:00 Dextrose 50 ml UD IV 04/23/24 14:00 Examination Physical Examination General: Patient alert and oriented in person, place and time. Patient following commands. HEENT: Normocephalic, atraumatic, moist mucous membranes Respiratory/pulmonary: Clear lungs bilaterally, no associated crackles or wheezes. Cardiovascular: Normal heart sounds S1 and S2 with no associated murmurs Abdomen: Abdomen nondistended, there is no pain to palpation in any of the abdominal quadrants, no palpable masses. Extremities: There is no peripheral edema present at the lower extremities. Peripheral Pulses: 3+ Radial (R). 3+ Radial (L). 3+ Dorsalis pedis (R). 3+ Dorsalis pedis(L) Skin: No rashes or pruritus, there is no sacral edema present at this time. Neurological: Intact cranial nerves with no focal neurologic deficits laboratory and microbiology Laboratory Tests 04/23/24 05:47 Test 04/23/24 05:47 Range/Units Serum Glucose 242 H 74-106 mg/dL Microbiology Date/Time Source Procedure Growth Status 04/18/24 13:10 Blood Blood Culture - Final NO GROWTH AFTER 5 DAYS OF INCUBATION. 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 No oral contrast is seen in this collection at this time. Contrast is seen in the colon. Consider an ulcerated esophageal mass, contained perforation or diverticulum. Endoscopy is recommended. Worsening bilateral pleural effusions with associated bibasilar consolidation. Likely focal fatty infiltration in the liver along the falciform ligament. Shotty retroperitoneal lymphadenopathy. Multiple thoracic and lumbar compression fractures. - Gastrografin esophagus study and revealed Irregular , amorphous contrast collection at the anterior portion of the GE juntion. Consideration for perforation is suggested. 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 - CXR: No active cardiopulmonary disease. Possible hiatal hernia. - Head CT: No acute intracranial abnormality. Limited evaluation due to patient positioning few small left-sided mastoid effusion. - Extremity venous study: No sonographic evidence for DVT in the lower extremities - CTA chest with IV contrast: No large central pulmonary embolism. Wall thickening of the distal esophagus with an adjacent abnormal fluid collection with a small focus of enhancement. An esophageal mass is not excluded. A paraesophageal hernia could have a similar appearance. Also consider paraesophageal pathology or a loculated pleural effusion. Multiple thoracic compression fractures including possible acute/ subacute fractures at T10 and T11. - Recent blood culture revealed no growth in 24 hours of incubation. Distal esophageal wall thickening, ruling out esophageal mass Possible esophageal perforation Melena - Stool occult blood + - IV Protonix b.i.d. -Gastrografin esophagus study and revealed Irregular , amorphous contrast collection at the anterior portion of the GE juntion. Consideration for perforation is suggested -CT abdomen without contrast on 04/20/23 demonstrated Fluid and air collection adjacent to the stomach corresponding to abnormality seen on recent CT and upper GI. No oral contrast is seen in this collection at this time. Contrast is seen in the colon. Consider an ulcerated esophageal mass, contained perforation or diverticulum. Endoscopy is recommended - GI mentioned the patient is not a candidate for endoscopic evaluation at this time recommended transfer to higher level of care for management of possible esophageal mass with perforation - Patient is discharged and accepted in [place] for management of esophageal mass with perforation and staying in the hospital because of the bed availability. -WBC is been elevated for which we started again IV antibiotics. Continue IV Zosyn -still waiting to transfer for higher level of care Possible malnourished - supplemented folic acid, thiamine -Start clinimix Multiple thoracic compression fractures including possible acute/subacute fractures at T10 and T11 - Tylenol 625 mg 3 times a day - IV morphine 4 mg q.4 hours as needed for severe pain Hyperglycemia with normal anion gap, Hb A1c greater than 14% - Insulin Lantus 12 units q.a.m. - mild sliding scale insulin KARRI likely due to VMN/hemodynamically mediated resolved Last BUN and creatinine were five and 0.45 respectively. -monitor kidney function Plan discussed with: Patient My Orders My Orders Orders - CALVIN FELTON RESIDENT Procedure Category Date Status Time Piperacillin-Tazob PHA 04/23/24 In Process 3.375gm (Zosyn 3.375g 14:00 Tpn Per Pharmacy PHA 04/23/24 In Process 12:30 * Picc Line Consult CONS 04/23/24 Transmitted 12:19 PTPTT LAB 04/23/24 In Process 13:15 Glucose Blood PHA 04/23/24 In Process (Accu-Chek Comfort 18:00 Insulin R (Human) PHA 04/23/24 In Process (Insulin R) 18:00 Dextrose 50% Syringe PHA 04/23/24 In Process 14:00 Comprehensive LAB 04/24/24 Verified Metabolic Panel 04:00 Magnesium LAB 04/24/24 Verified 04:00 Phosphorus LAB 04/24/24 Verified 04:00 Triglycerides LAB 04/24/24 Verified 04:00 Tpn Per Pharmacy ANASTASIA 04/23/24 In Process 22:00 Amino Acid Infusion PHA 04/23/24 In Process In D10w (Clinimix 4. 22:00 Dietary Evaluation Review Comments: 1) Advance pt diet when medically feasible to a [facility] 45g/2gmNa diet Expected Outcomes/Goals: F/U in 3-5 days CALVIN FELTON RESIDENT Apr 23, 2024 15:16
[2024-04-23] MEDS: ACCU-CHEK COMFORT CURVE STRIP VI SCH (18:36)
[2024-04-23] MEDS: InsuLIN REG 1unit/0.01ml Soln (100units/ml) SC SCH (18:40)
[2024-04-23] MEDS: AMINO ACID INFUSION IN D10W 1,000 ML IV SCH (22:00)
== END 2024-04-23 22:25 | disposition short-term general hospital (02) | DRG 720 ==
LOC: ER 19:38 → EDBD 19:38 → EDUNIT# 19:38 → OVERFLOW 23:23 → WEST WING 04-15 21:32 → TELE-WESTW 04-15 23:06
PROVIDERS: ADMIT Student in an Organized Health Care Education/Training Program; ATTEND Student in an Organized Health Care Education/Training Program
DX: A41.9 Sepsis, unspecified organism (principal); N17.0 Acute kidney failure with tubular necrosis; K22.3 Perforation of esophagus; G92.8 Other toxic encephalopathy; E46 Unspecified protein-calorie malnutrition; E87.20 Acidosis, unspecified; N30.00 Acute cystitis without hematuria; Z20.822 Contact with and (suspected) exposure to COVID-19; E11.65 Type 2 diabetes mellitus with hyperglycemia; Z59.00 Homelessness unspecified; Z68.1 Body mass index [BMI] 19.9 or less, adult; K92.1 Melena; M48.54XA Collapsed vertebra, not elsewhere classified, thoracic region, initial encounter for fracture; E87.6 Hypokalemia; E83.42 Hypomagnesemia; F17.210 Nicotine dependence, cigarettes, uncomplicated; K21.9 Gastro-esophageal reflux disease without esophagitis; F20.9 Schizophrenia, unspecified; I10 Essential (primary) hypertension; F31.9 Bipolar disorder, unspecified; E11.40 Type 2 diabetes mellitus with diabetic neuropathy, unspecified; G89.29 Other chronic pain; E87.3 Alkalosis; K22.9 Disease of esophagus, unspecified; Z88.8 Allergy status to other drugs, medicaments and biological substances; Z90.710 Acquired absence of both cervix and uterus; Z82.49 Family history of ischemic heart disease and other diseases of the circulatory system; Z80.7 Family history of other malignant neoplasms of lymphoid, hematopoietic and related tissues
CPT/HCPCS: 36415; 36600; 70450; 71045; 71260; 74150; 74177; 74220; 80048; 80053; 80307; 80320; 81001; 81025; 82010; 82140; 82270; 82805; 82962; 83605; 83690; 83735; 83930; 84100; 84702; 85025; 85610; 85730; 87040; 87077; 87081; 87086; 87186; 87426; 87804; 93005; 93970; 94640; 97163; 97530; 99291; G0378; J1815; J2003; J2185; J2470; J2543; J3480

== ENCOUNTER 2024-08-05 23:36 | Inpatient (IN) | payer MEDICAID ==
[~2024-08-05] VITALS: Ht 160 cm; Wt 38.0 kg
[~2024-08-05 23:36] MED LIST changes: -ERGO1CAP23 PO; -GABA-1251 PO; -GLIM1TAB PO; -INSLANTI SC; -INSU100I51 SC; +INSU1INJ19 SC; -INSU1INJ27 SC; -METF-370 PO; -MULT-351 PO; -NIC21P TD; -QUET1TAB11 PO
--- NOTE | 2024-08-06 | ED.PDOC ---
History of present illness HPI Comments 54-year-old female who came to ER via EMS for hyperglycemia. Patient has history of hypertension, diabetes, substance abuse, schizophrenia. Seen and admitted here multiple times for diabetic ketoacidosis. Patient claims she has good compliance to her medications. Patient also states that she is currently being managed for her Clostridium difficile infection, presenting with abdominal pain and diarrhea. Blood sugar on scene was 596 Chief Complaint: Hyperglycemia Time Seen by MD: 23:59 Primary Care Provider: UNKNOWN Allergies: Coded Allergies: Ciprofloxacin (Verified Allergy, Intermediate, Hives, 03/22/24) Patient broke out in hives, and rash Metronidazole (Verified Allergy, Intermediate, Hives, 03/22/24) Patient broke out in hives and skin rash Home Meds Active Scripts Gabapentin (Gabapentin) 300 Mg Cap, 1 CAP PO TID for 30 Days, #90 CAP 5 Refills Prov:MEREDITH DANIELS RESIDENT 03/27/24 Duloxetine HCl (Duloxetine HCl) 30 Mg Cap, 30 MG PO DAILY for 30 Days, #30 CAP 3 Refills Prov:MEREDITH DANIELS RESIDENT 03/27/24 Reported Medications Insulin Glargine (Basaglar Kwikpen) 100 Unit/Ml Inj, SC 04/15/24 Insulin Lispro (Insulin Lispro) 100 Unit/Ml Inj, 10 UNITS SC TID 06/25/23 Acetaminophen (Acetaminophen Extra Stren) 500 Mg Tab, 1 TAB PO Q6HR PRN 06/25/23 Lamotrigine (Lamictal) 25 Mg Tab, 1 TAB PO DAILY 06/25/23 Trazodone Hcl (Trazodone Hcl) 50 Mg Tab, 1 TAB PO DAILY 06/25/23 Duloxetine Hcl (Cymbalta) 20 Mg Cap, 30 MG PO DAILY 06/25/23 Buspirone Hcl (Buspirone Hcl) 10 Mg Tab, 1 TAB PO BID 10/05/21 Information Source: Patient, Emergency Med Personnel Mode of Arrival: EMS Timing: Days Duration: Intermittent [place]: Shaky, Sweaty Symptoms: Anxious, Shaky, Sweaty History of: Diabetes Associated signs and symptoms: None Past Medical History PAST MEDICAL HISTORY: Depression, DM, GERD, HTN, Liver, Schizophrenia, UTI'S Surgical History: , Hysterectomy TRAFFIC SUPERINTENDENT History: No Pertinent TRAFFIC SUPERINTENDENT History Family History Family History: Reviewed,noncontributory to illness, Family hx of HTN Social History Smoker: Cigarettes Alcohol: Occasionally Drugs: Marijuana, Methamphetamine Lives In: Homeless Constitutional: denies: chills, diaphoresis, fatigue, fever, malaise, sweats, weakness, others EENTM: denies: blurred vision, double vision, ear bleeding, ear discharge, ear drainage, ear pain, ear ringing, eye pain, eye redness, hearing loss, mouth pain, mouth swelling, nasal discharge, nose bleeding, nose congestion, nose pain, photophobia, tearing, throat pain, throat swelling, voice changes, others Respiratory: denies: cough, hemoptysis, orthopnea, SOB at rest, shortness of breath, SOB with excertion, stridor, wheezing, others Cardiovascular: denies: chest pain, dizzy spells, diaphoresis, Dyspnea on exertion, edema, irregular heart beat, left arm pain, lightheadedness, palpitations, PND, syncope, others Gastrointestinal: reports: abdominal pain, diarrhea; denies: abdomen distended, blood streaked bowels, constipated, dysphagia, difficulty swallowing, hematemesis, melena, nausea, poor appetite, poor fluid intake, rectal bleeding, rectal pain, vomiting, others Genitourinary: denies: abnormal vagina bleeding, burning, dyspareunia, dysuria, flank pain, frequency, hematuria, incontinence, pain, , vagina discharge, urgency, others Neurological: reports: weakness; denies: dizziness, fainting, headache, left sided numbness, left sided weakness, numbness, paresthesia, pre-existing deficit, right sided numbness, right sided weakness, seizure, speech problems, tingling, tremors, others Musculoskeletal: denies: back pain, gout, joint pain, joint swelling, muscle pain, muscle stiffness, neck pain, others Integumetry: denies: bruises, change in color, change in hair/nails, dryness, laceration, lesions, lumps, rash, wounds, others Allergic/Immunocompromised: denies: Difficulty Healing, Frequent Infections, Hives, Itching, others Hematologic/Lymphatic: denies: anemia, blood clots, easy bleeding, easy bruising, swollen glands, others Endocrine: denies: excessive hunger, excessive sweating, excessive thirst, excessive urination, flushing, intolerance to cold, intolerance to heat, unexplained weight gain, unexplained weight loss, others Psychiatric: reports: anxiety; denies: bipolar disorder, depression, hopeless, panic disorder, schizophrenia, sleepless, suicidal, others Physical Exam General Appearance: No Apparent Distress, Normal HEENT: Normal ENT Inspection, Pharynx Normal, TMs Normal Neck: Full Range of Motion, Non-Tender, Normal, Normal Inspection Respiratory: Chest Non-Tender, Lungs Clear, No Accessory Muscle Use, No Respiratory Distress, Normal Breath Sounds Cardiovascular: No Edema, No JVD, No Murmur, No Gallop, Normal Peripheral Pulses, Regular Rate/Rhythm Breast Exam: Deferred Gastrointestinal: No Organomegaly, Non Tender, No Pulsatile Mass, Normal Bowel Sounds, Soft Genitalia: Deferred Pelvic: Deferred Rectal: Deferred Extremities: No calf tenderness, Normal capillary refill, Normal inspection, Normal range of motion, Non-tender, No pedal edema Musculoskeletal : Apperance: Normal Neurologic: Alert, ep tech II-XII nml as Tested, No Motor Deficits, Normal Affect, Normal Mood, No Sensory Deficits Cerebellar Function: Normal Reflexes: Normal Skin: Dry, Normal Color, Warm Lymphatic: No Adenopathy Was a procedure done? Was a procedure done?: No Differential Diagnosis (DM) Differential Diagnosis: DKA, Encephalopathy, Gastritis, Hyperglycemia, UTI X-Ray, Labs, Meds, VS Vital Signs Date Time Temp Pulse Resp B/P (MAP) Pulse Ox O2 Delivery O2 Flow Rate FiO2 08/05/24 23:36 97.6 98 18 116/78 (91) 99 97.6 Lab Test 08/06/24 00:37 08/06/24 00:12 08/05/24 23:54 Range/Units Urine Color Colorless Yellow Urine Clarity Clear Clear Urine pH 6.0 5.0-9.0 Urine Specific [place] 1.023 1.001-1.035 Urine Protein Negative Negative Urine Ketones Negative Negative Urine Blood Negative Negative /uL Urine Nitrite Negative Negative Urine Bilirubin Negative Negative Urine Urobilinogen Normal Negative mg/dL Urine Leukocyte Esterase 2+ Negative /uL Urine RBC 7 0 - 4 /hpf Urine Microscopic WBC 25 H 0-5 /HPF Urine Squamous Epithelial Cells Few <5 /hpf Urine Bacteria None seen None Seen /hpf Urine Yeast (Budding) Moderate None Seen /hpf Urine Glucose 4+ H Normal mg/dL White Blood Count 9.6 4.4-10.8 10^3/uL Red Blood Count 3.43 L 4.0-5.20 10^6/uL Hemoglobin 9.7 L 12.2-16.2 g/dL Hematocrit 31.0 L 36.0-46.0 % Mean Corpuscular Volume 90.5 80.0-100.0 fL Mean Corpuscular Hemoglobin 28.3 28.0-32.0 pg Mean Corpuscular Hemoglobin Concent 31.2 L 32.0-36.0 g/dL Red Cell Distribution Width 23.2 H 11.8-14.3 % Platelet Count 411 140-450 10^3/uL Mean Platelet Volume 7.5 6.9-10.8 fL Neutrophils (%) (Auto) 64.4 37.0-80.0 % Lymphocytes (%) (Auto) 24.8 10.0-50.0 % Monocytes (%) (Auto) 5.9 0.0-12.0 % Eosinophils (%) (Auto) 3.6 0.0-7.0 % Basophils (%) (Auto) 1.3 0.0-2.0 % Neutrophils # (Auto) 6.1 1.6-8.6 10 ^3/uL Lymphocytes # (Auto) 2.4 0.4-5.4 10 ^3/uL Monocytes # (Auto) 0.6 0-1.3 10 ^3/uL Eosinophils # (Auto) 0.3 0-0.8 10 ^3/uL Basophils # (Auto) 0.1 0-0.2 10 ^3/uL Nucleated Red Blood Cells 0.0 % Blood Gas Specimen Type Venous Blood Gas Sample Site Other Blood Gas Patient Temperature 37.0 Arterial Blood Date Drawn [id number] Stephan Test N/a Venous Blood pH 7.342 7.320-7.430 Venous Blood pCO2 at Patient Temp 30.7 L 38.0-54.0 mmHg Venous Blood pO2 at Patient Temp 66.5 H 23.0-48.0 mmHg Venous Blood HCO3 16.3 L 22.0-29.0 mmol/L Venous Blood Base Excess -8.1 L -2.0-3.0 mmol/L Blood Gas Modality Room air FiO2 % 21.0 Sodium Level 138 136-145 mmol/L Potassium Level 3.6 3.5-5.1 mmol/L Chloride Level 112 H 98-107 mmol/L Carbon Dioxide Level 19 L 20-31 mmol/L Anion Gap 7 5-15 Blood Urea Nitrogen 13 9-23 mg/dL Creatinine 0.69 0.550-1.02 mg/dL Glomerular Filtration Rate Calc 104 >90 mL/min BUN/Creatinine Ratio 18.8 10.0-20.0 Serum Glucose 500 *H 74-106 mg/dL Lactic Acid Level 2.7 *H 0.4-2.0 mmol/L Calcium Level 7.9 L 8.7-10.4 mg/dL Beta-Hydroxybutyric Acid 0.130 < 0.4 mmol/L POC Glucose 484 *H 70-106 mg/dl Time of 1ST Reevaluation: 23:47 Reevaluation 1ST: Unchanged Patient Education/Counseling: Diagnosis, Treatment Family Education/Counseling: No Family Present Departure 1 Departure Time of Disposition: 01:41 (Patient with a uncontrolled diabetes complicated UTI. We will empirically cover patient with antibiotics admit patient for further workup) Impression: Primary Impression: Complicated UTI (urinary tract infection) Additional Impression: Uncontrolled diabetes mellitus Qualified Codes: E11.65 - Type 2 diabetes mellitus with hyperglycemia Disposition: ADMITTED INPATIENT Admit to: Med Surg Condition: Serious Critical Care Note Critical Care Time?: Yes (35 min-critical care time only) Critical care comment: Hyperglycemia Authorized and Performed by: Jayson Justice MD Total critical care time: Approximately 39 minutes Due to a high probability of clinically significant, life threatening deterioration, the patient required my highest level of preparedness to intervene emergently and I personally spent this critical care time directly and personally managing the patient. This critical care time included obtaining a history; examining the patient; pulse oximetry; ordering and review of studies; arranging urgent treatment with development of a management plan; evaluation of patient's response to treatment; frequent reassessment; and, discussions with other providers. This critical care time was performed to assess and manage the high probability of imminent, life-threatening deterioration that could result in multi-organ failure. It was exclusive of separately billable procedures and treating other patients and teaching time. Please see my other sections and the rest of the note for further information on patient assessment and treatment. Stability Stability form required: No Heart Score Heart Score: Heart Score Response (Comments) Value History N/A 0 EKG N/A 0 Age N/A 0 Risk Factors N/A 0 Troponin N/A 0 Total 0 I personally scribed for JAYSON JUSTICE MD ([email or web address]) on 08/06/24 at 00:00. Electronically submitted by Glenroy Hurt ([email or web address]). JAYSON JUSTICE MD August 06, 2024 00:00
[2024-08-06 00:33] LABS: Basophils # (auto) 0.1 10 ^3/uL (0-0.2); Eosinophils # (auto) 0.3 10 ^3/uL (0-0.8); Monocytes # (auto) 0.6 10 ^3/uL (0-1.3)
[2024-08-06 00:35] LABS: Basophils % (auto) 1.3 % (0.0-2.0); Eosinophils % (auto) 3.6 % (0.0-7.0); Hemoglobin 9.7 g/dL (12.2-16.2); Lymphocytes # (auto) 2.4 10 ^3/uL (0.4-5.4); Lymphocytes % (auto) 24.8 % (10.0-50.0); Mean Corpuscular Hemoglobin 28.3 pg (28.0-32.0); Mean Corpuscular Hgb Conc. 31.2 g/dL (32.0-36.0); Mean Corpuscular Volume 90.5 fL (80.0-100.0); Monocytes % (auto) 5.9 % (0.0-12.0); Neutrophils # (auto) 6.1 10 ^3/uL (1.6-8.6); Neutrophils % (auto) 64.4 % (37.0-80.0); Platelet Count (auto) 411 10^3/uL (140-450); Red Blood Cells 3.43 10^6/uL (4.0-5.20); Red Cell Distribution Width 23.2 % (11.8-14.3); White Blood Cell 9.6 10^3/uL (4.4-10.8)
[2024-08-06 00:38] LABS: Urine Bacteria None Seen /hpf (None Seen)
[2024-08-06 00:42] LABS: Potassium 3.6 mmol/L (3.5-5.1); Sodium 138 mmol/L (136-145)
[2024-08-06 00:43] LABS: Anion Gap 7 (5-15)
[2024-08-06 00:45] LABS: Urine Blood Negative /uL (Negative); Urine Budding Yeast MODERATE /hpf (None Seen); Urine Clarity Clear (Clear); Urine Color Colorless (Yellow); Urine Protein, UAD Negative (Negative); Urine Specific Gravity 1.023 (1.001-1.035); Urine Squamous Epithelial Cell FEW /hpf (<5); Urine Urobilinogen Normal (Negative); Urine WBC 25 /HPF (0-5)
[2024-08-06 00:46] LABS: Calcium 7.9 mg/dL (8.7-10.4); Carbon Dioxide 19 mmol/L (20-31); Chloride 112 mmol/L (98-107)
[2024-08-06 00:48] LABS: BUN/Creatinine Ratio 18.8 (10.0-20.0); Blood Urea Nitrogen 13 mg/dL (9-23)
[2024-08-06 00:53] LABS: Glucose 500 mg/dL (74-106)
[2024-08-06 00:54] LABS: Lactic Acid w/Reflex 2.7 mmol/L (0.4-2.0)
[2024-08-06] MEDS: InsuLIN REG 1unit/0.01ml Soln (100units/ml) IV ONE (02:11)
[2024-08-06] MEDS: ONDANSETRON HCL 4 MG/2 ML VIAL IV ONE (02:11)
[2024-08-06] MEDS: cefTRIAXone 1GM/50ML D5W 50 ML IV ONE (02:21)
[2024-08-06] MEDS: SODIUM CHLORIDE 0.9% 1,000 ML IV ONE (02:21)
[2024-08-06] MEDS ORDERED: DOCUSATE SOD 100 MG CAP PO PRN (02:45)
[2024-08-06] MEDS ORDERED: ACETAMINOPHEN 325 MG TAB PO PRN (02:45)
[2024-08-06] MEDS ORDERED: ONDANSETRON HCL 4 MG/2 ML VIAL IV PRN (02:45)
[2024-08-06] MEDS ORDERED: DEXTROSE (50%) 50ML SYRG IV PRN ×2 (02:45→20:00)
[2024-08-06 02:46] VITALS: PULSE 88; RESP 15; O2SAT 91
[2024-08-06] MEDS ORDERED: MORPHINE SULFATE INJ 2 MG/ml SYRG IV PRN (03:30)
[2024-08-06] MEDS ORDERED: NITROGLYCERIN 0.4 MG SL TAB SL PRN (03:30)
--- NOTE | 2024-08-06 03:32 | DVHHP2 ---
History of Present Illness Reason for Visit: Complicated UTI (urinary tract infection) History of Present Illness The patient is a 54 years old female with past medical history of DM, GERD, hypertension, liver disease, depression, schizophrenia, and UTIs presented to [facility] ED for evaluation of high blood sugar. Patient is a frequent Flyer here multiple times for diabetic ketoacidosis. Patient also states that she is currently being managed for her Clostridium difficile infection, presenting with abdominal pain and diarrhea. Patient was seen and evaluated in the ED, laboratory data shows WBC 9.6, hemoglobin 9.7, hematocrit 31.0, platelets 411, sodium 138, potassium 3.6, BUN 13, creatinine 0.69, glucose 500, calcium 7.9, lactic acid 2.7, acetone 0.130. Patient was given regular insulin 10 units subQ x1, please see medication orders section in the computer. On my assessment, patient denied chest pain, no headache, no dizziness, no shortness of breath, no nausea, no vomiting, no fever, no chills. Patient was admitted for further evaluation and medical management. Past Medical History Depression, DM, GERD, HTN, Liver, Schizophrenia, UTI'S Past Surgical History , Hysterectomy Family History Reviewed, noncontributory to the management of this case. Past Social History The patient is homeless, smokes cigarettes, drinks alcohol occasionally, uses marijuana and methamphetamine. Review of Systems Constitutional: Yes: Weakness; No: Fever, Chills, Sweats, Malaise, Other Eyes: No: Pain, Vision change, Conjunctivae inflammation, Eyelid inflammation, Other, Redness ENT: No: Ear pain, Ear discharge, Nose pain, Nose discharge, Nose congestion, Mouth pain, Mouth swelling, Throat pain, Throat swelling, Other Respiratory: No: Cough, Dry, Shortness of breath, SOB with excertion, Wheezing, Hemoptysis, Pleuritic Pain, Sputum, Wheezing, Other Cardiovascular: No: Chest Pain, Palpitations, Orthopnea, Paroxysmal Noc. Dyspnea, Edema, Lt Headedness, Other Gastrointestinal: Abdominal Pain, Diarrhea; No: Nausea, Vomiting, Constipation, Melena, Hematochezia, Other Genitourinary: No Dysuria, No Frequency, No Incontinence, No Hematuria, No Retention, No Other Musculoskeletal: No: other, neck pain, shoulder pain, arm pain, back pain, hand pain, leg pain, foot pain Skin: No: Rash, Lesions, Jaundice, Bruising, Other Neurological: No: Weakness, Numbness, Incoordination, Change in speech, Confusion, Seizures, Other Allergies: Coded Allergies: Ciprofloxacin (Verified Allergy, Intermediate, Hives, 03/22/24) Patient broke out in hives, and rash Metronidazole (Verified Allergy, Intermediate, Hives, 03/22/24) Patient broke out in hives and skin rash Medications Current Medications Medications Dose Ordered Sig/Polo Route Start Time Stop Time Status Last Admin Dose Admin Famotidine 20 mg Q12HR IV 08/06/24 10:00 Trazodone HCl 50 mg HS PO 08/06/24 22:00 Ceftriaxone Sodium 50 ml @ 100 mls/hr DAILY@09 IV 08/06/24 09:00 Diagnostic Test (Pha) 1 strip IQ4HR 08/06/24 04:00 Insulin Human Regular IQ4HR SC 08/06/24 04:00 Dextrose 50 ml UD PRN IV 08/06/24 02:45 Sodium Chloride 10 ml Q8HR IV 08/06/24 06:00 Acetaminophen/ Hydrocodone Bitart 1 tab Q4HP PRN PO 08/06/24 02:45 Ondansetron HCl 4 mg Q4HP PRN IV 08/06/24 02:45 Docusate Sodium 100 mg BIDPRN PRN PO 08/06/24 02:45 Acetaminophen 650 mg Q6HP PRN PO 08/06/24 02:45 Exam Vital Signs Vital Signs Date Time Temp Pulse Resp B/P (MAP) Pulse Ox O2 Delivery O2 Flow Rate FiO2 08/06/24 02:46 88 15 91 Room Air* 0 21 08/06/24 02:46 97.0 107/63 (78) 97.0 General Appearance: Alert, Oriented X3, Cooperative, No acute distress HEENT: Atraumatic, PERRLA, EOMI, Mucous membr. moist/pink Respiratory: Clear to auscultation, Normal air movement Cardiovascular: Regular rate, Normal S1, Normal S2, No murmurs Abdominal: Normal bowel sounds, Soft, No tenderness, No hepatospenomegaly, No masses Extremities: No clubbing, No cyanosis, No edema, Normal pulses, No tenderness/swelling Skin: No rashes, No breakdown, No significant lesion Neuro: Normal speech, Normal tone, Sensation intact, Cranial nerves 3-12 NL, Reflexes 2+, Other (Generalized weakness) Psych/Mental Status: Mental status NL, Mood NL Labs/Xrays Labs Test 08/06/24 02:06 08/06/24 00:37 08/06/24 00:12 08/05/24 23:54 Range/Units Lactic Acid Level 2.1 *H 0.4-2.0 mmol/L Urine Color Colorless Yellow Urine Clarity Clear Clear Urine pH 6.0 5.0-9.0 Urine Specific [place] 1.023 1.001-1.035 Urine Protein Negative Negative Urine Ketones Negative Negative Urine Blood Negative Negative /uL Urine Nitrite Negative Negative Urine Bilirubin Negative Negative Urine Urobilinogen Normal Negative mg/dL Urine Leukocyte Esterase 2+ Negative /uL Urine RBC 7 0 - 4 /hpf Urine Microscopic WBC 25 H 0-5 /HPF Urine Squamous Epithelial Cells Few <5 /hpf Urine Bacteria None seen None Seen /hpf Urine Yeast (Budding) Moderate None Seen /hpf Urine Glucose 4+ H Normal mg/dL White Blood Count 9.6 4.4-10.8 10^3/uL Red Blood Count 3.43 L 4.0-5.20 10^6/uL Hemoglobin 9.7 L 12.2-16.2 g/dL Hematocrit 31.0 L 36.0-46.0 % Mean Corpuscular Volume 90.5 80.0-100.0 fL Mean Corpuscular Hemoglobin 28.3 28.0-32.0 pg Mean Corpuscular Hemoglobin Concent 31.2 L 32.0-36.0 g/dL Red Cell Distribution Width 23.2 H 11.8-14.3 % Platelet Count 411 140-450 10^3/uL Mean Platelet Volume 7.5 6.9-10.8 fL Neutrophils (%) (Auto) 64.4 37.0-80.0 % Lymphocytes (%) (Auto) 24.8 10.0-50.0 % Monocytes (%) (Auto) 5.9 0.0-12.0 % Eosinophils (%) (Auto) 3.6 0.0-7.0 % Basophils (%) (Auto) 1.3 0.0-2.0 % Neutrophils # (Auto) 6.1 1.6-8.6 10 ^3/uL Lymphocytes # (Auto) 2.4 0.4-5.4 10 ^3/uL Monocytes # (Auto) 0.6 0-1.3 10 ^3/uL Eosinophils # (Auto) 0.3 0-0.8 10 ^3/uL Basophils # (Auto) 0.1 0-0.2 10 ^3/uL Nucleated Red Blood Cells 0.0 % Blood Gas Specimen Type Venous Blood Gas Sample Site Other Blood Gas Patient Temperature 37.0 Arterial Blood Date Drawn [id number] Stephan Test N/a Venous Blood pH 7.342 7.320-7.430 Venous Blood pCO2 at Patient Temp 30.7 L 38.0-54.0 mmHg Venous Blood pO2 at Patient Temp 66.5 H 23.0-48.0 mmHg Venous Blood HCO3 16.3 L 22.0-29.0 mmol/L Venous Blood Base Excess -8.1 L -2.0-3.0 mmol/L Blood Gas Modality Room air FiO2 % 21.0 Sodium Level 138 136-145 mmol/L Potassium Level 3.6 3.5-5.1 mmol/L Chloride Level 112 H 98-107 mmol/L Carbon Dioxide Level 19 L 20-31 mmol/L Anion Gap 7 5-15 Blood Urea Nitrogen 13 9-23 mg/dL Creatinine 0.69 0.550-1.02 mg/dL Glomerular Filtration Rate Calc 104 >90 mL/min BUN/Creatinine Ratio 18.8 10.0-20.0 Serum Glucose 500 *H 74-106 mg/dL Calcium Level 7.9 L 8.7-10.4 mg/dL Beta-Hydroxybutyric Acid 0.130 < 0.4 mmol/L POC Glucose 484 *H 70-106 mg/dl Assessment/Plan Assessment/Plan Complicated UTI (urinary tract infection) Diarrhea Generalized weakness Uncontrolled diabetes mellitus Type 2 diabetes mellitus with hyperglycemia Plan 1. Admit to med surge unit 2. Breathing treatment 3. Pain control management 4. IV antibiotic management 5. Management of fluids and electrolytes 6. Consultation for hospitalist 7. Diagnostic test chest x-ray 8. DVT prophylaxis-on SCDs 9. Repeat labs CBC, CMP in a.m. 10. Home medication reviewed and reconciled 11. Continue with current medical management 12. Treatment plan discussed with patient and RN. Patient verbalized understanding. Plan discussed with: Patient, Other (RN) My Orders Orders - JAI RENTERIA DNP Procedure Category Date Status Time Complete Blood Count LAB 08/06/24 Logged 04:00 Comprehensive LAB 08/06/24 Logged Metabolic Panel 04:00 Urine Bacterial JAIR 08/06/24 In Process Culture 02:37 Famotidine Injection PHA 08/06/24 In Process (Pepcid Injection) 10:00 Trazodone Hcl PHA 08/06/24 In Process (Desyrel) 22:00 Ceftriaxone 1gm/50ml PHA 08/06/24 In Process D5w (Rocephin) 09:00 Consistent DIET 08/06/24 Transmitted Carb(Ccho)Diabetes Breakfast Glucose Blood PHA 08/06/24 In Process (Accu-Chek Comfort 04:00 Insulin R (Human) PHA 08/06/24 In Process (Insulin R) 04:00 Dextrose 50% Syringe PHA 08/06/24 In Process 02:45 Allergies ANASTASIA 08/06/24 In Process 02:37 Code Status CODE 08/06/24 Transmitted 02:37 Sodium Chloride Lock PHA 08/06/24 In Process (Saline Lock Ns) 06:00 Oxygen Per Hour RT 08/06/24 Transmitted 02:37 Hydrocodone-Acet PHA 08/06/24 In Process 5/325mg Tab ([place] 02:45 Ondansetron Hcl PHA 08/06/24 In Process (Zofran) 02:45 Docusate Sodium PHA 08/06/24 In Process Capsule (Colace 02:45 Complete Blood Count LAB 08/07/24 Verified 04:00 Comprehensive LAB 08/07/24 Verified Metabolic Panel 04:00 Condition: Serious ANASTASIA 08/06/24 In Process 02:37 Acetaminophen Tablet PHA 08/06/24 In Process (Tylenol Tablet) 02:45 Bedrest With Bathroom ANASTASIA 08/06/24 In Process Privileg 02:37 Sequential ANASTASIA 08/06/24 In Process Compression Device Admit ADMIT 08/06/24 Transmitted 03:30 Nitroglycerin PHA 08/06/24 Transmitted Sublingual (Ntrostat 03:30 Morphine Sulfate PHA 08/06/24 Transmitted Injection 03:30 Notify Of Changes ANASTASIA 08/06/24 Transmitted From Base 03:30 Accounts Payable Analyst For ANASTASIA 08/06/24 Transmitted 24 Hours 03:30 Emergency Dysrhythmia ANASTASIA 08/06/24 Transmitted Protocol 03:30 Rhythm Strips Once ANASTASIA 08/06/24 Transmitted Every Shift 03:30 Oxygen By Nasal RT 5/3/25 Transmitted Cannula 03:30 Problem List: (1) Complicated UTI (urinary tract infection) (2) Diarrhea (3) Uncontrolled diabetes mellitus (4) Generalized weakness (5) Type 2 diabetes mellitus with hyperglycemia Date of Service: August 06, 2024 Billing Provider: JAI RENTERIA DNP Common Visit Codes: [id number] INP/OBS CARE (HIGH) JAI RENTERIA DNP August 06, 2024 03:32
[2024-08-06] MEDS: InsuLIN REG 1unit/0.01ml Soln (100units/ml) SC SCH ×2 (04:00→23:25)
[2024-08-06] MEDS: ACCU-CHEK COMFORT CURVE STRIP VI SCH ×2 (04:00→23:21)
[2024-08-06] MEDS: SODIUM CHLOR 0.9% PF (SALINE LOCK) 10ML VIAL/SYR IV SCH (06:12)
[2024-08-06 06:24] LABS: Basophils # (auto) 0.2 10 ^3/uL (0-0.2); Eosinophils # (auto) 0.5 10 ^3/uL (0-0.8); Mean Corpuscular Hgb Conc. 30.8 g/dL (32.0-36.0); Nucleated Red Blood Cells % 0.1 %; White Blood Cell 9.3 10^3/uL (4.4-10.8)
[2024-08-06 06:26] LABS: Basophils % (auto) 2.4 % (0.0-2.0); Eosinophils % (auto) 5.1 % (0.0-7.0); Hematocrit 35.6 % (36.0-46.0); Lymphocytes # (auto) 2.6 10 ^3/uL (0.4-5.4); Lymphocytes % (auto) 28.3 % (10.0-50.0); Mean Corpuscular Hemoglobin 28.4 pg (28.0-32.0); Mean Corpuscular Volume 92.1 fL (80.0-100.0); Monocytes # (auto) 0.6 10 ^3/uL (0-1.3); Monocytes % (auto) 6.4 % (0.0-12.0); Neutrophils # (auto) 5.4 10 ^3/uL (1.6-8.6); Neutrophils % (auto) 57.8 % (37.0-80.0); Platelet Count (auto) 386 10^3/uL (140-450); Red Blood Cells 3.87 10^6/uL (4.0-5.20); Red Cell Distribution Width 23.1 % (11.8-14.3)
[2024-08-06 06:45] LABS: Alkaline Phosphatase 112 U/L (46-116)
[2024-08-06 06:46] LABS: Albumin 3.2 g/dL (3.2-4.8); Anion Gap 11 (5-15); BUN/Creatinine Ratio 25.5 (10.0-20.0); Blood Urea Nitrogen 13 mg/dL (9-23); Potassium 3.5 mmol/L (3.5-5.1); Sodium 142 mmol/L (136-145)
[2024-08-06 06:47] LABS: Alanine Aminotransferase 64 U/L (7-40); Aspartate Aminotransferase 43 U/L (13-40); Bilirubin, Total < 0.2 mg/dL (0.2-1.0); Calcium 8.3 mg/dL (8.7-10.4); Carbon Dioxide 19 mmol/L (20-31); Chloride 112 mmol/L (98-107); Glucose 220 mg/dL (74-106); Total Protein 5.5 g/dL (5.7-8.2)
[2024-08-06] MEDS: FAMOTIDINE (10MG/ML) 2ML VL IV SCH (10:22)
[2024-08-06] MEDS: cefTRIAXone 1GM/50ML D5W 50 ML IV SCH (10:23)
[2024-08-06 11:47] VITALS: PULSE 89; RESP 19; O2SAT 100
[2024-08-06 17:41] VITALS: PULSE 91; RESP 18; O2SAT 99
[2024-08-06 20:00] VITALS: RESP 18; O2SAT 95
[2024-08-06 21:00] VITALS: BP 110/68; PULSE 87; RESP 16; TEMP 97.8; O2SAT 98
[2024-08-06] MEDS: traZODone HCL 50 MG TAB PO SCH (23:20)
[2024-08-06] MEDS: HYDROcodone-ACET 5/325MG TAB PO PRN (23:21)
[2024-08-07] VITALS (7 sets, daily range): BP systolic 92–131; BP diastolic 63–95; PULSE 87–131; RESP 16–20; TEMP 97.7–98.3; O2SAT 98–99
[2024-08-07 05:11] LABS: Basophils # (auto) 0.1 10 ^3/uL (0-0.2); Basophils % (auto) 1.4 % (0.0-2.0); Eosinophils # (auto) 0.4 10 ^3/uL (0-0.8); Eosinophils % (auto) 4.7 % (0.0-7.0); Hematocrit 39.8 % (36.0-46.0); Hemoglobin 11.7 g/dL (12.2-16.2); Lymphocytes # (auto) 2.7 10 ^3/uL (0.4-5.4); Lymphocytes % (auto) 29.2 % (10.0-50.0); Mean Corpuscular Hemoglobin 28.2 pg (28.0-32.0); Mean Corpuscular Hgb Conc. 29.3 g/dL (32.0-36.0); Monocytes # (auto) 0.7 10 ^3/uL (0-1.3); Monocytes % (auto) 7.2 % (0.0-12.0); Neutrophils # (auto) 5.3 10 ^3/uL (1.6-8.6); Neutrophils % (auto) 57.5 % (37.0-80.0); Nucleated Red Blood Cells % 0.2 %; Platelet Count (auto) 386 10^3/uL (140-450); Red Blood Cells 4.14 10^6/uL (4.0-5.20); Red Cell Distribution Width 24.4 % (11.8-14.3); White Blood Cell 9.3 10^3/uL (4.4-10.8)
[2024-08-07 05:42] LABS: Albumin 3.4 g/dL (3.2-4.8); Alkaline Phosphatase 105 U/L (46-116); Anion Gap 8 (5-15); BUN/Creatinine Ratio 31.8 (10.0-20.0); Blood Urea Nitrogen 14 mg/dL (9-23); Calcium 9.2 mg/dL (8.7-10.4); Carbon Dioxide 21 mmol/L (20-31); Potassium 4.4 mmol/L (3.5-5.1); Sodium 140 mmol/L (136-145)
[2024-08-07 05:45] LABS: Alanine Aminotransferase 69 U/L (7-40); Aspartate Aminotransferase 59 U/L (13-40); Bilirubin, Total < 0.2 mg/dL (0.2-1.0); Chloride 111 mmol/L (98-107); Glucose 67 mg/dL (74-106)
[2024-08-07] MEDS: INSULIN LANTUS (GLARGINE) 1 /0.01ml (100units/ml) SC SCH ×2 (09:32→21:45)
[2024-08-07] MEDS ORDERED: PROC10TA6 JT (21:31)
[2024-08-07] MEDS ORDERED: OLAN1TAB7 JT (21:31)
[2024-08-07] MEDS ORDERED: ASCO500T11 PO (21:31)
[2024-08-07] MEDS ORDERED: VANC125PO PO (21:31)
[2024-08-07] MEDS ORDERED: FER325T PO (21:31)
[2024-08-07] MEDS ORDERED: PANT1INJ3 PO (21:31)
[2024-08-07] MEDS ORDERED: OLAN20TA PO (21:31)
[2024-08-07] MEDS ORDERED: ATOR40TA52 JT (21:31)
[2024-08-08] VITALS (9 sets, daily range): BP systolic 97–134; BP diastolic 71–92; PULSE 103–123; RESP 15–18; TEMP 97.1–98.5; O2SAT 91–100
[2024-08-08] MEDS ORDERED: DULO1CAP5 PO (14:38)
[2024-08-08] MEDS ORDERED: OLAN5TAB (14:38)
--- NOTE | 2024-08-08 16:23 | DVHPN2 ---
Subjective Patient reports having two loose stools today. Reviewed: Care Plan, H&P, Labs, Medications Changes from previous H/P or p: No Changes Eyes: No Pain, No Vision change, No Conjunctivae inflammation, No Eyelid inflammation, No Other, No Redness ENT: No Ear pain, No Ear discharge, No Nose pain, No Nose discharge, No Nose congestion, No Mouth pain, No Mouth swelling, No Throat pain, No Throat swelling, No Other Cardiovascular: No Chest Pain, No Palpitations, No Orthopnea, No Paroxysmal Noc. Dyspnea, No Edema, No Lt Headedness, No Other Respiratory: No Cough, No Dry, No Shortness of breath, No SOB with excertion, No Wheezing, No Hemoptysis, No Pleuritic Pain, No Sputum, No Other Gastrointestinal: No Nausea, No Vomiting; Abdominal Pain, Diarrhea; No Constipation, No Melena, No Hematochezia, No Other Genitourinary: No Dysuria, No Frequency, No Incontinence, No Hematuria, No Retention, No Other Musculoskeletal: No other, No neck pain, No shoulder pain, No arm pain, No back pain, No hand pain, No leg pain, No foot pain Skin: No Rash, No Lesions, No Jaundice, No Bruising, No Other Objective Vitals Vital Signs Date Time Temp Pulse Resp B/P (MAP) Pulse Ox O2 Delivery O2 Flow Rate FiO2 08/08/24 13:00 98.0 103 18 131/86 (101) 98 98.0 08/08/24 08:13 Room Air* 0 21 Intake/Output Intake and Output 08/08/24 07:00 Intake Total 1978 ml Output Total 1000 ml Balance 978 ml Intake Oral 1928 ml IV Total 50 ml Output Urine/Stool Mix 1000 ml # Voids 4 # Bowel Movements 3 General Appearance: Alert, Oriented X3, Cooperative, No acute distress, mild distress HEENT: Atraumatic, PERRLA Cardiovascular: Normal S1, Normal S2 Abdomen: Normal bowel sounds, Soft Musculoskeletal: Normal sensory function, Normal motor function Neuro: Normal gait, Normal speech Skin: Dry, Intact Psych/Mental Status: Mental status NL, Mood NL Medications Current Medications Medications Dose Ordered Sig/Polo Route Start Time Stop Time Status Last Admin Dose Admin Famotidine 20 mg Q12HR IV 08/06/24 10:00 08/08/24 12:54 20 MG Trazodone HCl 50 mg HS PO 08/06/24 22:00 08/06/24 23:20 50 MG Ceftriaxone Sodium 50 ml @ 100 mls/hr DAILY@09 IV 08/06/24 09:00 08/08/24 08:13 100 MLS/HR Sodium Chloride 10 ml Q8HR IV 08/06/24 06:00 08/08/24 12:54 10 ML Acetaminophen/ Hydrocodone Bitart 1 tab Q4HP PRN PO 08/06/24 02:45 08/07/24 10:55 1 TAB Ondansetron HCl 4 mg Q4HP PRN IV 08/06/24 02:45 Docusate Sodium 100 mg BIDPRN PRN PO 08/06/24 02:45 Acetaminophen 650 mg Q6HP PRN PO 08/06/24 02:45 Nitroglycerin 0.4 mg Q5MINP PRN SL 08/06/24 03:30 Morphine Sulfate 2 mg Q30M PRN IV 08/06/24 03:30 Diagnostic Test (Pha) 1 strip Q6HR 08/07/24 00:00 08/08/24 11:50 1 STRIP Insulin Human Regular Q6HR SC 08/07/24 00:00 08/08/24 12:56 12 UNITS Dextrose 50 ml UD PRN IV 08/06/24 20:00 Duloxetine HCl 30 mg DAILY PO 08/09/24 10:00 Olanzapine 5 mg QPM PO 08/08/24 18:00 Saccharomyces Boulardii 250 mg BID PO 08/08/24 22:00 Laboratory Results Laboratory Tests 08/07/24 04:57 Urinalysis Test 08/06/24 00:37 Urine Color Colorless (Yellow) Urine Clarity Clear (Clear) Urine pH 6.0 (5.0-9.0) Urine Specific [place] 1.023 (1.001-1.035) Urine Protein Negative (Negative) Urine Ketones Negative (Negative) Urine Blood Negative /uL (Negative) Urine Nitrite Negative (Negative) Urine Bilirubin Negative (Negative) Urine Urobilinogen Normal mg/dL (Negative) Urine Leukocyte Esterase 2+ /uL (Negative) Urine RBC 7 /hpf (0 - 4) Urine Microscopic WBC 25 /HPF (0-5) H Urine Squamous Epithelial Cells Few /hpf (<5) Urine Bacteria None seen /hpf (None Seen) Urine Yeast (Budding) Moderate /hpf (None Seen) Urine Glucose 4+ mg/dL (Normal) H Microbiology Microbiology Date/Time Source Procedure Growth Status 08/07/24 23:56 Nose MRSA Screen - Final Complete 08/06/24 00:37 Voided Urine Urine Culture - Final Complete Labs and/or images reviewed: Labs reviewed by me, Image(s) reviewed by me Assessment/Plan Assessment/Plan Impression: -complicated cystitis -recent C diff colitis with current treatment at home -cachexia -diabetes mellitus -recent history of esophageal perforation -hypoglycemia Plan: -restart p.o. vancomycin -Florastor -continue IV Rocephin for UTI -regular insulin sliding scale with the aggressive coverage. Change Lantus to 10 units daily given noted hypoglycemia -stool for C diff -repeat labs in a.m. Total time spent with patient discussing and formulating plan of care: 35 minutes. This medical document was created using an electronic medical record system with [employer] dictation system. Although this document has been carefully reviewed, there may still be some phonetic and typographical errors. These areas are purely typographical due to imperfections of the software programs, and do not reflect any compromise in the patient's medical care. Plan discussed with: Patient, Other (RN) My Orders Orders - MAHAMED KABA NP Procedure Category Date Status Time Duloxetine Hcl PHA 08/09/24 In Process Capsule (Cymbalta 10:00 Olanzapine Tablet PHA 08/08/24 In Process (Zyprexa Tablet) 18:00 Florastor (S. PHA 08/08/24 In Process Boulardii) (Florastor) 22:00 Vancomycin Po PHA 08/08/24 Verified (Vancomycin 18:00 Basic Metabolic Panel LAB 08/09/24 Verified 04:00 Complete Blood Count LAB 08/09/24 Verified 04:00 Date of Service: August 08, 2024 Billing Provider: MAHAMED KABA NP Common Visit Codes: [id number] INP/OBS CARE(HIGH) MAHAMED KABA NP August 08, 2024 16:23
--- NOTE | 2024-08-08 17:17 | DVHPN2 ---
Reviewed: Care Plan, H&P, Labs, Medications Changes from previous H/P or p: No Changes General: Per HPI Eyes: No Pain, No Vision change, No Conjunctivae inflammation, No Eyelid inflammation, No Other, No Redness ENT: No Ear pain, No Ear discharge, No Nose pain, No Nose discharge, No Nose congestion, No Mouth pain, No Mouth swelling, No Throat pain, No Throat swelling, No Other Cardiovascular: No Chest Pain, No Palpitations, No Orthopnea, No Paroxysmal Noc. Dyspnea, No Edema, No Lt Headedness, No Other Respiratory: No Cough, No Dry, No Shortness of breath, No SOB with excertion, No Wheezing, No Hemoptysis, No Pleuritic Pain, No Sputum, No Other Gastrointestinal: No Nausea, No Vomiting; Abdominal Pain, Diarrhea; No Constipation, No Melena, No Hematochezia, No Other Genitourinary: No Dysuria, No Frequency, No Incontinence, No Hematuria, No Retention, No Other Musculoskeletal: No other, No neck pain, No shoulder pain, No arm pain, No back pain, No hand pain, No leg pain, No foot pain Skin: No Rash, No Lesions, No Jaundice, No Bruising, No Other Objective Vitals Vital Signs Date Time Temp Pulse Resp B/P (MAP) Pulse Ox O2 Delivery O2 Flow Rate FiO2 08/08/24 13:00 98.0 103 18 131/86 (101) 98 98.0 08/08/24 08:13 Room Air* 0 21 Intake/Output Intake and Output 08/08/24 07:00 Intake Total 1978 ml Output Total 1000 ml Balance 978 ml Intake Oral 1928 ml IV Total 50 ml Output Urine/Stool Mix 1000 ml # Voids 4 # Bowel Movements 3 General Appearance: Alert, Oriented X3, Cooperative, No acute distress, mild distress HEENT: Atraumatic, PERRLA Cardiovascular: Normal S1, Normal S2 Abdomen: Normal bowel sounds, Soft Musculoskeletal: Normal sensory function, Normal motor function Neuro: Normal gait, Normal speech Skin: Dry, Intact Psych/Mental Status: Mental status NL, Mood NL Medications Current Medications Medications Dose Ordered Sig/Polo Route Start Time Stop Time Status Last Admin Dose Admin Famotidine 20 mg Q12HR IV 08/06/24 10:00 08/08/24 12:54 20 MG Trazodone HCl 50 mg HS PO 08/06/24 22:00 5/3/25 23:20 50 MG Ceftriaxone Sodium 50 ml @ 100 mls/hr DAILY@09 IV 08/06/24 09:00 08/08/24 08:13 100 MLS/HR Sodium Chloride 10 ml Q8HR IV 08/06/24 06:00 08/08/24 12:54 10 ML Acetaminophen/ Hydrocodone Bitart 1 tab Q4HP PRN PO 08/06/24 02:45 08/07/24 10:55 1 TAB Ondansetron HCl 4 mg Q4HP PRN IV 08/06/24 02:45 Docusate Sodium 100 mg BIDPRN PRN PO 08/06/24 02:45 Acetaminophen 650 mg Q6HP PRN PO 08/06/24 02:45 Nitroglycerin 0.4 mg Q5MINP PRN SL 08/06/24 03:30 Morphine Sulfate 2 mg Q30M PRN IV 08/06/24 03:30 Diagnostic Test (Pha) 1 strip Q6HR 08/07/24 00:00 08/08/24 11:50 1 STRIP Insulin Human Regular Q6HR SC 08/07/24 00:00 08/08/24 12:56 12 UNITS Dextrose 50 ml UD PRN IV 08/06/24 20:00 Duloxetine HCl 30 mg DAILY PO 08/09/24 10:00 Olanzapine 5 mg QPM PO 08/08/24 18:00 Saccharomyces Boulardii 250 mg BID PO 08/08/24 22:00 Vancomycin HCl 250 mg QID PO 08/08/24 18:00 Laboratory Results Laboratory Tests 08/07/24 04:57 Urinalysis Test 08/06/24 00:37 Urine Color Colorless (Yellow) Urine Clarity Clear (Clear) Urine pH 6.0 (5.0-9.0) Urine Specific [place] 1.023 (1.001-1.035) Urine Protein Negative (Negative) Urine Ketones Negative (Negative) Urine Blood Negative /uL (Negative) Urine Nitrite Negative (Negative) Urine Bilirubin Negative (Negative) Urine Urobilinogen Normal mg/dL (Negative) Urine Leukocyte Esterase 2+ /uL (Negative) Urine RBC 7 /hpf (0 - 4) Urine Microscopic WBC 25 /HPF (0-5) H Urine Squamous Epithelial Cells Few /hpf (<5) Urine Bacteria None seen /hpf (None Seen) Urine Yeast (Budding) Moderate /hpf (None Seen) Urine Glucose 4+ mg/dL (Normal) H Microbiology Microbiology Date/Time Source Procedure Growth Status 08/07/24 23:56 Nose MRSA Screen - Final Complete 08/06/24 00:37 Voided Urine Urine Culture - Final Complete Labs and/or images reviewed: Labs reviewed by me, Image(s) reviewed by me Assessment/Plan Assessment/Plan The patient is a 54 years old female with past medical history of DM, GERD, hypertension, liver disease, depression, schizophrenia, and UTIs presented to [facility] ED for evaluation of high blood sugar. Patient is a frequent Flyer here multiple times for diabetic ketoacidosis. (1) Complicated UTI (urinary tract infection) (2) Diarrhea (3) Uncontrolled diabetes mellitus (4) Generalized weakness (5) Type 2 diabetes mellitus with hyperglycemia continue with current tx of UTI discussed with pt at beside Plan discussed with: Patient My Orders Orders - GERMAINE ANNE DO Procedure Category Date Status Time Clostridium Difficile JAIR 08/07/24 In Process Toxin 19:28 Date of Service: August 07, 2024 Billing Provider: GERMAINE ANNE DO Common Visit Codes: [id number] INP/OBS CARE(HIGH) GERMAINE ANNE DO August 08, 2024 17:16
[2024-08-08] MEDS: OLANZapine 5 MG TAB PO SCH (18:16)
[2024-08-08] MEDS: VANCOMYCIN HCL 250 MG CAP PO SCH (18:16)
[2024-08-08] MEDS: FLORASTOR (S. BOULARDII) 250 MG CAP PO SCH (21:44)
[2024-08-09] VITALS (8 sets, daily range): BP systolic 101–124; BP diastolic 51–81; PULSE 91–114; RESP 15–19; TEMP 97.5–98.6; O2SAT 96–100
[2024-08-09 08:43] LABS: Basophils # (auto) 0.2 10 ^3/uL (0-0.2); Basophils % (auto) 2.7 % (0.0-2.0); Eosinophils # (auto) 0.3 10 ^3/uL (0-0.8); Hematocrit 35.8 % (36.0-46.0); Hemoglobin 11.1 g/dL (12.2-16.2); Lymphocytes # (auto) 2.2 10 ^3/uL (0.4-5.4); Lymphocytes % (auto) 32.1 % (10.0-50.0); Mean Corpuscular Hemoglobin 28.5 pg (28.0-32.0); Mean Corpuscular Volume 92.1 fL (80.0-100.0); Monocytes # (auto) 0.5 10 ^3/uL (0-1.3); Monocytes % (auto) 7.7 % (0.0-12.0); Neutrophils # (auto) 3.6 10 ^3/uL (1.6-8.6); Neutrophils % (auto) 53.5 % (37.0-80.0); Nucleated Red Blood Cells % 0.1 %; Platelet Count (auto) 314 10^3/uL (140-450); Red Blood Cells 3.89 10^6/uL (4.0-5.20); White Blood Cell 6.7 10^3/uL (4.4-10.8)
[2024-08-09 08:44] LABS: Red Cell Distribution Width 23.1 % (11.8-14.3)
[2024-08-09 08:48] LABS: Anion Gap 11 (5-15); Chloride 107 mmol/L (98-107); Potassium 3.9 mmol/L (3.5-5.1)
[2024-08-09 08:54] LABS: BUN/Creatinine Ratio 26.5 (10.0-20.0); Blood Urea Nitrogen 22 mg/dL (9-23)
[2024-08-09 08:58] LABS: Carbon Dioxide 17 mmol/L (20-31); Glucose 388 mg/dL (74-106); Sodium 135 mmol/L (136-145)
[2024-08-09] MEDS: DULoxetine HCL 30 MG CAP PO SCH (10:11)
[2024-08-09] MEDS ORDERED: DEXTROSE (50%) 50ML SYRG IV PRN (13:45)
--- NOTE | 2024-08-09 15:26 | DVHPN2 ---
Subjective Patient reports having two loose stools today. Reviewed: Care Plan, H&P, Labs, Medications Changes from previous H/P or p: No Changes General: Per HPI Eyes: No Pain, No Vision change, No Conjunctivae inflammation, No Eyelid inflammation, No Other, No Redness ENT: No Ear pain, No Ear discharge, No Nose pain, No Nose discharge, No Nose congestion, No Mouth pain, No Mouth swelling, No Throat pain, No Throat swelling, No Other Cardiovascular: No Chest Pain, No Palpitations, No Orthopnea, No Paroxysmal Noc. Dyspnea, No Edema, No Lt Headedness, No Other Respiratory: No Cough, No Dry, No Shortness of breath, No SOB with excertion, No Wheezing, No Hemoptysis, No Pleuritic Pain, No Sputum, No Other Gastrointestinal: No Nausea, No Vomiting; Abdominal Pain, Diarrhea; No Constipation, No Melena, No Hematochezia, No Other Genitourinary: No Dysuria, No Frequency, No Incontinence, No Hematuria, No Retention, No Other Musculoskeletal: No other, No neck pain, No shoulder pain, No arm pain, No back pain, No hand pain, No leg pain, No foot pain Skin: No Rash, No Lesions, No Jaundice, No Bruising, No Other Objective Vitals Vital Signs Date Time Temp Pulse Resp B/P (MAP) Pulse Ox O2 Delivery O2 Flow Rate FiO2 08/09/24 13:00 98.6 98 19 118/81 (93) 97 98.6 08/08/24 20:00 Room Air* 0 21 Intake/Output Intake and Output 08/09/24 07:00 Intake Total 1200 ml Balance 1200 ml Intake Oral 1150 ml IV Total 50 ml # Voids 6 # Bowel Movements 1 General Appearance: Alert, Oriented X3, Cooperative, No acute distress, mild distress HEENT: Atraumatic, PERRLA Cardiovascular: Normal S1, Normal S2 Abdomen: Normal bowel sounds, Soft Musculoskeletal: Normal sensory function, Normal motor function Neuro: Normal gait, Normal speech Skin: Dry, Intact Psych/Mental Status: Mental status NL, Mood NL Medications Current Medications Medications Dose Ordered Sig/Polo Route Start Time Stop Time Status Last Admin Dose Admin Famotidine 20 mg Q12HR IV 08/06/24 10:00 08/09/24 10:12 20 MG Trazodone HCl 50 mg HS PO 08/06/24 22:00 08/08/24 21:43 50 MG Ceftriaxone Sodium 50 ml @ 100 mls/hr DAILY@09 IV 08/06/24 09:00 08/09/24 08:05 100 MLS/HR Sodium Chloride 10 ml Q8HR IV 08/06/24 06:00 08/09/24 11:22 10 ML Acetaminophen/ Hydrocodone Bitart 1 tab Q4HP PRN PO 08/06/24 02:45 08/09/24 10:12 1 TAB Ondansetron HCl 4 mg Q4HP PRN IV 08/06/24 02:45 Docusate Sodium 100 mg BIDPRN PRN PO 08/06/24 02:45 Acetaminophen 650 mg Q6HP PRN PO 08/06/24 02:45 Nitroglycerin 0.4 mg Q5MINP PRN SL 08/06/24 03:30 Morphine Sulfate 2 mg Q30M PRN IV 08/06/24 03:30 Diagnostic Test (Pha) 1 strip Q6HR 08/07/24 00:00 08/09/24 11:21 1 STRIP Dextrose 50 ml UD PRN IV 08/06/24 20:00 Duloxetine HCl 30 mg DAILY PO 08/09/24 10:00 08/09/24 10:11 30 MG Olanzapine 5 mg QPM PO 08/08/24 18:00 08/08/24 18:16 5 MG Saccharomyces Boulardii 250 mg BID PO 08/08/24 22:00 08/09/24 10:12 250 MG Vancomycin HCl 250 mg QID PO 08/08/24 18:00 08/09/24 11:21 250 MG Diagnostic Test (Pha) 1 strip IQ4HR 08/09/24 16:00 Insulin Human Regular IQ4HR SC 08/09/24 16:00 Dextrose 50 ml UD PRN IV 08/09/24 13:45 Insulin Glargine 10 units HS SC 08/09/24 22:00 Laboratory Results Laboratory Tests 08/09/24 07:19 Chemistry Test 08/09/24 07:19 Calcium Level 9.0 mg/dL (8.7-10.4) Urinalysis Test 08/06/24 00:37 Urine Color Colorless (Yellow) Urine Clarity Clear (Clear) Urine pH 6.0 (5.0-9.0) Urine Specific [place] 1.023 (1.001-1.035) Urine Protein Negative (Negative) Urine Ketones Negative (Negative) Urine Blood Negative /uL (Negative) Urine Nitrite Negative (Negative) Urine Bilirubin Negative (Negative) Urine Urobilinogen Normal mg/dL (Negative) Urine Leukocyte Esterase 2+ /uL (Negative) Urine RBC 7 /hpf (0 - 4) Urine Microscopic WBC 25 /HPF (0-5) H Urine Squamous Epithelial Cells Few /hpf (<5) Urine Bacteria None seen /hpf (None Seen) Urine Yeast (Budding) Moderate /hpf (None Seen) Urine Glucose 4+ mg/dL (Normal) H Microbiology Microbiology Date/Time Source Procedure Growth Status 08/07/24 23:56 Nose MRSA Screen - Final Complete 08/06/24 00:37 Voided Urine Urine Culture - Final Complete Labs and/or images reviewed: Labs reviewed by me, Image(s) reviewed by me Assessment/Plan Assessment/Plan Impression: -complicated cystitis -recent C diff colitis with current treatment at home -cachexia -diabetes mellitus -recent history of esophageal perforation, with placement of esophageal stent -hypoglycemia Plan: -continue p.o. vancomycin. Stop IV Rocephin. -stool for C diff currently pending. -increase Lantus to 15 units daily, aggressive insulin sliding scale every 4 hours -Florastor -regular insulin sliding scale with the aggressive coverage. Change Lantus to 10 units daily given noted hypoglycemia -repeat labs in a.m. Total time spent with patient discussing and formulating plan of care: 35 minutes. This medical document was created using an electronic medical record system with [employer] dictation system. Although this document has been carefully reviewed, there may still be some phonetic and typographical errors. These areas are purely typographical due to imperfections of the software programs, and do not reflect any compromise in the patient's medical care. Plan discussed with: Patient, Other (RN) My Orders Orders - MAHAMED KABA NP Procedure Category Date Status Time Vancomycin Po PHA 08/08/24 In Process (Vancomycin 18:00 Glucose Blood PHA 08/09/24 In Process (Accu-Chek Comfort 16:00 Insulin R (Human) PHA 08/09/24 In Process (Insulin R) 16:00 Dextrose 50% Syringe PHA 08/09/24 In Process 13:45 Insulin Lantus PHA 08/09/24 In Process (Glargine) (Lantus) 22:00 Date of Service: August 09, 2024 Billing Provider: MAHAMED KABA NP Common Visit Codes: [id number] INP/OBS CARE(HIGH) MAHAMED KABA NP August 09, 2024 15:26
[2024-08-09] MEDS: HYDROcodone-ACET 10/325MG TAB PO PRN (16:33)
[2024-08-09] MEDS: ACCU-CHEK COMFORT CURVE STRIP VI SCH (16:43)
[2024-08-09] MEDS: InsuLIN REG 1unit/0.01ml Soln (100units/ml) SC SCH (16:49)
--- NOTE | 2024-08-09 17:59 | MEDREC ---
[facility] Intervention Section I [facility] Intervention: Deescalate AB based on CS (C.DIFF NEGATIVE � PLEASE CONSIDER D/C VANCOMYCIN PO ) ILENE MILLER PHARMACIST August 09, 2024 17:59
[2024-08-09] MEDS: INSULIN LANTUS (GLARGINE) 1 /0.01ml (100units/ml) SC SCH (22:00)
[2024-08-10 05:00] VITALS: BP 92/62; PULSE 97; RESP 18; TEMP 98.3; O2SAT 99
[2024-08-10 08:00] VITALS: PULSE 94; RESP 17; O2SAT 94
[2024-08-10 08:09] LABS: Potassium 3.7 mmol/L (3.5-5.1); Sodium 140 mmol/L (136-145)
[2024-08-10 08:10] LABS: Anion Gap 11 (5-15); Calcium 10.1 mg/dL (8.7-10.4); Carbon Dioxide 21 mmol/L (20-31)
[2024-08-10 08:16] LABS: Blood Urea Nitrogen 29 mg/dL (9-23); Chloride 108 mmol/L (98-107); Glucose 160 mg/dL (74-106)
[2024-08-10 09:00] VITALS: BP 91/58; PULSE 94; RESP 17; TEMP 98.4; O2SAT 94
[2024-08-10 13:00] VITALS: BP 109/76; PULSE 89; RESP 18; TEMP 98.1; O2SAT 100
--- NOTE | 2024-08-10 13:10 | DVHDS2 ---
Discharge Summary Date of Admission August 06, 2024 at 03:30 Date of Discharge: August 10, 2024 Admitting Diagnosis UTI Labs/Diagnostic Data: Laboratory Results Test 08/10/24 08:57 08/10/24 07:12 08/09/24 07:19 08/07/24 04:57 POC Glucose 108 mg/dl (70-106) Sodium Level 140 mmol/L (136-145) Potassium Level 3.7 mmol/L (3.5-5.1) Chloride Level 108 mmol/L (98-107) Carbon Dioxide Level 21 mmol/L (20-31) Anion Gap 11 (5-15) Blood Urea Nitrogen 29 mg/dL (9-23) Creatinine 0.69 mg/dL (0.550-1.02) Glomerular Filtration Rate Calc 104 mL/min (>90) BUN/Creatinine Ratio 42.0 (10.0-20.0) Serum Glucose 160 mg/dL (74-106) Calcium Level 10.1 mg/dL (8.7-10.4) White Blood Count 6.7 10^3/uL (4.4-10.8) Red Blood Count 3.89 10^6/uL (4.0-5.20) Hemoglobin 11.1 g/dL (12.2-16.2) Hematocrit 35.8 % (36.0-46.0) Mean Corpuscular Volume 92.1 fL (80.0-100.0) Mean Corpuscular Hemoglobin 28.5 pg (28.0-32.0) Mean Corpuscular Hemoglobin Concent 31.0 g/dL (32.0-36.0) Red Cell Distribution Width 23.1 % (11.8-14.3) Platelet Count 314 10^3/uL (140-450) Mean Platelet Volume 7.9 fL (6.9-10.8) Neutrophils (%) (Auto) 53.5 % (37.0-80.0) Lymphocytes (%) (Auto) 32.1 % (10.0-50.0) Monocytes (%) (Auto) 7.7 % (0.0-12.0) Eosinophils (%) (Auto) 4.0 % (0.0-7.0) Basophils (%) (Auto) 2.7 % (0.0-2.0) Neutrophils # (Auto) 3.6 10 ^3/uL (1.6-8.6) Lymphocytes # (Auto) 2.2 10 ^3/uL (0.4-5.4) Monocytes # (Auto) 0.5 10 ^3/uL (0-1.3) Eosinophils # (Auto) 0.3 10 ^3/uL (0-0.8) Basophils # (Auto) 0.2 10 ^3/uL (0-0.2) Nucleated Red Blood Cells 0.1 % Total Bilirubin < 0.2 mg/dL (0.2-1.0) Aspartate Amino Transferase (AST) 59 U/L (13-40) Alanine Aminotransferase (ALT) 69 U/L (7-40) Alkaline Phosphatase 105 U/L (46-116) Total Protein 6.0 g/dL (5.7-8.2) Albumin 3.4 g/dL (3.2-4.8) Test 08/06/24 02:06 08/06/24 00:37 08/06/24 00:12 Lactic Acid Level 2.1 mmol/L (0.4-2.0) Urine Color Colorless (Yellow) Urine Clarity Clear (Clear) Urine pH 6.0 (5.0-9.0) Urine Specific [place] 1.023 (1.001-1.035) Urine Protein Negative (Negative) Urine Ketones Negative (Negative) Urine Blood Negative /uL (Negative) Urine Nitrite Negative (Negative) Urine Bilirubin Negative (Negative) Urine Urobilinogen Normal mg/dL (Negative) Urine Leukocyte Esterase 2+ /uL (Negative) Urine RBC 7 /hpf (0 - 4) Urine Microscopic WBC 25 /HPF (0-5) Urine Squamous Epithelial Cells Few /hpf (<5) Urine Bacteria None seen /hpf (None Seen) Urine Yeast (Budding) Moderate /hpf (None Seen) Urine Glucose 4+ mg/dL (Normal) Blood Gas Specimen Type Venous Blood Gas Sample Site Other Blood Gas Patient Temperature 37.0 Arterial Blood Date Drawn [id number] Stephan Test N/a Venous Blood pH 7.342 (7.320-7.430) Venous Blood pCO2 at Patient Temp 30.7 mmHg (38.0-54.0) Venous Blood pO2 at Patient Temp 66.5 mmHg (23.0-48.0) Venous Blood HCO3 16.3 mmol/L (22.0-29.0) Venous Blood Base Excess -8.1 mmol/L (-2.0-3.0) Blood Gas Modality Room air FiO2 % 21.0 Beta-Hydroxybutyric Acid 0.130 mmol/L (< 0.4) Other Laboratory Tests 08/10/24 07:12 08/09/24 07:19 Brief Hx & Hospital Course: History of Present Illness The patient is a 54 years old female with past medical history of DM, GERD, hypertension, liver disease, depression, schizophrenia, and UTIs presented to [facility] ED for evaluation of high blood sugar. Patient is a frequent Flyer here multiple times for diabetic ketoacidosis. Patient also states that she is currently being managed for her Clostridium difficile infection, presenting with abdominal pain and diarrhea. Patient was seen and evaluated in the ED, laboratory data shows WBC 9.6, hemoglobin 9.7, hematocrit 31.0, platelets 411, sodium 138, potassium 3.6, BUN 13, creatinine 0.69, glucose 500, calcium 7.9, lactic acid 2.7, acetone 0.130. Patient was given regular insulin 10 units subQ x1, please see medication orders section in the computer. On my assessment, patient denied chest pain, no headache, no dizziness, no shortness of breath, no nausea, no vomiting, no fever, no chills. Patient was admitted for further evaluation and medical management. Course of hospitalization: Patient was having multiple loose stools while in the hospital. Review of the patient's medication reconciliation reveals that she is currently on treatment for C diff. Patient was restarted on p.o. vancomycin, as well as Florastor. Patient's stools are negative for C diff. patient was also started on IV Rocephin by admitting hospitalist for UTI which was stopped after patient's symptoms improved. Patient was also noted to have all labile blood sugars, probably secondary to patient's noncompliance with oral intake and consistent carbohydrate diet, with ? use of patient's home medications in her room. Patient's blood blood sugar has improved over the past 24 hours. Patient will be discharged to a women's nursing home as she states that her sister is not allowing her to come back to live with her discharge. Social service consultation was placed for this matter. She will continue all previous home medications. All questions answered. Physical examination General: Alert and Oriented x3. No acute distress. Well-nourished. Eyes: EOMI. Anicteric. HENT: Moist mucous membranes. Lungs: Clear to auscultation bilaterally. No accessory muscle use. Cardiovascular: Regular rate and rhythm. No murmur. No JVD. Abdomen: Soft, non-tender and non-distended. No palpable masses. Extremities: No edema. Non-tender. Skin: No rashes or lesions. Warm. Neurologic: No focal neurological deficits. CN II-XII grossly intact, but not individually tested. Psychiatric: Cooperative. Appropriate mood and affect. Total time spent with patient discussing and formulating plan of care: 35 minutes. This medical document was created using an electronic medical record system with [employer] dictation system. Although this document has been carefully reviewed, there may still be some phonetic and typographical errors. These areas are purely typographical due to imperfections of the software programs, and do not reflect any compromise in the patient's medical care. Condition at Discharge: Poor Final Diagnosis/Problems List UTI, Severe Hyperglycemia Secondary diagnosis: -complicated cystitis -recent C diff colitis with current treatment at home -cachexia -diabetes mellitus -recent history of esophageal perforation, with placement of esophageal stent -hypoglycemia Discharge Disposition: Home Discharge Instruct/Medications Diet: Consistent carbohydrate Activity: No Restrictions, As Tolerated Medications: continue with home medications 36 Discharge Statement: "Patient was advised to return to the ER or call 911 if any headaches, dizziness, shortness of breath, chest pain, abdominal pain, bleeding, fevers, or worsening of medical condition. Patient was counseled about treatment plan, medications, possible side effects, patient�verbalized understanding. All questions were answered to the best of my ability. This discharge took greater then 30 minutes in planning, reviewing documentation, counseling the patient, and discussing with other team members." ASSESSMENT ASSESSMENT Assessment UTI, Severe Hyperglycemia Date of Service: August 10, 2024 Billing Provider: MAHAMED KABA NP Common Visit Codes: [id number] DISCH DAY >30min MAHAMED KABA NP August 10, 2024 13:10
[2024-08-10 17:00] VITALS: BP 103/69; PULSE 96; RESP 18; TEMP 98.1; O2SAT 97
[2024-08-10 21:00] VITALS: BP 102/61; PULSE 86; RESP 18; TEMP 97.6; O2SAT 98
[2024-08-11] VITALS (7 sets, daily range): BP systolic 99–122; BP diastolic 58–86; PULSE 90–111; RESP 17–20; TEMP 97.7–98.5; O2SAT 95–97
--- NOTE | 2024-08-11 11:01 | DVHPN2 ---
Subjective Patient denies any symptoms at this time. Reviewed: Care Plan, H&P, Labs, Medications Changes from previous H/P or p: No Changes General: Per HPI Eyes: No Pain, No Vision change, No Conjunctivae inflammation, No Eyelid inflammation, No Other, No Redness ENT: No Ear pain, No Ear discharge, No Nose pain, No Nose discharge, No Nose congestion, No Mouth pain, No Mouth swelling, No Throat pain, No Throat swelling, No Other Cardiovascular: No Chest Pain, No Palpitations, No Orthopnea, No Paroxysmal Noc. Dyspnea, No Edema, No Lt Headedness, No Other Respiratory: No Cough, No Dry, No Shortness of breath, No SOB with excertion, No Wheezing, No Hemoptysis, No Pleuritic Pain, No Sputum, No Other Gastrointestinal: No Nausea, No Vomiting; Abdominal Pain, Diarrhea; No Constipation, No Melena, No Hematochezia, No Other Genitourinary: No Dysuria, No Frequency, No Incontinence, No Hematuria, No Retention, No Other Musculoskeletal: No other, No neck pain, No shoulder pain, No arm pain, No back pain, No hand pain, No leg pain, No foot pain Skin: No Rash, No Lesions, No Jaundice, No Bruising, No Other Objective Vitals Vital Signs Date Time Temp Pulse Resp B/P (MAP) Pulse Ox O2 Delivery O2 Flow Rate FiO2 08/11/24 09:03 98.5 90 20 102/58 (73) 97 98.5 08/11/24 08:15 Room Air* 0 21 Intake/Output Intake and Output 08/11/24 07:00 Intake Total 2700 ml Balance 2700 ml Intake Oral 2700 ml # Voids 7 # Bowel Movements 2 General Appearance: Alert, Oriented X3, Cooperative, No acute distress, mild distress HEENT: Atraumatic, PERRLA Cardiovascular: Normal S1, Normal S2 Abdomen: Normal bowel sounds, Soft Musculoskeletal: Normal sensory function, Normal motor function Neuro: Normal gait, Normal speech Skin: Dry, Intact Psych/Mental Status: Mental status NL, Mood NL Medications Current Medications Medications Dose Ordered Sig/Polo Route Start Time Stop Time Status Last Admin Dose Admin Famotidine 20 mg Q12HR IV 08/06/24 10:00 08/11/24 10:07 20 MG Trazodone HCl 50 mg HS PO 08/06/24 22:00 08/10/24 21:37 50 MG Ceftriaxone Sodium 50 ml @ 100 mls/hr DAILY@09 IV 08/06/24 09:00 08/11/24 10:07 100 MLS/HR Sodium Chloride 10 ml Q8HR IV 08/06/24 06:00 08/11/24 05:07 10 ML Ondansetron HCl 4 mg Q4HP PRN IV 08/06/24 02:45 Docusate Sodium 100 mg BIDPRN PRN PO 08/06/24 02:45 Acetaminophen 650 mg Q6HP PRN PO 08/06/24 02:45 Nitroglycerin 0.4 mg Q5MINP PRN SL 08/06/24 03:30 Morphine Sulfate 2 mg Q30M PRN IV 08/06/24 03:30 Duloxetine HCl 30 mg DAILY PO 08/09/24 10:00 08/11/24 10:07 30 MG Olanzapine 5 mg QPM PO 08/08/24 18:00 08/10/24 18:10 5 MG Saccharomyces Boulardii 250 mg BID PO 08/08/24 22:00 08/11/24 10:07 250 MG Vancomycin HCl 250 mg QID PO 08/08/24 18:00 08/11/24 05:07 250 MG Diagnostic Test (Pha) 1 strip IQ4HR 08/09/24 16:00 08/11/24 07:56 1 STRIP Insulin Human Regular IQ4HR SC 08/09/24 16:00 08/11/24 07:55 8 UNITS Dextrose 50 ml UD PRN IV 08/09/24 13:45 Insulin Glargine 10 units HS DC 08/09/24 22:00 08/10/24 21:44 10 UNITS Acetaminophen/ Hydrocodone Bitart 1 tab Q6HP PRN PO 08/09/24 15:45 08/11/24 05:27 1 TAB Laboratory Results Laboratory Tests 08/09/24 07:19 08/10/24 07:12 Urinalysis Test 08/06/24 00:37 Urine Color Colorless (Yellow) Urine Clarity Clear (Clear) Urine pH 6.0 (5.0-9.0) Urine Specific [place] 1.023 (1.001-1.035) Urine Protein Negative (Negative) Urine Ketones Negative (Negative) Urine Blood Negative /uL (Negative) Urine Nitrite Negative (Negative) Urine Bilirubin Negative (Negative) Urine Urobilinogen Normal mg/dL (Negative) Urine Leukocyte Esterase 2+ /uL (Negative) Urine RBC 7 /hpf (0 - 4) Urine Microscopic WBC 25 /HPF (0-5) H Urine Squamous Epithelial Cells Few /hpf (<5) Urine Bacteria None seen /hpf (None Seen) Urine Yeast (Budding) Moderate /hpf (None Seen) Urine Glucose 4+ mg/dL (Normal) H Microbiology Microbiology Date/Time Source Procedure Growth Status 08/08/24 06:10 Stool Clostridium difficile Toxin Assay - Final Complete 08/07/24 23:56 Nose MRSA Screen - Final Complete 08/06/24 00:37 Voided Urine Urine Culture - Final Complete Labs and/or images reviewed: Labs reviewed by me, Image(s) reviewed by me Assessment/Plan Assessment/Plan Impression: -complicated cystitis -recent C diff colitis with current treatment at home -cachexia -diabetes mellitus -recent history of esophageal perforation, with placement of esophageal stent -hypoglycemia Plan: -discontinue antibiotic therapy. C diff negative. -continue current regimen for diabetes mellitus -Florastor -regular insulin sliding scale with the aggressive coverage. Change Lantus to 10 units daily given noted hypoglycemia -pain management -discharge once family welfare social work professor establishes recuperative care Total time spent with patient discussing and formulating plan of care: 35 minutes. This medical document was created using an electronic medical record system with [employer] dictation system. Although this document has been carefully reviewed, there may still be some phonetic and typographical errors. These areas are purely typographical due to imperfections of the software programs, and do not reflect any compromise in the patient's medical care. Plan discussed with: Patient, Other (RN) My Orders Orders - MAHAMED KABA NP Procedure Category Date Status Time Discharge DISCHARGE 08/10/24 Transmitted 11:54 * Residential Instructor CONS 08/10/24 Transmitted Consult * Residential Instructor CONS 08/10/24 Transmitted Consult Date of Service: August 11, 2024 Billing Provider: MAHAMED KABA NP Common Visit Codes: [id number] INP/OBS CARE(MOD) MAHAMED KABA NP August 11, 2024 11:01
[2024-08-11] MEDS ORDERED: INSU100I54 SC (15:31)
[2024-08-11] MEDS ORDERED: INSU1INJ19 SC (15:31)
[2024-08-11] MEDS ORDERED: LANC-347 XX (15:33)
[2024-08-11] MEDS ORDERED: BLOO1KIT60 XX (15:33)
[2024-08-12 01:00] VITALS: BP 102/65; PULSE 78; RESP 16; TEMP 97.5; O2SAT 99
[2024-08-12 05:00] VITALS: BP 92/59; PULSE 73; RESP 16; TEMP 97.6; O2SAT 96
[2024-08-12 08:00] VITALS: PULSE 107; RESP 16; O2SAT 99
[2024-08-12 08:49] VITALS: BP 100/70; PULSE 107; RESP 16; TEMP 98.1; O2SAT 99
[2024-08-12 09:40] VITALS: BP 100/70; PULSE 107; RESP 16; TEMP 98.1; O2SAT 99
== END 2024-08-12 10:19 | disposition home or self-care (01) | DRG 463 ==
LOC: ER 23:36 → EDBD 23:36 → OVERFLOW 08-06 03:30 → EAST 08-06 17:35
PROVIDERS: ADMIT Nurse Practitioner Acute Care; ATTEND Nurse Practitioner Acute Care
DX: N30.00 Acute cystitis without hematuria (principal); R64 Cachexia; E11.649 Type 2 diabetes mellitus with hypoglycemia without coma; E11.65 Type 2 diabetes mellitus with hyperglycemia; I10 Essential (primary) hypertension; F20.9 Schizophrenia, unspecified; F32.A Depression, unspecified; K21.9 Gastro-esophageal reflux disease without esophagitis; Z68.1 Body mass index [BMI] 19.9 or less, adult; F41.9 Anxiety disorder, unspecified; F17.210 Nicotine dependence, cigarettes, uncomplicated; F15.90 Other stimulant use, unspecified, uncomplicated; F12.90 Cannabis use, unspecified, uncomplicated; Z59.00 Homelessness unspecified; Z90.710 Acquired absence of both cervix and uterus; Z79.4 Long term (current) use of insulin; Z88.1 Allergy status to other antibiotic agents; Z88.3 Allergy status to other anti-infective agents
CPT/HCPCS: 36415; 36600; 80048; 80053; 81001; 82010; 82805; 82962; 83605; 85025; 87081; 87086; 87493; 96361; 96374; 96375; 97163; 99291; G0378; J1815; J2405; J3490